=== PATIENT | female | born 1950 | race Asian ===

== ENCOUNTER → 2016-09-20 | Outpatient (CLI) | payer BC ==
[~2016-09-20] MED LIST: ALPR0.25 PO; AMLO-110 PO; ASPI325T39 PO; CALC500C70 PO; CALCTAB5 PO; CHOL1TAB52 PO; CYAN10005 SL; CYCL10TA6 PO; CYM/60 PO; CYM60 PO; EPP3/2 IM; FOLI400T41 PO; IMD/2 PO; MISC4CAP PO; MULT-513 PO; NXM/40 PO; OXYC-57 PO; PREG1CAP70 PO; TRAM-10 PO
== END | disposition home or self-care (01) ==
LOC: C.PAPS 14:12
PROVIDERS: ATTEND Obstetrics & Gynecology
DX: Z12.4 Encounter for screening for malignant neoplasm of cervix (principal)

== ENCOUNTER → 2016-10-17 | Outpatient (CLI) | payer OTHER, MEDICARE ==
--- NOTE | 2016-10-17 12:44 | DIAGNOSTIC IMAGING REPORT ---
RIGHT INJ MAJOR JN SHLDR,HIP,KNEE CLINICAL HISTORY: RT HIP DJD Rightpain COMPARISON STUDY: None FLUOROSCOPY TIME: 16 seconds. FINDINGS: Following informed consent, a 22-gauge needle was advanced under fluoroscopic guidance to the right hip. A test injection confirmed its intra-articular location. This is successfully followed by a steroid injection per order IMPRESSION: Right hip therapeutic steroid injection The above report was generated using voice recognition software. It may contain grammatical, syntax or spelling errors. Electronically signed by: Chaz Link M.D. 10/17/2016 12:42 PM Dictated Date/Time: 10/17/2016 12:40 PM
== END | disposition home or self-care (01) ==
LOC: C.RADBC 09:57
PROVIDERS: ATTEND Orthopaedic Surgery Sports Medicine
DX: M16.11 Unilateral primary osteoarthritis, right hip (principal)

== ENCOUNTER → 2016-10-24 | Outpatient (CLI) | payer OTHER, MEDICARE ==
[2016-10-24 15:08] LABS: BASO % 0.5 %; BASO ABS # 0.03 K/uL (0-0.2); COMPLETE YES; HEMATOCRIT 38.9 % (37-47); IG% 0.2 %; LYMPH % 13.8 %; MEAN CELL VOLUME 90.7 fL (80-100); MEAN CORPUSCULAR HEMOGLOBIN 30.3 pg (25-34); MEAN CORPUSCULAR HGB CONC 33.4 g/dl (32-36); MEAN PLATELET VOLUME 9.6 fL (7.4-10.4); MONO % 3.5 %; PLATELET COUNT 413 K/uL (130-400); RED BLOOD COUNT 4.29 M/uL (4.2-5.4); WHITE BLOOD COUNT 6.54 K/uL (4.8-10.8)
[2016-10-24 15:14] LABS: ALT/SGPT 30 U/L (12-78); AST/SGOT 30 U/L (15-37); BLOOD UREA NITROGEN 13 mg/dl (7-18); BUN/CREATININE RATIO 17.9 (10-20); CARBON DIOXIDE 33 mmol/L (21-32); CHLORIDE 102 mmol/L (98-107); CHOLESTEROL 209 mg/dl (0-200); CREATININE 0.71 mg/dl (0.60-1.20); GLUCOSE 126 mg/dl (70-99); POTASSIUM 4.1 mmol/L (3.5-5.1); SODIUM 137 mmol/L (136-145)
[2016-10-24 15:25] LABS: CHOLESTEROL/HDL RATIO 2.2; HDL CHOLESTEROL 96 mg/dl; LDL CHOLESTEROL CALCULATED 91 mg/dl; TRIGLYCERIDES 111 mg/dl (0-150); VERY LOW DENSITY LIPOPROT CALC 22 mg/dl
== END | disposition home or self-care (01) ==
LOC: C.LAB1850 14:02
PROVIDERS: ATTEND Internal Medicine
DX: I10 Essential (primary) hypertension (principal); M25.50 Pain in unspecified joint; E55.9 Vitamin D deficiency, unspecified; Z79.899 Other long term (current) drug therapy

== ENCOUNTER → 2016-10-24 | Outpatient (CLI) | payer OTHER, MEDICARE ==
--- NOTE | 2016-10-25 12:48 | MAMMOGRAPHY REPORT ---
BILATERAL DIGITAL SCREENING MAMMOGRAM TOMOSYNTHESIS WITH CAD: 10/24/2016 CLINICAL HISTORY: Routine screening. Patient has no complaints. TECHNIQUE: Breast tomosynthesis in addition to standard 2D mammography was performed. Current study was also evaluated with a Computer Aided Detection (CAD) system. COMPARISON: Comparison is made to exams dated: 01/13/2015 mammogram, 11/19/2013 mammogram, 11/19/2013 mammogram, 10/09/2012 mammogram, 05/17/2011 mammogram - [facility], and 11/16/2008. BREAST COMPOSITION: There are scattered areas of fibroglandular density in both breasts. FINDINGS: No suspicious masses, calcifications, or areas of architectural distortion are noted in ei ther breast. There has been no significant interval change compared to prior exams. Scattered bilater al benign-appearing calcifications are not significantly changed. IMPRESSION: ACR BI-RADS CATEGORY 2: BENIGN There is no mammographic evidence of malignancy. A 1 year screening mammogram is recommended. The pa tient will receive written notification of the results. Approximately 10% of breast cancers are not detected with mammography. A negative mammographic report should not delay biopsy if a clinically suggestive mass is present. Sona Franklin M.D. ah/:10/24/2016 14:41:25 Carpet Inspector Finished: Aida JUSTICE(Nicki)(Mon[place]), [facility] letter sent: Normal 1/2 BI-RADS Code: ACR BI-RADS Category 2: Benign
== END | disposition home or self-care (01) ==
LOC: C.MAMM 13:37
PROVIDERS: ATTEND Obstetrics & Gynecology
DX: Z12.31 Encounter for screening mammogram for malignant neoplasm of breast (principal); I10 Essential (primary) hypertension; M25.50 Pain in unspecified joint; E55.9 Vitamin D deficiency, unspecified; Z79.899 Other long term (current) drug therapy

== ENCOUNTER 2017-01-11 06:34 | Inpatient (IN) | payer OTHER, MEDICARE ==
[2016-12-20 09:09] VITALS: BMI 27.0
--- NOTE | 2016-12-20 09:47 | PAT Medication Instructions ---
Service Date Dec 20, 2016. Current Home Medication List Alprazolam (Xanax), 0.25 MG PO Q12 PRN for Anxiety Amlodipine (Norvasc), 5 MG PO QAM Aspirin (Aspirin Ec), 650 MG PO Q6 Calcium/Vitamin D (Os-Ilir 500 Plus D), 1 TAB PO TID Cholecalciferol (D 5000), 5,000 INTERUNIT PO QAM Cyclobenzaprine Hcl (Flexeril), 10 MG PO BID PRN for SPASM Duloxetine HCl (Cymbalta), 60 MG PO BID Epinephrine (Epipen), 0.3 MG IM UD Esomeprazole Magnesium (Nexium), 40 MG PO HS Loperamide Hcl (Imodium), 2 MG PO PRN PRN for Diarrhea Multivitamins/Minerals (Mvi With Minerals), 1 TAB PO BID Oxycodone/Acetaminophen 5MG/325MG (Percocet 5MG/325MG), 1 TAB PO TID Pregabalin (Lyrica), 150 MG PO BID Tramadol (Ultram), 1 TAB PO TID PRN for Pain Medication Instructions For Your Scheduled Surgery - Continue as directed: Epinephrine (Epipen), 0.3 MG IM UD -Hold the following medications per your surgeon's instructions: Aspirin (Aspirin Ec), 650 MG PO Q6 Tramadol (Ultram), 1 TAB PO TID PRN for Pain - Hold the following medications the morning of surgery: Loperamide Hcl (Imodium), 2 MG PO PRN PRN for Diarrhea Multivitamins/Minerals (Mvi With Minerals), 1 TAB PO BID Cyclobenzaprine Hcl (Flexeril), 10 MG PO BID PRN for SPASM Calcium/Vitamin D (Os-Ilir 500 Plus D), 1 TAB PO TID Cholecalciferol (D 5000), 5,000 INTERUNIT PO QAM - Take the following medications the morning of surgery with a sip of water: Pregabalin (Lyrica), 150 MG PO BID Alprazolam (Xanax), 0.25 MG PO Q12 PRN for Anxiety (if needed) Amlodipine (Norvasc), 5 MG PO QAM Duloxetine HCl (Cymbalta), 60 MG PO BID Oxycodone/Acetaminophen 5MG/325MG (Percocet 5MG/325MG), 1 TAB PO TID (if needed , can take up to four hours prior to surgery) - Take the following medications as scheduled the night before surgery: Pregabalin (Lyrica), 150 MG PO BID Alprazolam (Xanax), 0.25 MG PO Q12 PRN for Anxiety (if needed) Esomeprazole Magnesium (Nexium), 40 MG PO HS Multivitamins/Minerals (Mvi With Minerals), 1 TAB PO BID Duloxetine HCl (Cymbalta), 60 MG PO BID Cyclobenzaprine Hcl (Flexeril), 10 MG PO BID PRN for SPASM (if needed) Calcium/Vitamin D (Os-Ilir 500 Plus D), 1 TAB PO TID Oxycodone/Acetaminophen 5MG/325MG (Percocet 5MG/325MG), 1 TAB PO TID If you have any questions please call us at [phone] or [phone] or [phone]
--- NOTE | 2016-12-20 10:39 | DIAGNOSTIC IMAGING REPORT ---
CHEST 2 VIEWS ROUTINE HISTORY: 66 years-old Female PAT preoperative exam. No acute chest complaints. COMPARISON: Chest radiograph 05/24/2015 TECHNIQUE: Frontal and lateral views of the chest FINDINGS: Cardiomediastinal and hilar silhouettes are within normal limits. No pneumothorax, pleural effusion or focal airspace consolidation. There is no overt pulmonary edema. Electrode leads overlie the midthoracic spine extending from T7-T9, possibly within the posterior epidural space. Degenerative changes involve the bilateral shoulders. Hardware seen within the right humeral head. There is fusion hardware of the lower cervical spine, partially imaged. IMPRESSION: 1. No acute cardiopulmonary process. 2. Spinal stimulator leads overlie the midthoracic spine at T7-T9. The above report was generated using voice recognition software. It may contain grammatical, syntax or spelling errors. Electronically signed by: Javy Pierre M.D. 12/20/2016 10:38 AM Dictated Date/Time: 12/20/2016 10:36 AM
[2016-12-20 10:56] LABS: BASO % 0.2 %; BASO ABS # 0.01 K/uL (0-0.2); COMPLETE YES; EOS % 0.9 %; HEMATOCRIT 39.1 % (37-47); IG% 0.2 %; LYMPH % 28.5 %; LYMPH ABS # 1.26 K/uL (1.2-3.4); MEAN CELL VOLUME 90.3 fL (80-100); MEAN CORPUSCULAR HEMOGLOBIN 30.3 pg (25-34); MEAN CORPUSCULAR HGB CONC 33.5 g/dl (32-36); MEAN PLATELET VOLUME 9.9 fL (7.4-10.4); MONO % 7.7 %; NEUT % 62.5 %; PLATELET COUNT 342 K/uL (130-400); RED BLOOD COUNT 4.33 M/uL (4.2-5.4); WHITE BLOOD COUNT 4.42 K/uL (4.8-10.8)
[2016-12-20 11:05] LABS: INR 0.9 (0.9-1.1); PARTIAL THROMBOPLASTIN RATIO 1.2; PROTHROMBIN TIME (PATIENT) 9.5 SECONDS (9.0-12.0)
[2016-12-20 12:28] LABS: BUN/CREATININE RATIO 13.8 (10-20); CALCIUM 8.9 mg/dl (8.5-10.1); CREATININE 0.56 mg/dl (0.60-1.20)
[2016-12-20 12:29] LABS: C-REACTIVE PROTEIN 1.79 mg/dl (0-0.29)
--- NOTE | 2016-12-30 23:50 | HISTORY & PHYSICAL EXAMINATION ---
DATE OF ADMISSION: 01/11/2017 CHIEF COMPLAINT: Right hip pain. HISTORY OF PRESENT ILLNESS: The patient is a 66-year-old female with history of rheumatoid disease, who presents for surgical treatment of her right hip. She has had a several year history of increasing right hip pain and discomfort. She has been through extensive conservative treatment including rheumatological meds as well as pain meds and anti-inflammatories. She has resorted to using a cane to go around. She does have a history of chronic back pain and had failed back surgery in the past with a dorsal column stimulator in place to assist with pain. She used the cane as much as for that as anything. She has developed increased pain and discomfort in her right groin and it has become more debilitating really limiting her activities. X-rays showed progressive hip arthritis. She would like to have her right hip fixed. PAST MEDICAL HISTORY: 1. Hypertension. 2. 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 3. History of rheumatoid arthritis in the past, but currently off most meds. 4. Gastroesophageal reflux disease. 5. Chronic back pain. 6. Chronic neck pain. PREVIOUS SURGICAL HISTORY: 1. L4-S1 fusion. 2. Cervical fusion. 3. Bilateral knee scopes. 4. Bilateral rotator cuff repairs. 5. Dorsal column stimulator. 6. Bariatric surgery. ALLERGIES: None. CURRENT MEDICINES: Include, 1. Duloxetine 60 mg twice a day. 2. Lyrica 150 mg twice a day. 3. Norvasc 5 mg. 4. Vitamin D 500 international units a day. 5. Oxycodone p.r.n. for pain. 6. Tramadol p.r.n. for pain. 7. Cyclobenzaprine p.r.n. 8. Multivitamin. 9. Calcium. 10. Nexium 20 mg a day. SOCIAL HISTORY: A 66-year-old female. She is . She does not smoke. FAMILY HISTORY: Noncontributory. REVIEW OF SYSTEMS: Negative for diabetes. She denies any chest pain or shortness of breath. No history of DVT or PE. She does have a history of inflammatory arthritis, but off most meds. PHYSICAL EXAMINATION: GENERAL: This is a pleasant middle-aged female, looks to be in reasonably good health. HEENT: Benign. NECK: Supple. No lymphadenopathy. LUNGS: Clear to auscultation. HEART: Regular rate and rhythm. ABDOMEN: Soft, nontender, nondistended. EXTREMITIES: Grossly neurovascularly intact except as follows: Examination of the right hip and leg reveals the patient walks with the use of a cane. Leg lengths clinically appear pretty equal. She does have pain with any type of hip motion. She can internally rotate about 5 degrees, external rotation to 20 degrees. Negative straight leg raise. She is neurologically intact. X-RAYS: X-rays of the right hip were reviewed. It shows advanced right hip DJD. She has complete loss of her superior joint space. She has fairly concentric disease consistent with inflammatory arthritis. This has progressed significantly over the past year. ASSESSMENT: A 66-year-old female with a remote history of inflammatory arthritis with advanced and progressive right hip pain and degenerative joint disease. She undoubtedly has significant pain from her back and has a dorsal column stimulator in place, but her hip pain has progressed and shows progressive signs on x-ray as well. PLAN: We talked about treatment and she would like to have her hip replaced. The risks and benefits of total hip replacement were explained to the patient including but not limited to DVT, PE, , infection, neurological injury, vascular injury, bleeding problem, pain, limited range of motion, stiffness, failure to relieve his symptoms, incomplete relief of symptoms, need for further surgery in the future, fracture, leg length inequality, nerve palsy, etc. The patient understands and desires to proceed. Informed consent was obtained. We will likely use a hybrid system and cementing the stem due to her bone density and history of gastric bypass surgery in the past. She is on chronic narcotics which will make postoperative pain management a bit more difficult. She is aware of all this and desires to proceed. SHAMAR
[~2017-01-11] VITALS: Ht 160 cm; Wt 69.2 kg
[2017-01-11] VITALS (9 sets, daily range): BP systolic 117–137; BP diastolic 67–84; PULSE 72–97; TEMP 36–37.2; O2SAT 96–100; Ht 160 cm; Wt 69.2 kg
[~2017-01-11 06:34] MED LIST changes: +ACETAMINOPHEN 500 MG TAB PO SCH; +BUPIVACAINE 0.5 % 5 MG/1 ML PF 10ML VIAL ONE; -CALCTAB5 PO; +CEFAZOLIN 2000MG IV PUSH 10 ML IV SCH; -CYAN10005 SL; -CYM60 PO; +FAMOTIDINE 20 MG TAB PO SCH; -FOLI400T41 PO; +GABAPENTIN 300 MG CAP PO SCH; +LACTATED RINGER'S 1000ML 1,000 ML IV SCH; +LACTATED RINGER'S 1000ML 500 ML IV ONE; +LACTATED RINGER'S 1000ML IV SCH; +METOCLOPRAMIDE HCL 10 MG TAB PO SCH; -MISC4CAP PO; +SCOPOLAMINE 1.5 MG TDSY TD SCH; +TRAMADOL HCL 50 MG TAB PO SCH; +TRANEXAMIC ACID INJ 1,000 MG in SODIUM CHLORIDE 0.9% 100ML 100 ML IV SCH
[2017-01-11] MEDS ORDERED: OXYC-106 PO (07:19)
[2017-01-11] MEDS ORDERED: MIDAZOLAM HCL 1 MG/ML 2ML VIAL ONE (07:48)
[2017-01-11] MEDS ORDERED: FENTANYL CITRATE INJ 50 MCG/1 ML 2 ML VIAL ONE ×2 (07:49→10:48)
--- NOTE | 2017-01-11 08:39 | History & Physical Bridge Note ---
H&P Re-Evaluation Bridge Note: I have examined the patient, reviewed the History & Physical and in the interval since the performance of the History & Physical I have noted the following changes of clinical significance: No changes noted
[2017-01-11] MEDS ORDERED: BACITRACIN 50000 UNIT VIAL ONE (08:41)
[2017-01-11] MEDS ORDERED: BUPIVACAINE/EPINEPHRINE 0.5% MPF 1:200,000 30 ML VIAL ONE (08:41)
[2017-01-11] MEDS ORDERED: PROMETHAZINE HCL INJ 6.25 MG in SODIUM CHLORIDE 0.9% 50ML 50 ML IV PRN (08:45)
[2017-01-11] MEDS ORDERED: FENTANYL CITRATE INJ 50 MCG/1 ML 2 ML VIAL IV PRN (08:45)
[2017-01-11] MEDS ORDERED: HYDROmorphone INJ 1 MG/ML SYR IV PRN (08:45)
[2017-01-11] MEDS ORDERED: ONDANSETRON INJ 2 MG/ML 2 ML VIAL IV PRN ×2 (08:45→11:00)
[2017-01-11] MEDS ORDERED: EpHEDrine SULFATE INJ 50 MG/ML AMP IV PRN (08:45)
[2017-01-11] MEDS ORDERED: ATROPINE SULFATE 0.1 MG/ML 5ML SYR IV PRN (08:45)
[2017-01-11] MEDS ORDERED: KETAMINE HCL INJ 50 MG/ML 10 ML VIAL ONE (09:21)
[2017-01-11] MEDS ORDERED: HYDROmorphone INJ 2 MG/ML SYR/VIAL ONE (09:21)
[2017-01-11] MEDS ORDERED: LIDOCAINE HCL 2% 2 ML VIAL (20MG/ML) ONE (10:01)
[2017-01-11] MEDS ORDERED: PHENYLEPHRINE 100MCG/ML 5ML SYR ONE (10:01)
[2017-01-11] MEDS ORDERED: GLYCOPYRROLATE INJ 0.2 MG/ML VIAL ONE (10:01)
[2017-01-11] MEDS ORDERED: DEXAMETHASONE SOD INJ 4 MG/ML VIAL ONE (10:01)
[2017-01-11] MEDS ORDERED: ROCURONIUM BROMIDE 10 MG/ML 5 ML VIAL IV ONE (10:01)
[2017-01-11] MEDS ORDERED: LABETALOL HCL IV 5 MG/ML 20ML IV ONE (10:01)
[2017-01-11] MEDS ORDERED: NEOSTIGMINE METHYLSULFATE 5 MG/5 ML SYR ONE (10:01)
[2017-01-11] MEDS ORDERED: PROPOFOL IV EMULSION 10 MG/ML 20 ML VIAL IV ONE (10:01)
[2017-01-11] MEDS ORDERED: ONDANSETRON INJ 2 MG/ML 2 ML VIAL ONE (10:01)
--- NOTE | 2017-01-11 10:56 | [facility] Post Operative Brief Note ---
Immediate Operative Summary Operative Date Jan 11, 2017. Pre-Operative Diagnosis Advanced Right Hip Degenerative Joint Disease Post-Operative Diagnosis Same as preoperative Procedure(s) Performed Right Total Hip Arthroplasty, Cemented Surgeon Dr. Hector Roy Front Office Representative Surgeon(s) Ezra Bhatia PA-C Estimated Blood Loss 300ml Findings Right Hip DJD Fluids (cc crystalloids) 2000 cc Specimens A.) Right Femoral Head Drains None Anesthesia General Complication(s) None Disposition Recovery Room / PACU
[2017-01-11] MEDS ORDERED: MoRPHine SULFATE 2 MG/ML CARP IV PRN (11:00)
[2017-01-11] MEDS ORDERED: ZOLPIDEM TARTRATE 5 MG TAB PO PRN (11:00)
[2017-01-11] MEDS ORDERED: DiphenhydrAMINE HCL 50 MG/ML VIAL IV PRN (11:00)
[2017-01-11] MEDS ORDERED: METOCLOPRAMIDE HCL INJ 5 MG/ML 2 ML VIAL IV PRN (11:00)
[2017-01-11] MEDS ORDERED: SILVER SULFADIAZINE 1% CR 50 GM JAR EXT PRN (11:00)
[2017-01-11] MEDS ORDERED: ALUMINUM/MAGNESIUM/SIMETH (MAALOX MAX) 30 ML UDC PO PRN (11:00)
[2017-01-11] MEDS ORDERED: EPINEPHRINE ADULT AUTO-INJECT 0.3 MG SYR IM PRN (11:00)
[2017-01-11] MEDS ORDERED: ALPRAZOLAM 0.25 MG TAB PO PRN (11:00)
[2017-01-11] MEDS ORDERED: MAGNESIUM HYDROXIDE SUSP 30 ML UDC PO PRN (11:00)
[2017-01-11] MEDS ORDERED: LOPERAMIDE HCL 2 MG CAP PO PRN (11:00)
[2017-01-11] MEDS ORDERED: BISACODYL 10 MG SUPP PR PRN (11:00)
[2017-01-11] MEDS ORDERED: CYCLOBENZAPRINE HCL 10 MG TAB PO PRN (11:00)
--- NOTE | 2017-01-11 11:33 | OPERATIVE REPORT ---
DATE OF OPERATION: 01/11/2017 SURGEON: Hector Roy MD TRANSITION LEAD: JAMES Bennett PREOPERATIVE DIAGNOSIS: Right hip degenerative joint disease. POSTOPERATIVE DIAGNOSIS: Same. PROCEDURE PERFORMED: Right hybrid total hip arthroplasty. COMPLICATIONS: None. ESTIMATED BLOOD LOSS: 300 mL. FLUID REPLACEMENT: 2000 mL crystalloid fluid replacement. ANESTHESIA: General. SPECIMENS: Right femoral head sent for pathology. TOURNIQUET TIME: Not applicable. OPERATIVE INDICATIONS: The patient is a 66-year-old female who has a history of rheumatoid arthritis in the past, treated with variable doses of prednisone for a long period of time, who has developed progressive increasing hip pain and discomfort over the past several years. X-rays over the past year showed marked deterioration of her hip joint. She had failed conservative care and elected to proceed with operative treatment. Because of her osteopenia and poor bone stock secondary to gastric bypass surgery, Steroid use, and RA, I elected to cement the femoral component. OPERATIVE FINDINGS: Operative findings revealed advanced right hip DJD. She had grade 4 [id number] disease of the femoral head and acetabulum. The femoral head was more diseased than the acetabulum. She had diffuse osteopenia throughout. She had pretty significant joint effusion and synovitis. OPERATIVE IMPLANTS: Operative implants consisted of: 1. Biomet G7 size 52-mm acetabular shell. 2. A 6.5 cancellous acetabular screws, 1 at 35 mm length and 1 at 20 mm in length. 3. An apex hole eliminator. 4. Highly cross-linked polyethylene liner with 52 mm outer diameter and 32 mm inner diameter. 5. A DePuy size 2 standard offset [place] cemented femoral stem. 6. A +5/32 mm metal articular ball. OPERATIVE PROCEDURE: The patient was taken to the operating room, identified and placed on the operating table in the supine position. All contact areas were appropriately padded. IV antibiotics were provided by the anesthesia team. A general anesthetic was implemented. A general anesthetic was done secondary to her spine surgery and also has a dorsal column stimulator in place and did not want to disturb that. A general anesthetic was implemented. Ochoa catheter was placed in sterile fashion. The patient was then placed in the left lateral decubitus position. An axillary roll was placed. Stulberg hip positioner was used for positioning. The right hip and leg were then prepped and draped in the usual sterile fashion. A posterolateral approach to the right hip was then performed through a curvilinear incision centered over the greater trochanter. Sharp dissection was carried through the subcutaneous tissue down to the level of the IT band and gluteal fascia. The IT band and gluteal fascia were then incised longitudinally in line with skin incision. The underlying greater trochanteric bursa was excised. The piriformis and external rotators were taken down along with the capsule as a single layer. Great care was taken throughout the procedure to protect the sciatic nerve at all times. The hip was internally rotated and dislocated. Femoral neck osteotomy cut was made with the final cut about 8 mm above the lesser trochanter. Femoral head was removed and sent for pathology. The femur was retracted anteriorly. Attention was then drawn to the acetabulum. The acetabulum labrum was excised. All the synovitis was excised. The pulvinar fat was excised. Sequential reaming of the acetabulum was then performed beginning with a size 43 and progressing up to 51. A 52-mm Biomet G7 acetabular shell was then placed in about 40 degrees of lateral opening and 20 degrees of anteversion. It was fixed with two 6.5 cancellous acetabular screws. A trial liner was placed. Attention was then drawn to the femur. The proximal femur was entered with cookie cutter followed by canal finder and lateralizing reamer. I then broached beginning with a size 1 and 2. Even with the size 2, the proximal dimensions were down to the cortical bone. I started to broach with a 3, but felt it was too tight and I was concerned about breaking her femur considering her gastric bypass surgery, osteoporosis, and the prednisone use in the past. Therefore, we stopped and placed 2 implants. Calcar reamer was used to smoothen off the calcar. We then trialed the hip and the +5 articular ball recreated leg lengths equally. She had full extension and external rotation and the hip was stable in flexion to 90 degrees and internal rotation to 70+ degrees. We elected to use these implants. All trial implants were removed. An apex hole eliminator was placed. Highly cross-linked polyethylene liner was placed. A double batch of [place] G cement was mixed. This was injected into the canal and a size 2 standard offset femoral stem was then placed. All extraneous cement was removed. We did pressurize the cement. I then trialed the hip again. The +5 articular ball felt appropriate. I then placed the permanent +5/32 mm metal articular ball. Hip was located and once again found to be stable. Attention was then drawn toward closing. The wound was irrigated with copious amounts of pulsatile lavage solution. I did inject locally with 60 mL of 0.5% Marcaine with epinephrine. The posterior capsule and external rotators were repaired to the posterior aspect of the hip joint through holes in the greater trochanter as a single layer with #2 Ti-Cron suture. The IT band and gluteal fascia were then closed with #1 PDS suture in a running fashion. The subcutaneous tissues were then closed in 2 layers with a deep layer #1 Vicryl suture and subcutaneous tissues with 2-0 Dexon suture in a buried interrupted fashion. The skin was closed with skin john. Leg was then cleaned and dried and a sterile dressing of Xeroform, 4 x 4, ABD pad and foam tape was applied. The patient then brought out of general anesthesia and transferred to the recovery room in stable condition. The patient tolerated the procedure well with no complications. All needle and sponge counts were correct at the end of the operation. I attest to the content of the Intraoperative Record and any orders documented therein. Any exceptions are noted below. SHAMAR
--- NOTE | 2017-01-11 11:42 | DIAGNOSTIC IMAGING REPORT ---
R PELVIS/UNILATERAL HIP 1 VIEW HISTORY: 66 years-old Female IN PACU - A/P PELVIS and LATERAL HIP INCLUDING ALL OF IMPLANT status post right hip arthroplasty. Degenerative joint disease. COMPARISON: Pelvis and right hip radiographs 10/11/2016 TECHNIQUE: AP view of the pelvis with frog-leg view of the right hip FINDINGS: Bones are moderately demineralized. Status post right total hip arthroplasty with expected soft tissue swelling and deep tissue air. Skin john are noted laterally. Alignment is satisfactory without periprosthetic fracture. The dilator pack overlies the mid pelvis. Hardware of the sacrum partially imaged. IMPRESSION: Status post right total hip arthroplasty without complication. The above report was generated using voice recognition software. It may contain grammatical, syntax or spelling errors. Electronically signed by: Javy Pierre M.D. 01/11/2017 11:40 AM Dictated Date/Time: 01/11/2017 11:35 AM
--- NOTE | 2017-01-11 11:55 | Anesthesiology Progress Note ---
Anesthesia Post Op Note Date & Time Jan 11, 2017 at 11:55 Vital Signs Pain Intensity: 4 Vital Signs Past 12 Hours Date Time Temp Pulse Resp B/P (MAP) Pulse Ox O2 Delivery O2 Flow Rate FiO2 01/11/17 11:40 36.2 76 16 137/74 100 Nasal Cannula 2 01/11/17 11:30 76 16 122/67 100 Nasal Cannula 2 01/11/17 11:20 76 17 118/66 100 Oxymask 5 01/11/17 11:10 72 18 103/59 100 Oxymask 10 01/11/17 11:01 36.1 64 16 92/54 97 Oxymask 10 01/11/17 06:54 36.7 86 18 131/84 96 Room Air Notes Mental Status: alert / awake / arousable, participated in evaluation Pt Amnestic to Procedure: Yes Nausea / Vomiting: adequately controlled Pain: adequately controlled Airway Patency, RR, SpO2: stable & adequate BP & HR: stable & adequate Hydration State: stable & adequate Anesthetic Complications: no major complications apparent
[2017-01-11] MEDS: D5W AND 1/2NSS + 20MEQ KCL 1,000 ML IV SCH ×2 (13:11→22:08)
[2017-01-11] MEDS: OXYCODONE HCL IR 5 MG TAB (IMMEDIATE RELEASE) PO PRN ×3 (13:12→23:52)
[2017-01-11] MEDS: FERROUS GLUCONATE 324 MG TAB PO SCH ×2 (13:36→17:52)
[2017-01-11] MEDS: ACETAMINOPHEN 500 MG TAB PO SCH ×2 (13:37→21:24)
[2017-01-11] MEDS: CALCIUM 600MG + VIT D 400 IU TAB PO SCH ×2 (13:37→21:00)
--- NOTE | 2017-01-11 14:08 | PROGRESS NOTE ---
DATE: 01/11/2017 SUBJECTIVE: A 66-year-old white female postop from a right hybrid total hip replacement. She is doing pretty well. Her hip started to get sore and she has taken some pain medicines. She denies any chest pain or shortness of breath. Not feeling dizzy or lightheaded. OBJECTIVE: VITAL SIGNS: Temperature is 36.0. Vital signs stable. GENERAL: Physical examination reveals a pleasant, middle-aged female, obese, sitting up in bed and talking to her . She is eating her lunch. She looks comfortable. LUNGS: Clear to auscultation. HEART: Regular rate and rhythm. ABDOMEN: Soft, nontender, and nondistended. EXTREMITIES: Grossly neurovascularly intact except as follows: Examination of the right hip and leg reveals leg lengths to be equal. She can dorsiflex and plantarflex her foot appropriately. Dressing is clean, dry and intact. Thigh is soft and supple. She is neurologically intact. X-RAYS: X-rays of the right hip from recovery room were reviewed. It shows a right hybrid total hip arthroplasty. Components looked to be in good position. Fairly rotated film. No signs of fracture or problems. ASSESSMENT: A 66-year-old female with pretty significant previous narcotic use due to multiple orthopedic and spine issues postop from a right total hip replacement, doing pretty well. She is probably going to be difficult to manage from the pain standpoint, but hopefully this will help her pain over time. Her hip is located. She is neurologically intact. PLAN: 1. DVT prophylaxis including thigh-high TEDs, SCDs, and aspirin twice a day. 2. PT/OT. Weight bear as tolerated. Right total hip protocol. 3. IV antibiotics x24 hours. 4. Pain control. We will have to titrate her pain medicine as needed. She has a long history of long-term narcotic use from back as well as other issues and will need to titrate this and manage it. 5. Disposition: She is planning to be discharged to home with some home health once adequately recovered.
[2017-01-11] MEDS: KETOROLAC TROMETHAMINE 15 MG/ML VIAL IV. SCH ×2 (16:01→22:08)
[2017-01-11] MEDS: CHECK SCOPOLAMINE PATCH PLACEMENT SCH ×2 (16:01→23:53)
[2017-01-11] MEDS ORDERED: TRANEXAMIC ACID INJ 1,000 MG in SODIUM CHLORIDE 0.9% 100ML 100 ML IV ONE (17:00)
[2017-01-11] MEDS ORDERED: CEFAZOLIN IV 1,000 MG in SYRINGE 0 ML IV SCH (18:00)
[2017-01-11] MEDS: CEROVITE ADV FORMULA TAB PO SCH (21:00)
[2017-01-11] MEDS ORDERED: NON-FORMULARY MEDICATION (Esomeprazole Magnesium (Nexium) 40 MG) PO SCH (21:00)
[2017-01-11] MEDS: PREGABALIN 150 MG CAP PO SCH (21:23)
[2017-01-11] MEDS: TAPENTADOL ER 50 MG TABCR PO SCH (21:23)
[2017-01-11] MEDS: DOCUSATE SODIUM 100 MG CAP PO SCH (21:24)
[2017-01-11] MEDS: ASPIRIN 325 MG ECTAB PO SCH (21:24)
[2017-01-11] MEDS: DULOXETINE HCL 60 MG CAP PO SCH (21:25)
[2017-01-11] MEDS: SENNA 8.6 MG TAB PO SCH (21:25)
[2017-01-12] MEDS: KETOROLAC TROMETHAMINE 15 MG/ML VIAL IV. SCH ×4 (03:52→21:22)
[2017-01-12 03:55] VITALS: BP 132/80; PULSE 97; TEMP 37.2; O2SAT 98
[2017-01-12] MEDS: ACETAMINOPHEN 500 MG TAB PO SCH ×3 (05:52→21:22)
[2017-01-12 06:57] LABS: BASO % 0.3 %; BASO ABS # 0.02 K/uL (0-0.2); COMPLETE YES; EOS % 0.2 %; HEMATOCRIT 31.8 % (37-47); IG% 0.2 %; LYMPH % 19.7 %; LYMPH ABS # 1.18 K/uL (1.2-3.4); MEAN CELL VOLUME 89.8 fL (80-100); MEAN CORPUSCULAR HEMOGLOBIN 29.9 pg (25-34); MEAN CORPUSCULAR HGB CONC 33.3 g/dl (32-36); MEAN PLATELET VOLUME 8.9 fL (7.4-10.4); MONO % 9.4 %; NEUT % 70.2 %; PLATELET COUNT 240 K/uL (130-400); RED BLOOD COUNT 3.54 M/uL (4.2-5.4); WHITE BLOOD COUNT 5.98 K/uL (4.8-10.8)
[2017-01-12 07:13] VITALS: BP 148/81; PULSE 95; TEMP 37.2; O2SAT 99
[2017-01-12 07:24] LABS: BUN/CREATININE RATIO 12.3 (10-20); CALCIUM 8.4 mg/dl (8.5-10.1); CREATININE 0.58 mg/dl (0.60-1.20); POTASSIUM 3.8 mmol/L (3.5-5.1)
[2017-01-12] MEDS ORDERED: INFLUENZA ADMINISTRATION CHARGE ONE (08:00)
[2017-01-12] MEDS ORDERED: INFLUENZA VACCINE HIGH DOSE 65+ 0.5 ML SYR IM. ONE (08:00)
--- NOTE | 2017-01-12 08:06 | PROGRESS NOTE ---
DATE: 01/12/2017 SUBJECTIVE: A 66-year-old white female postop day #1 from hybrid total hip arthroplasty. She is doing well. She says that Toradol worked well for pain. Denies any chest pain or shortness of breath. Not feeling dizzy or lightheaded. OBJECTIVE: VITAL SIGNS: Temperature is 37.2. Vital signs stable. GENERAL: Physical examination reveals a pleasant, middle-aged female. She is sitting up at her bedside and looks pretty comfortable. Looks awake, alert, and appropriate. LUNGS: Clear to auscultation. HEART: Has a regular rate and rhythm. ABDOMEN: Soft, nontender, and nondistended. EXTREMITIES: Grossly neurovascularly intact except as follows: Examination of the right hip and leg reveals the dressing to be clean, dry and intact. Leg lengths were equal. Hip is located. She is neurologically intact. LABORATORY DATA: Hemoglobin 10.6 and hematocrit 31.8. Electrolytes stable. ASSESSMENT: A 66-year-old female postop day #1 from a right total hip replacement, doing well. Pain is controlled. Her hip is located. She is neurologically intact. PLAN: 1. DVT prophylaxis including thigh-high TEDs, SCDs, and aspirin twice a day. 2. PT/OT. Weightbear as tolerated. Right total hip protocol. 3. Pain control, doing pretty well with current pain regimen. She certainly may be a bit of a challenge with pain control due to her long-term narcotic use. 4. Disposition: Plan to discharge to home with home health once adequately recovered. SHAMAR
[2017-01-12] MEDS: CHECK SCOPOLAMINE PATCH PLACEMENT SCH ×3 (08:27→23:08)
[2017-01-12] MEDS: OXYCODONE HCL IR 5 MG TAB (IMMEDIATE RELEASE) PO PRN ×3 (08:29→23:12)
[2017-01-12] MEDS: FERROUS GLUCONATE 324 MG TAB PO SCH ×3 (08:30→17:20)
[2017-01-12] MEDS: D5W AND 1/2NSS + 20MEQ KCL 1,000 ML IV SCH (08:30)
[2017-01-12] MEDS: CALCIUM 600MG + VIT D 400 IU TAB PO SCH ×3 (08:31→20:43)
[2017-01-12] MEDS: ASPIRIN 325 MG ECTAB PO SCH ×2 (08:32→20:43)
[2017-01-12] MEDS: DULOXETINE HCL 60 MG CAP PO SCH ×2 (08:32→20:43)
[2017-01-12] MEDS: MULTIVITAMIN TAB PO SCH (08:32)
[2017-01-12] MEDS: DOCUSATE SODIUM 100 MG CAP PO SCH ×2 (08:32→20:44)
[2017-01-12] MEDS: CEROVITE ADV FORMULA TAB PO SCH ×2 (08:33→20:43)
[2017-01-12] MEDS: TAPENTADOL ER 50 MG TABCR PO SCH ×2 (08:33→20:48)
[2017-01-12] MEDS: PANTOprazole SOD 40 MG TAB PO SCH (08:33)
[2017-01-12] MEDS: CHOLECALCIFEROL 1000 INTER.UNIT TAB PO SCH (08:34)
[2017-01-12 08:36] VITALS: BP 128/76; PULSE 94
[2017-01-12] MEDS: AMLODIPINE BESYLATE 5 MG TAB PO SCH (08:36)
[2017-01-12] MEDS: PREGABALIN 150 MG CAP PO SCH ×2 (08:38→20:48)
[2017-01-12 11:38] VITALS: BP 114/75; PULSE 88; TEMP 36.7; O2SAT 99
[2017-01-12 15:40] VITALS: BP 112/69; PULSE 88; TEMP 36.7; O2SAT 96
[2017-01-12] MEDS ORDERED: OXYC-106 PO (20:26)
[2017-01-12] MEDS ORDERED: ASPEC325 PO (20:26)
[2017-01-12] MEDS ORDERED: FRRG PO (20:26)
--- NOTE | 2017-01-12 20:31 | Discharge Instructions ---
Discharge Instructions Date of Service Jan 12, 2017. Admission Reason for Admission: Right Hip Degenerative Joint Disease Discharge Discharge Diagnosis / Problem: Right Hip Replacement Discharge Goals Goal(s): Decrease discomfort, Improve function, Increase independence, Improve disease control, Therapeutic intervention Activity Recommendations Activity Limitations: per Instructions/Follow-up section (Total Hip Precautions.) Weightbearing Status: Right weightbearing . Instructions / Follow-Up Instructions / Follow-Up ACTIVITY RECOMMENDATIONS: Physical Therapy: * Aggressive physical therapy is not usually needed. You will learn to take care of yourself safely and walk. * Follow the "Hip Precautions Instructions." * In some cases, the psych social worker at the hospital will arrange to have a therapist come to your house for the first couple of weeks to help you learn these skills. * You need to practice on your own or with the help of a family member as needed. * When you learn these skills, most of the therapy can be done on your own. Home Exercise: * You were shown a series of exercises in the hospital. Do these exercises three to four times each day including the exercises you were shown in physical therapy. Walking: * Get up and walk several times each day. For the first four weeks, try not to stand or walk for more than one hour at a time. If you do stand or walk for more than one hour, you will not hurt anything, but your leg will likely swell. * As you feel comfortable, you may change from the walker or crutches to a cane and then to independent walking. MEDICATIONS: New Medicine: * You will likely be taking one or more of these medicines: 1. Percocet - Take, as directed, when you need it, every four to six hours to control your pain. 2. Iron Sulfate - Take three times each day for the month after surgery to help you replace the blood lost during surgery. 3. Aspirin - Thins your blood to lessen the chance of forming a blood clot. * The most common side effects of pain medicine and iron are nausea and constipation. If nausea or constipation is too much of a problem or if you have any questions about your new medicines or doses, call [facility] at . We will try to help you manage these issues. VERY IMPORTANT TO READ AND REVIEW" Pain: * The immediate post-operative period after hip replacement surgery is often quite painful. * You are given a prescription for pain medicine. You should take it, as directed, when you need it, especially before physical therapy and before going to bed. Pain that interferes with sleep is very common and can last several months. * You will likely need pain medicine for the first two to four weeks. It will not stop all of the pain. The pain will lessen and as you feel better, you may change to milder pain medicine such as Tylenol. * The most common side effects of pain medicine are nausea and constipation, so don't take more than you need. SPECIAL CARE INSTRUCTIONS: TEDs/Elastic Stockings: * The white elastic stockings help limit swelling and prevent blood clots from forming in your legs. The more you wear them, the more they work. * Wear them for six weeks. Prevention of Infection: * Take antibiotics one hour before any dental cleaning, dental work, urological procedure, gastrointestinal procedure or any invasive surgery in order to prevent your new joint from getting infected. * You may get the antibiotics from the doctor performing the procedure or you may call our office at before and we will call in a prescription to the pharmacy of your choice. Things to Watch For: * Drainage from the incision site that occurs more than one week after your surgery. * Severely increased leg pain or swelling. * Increased redness at the incision site. * Fever above 102 degrees Fahrenheit. * Unusual chest pain or shortness of breath. * Unusual pain or burning with urination. Call [facility] at with any of the above problems or if you have any questions about your medicines or recovery. FOLLOW UP VISIT: Make an appointment to see your doctor for approximately two weeks after surgery for a progress check and staple removal by calling the office at . Current Hospital Diet Patient's current hospital diet: Regular Diet Discharge Diet Recommended Diet: Regular Diet Procedures Procedures Performed: Right Total Hip Arthroplasty, Cemented Pending Studies Studies pending at discharge: no Laboratory Results Lipid Panel Test 10/24/16 14:05 Range/Units Triglycerides Level 111 0-150 mg/dl Cholesterol Level 209 H 0-200 mg/dl HDL Cholesterol 96 mg/dl Cholesterol/HDL Ratio 2.2 LDL Cholesterol, Calculated 91 mg/dl Medical Emergencies . Who to Call and When: Medical Emergencies: If at any time you feel your situation is an emergency, please call 911 immediately. . Non-Emergent Contact Non-Emergency issues call your: Surgeon . "Provider Documentation" section prepared by Hector Roy. . VTE Core Measure Inpt VTE Proph given/why not?: Other Anticoagulation, T.E.D. Stockings, SCD's
[2017-01-12] MEDS: SENNA 8.6 MG TAB PO SCH (20:43)
[2017-01-12 22:57] VITALS: BP 132/74; PULSE 91; TEMP 37.4; O2SAT 99
[2017-01-13] MEDS: KETOROLAC TROMETHAMINE 15 MG/ML VIAL IV. SCH ×2 (05:09→10:12)
[2017-01-13] MEDS: OXYCODONE HCL IR 5 MG TAB (IMMEDIATE RELEASE) PO PRN ×2 (05:10→10:11)
[2017-01-13] MEDS: ACETAMINOPHEN 500 MG TAB PO SCH (05:11)
[2017-01-13 06:32] VITALS: BP 126/69; PULSE 84; TEMP 36.9; O2SAT 96
[2017-01-13] MEDS: CALCIUM 600MG + VIT D 400 IU TAB PO SCH (07:38)
[2017-01-13] MEDS: FERROUS GLUCONATE 324 MG TAB PO SCH (07:38)
[2017-01-13] MEDS: ASPIRIN 325 MG ECTAB PO SCH (07:39)
[2017-01-13] MEDS: DOCUSATE SODIUM 100 MG CAP PO SCH (07:39)
[2017-01-13] MEDS: DULOXETINE HCL 60 MG CAP PO SCH (07:39)
[2017-01-13] MEDS: PANTOprazole SOD 40 MG TAB PO SCH (07:40)
[2017-01-13] MEDS: CEROVITE ADV FORMULA TAB PO SCH (07:40)
[2017-01-13] MEDS: MULTIVITAMIN TAB PO SCH (07:40)
[2017-01-13] MEDS: CHOLECALCIFEROL 1000 INTER.UNIT TAB PO SCH (07:40)
[2017-01-13] MEDS: AMLODIPINE BESYLATE 5 MG TAB PO SCH (07:41)
[2017-01-13] MEDS: TAPENTADOL ER 50 MG TABCR PO SCH (07:41)
[2017-01-13] MEDS: CHECK SCOPOLAMINE PATCH PLACEMENT SCH (07:42)
[2017-01-13] MEDS: PREGABALIN 150 MG CAP PO SCH (07:45)
--- NOTE | 2017-01-13 08:39 | PROGRESS NOTE ---
DATE: 01/13/2017 SUBJECTIVE: A 66-year-old white female postop day 2 from a right total hip replacement. She is doing well. Pain is actually better than what it was before surgery. Denies any chest pain or shortness of breath. Not feeling dizzy or lightheaded. OBJECTIVE: VITAL SIGNS: Temperature 36.9. Vital signs stable. PHYSICAL EXAMINATION: GENERAL: Physical examination shows a pleasant, middle-aged female. She is sitting up at her bedside and looks pretty comfortable. EXTREMITIES: Examination of the right hip reveals the dressing to be clean, dry and intact. Hip is located. Leg lengths are equal. She can dorsiflex and plantarflex her foot appropriately. She is neurologically intact. ASSESSMENT: A 66-year-old white female postop day 2 from a right total hip replacement, doing well. The pain is controlled. Hip is located. She does have chronic back problems for which she has been on chjronic narcotic use. PLAN: 1. DVT prophylaxis including thigh-high TEDs, SCDs, and aspirin twice a day. 2. PT, OT. Weightbearing as tolerated. Right total hip protocol. 3. Pain control, doing pretty well with current pain regimen. Actually seems to be doing better than before surgery. 4. Anemia. Currently asymptomatic. We will continue iron supplementation. 5. Disposition: Plan to discharge to home with home health later today. SHAMAR
[2017-01-13 10:01] VITALS: BP 126/69; PULSE 84; TEMP 36.9; O2SAT 96
== END 2017-01-13 11:10 | disposition home health service (06) | DRG 470 ==
LOC: C.ACU 06:34 → C.3E 07:39 → ENRESERV 11:22
PROVIDERS: ADMIT Orthopaedic Surgery Sports Medicine; ATTEND Orthopaedic Surgery Sports Medicine
PROC: 0SR9029 Replacement of Right Hip Joint with Metal on Polyethylene Synthetic Substitute, Cemented, Open Approach (ICD-10-PCS; principal; 2017-01-11 08:45)
DX: M16.11 Unilateral primary osteoarthritis, right hip (principal); M85.80 Other specified disorders of bone density and structure, unspecified site; M54.9 Dorsalgia, unspecified; G89.29 Other chronic pain; I10 Essential (primary) hypertension; K21.9 Gastro-esophageal reflux disease without esophagitis; Z96.89 Presence of other specified functional implants; Z92.241 Personal history of systemic steroid therapy; Z98.1 Arthrodesis status; Z98.84 Bariatric surgery status; Z79.82 Long term (current) use of aspirin; Z79.891 Long term (current) use of opiate analgesic; Z79.899 Other long term (current) drug therapy

== ENCOUNTER → 2017-03-27 | Outpatient (CLI) | payer OTHER, MEDICARE ==
[~2017-03-27] MED LIST changes: -ACETAMINOPHEN 500 MG TAB PO SCH; -AMLO-110 PO; +AMLO5TAB3 PO; +AMOX875T PO; +ASPEC325 PO; -BUPIVACAINE 0.5 % 5 MG/1 ML PF 10ML VIAL ONE; -CEFAZOLIN 2000MG IV PUSH 10 ML IV SCH; -FAMOTIDINE 20 MG TAB PO SCH; +FRRG PO; -GABAPENTIN 300 MG CAP PO SCH; -LACTATED RINGER'S 1000ML 1,000 ML IV SCH; -LACTATED RINGER'S 1000ML 500 ML IV ONE; -LACTATED RINGER'S 1000ML IV SCH; -METOCLOPRAMIDE HCL 10 MG TAB PO SCH; -OXYC-57 PO; +OXYC-594 PO; +OXYC10TA2 PO; -SCOPOLAMINE 1.5 MG TDSY TD SCH; -TRAMADOL HCL 50 MG TAB PO SCH; -TRANEXAMIC ACID INJ 1,000 MG in SODIUM CHLORIDE 0.9% 100ML 100 ML IV SCH
== END | disposition home or self-care (01) ==
LOC: C.LABSPEC 16:41
PROVIDERS: ATTEND Internal Medicine
DX: R39.15 Urgency of urination (principal)

== ENCOUNTER → 2017-04-25 | Outpatient (CLI) | payer OTHER, MEDICARE ==
[~2017-04-25] MED LIST changes: +AMLO-110 PO; -AMLO5TAB3 PO; -AMOX875T PO; -ASPI325T39 PO; +OXYC-106 PO; -OXYC-594 PO; -OXYC10TA2 PO
--- NOTE | 2017-04-25 11:30 | DIAGNOSTIC IMAGING REPORT ---
LEFT HIP 2 VIEWS CLINICAL HISTORY: Left hip pain. FINDINGS: AP and frog-leg views of the left hip are correlated with pelvic radiograph dated 09/07/2013. The skeletal structures are osteopenic. No fracture is seen involving the left hip or the visualized left hemipelvis. Mild arthritic changes noted in the hip with minimal joint space narrowing. Fusion hardware is partially imaged in the lower lumbar region. A similar device projects over the left gluteal region. Pelvic phlebolith are observed. The overlying soft tissues are normal in appearance. IMPRESSION: Osteopenia and minimal degenerative change as above. No acute bony abnormality is seen in the left hip. Electronically signed by: Regulo Hong M.D. 04/25/2017 11:28 AM Dictated Date/Time: 04/25/2017 11:26 AM
--- NOTE | 2017-04-25 11:31 | DIAGNOSTIC IMAGING REPORT ---
R HIP UNILATERAL 2 VIEWS CLINICAL HISTORY: 66 years-old Female presenting with M21.70 Leg length [id number]. TECHNIQUE: Frontal and frog-leg lateral views the right hip were obtained. COMPARISON: 01/11/2017. FINDINGS: Total right hip arthroplasty. No periprosthetic fracture. No malalignment. No hardware complication is evident. The patient was portion of the bony pelvis demonstrates minimal degenerative changes of the sacroiliac joint. Osteopenia may be present. IMPRESSION: Expected postsurgical appearance of the total right hip arthroplasty. No hardware competition. No acute osseous injury. Electronically signed by: Saúl Jimenez M.D. 04/25/2017 11:30 AM Dictated Date/Time: 04/25/2017 11:21 AM
--- NOTE | 2017-04-25 11:35 | DIAGNOSTIC IMAGING REPORT ---
LEG LENGTH STUDY (WHOLE LEG) CLINICAL HISTORY: M21.70 Leg length [id number] bilateral hip pain COMPARISON STUDY: No previous studies for comparison. FINDINGS: There are postsurgical changes of a total right hip arthroplasty. There are postsurgical changes present within the lumbar spine. There is a left lower quadrant stimulator device. Degenerative changes are present within the knees. The right lower extremity as measured from the acetabular roof to the tibial plafond measures 836 mm. The corresponding measurement on the left is 837 mm. IMPRESSION: No evidence of significant leg length discrepancy. Electronically signed by: Gildardo Krueger M.D. 04/25/2017 11:33 AM Dictated Date/Time: 04/25/2017 11:32 AM
== END | disposition home or self-care (01) ==
LOC: C.RAD 10:46
PROVIDERS: ATTEND Internal Medicine
DX: M21.70 Unequal limb length (acquired), unspecified site (principal)

== ENCOUNTER → 2017-06-18 | Outpatient (CLI) | payer OTHER, MEDICARE ==
[~2017-06-18] MED LIST changes: -FRRG PO
[2017-06-18 09:35] LABS: MEAN CORPUSCULAR HEMOGLOBIN 30.7 pg (25-34); MEAN CORPUSCULAR HGB CONC 33.3 g/dl (32-36); MEAN PLATELET VOLUME 9.4 fL (7.4-10.4); PLATELET COUNT 341 K/uL (130-400); RED CELL DISTRIBUTION WIDTH CV 15.4 % (11.5-14.5); RED CELL DISTRIBUTION WIDTH SD 51.3 fL (36.4-46.3); WHITE BLOOD COUNT 4.05 K/uL (4.8-10.8)
[2017-06-18 10:21] LABS: ALBUMIN 3.2 gm/dl (3.4-5.0); ALT/SGPT 27 U/L (12-78); BLOOD UREA NITROGEN 15 mg/dl (7-18); CALCIUM 8.4 mg/dl (8.5-10.1); CARBON DIOXIDE 30 mmol/L (21-32); CHOLESTEROL 155 mg/dl (0-200); CREATININE 0.55 mg/dl (0.60-1.20); GLUCOSE 91 mg/dl (70-99); POTASSIUM 3.9 mmol/L (3.5-5.1); SODIUM 140 mmol/L (136-145)
[2017-06-18 10:26] LABS: ALKALINE PHOSPHATASE 78 U/L (45-117); AST/SGOT 23 U/L (15-37); LDL CHOLESTEROL CALCULATED 58 mg/dl; TOTAL PROTEIN 5.9 gm/dl (6.4-8.2)
== END | disposition home or self-care (01) ==
LOC: C.LAB1850 08:51
PROVIDERS: ATTEND Internal Medicine
DX: Z79.899 Other long term (current) drug therapy (principal); E55.9 Vitamin D deficiency, unspecified; I10 Essential (primary) hypertension; M25.50 Pain in unspecified joint

== ENCOUNTER 2017-07-17 20:52 | Emergency (ER) | payer OTHER, MEDICARE ==
[~2017-07-17] VITALS: Ht 160 cm; Wt 70.9 kg
[~2017-07-17 20:52] MED LIST changes: -OXYC-106 PO; +OXYC10TA80 PO
[2017-07-17 20:59] VITALS: TEMP 36.9; Ht 160 cm; Wt 70.9 kg
[2017-07-17] MEDS ORDERED: LIDOCAINE 1% BUFFERED INJ 5 ML VIAL INFIL STA (21:23)
[2017-07-17] MEDS ORDERED: ASPI325T39 PO (21:54)
[2017-07-17] MEDS ORDERED: OXYC-59 PO (21:54)
--- NOTE | 2017-07-17 21:57 | EMERGENCY ROOM VISIT NOTE ---
ED Visit Note First contact with patient: 21:19 I have seen and examined this patient with Barry Harrell and generally agree with the treatment plan as discussed. Problem List Medical Problems: (1) ACQ SPONDYLOLISTHESIS Status: Chronic (2) Acute bronchitis with bronchospasm Status: Resolved (3) DEPRESSIVE DISORDER NEC Status: Chronic (4) ESOPHAGEAL REFLUX Status: Chronic (5) fibromyalgia Status: Chronic (6) H ZOSTER NERV SYST NEC Status: Chronic (7) INFLAMM POLYARTHROP NOS Status: Chronic (8) Laceration of finger of left hand Status: Resolved (9) LUMBOSACRAL NEURITIS NOS Status: Chronic (10) LUMBOSACRAL SPONDYLOSIS Status: Chronic (11) MIGRAINE UNSPECIFIED W/O INTRACTABLE MIGRAINE Status: Chronic (12) MYALGIA AND MYOSITIS NOS Status: Chronic (13) OPIOID DEPENDENCE-UNSPEC Status: Chronic (14) OSTEOARTHROS NOS-L/LEG Status: Chronic (15) POSTLAMINECT SYND-CERV Status: Chronic (16) POSTLAMINECT SYND-LUMBAR Status: Chronic (17) REFLEX SYMPATHETIC DYSTROPHY, LOWER LIMB Status: Chronic (18) SPONDYLOLISTHESIS Status: Chronic Surgical Problems: (1) History of back surgery Status: Resolved Current/Historical Medications Scheduled Amlodipine (Norvasc), 5 MG PO QAM Calcium/Vitamin D (Os-Ilir 500 Plus D), 1 TAB PO TID Cholecalciferol (D 5000), 5,000 INTERUNIT PO QAM Duloxetine HCl (Cymbalta), 60 MG PO BID Epinephrine (Epipen), 0.3 MG IM UD Esomeprazole Magnesium (Nexium), 40 MG PO HS Multivitamins/Minerals (Mvi With Minerals), 1 TAB PO BID Pregabalin (Lyrica), 150 MG PO BID Scheduled PRN Alprazolam (Xanax), 0.25 MG PO Q12 PRN for Anxiety Aspirin (Aspirin Ec), 650 MG PO Q6H PRN for Pain Cyclobenzaprine Hcl (Flexeril), 10 MG PO BID PRN for SPASM Loperamide Hcl (Imodium), 2 MG PO PRN PRN for Diarrhea Oxycodone/Acetaminophen 10MG/325MG (Percocet 10MG/325MG), 1 TAB PO Q4-6 HOURS PRN for Pain Tramadol (Ultram), 1 TAB PO TID PRN for Pain Allergies Coded Allergies: No Known Allergies (Verified , 07/17/17) Vital Signs Date Time Temp Pulse Resp B/P (MAP) Pulse Ox O2 Delivery O2 Flow Rate FiO2 07/17/17 20:59 36.9 90 20 116/81 97 Room Air Departure Information Referrals Pro,Noah Plunkett M.D. (PCP) Patient Instructions My [facility]
[2017-07-17 22:16] VITALS: BP 166/96; PULSE 75; O2SAT 98
--- NOTE | 2017-07-17 22:36 | EMERGENCY ROOM VISIT NOTE ---
ED Visit Note First contact with patient: 21:19 Chief Complaint: "Left hand, left thumb laceration or knuckle". History of Present Illness: This patient is a 66-year-old female who presents to the Emergency Department via private vehicle for evaluation of their left thumb laceration. Patient sustained the laceration while at home earlier today. They report a moderate amount of bleeding initially. They deny any numbness or tingling into the distal extremity. They report no decreased range of motion of the affected digit. Patient rates her current discomfort as a 1/10. Patient' s Tetanus status is believed to be currently up-to-date. Medications: As noted below Allergies: None PMH: No pertinent SHx: Patient lives locally. ROS: All pertinent positive and negative review of systems are appropriately documented in the History of Present Illness. Physical Exam: VITAL SIGNS - Vital signs and nursing notes were reviewed. Stable. GENERAL -66-year-old female appearing her stated age who is in no acute distress. Communicates well with provider and answers questions appropriately. SKIN - There is a 1.25 cm long laceration noted dorsal aspect of the left first digit at the base of the MCP joint. The edges gape apart with traction. No foreign bodies appreciated. Upon further examination there are no deep structures including vessel, tendon, or bony structures appreciated. There is no active bleeding noted. MUSCULOSKELETAL - Laceration as described above. +5/5 strength appreciated of the affected digit. Full range of motion of the affected digit. NEUROLOGIC - Spinothalamic tract was found to be intact with ability to discriminate sharp versus dull sensation. No sensory defects of the dorsal column were appreciated utilizing light touch for evaluation. VASCULAR - Capillary refill was brisk. ED Course: Patient was seen and evaluated by myself. Risks and benefits of performing primary wound closure versus no repair were discussed with the patient who verbalizes understanding. Verbal consent was obtained prior to performing the procedure. 2 cc of 1% buffered lidocaine was used to perform local anesthetization. The wound was cleansed and prepped in the typical sterile fashion utilizing normal saline and Betadine. The wound was sterilely draped. Once proper anesthetization was established, the wound was further examined and demonstrated no deep involvement. The wound was copiously irrigated with normal saline and Betadine. The wound was closed using 4 simple, 5-0 nylon sutures with the wound edges being well approximated. Patient tolerated the procedure well. No complications were met. The wound was cleansed and dressed with a Bacitracin dressing. A metal splint was applied to the finger for comfort. Patient educated on worrisome symptoms for return visit to the Emergency Department. Patient discharged to home in good condition. Medication list reviewed. Blood pressure slightly elevated I believe secondary to situation. Problem List Medical Problems: (1) ACQ SPONDYLOLISTHESIS Status: Chronic (2) Acute bronchitis with bronchospasm Status: Resolved (3) DEPRESSIVE DISORDER NEC Status: Chronic (4) ESOPHAGEAL REFLUX Status: Chronic (5) fibromyalgia Status: Chronic (6) H ZOSTER NERV SYST NEC Status: Chronic (7) INFLAMM POLYARTHROP NOS Status: Chronic (8) Laceration of finger of left hand Status: Resolved (9) LUMBOSACRAL NEURITIS NOS Status: Chronic (10) LUMBOSACRAL SPONDYLOSIS Status: Chronic (11) MIGRAINE UNSPECIFIED W/O INTRACTABLE MIGRAINE Status: Chronic (12) MYALGIA AND MYOSITIS NOS Status: Chronic (13) OPIOID DEPENDENCE-UNSPEC Status: Chronic (14) OSTEOARTHROS NOS-L/LEG Status: Chronic (15) POSTLAMINECT SYND-CERV Status: Chronic (16) POSTLAMINECT SYND-LUMBAR Status: Chronic (17) REFLEX SYMPATHETIC DYSTROPHY, LOWER LIMB Status: Chronic (18) SPONDYLOLISTHESIS Status: Chronic Surgical Problems: (1) History of back surgery Status: Resolved Current/Historical Medications Scheduled Amlodipine (Norvasc), 5 MG PO QAM Calcium/Vitamin D (Os-Ilir 500 Plus D), 1 TAB PO TID Cholecalciferol (D 5000), 5,000 INTERUNIT PO QAM Duloxetine HCl (Cymbalta), 60 MG PO BID Epinephrine (Epipen), 0.3 MG IM UD Esomeprazole Magnesium (Nexium), 40 MG PO HS Multivitamins/Minerals (Mvi With Minerals), 1 TAB PO BID Pregabalin (Lyrica), 150 MG PO BID Scheduled PRN Alprazolam (Xanax), 0.25 MG PO Q12 PRN for Anxiety Aspirin (Aspirin Ec), 650 MG PO Q6H PRN for Pain Cyclobenzaprine Hcl (Flexeril), 10 MG PO BID PRN for SPASM Loperamide Hcl (Imodium), 2 MG PO PRN PRN for Diarrhea Oxycodone/Acetaminophen 10MG/325MG (Percocet 10MG/325MG), 1 TAB PO Q4-6 HOURS PRN for Pain Tramadol (Ultram), 1 TAB PO TID PRN for Pain Allergies Coded Allergies: No Known Allergies (Verified , 07/17/17) Vital Signs Date Time Temp Pulse Resp B/P (MAP) Pulse Ox O2 Delivery O2 Flow Rate FiO2 07/17/17 22:16 75 16 166/96 98 Room Air 07/17/17 20:59 36.9 90 20 116/81 97 Room Air Departure Information Impression Primary Impression: Laceration Dispostion Home / Self-Care Condition GOOD Referrals Pro,Noah Plunkett M.D. (PCP) Patient Instructions My [facility] Additional Instructions Discharge Instructions: You have received 4 sutures on your finger. These sutures are NOT dissolvable and WILL need to be removed by a health care provider in 14 days. You can return to the Emergency Department or contact your Primary Care Provider to have the sutures removed. Please wear the splint for comfort until the sutures are removed. Proper wound care is essential for adequate wound healing and infection prevention. You can shower and clean the wound with soap and water. Do not scour over the wound, pat dry with a towel. Do not submerse the wound (i.e. bathe or dish wash) until the sutures have been removed. You can use an antibiotic ointment with a dressing over the wound for the next 3-4 days. After this time you may leave the wound dry and open to the air. If crust develops over the wound you can use a Q-tip to apply a 1:1 peroxide:water solution to clean the wound. Look for signs of infection of the wound including: increased pain, swelling, foul discharge, streaking, or increased temperature. If any of these are noticed you should return to the Emergency Department for further assessment and treatment. As with any laceration you may have received nerve damage to the surrounding tissues. This damage may or may not be permanent. You should keep the area covered with sunscreen for the first 6 months to 1 year when at risk for exposure to help minimize scarring. You can also use scar reducing creams or Vitamin E oil to help minimize scarring. For pain control, you can use the following [id number] medicines (if >12 yo): - Regular strength (325mg/tab) Tylenol (acetaminophen) 2 tabs every 4-6 hours as needed. Do not exceed 12 tablets in a 24 hour period. Avoid taking more than 3 grams (3000 mg) of Tylenol per day. This includes any other sources of acetaminophen you may take on a regular basis. Return to the emergency department if your symptoms worsen despite treatment course outlined above.
== END 2017-07-17 22:45 | disposition home or self-care (01) ==
LOC: C.EDB 20:53 → C.EDD 22:45
DX: S61.012A Laceration without foreign body of left thumb without damage to nail, initial encounter (principal); W45.8XXA Other foreign body or object entering through skin, initial encounter; Y92.019 Unspecified place in single-family (private) house as the place of occurrence of the external cause; F32.9 Major depressive disorder, single episode, unspecified; M79.7 Fibromyalgia; Z79.899 Other long term (current) drug therapy

== ENCOUNTER → 2017-10-25 | Outpatient (CLI) | payer OTHER, MEDICARE ==
[~2017-10-25] MED LIST changes: -AMLO-110 PO; +AMLO5TAB3 PO; -ASPEC325 PO; +ASPI325T39 PO; +OXYC10TA2 PO; -OXYC10TA80 PO
--- NOTE | 2017-10-31 12:51 | CODING QUERY NO DIAGNOSIS ---
TREATMENT RENDERED WITHOUT A DIAGNOSIS 51 To promote full compliance with coding requirements relating to patient care, physician participation is requested in all cases of clarity developer uncertainty. Please assist us with providing a diagnosis/symptom for the test(s) below: A diagnosis/symptom was not documented on your Order. A valid diagnosis/symptom is required to bill all insurances. Please remember that we are unable to code a diagnosis of rule out, probable, possible, questionable, or suspected. DOS 10/25/17 Tests that require a diagnosis: * AERO/ANAE CULTURE DIAGNOSIS: Provider Signature: Date: Thank you Mine [facility] Information Management Once completed, please kindly fax back to [phone] For questions please call [phone]
== END | disposition home or self-care (01) ==
LOC: C.LABSPEC 16:48
PROVIDERS: ATTEND Orthopaedic Surgery
DX: S61.459D Open bite of unspecified hand, subsequent encounter (principal); X58.XXXD Exposure to other specified factors, subsequent encounter; M65.4 Radial styloid tenosynovitis [de Quervain]

== ENCOUNTER → 2017-10-25 | Outpatient (CLI) | payer OTHER, MEDICARE ==
--- NOTE | 2017-10-28 15:10 | MAMMOGRAPHY REPORT ---
BILATERAL DIGITAL SCREENING MAMMOGRAM TOMOSYNTHESIS WITH CAD: 10/25/2017 CLINICAL HISTORY: Routine screening. Patient has no complaints. TECHNIQUE: The study was acquired using full field digital technology and interpreted from soft copy. Breast tomosynthesis in addition to standard 2D mammography was performed. Current study was also ev aluated with a Computer Aided Detection (CAD) system. COMPARISON: Comparison is made to exams dated: 10/24/2016 mammogram, 01/13/2015 mammogram, 11/19/2013 m ammogram, 11/19/2013 mammogram, 10/09/2012 mammogram, and 05/17/2011 mammogram - [facility] enter. BREAST COMPOSITION: There are scattered areas of fibroglandular density in both breasts. FINDINGS: There are mildly prominent left axillary lymph nodes seen on the MLO view which appear increasingly p rominent compared to prior exams. Recommend targeted ultrasound and possible additional spot elisha avtar tomosynthesis views for further evaluation. The remainder of both breasts are stable compared to prior exams, without suspicious masses, calcific ations, or areas of architectural distortion noted. Bilateral asymmetries and scattered bilateral be nign calcifications are stable. IMPRESSION: ACR BI-RADS CATEGORY 0: INCOMPLETE EVALUATION: NEED ADDITIONAL IMAGING EVALUATION Increasingly prominent left axillary lymph nodes, for which additional imaging evaluation is recommen ded. The patient will be called to schedule an appointment. Some breast cancers are not detected with mammography. A negative mammographic report should not mara y biopsy if a clinically suggestive mass is present. Sona Franklin M.D. ah/:10/25/2017 16:01:25 Glaucoma Specialist: RT Marcy(R)(M), [facility] letter sent: Addl Imaging 0 BI-RADS Code: ACR BI-RADS Category 0: Incomplete Evaluation: Need Additional Imaging Evaluation
== END | disposition home or self-care (01) ==
LOC: C.MAMM 09:09
PROVIDERS: ATTEND Obstetrics & Gynecology
DX: Z12.31 Encounter for screening mammogram for malignant neoplasm of breast (principal); R59.0 Localized enlarged lymph nodes

== ENCOUNTER → 2017-11-06 | Outpatient (CLI) | payer OTHER, MEDICARE ==
--- NOTE | 2017-11-07 15:44 | MAMMOGRAPHY REPORT ---
ULTRASOUND OF LEFT BREAST: 11/06/2017 CLINICAL HISTORY: 67-year-old woman called back from screening mammography for increasingly prominent left axillary lymph nodes. Patient reports a history of recent left wrist cat bite requiring IV anti biotics and orthopedic surgery debridement. COMPARISON: Screening mammograms dated 10/25/2017, 10/24/2016, 01/13/2015, 11/19/2013, 10/09/2012, 2. FINDINGS: Targeted ultrasound was performed in the left axilla and right axilla for comparison purpos es, to assess for the increasingly prominent left axillary lymph node seen on recent screening mammog mark. Real-time high-resolution ultrasound performed in the left axilla demonstrates several lymph no larisa that are mildly plump with mildly thickened cortices. A superior lymph node measures 7.3 x 3.2 x 6.3 mm and an adjacent lymph node in the superior axilla has a mildly thickened cortex measuring 3.3 mm. 2 additional normal sized lymph nodes in the mid axilla have equivocal cortical thickening santhosh uring 2.9 and 3.4 mm, respectively. Targeted ultrasound performed in the right axilla demonstrates morphologically normal lymph nodes maximo t are somewhat similar in appearance to the left axillary lymph nodes. A lymph node seen in the mid right axilla measures 5.2 mm and has a cortical thickness of 2.1 mm. A second lymph node in the mid right axilla measuring 1.5 cm as focal cortical thickening measuring 2.5 mm. A third lymph node has a cortical thickness of 2.1 mm. Although there are only slight differences in morphology of the left lymph nodes comparing to the rig ht the left-sided lymph nodes do appear mildly plump with mild cortical thickening, which appears new comparing to prior mammograms. Given the patient's history of left wrist infection due to cat bite requiring IV antibiotics and surgical debridement, these lymph nodes are likely reactive. However, a short interval follow-up bilateral MLO mammograms and bilateral axillary ultrasound is recommended t o ensure stability and/or resolution in 6 months. IMPRESSION: ACR-BI-RADS CATEGORY 3: PROBABLY BENIGN 1. There are approximately 5 mildly prominent left axillary lymph nodes, which are likely reactive g iven the patient's history of left wrist cat bite requiring IV antibiotics and surgical debridement. However, a short interval follow-up bilateral MLO diagnostic tomosynthesis mammogram and bilateral a xillary ultrasound is recommended to ensure stability in 6 months. These results and recommendations were discussed with the patient at the time of the exam. Alexandra Morales M.D. ay/:11/06/2017 14:46:12 Field Contractor: Alexandra Morales, [facility] letter sent: Follow Up Recommended 3 BI-RADS Code: ACR-BI-RADS Category 3: Probably Benign
== END | disposition home or self-care (01) ==
LOC: C.MAMM 09:43
PROVIDERS: ATTEND Obstetrics & Gynecology
DX: R59.0 Localized enlarged lymph nodes (principal)

== ENCOUNTER 2018-10-10 12:10 | Inpatient (IN) ==
--- NOTE | 2018-10-03 13:30 | Anesthesiology Consultation ---
Date of Service October 03, 2018 Assessment & Plan (1) Encounter for pre-operative examination: Chart Review Chart Review: Acceptable Risk for Surgery and Patient NOT seen in Pre Admission Testing History Surgery Operation Date: 10/10/18 14:20 Proposed Procedures p Right Total Hip Revision Conversion to Constain Linerand Femoral Head Replacement - Hector Roy MD Height/Weight Height: 5 ft 3 in Weight: 58.967 kg Allergies Allergy/AdvReac Type Severity Reaction Status Date / Time ibuprofen [From Motrin] AdvReac dyspepsia Verified 10/03/18 13:24 Iodinated Contrast Media Allergy Mild single hive Uncoded 10/03/18 13:24 Doxycycline Monohydrate CAPS AdvReac Mild "slight" Uncoded 10/03/18 13:24 LDH elevation Lipitor TABS AdvReac Mild CPK Uncoded 10/03/18 13:24 elevation Medications Home Medications Medication Instructions Recorded Confirmed Last Taken alprazolam 0.25 mg tablet 0.25 mg PO BID PRN 03/11/18 10/02/18 09/24/18 amlodipine 5 mg tablet 5 mg PO QAM 03/11/18 10/02/18 09/24/18 aspirin 325 mg tablet 325 mg PO DAILY PRN 03/11/18 10/02/18 09/24/18 00:00 cholecalciferol (vitamin D3) 5,000 5,000 units PO QAM 03/11/18 10/02/18 09/24/18 unit capsule cyclobenzaprine 10 mg tablet 10 mg PO DIRECTED PRN tab 03/11/18 10/02/18 09/16/18 duloxetine 60 mg capsule,delayed 60 mg PO BID 03/11/18 10/02/18 09/24/18 release epinephrine 0.3 mg/0.3 mL 0.3 mg IM Q10M PRN 03/11/18 10/02/18 Unknown injection, auto-injector loperamide 2 mg capsule 2 mg PO Q4H PRN 03/11/18 10/02/18 09/21/18 pregabalin 150 mg capsule 150 mg PO BID 03/11/18 10/02/18 09/24/18 multivitamin 1 tab PO BID 05/23/18 10/02/18 09/24/18 calcium citrate 600 mg PO BID 07/05/18 10/02/18 09/24/18 oxycodone-acetaminophen 10 mg-325 1 tab PO Q4H PRN #140 tab 09/17/18 10/02/18 09/24/18 05:00 mg tablet sucralfate 1 gram tablet 1 gm PO AC PRN 09/17/18 10/02/18 Unknown esomeprazole magnesium 40 mg 40 mg PO PM #90 cap 09/30/18 10/02/18 Unknown capsule,delayed release Medical Marijuana 1 dose PO UD PRN 10/02/18 10/02/18 Unknown amoxicillin-pot clavulanate 1 tab PO BID PRN 10/02/18 10/02/18 Unknown Past Medical History Medical History Hypertension Lumbar disc disease Cervical disc disease Osteoarthritis Sacroiliitis Lumbar postlaminectomy syndrome Anxiety Chronic back pain Depression Fibromyalgia GERD (gastroesophageal reflux disease) History of migraine Osteopenia TMJ click Urgency of urination chronic Past Family History Family History Mother CHF (congestive heart failure) Arthritis Pure hypercholesterolemia Ischemic heart disease Hypertension Father Acute myocardial infarction Mother Family history of diabetes mellitus Other No significant family history Past Surgical History Surgical History History of total right hip arthroplasty History of arthroscopy of both knees History of arthroscopy of left shoulder History of bariatric surgery History of colonoscopy History of elbow surgery LEFT History of esophagogastroduodenoscopy (EGD) History of fusion of cervical spine C6-7; "ROM WNL" History of lumbar fusion L4-S1- hardware present, L2-L4 History of repair of right rotator cuff History of right cataract surgery History of right hip replacement History of tonsillectomy History of tooth extraction Status post insertion of spinal cord stimulator [employer]/advised to bring remote AM DOS/OR made aware Social History Smoking Status: Never smoker Do You Dip or Chew Tobacco: No Hx Alcohol Use: Yes Alcohol type: wine alcohol intake frequency: 0-2 drinks per day Hx Substance Use: Yes substance use type: marijuana and prescription drug Substance Use Type Other:: MEDICAL MARIJUANA Last Used Substance Other:: USES 3-4 X PER WEEK Testing Laboratory Results 09/24/18 WBC 7.65 H/H 12.3/36.0 PLATELETS 400 SODIUM 141 POTASSIUM 3.7 CHLORIDE 108 CO2 27 BUN 15 CREATININE 0.64 GLUCOSE 80 UA negative Electrocardiogram Date: 07/05/18 NSR at 78bpm. Chest X-Ray Date: 09/22/18 Findings: + NAD Stimulator leads are noted overlying the midthoracic spine, unchanged. Partially imaged fusion hardware of the lumbar spine. Lumbar levoscoliosis.
--- NOTE | 2018-10-09 00:10 | History and Physical Report ---
DATE OF ADMISSION: 10/10/2018 CHIEF COMPLAINT: Persistent recurrent right hip dislocation, status post total hip replacement. HISTORY OF PRESENT ILLNESS: The patient is a 68-year-old female who is status post hybrid total hip replacement done on her right side by myself on 01/16/2017. She did well until May of this year when she was participating in yoga exercises and dislocated her hip. She went to the ER, had this relocated and now has had several recurrent dislocations. She has had 1 while doing yoga and 1 while pulling weeds and bending over. She has been treated with a knee immobilizer initially but not really compliant with that. She has been more compliant recently. Her most recent dislocation was just 1 day apart. She is now a total of 4 dislocations and indicated for revision to a constrained liner. She has no pain in between dislocations. Her hip component positions looks good. I do not think I can improve on that. She does have a history of chronic back problems and had an extensive spinal fusion. She does continue to have back pain. PAST MEDICAL HISTORY: Past medical history consists of 1. Hypertension. 2. Inflammatory arthritis. 3. Failed back syndrome, status post extensive L2 to the sacrum fusion. 4. Gastroesophageal reflux. 5. Bilateral knee scopes. 6. Fibromyalgia. PAST SURGICAL HISTORY: Include: 1. Spine surgery with a fusion of L2 to the sacrum. 2. Right rotator cuff repair. 3. Bilateral knee scopes done several times. 4. Carpal tunnel release. 5. Dorsal column stimulator placement. 6. Left shoulder surgery. 7. Bariatric surgery. 8. C6-C7 cervical fusion. 9. Left wrist tendonitis surgery. 10. Right total hip replacement done in 01/16/2017. ALLERGIES: None. CURRENT MEDICINES: 1. Oxycodone 10/325 p.r.n. 2. Vitamin D. 3. Alprazolam 25 mg a day. 4. Nexium 40 mg. 5. Cyclobenzaprine 10 mg. 6. Duloxetine. 7. Lyrica 150 mg twice a day. SOCIAL HISTORY: A 68-year-old female patient, is . Medical doctor is Dr. Darby. She is a [place]. Does not smoke. FAMILY HISTORY: Nonsignificant. REVIEW OF HISTORY: Negative for diabetes, neurologic problems, vascular problems or bleeding disorders. No chest pain or shortness of breath. No evidence of DVT or PE. She does have a history of chronic back pain and a dorsal column stimulator in place. PHYSICAL EXAMINATION: GENERAL: Reveals a pleasant, healthy appearing, middle-aged female. She looks to be in good health. HEENT: Benign. NECK: Supple. No lymphadenopathy. LUNGS: Clear to auscultation. HEART: Regular rate and rhythm. ABDOMEN: Soft, nontender, nondistended. EXTREMITIES: Grossly neurovascularly intact except as follows: Examination of the right hip reveals the patient who comes in wearing a knee immobilizer today. She walks quite well and weight bears in the right leg without any significant limp. Hip incision is benign. Leg lengths were equal. She has no pain with hip motion. Good straight leg raise. X-RAYS: X-rays of the right hip reveal a hybrid total hip replacement. Components looked to be in good position. Leg lengths look equal. No signs of fracture or other problems. ASSESSMENT: A 68-year-old white female now almost 2 years out from a hybrid total hip replacement with recurrent dislocations. These dislocations just started in May of this year and related to yoga class x2 and pulling weeds. She is quite flexible and she has got a back fusion which certainly makes dislocation and redislocation more likely. The component position looks good and I do not think I can improve on that. PLAN: We talked about treatment. Certainly this has become a recurrent issue and I think will continue to be. She is not real compliant as far as hip precautions and continues to participate in yoga and bending activities. I think the best treatment is place a constrained liner. We are going to take her to the operating room and do a right revision total hip replacement and place a constrained liner. If we get in there and we find some other issue will fix at that time. I did emphasize to her that even with a constrained liner, she can still dislocate this as it puts excessive force. The risks and benefits of revision total hip replacement were explained to the patient including but not limited to DVT, PE, , infection, neurological injury, vascular injury, bleeding problem, pain, limited range of motion, stiffness, failure to relieve her symptoms, incomplete relief of symptoms, need for further surgery in future, fracture, leg length inequality, nerve palsy, redislocation, etc. The patient understands and desires to proceed. Informed consent was obtained. She is planning to discharge to home. I do not know if she will need much on the way home health. SHAMAR
[~2018-10-10 12:10] MED LIST changes: +ACETAMINOPHEN 500 MG TAB PO SCH; -ALPR0.25 PO; -AMLO5TAB3 PO; -ASPI325T39 PO; +BUPIVACAINE 0.5 % 5 MG/1 ML PF 10ML VIAL ONE; -CALC500C70 PO; +CEFAZOLIN 2000MG 2,000 MG/15 ML SYR IV SCH; -CHOL1TAB52 PO; -CYCL10TA6 PO; -CYM/60 PO; -EPP3/2 IM; +FAMOTIDINE 20 MG TAB PO SCH; +GABAPENTIN 300 MG CAP PO SCH; -IMD/2 PO; +LR 15ML/HR IV SCH; +LR 60ML/HR IV SCH; +METOCLOPRAMIDE HCL 10 MG TABLET PO SCH; -MULT-513 PO; -NXM/40 PO; -OXYC10TA2 PO; -PREG1CAP70 PO; -TRAM-10 PO; +TRANEXAMIC ACID 1,000 MG **IV Pre-op IV SCH
--- NOTE | 2018-10-10 12:23 | History & Physical Bridge Note ---
Date of Service October 10, 2018 History & Physical Bridge Note I have examined the patient, reviewed the History & Physical and in the interval since the performance of the History & Physical I have noted the following changes of clinical significance: no changes noted
[2018-10-10] MEDS ORDERED: BUPIVACAINE/EPINEPHRINE 0.5% MPF 1:200,000 30 ML VIAL ONE (14:49)
[2018-10-10] MEDS ORDERED: HYDROmorphone INJ 2 MG/ML SYR/VIAL ONE ×2 (14:52→16:11)
[2018-10-10] MEDS ORDERED: MIDAZOLAM HCL 1 MG/ML 2ML VIAL ONE (14:53)
[2018-10-10] MEDS ORDERED: PROPOFOL IV EMULSION 10 MG/ML 20 ML VIAL IV ONE (14:55)
[2018-10-10] MEDS ORDERED: ONDANSETRON INJ 2 MG/ML 2 ML VIAL ONE (14:55)
[2018-10-10] MEDS ORDERED: LIDOCAINE HCL 2% 2 ML VIAL/AMP(20MG/ML) INFIL ONE (14:55)
[2018-10-10] MEDS ORDERED: ROCURONIUM BROMIDE 10 MG/ML 5 ML VIAL ONE (14:55)
[2018-10-10] MEDS ORDERED: PROMETHAZINE HCL 12.5 MG in SODIUM CHLORIDE 0.9% 50 ML IV PRN (15:05)
[2018-10-10] MEDS ORDERED: METOCLOPRAMIDE HCL INJ 5 MG/ML 2 ML VIAL IV PRN ×2 (15:05→18:44)
[2018-10-10] MEDS ORDERED: DEXAMETHASONE SOD INJ 4 MG/ML VIAL IV PRN (15:05)
[2018-10-10] MEDS ORDERED: ONDANSETRON INJ 2 MG/ML 2 ML VIAL IV PRN ×2 (15:05→18:44)
[2018-10-10] MEDS ORDERED: ePHEDrine sulfate 50 MG/ML AMP IV PRN (15:05)
[2018-10-10] MEDS ORDERED: ATROPINE SULFATE 0.1 MG/ML 10ML SYR IV PRN (15:05)
[2018-10-10] MEDS ORDERED: BACITRACIN INJ 50,000 UNIT VIAL IR ONE (15:52)
[2018-10-10] MEDS ORDERED: LABETALOL HCL IV 5 MG/ML 20ML IV ONE (16:48)
[2018-10-10] MEDS ORDERED: GLYCOPYRROLATE 0.2 MG/ML VIAL ONE (17:01)
[2018-10-10] MEDS ORDERED: NEOSTIGMINE METHYLSULFATE 5 MG/5 ML SYR ONE (17:01)
--- NOTE | 2018-10-10 17:24 | Post Operative Brief Note ---
Immediate Post Op Note v1 Date of Surgery October 10, 2018 Pre & Post Diagnosis Operation Date: 10/10/18 14:20 Pre-Op Diagnosis: Right Total Hip Reoccuring Dislocation Post-Op Diagnosis: Right Total Hip Reoccuring Dislocation Procedure Operation Date: 10/10/18 14:20 Actual Procedures p Right Total Hip Revision Conversion to Constrain Liner and Femoral Head Replacement(Right) - Hector Roy MD Surgeon Hector Roy MD Manager Assembly Sriram, PAC Estimated Blood Loss 100 Findings Consistent with Post-Op Diagnosis Fluids 1100 cc Specimens Right Femoral Head and Liner. Drains Ochoa Catheter Anesthesia Type General Complications none Disposition Accompanied Patient To Recovery: Yes Disposition: Recovery Room
[2018-10-10] MEDS: fentaNYL citrate 100 MCG/2 ML VIAL IV PRN ×4 (17:40→17:56)
[2018-10-10] MEDS ORDERED: HYDROmorphone INJ 1 MG/ML SYRINGE ONE ×2 (18:11)
[2018-10-10] MEDS: HYDROmorphone INJ 2 MG/ML SYR/VIAL IV PRN ×2 (18:11→18:16)
--- NOTE | 2018-10-10 18:21 | XRay Report ---
XR hip 1V RT w pelvis CLINICAL HISTORY: IN PACU - A/P PELVIS and LATERAL HIP COMPARISON: 09/24/2018 DISCUSSION: Total right hip arthroplasty. Good contact between a type prosthetic and underlying bone. Expected postoperative soft tissue change IMPRESSION: Anatomic alignment posttotal right hip arthroplasty. The above report was generated using voice recognition software. It may contain grammatical, syntax or spelling errors. Electronically signed by: Chaz Link M.D. 10/10/2018 6:19 PM
[2018-10-10] MEDS ORDERED: ALPRAZolam 0.25 MG TABLET PO PRN (18:44)
[2018-10-10] MEDS ORDERED: SUCRALFATE 1 GM TAB PO PRN (18:44)
[2018-10-10] MEDS ORDERED: DiphenhydrAMINE HCL 50 MG/ML VIAL IV PRN (18:44)
[2018-10-10] MEDS ORDERED: MAGNESIUM HYDROXIDE SUSP 30 ML UDC PO PRN (18:44)
[2018-10-10] MEDS ORDERED: HYDROmorphone INJ 0.5 MG/0.5 ML SYR IV PRN (18:44)
[2018-10-10] MEDS ORDERED: NALOXONE HCL 0.4 MG/1 ML VIAL/CARP IV PRN (18:44)
[2018-10-10] MEDS ORDERED: BISACODYL 10 MG SUPP PR PRN (18:44)
[2018-10-10] MEDS ORDERED: ALUMINUM/MAGNESIUM SUSP 30 ML UDC PO PRN (18:44)
[2018-10-10] MEDS ORDERED: CYCLOBENZAPRINE HCL 10 MG TAB PO PRN (18:44)
[2018-10-10] MEDS ORDERED: EPINEPHRINE ADULT AUTO-INJECT 0.3 MG SYR IM PRN (18:44)
[2018-10-10] MEDS ORDERED: LOPERAMIDE HCL 2 MG CAP PO PRN (18:44)
--- NOTE | 2018-10-10 19:10 | Anesthesiology Progress Note ---
Date of Service October 10, 2018 Anesthesia Post Procedure Vital Signs Vital Signs: Temp Pulse Pulse Resp BP BP Pulse Ox 10/10/18 18:45 36.4 C L 82 16 116/75 99 10/10/18 18:30 36.2 C L 78 16 113/83 100 10/10/18 18:20 77 18 111/65 100 10/10/18 18:10 78 18 121/59 L 100 10/10/18 18:00 73 18 117/62 100 10/10/18 17:50 77 18 93/73 L 96 10/10/18 17:40 79 18 142/74 H 100 10/10/18 17:32 36.7 C 77 18 141/79 H 100 10/10/18 12:56 36.5 C 66 18 143/85 H 99 Pain Intensity Lower Back: Pain Intensity: 2 Right Hip: Pain Intensity: 5 Transfer of Care Handoff Completed per policy Notes Mental Status: alert / awake / arousable Patient Amnestic to Procedure: Yes Nausea / Vomiting: adequately controlled Pain: adequately controlled Airway Patency, RR, SpO2: stable & adequate BP & HR: stable & adequate Hydration State: stable & adequate Anesthetic Complications: no major complications apparent
[2018-10-10] MEDS ORDERED: MEDICAL MARIJUANA PO PRN (19:15)
[2018-10-10] MEDS ORDERED: SODIUM CHLORIDE 0.9% 1000ML 1,000 ML IV SCH (20:00)
[2018-10-10] MEDS: KETOROLAC TROMETHAMINE 15 MG/ML VIAL IV SCH ×2 (20:47→23:46)
[2018-10-10] MEDS: PREGABALIN 150 MG CAP PO SCH (20:58)
[2018-10-10] MEDS: CALCIUM CITRATE 950 MG TAB PO SCH (20:58)
[2018-10-10] MEDS: ASPIRIN 81 MG ECTAB PO SCH (20:59)
[2018-10-10] MEDS: DOCUSATE SODIUM 100 MG CAP PO SCH (20:59)
[2018-10-10] MEDS: DULOXETINE HCL 60 MG CAP PO SCH (20:59)
[2018-10-10] MEDS ORDERED: PANTOprazole 40 MG TAB PO SCH (21:00)
[2018-10-10] MEDS ORDERED: MULTIVITAMIN TAB PO SCH (21:00)
[2018-10-10] MEDS ORDERED: SENNA 8.6 MG TAB PO SCH (21:00)
[2018-10-10] MEDS: ACETAMINOPHEN 500 MG TAB PO SCH (21:00)
[2018-10-10] MEDS: CEFAZOLIN 1000MG 1,000 MG/7.5 ML SYR IV SCH (23:46)
[2018-10-11] MEDS ORDERED: TRANEXAMIC ACID 1,000 MG in 0.9 % SODIUM CHLORIDE 100 ML IV SCH
[2018-10-11] MEDS: OXYCODONE HCL IR 5 MG TAB (IMMEDIATE RELEASE) PO PRN ×2 (00:01→05:32)
--- NOTE | 2018-10-11 00:05 | Operative Report ---
DATE OF OPERATION: 10/10/2018 SURGEON: Hector Roy MD [facility] OPERATOR: JAMES Bennett PREOPERATIVE DIAGNOSIS: Recurrent right total hip replacement dislocation. POSTOPERATIVE DIAGNOSIS: Recurrent right total hip replacement dislocation. PROCEDURE PERFORMED: Revision of a right total hip replacement to a constrained liner with revision of the liner and femoral head. COMPLICATIONS: None. ESTIMATED BLOOD LOSS: 100 mL. FLUID REPLACEMENT: 1100 mL crystalloid fluid replacement. ANESTHESIA: General. SPECIMENS: Prosthetic femoral head and acetabular liner. OPERATIVE INDICATIONS: The patient is a 68-year-old female who is now almost 2 years out from a right total hip replacement. She did well for the first year and a half. Over the past 4 months, she developed recurrent dislocation doing very aggressive activities such as yoga and bending over the waist while gardening. She could not really seem to grasp hip precautions reliably. She does have a lot of physiologic musculoskeletal laxity naturally. She has had 4 dislocations in the past 4 months. The patient indicated for revision. Her component position was good with significant acetabular anteversion. I did not feel I could improve on the component positioning. OPERATIVE IMPLANTS: Operative implants consisted of: 1. [employer] G7 Jamul constrained acetabular neutral liner with a 52 mm outer diameter, 36 mm inner diameter. 2. A +6/36 mm Jamul constrained liner head. OPERATIVE PROCEDURE: The patient was taken to the operating room, identified and placed on the operating table in supine position. All contact areas were appropriately padded. I.V. antibiotics were provided by the anesthesia team. A general anesthetic was implemented. Ochoa catheter was placed in sterile fashion. The patient was then placed in the left lateral decubitus position. An axillary roll was placed. [facility] hip positioner was used for positioning. Right hip and leg were then prepped and draped in the usual sterile fashion. A posterolateral approach to the right hip was then performed through a curvilinear incision using the previous incision. Sharp dissection was carried through the subcutaneous tissues down to the level of the IT band and gluteal fascia. Her IT band and gluteal fascia were fairly thin. I incised through this. There was no remaining posterior capsule present. There were several permanent sutures which were floating freely. There was actually one that was kind of stuck into the femoral head itself at the head neck junction. There was some minor scar tissue that I excised. I then markedly had to flex, adduct, and internally rotate the hip 60+ degrees in order to dislocate the hip. I then removed the articular ball. We retracted the femur superiorly and anteriorly to expose the cup. I spent quitte a bit of time to get some of the soft tissue around the acetabulum. I then used the [employer] acetabular liner removal instrument to remove the liner. I then placed the trial implant. We had quite a bit of difficulty relocating the hip as it was extremely tight and could only do it in extreme flexion and adduction. We elected to place these components. Once again, the component position was ideal and I did not feel there was any other alternative other than just place a constrained liner. We spent quite a bit of time to try and place a constrained liner as I had to really expose the acetabulum further. I excised all scar tissue and excised using osteotome and removed some bone around the inferior and anterior rim. Once I was able to do this, I was able to impact the permanent acetabular constrained liner. I then used a +6/36 mm metal constrained head. We worked hard to relocate this, but we were able to do it with extreme 90 degrees of flexion and extreme adduction. The hip was stable afterwards. Attention was then drawn toward closing. The wound was irrigated with copious amounts of pulsatile lavage solution. I did inject locally with 60 mL of 0.5% Marcaine with epinephrine. There was no posterior capsular repair. The IT band and gluteal fascia were then closed with #1 PDS suture in running fashion. The deep and subcutaneous tissues were then closed with #1 Vicryl sutures and subcutaneous tissues with 2-0 Dexon suture in a buried interrupted fashion. Skin was closed with skin john. Leg was then cleaned, dried and a sterile dressing of Xeroform, 4 x 4, sterile ABD pad and foam tape was applied. The patient was then brought out of general anesthesia and transferred to the recovery room in a stable condition. The patient tolerated the procedure well with no complications. All needle and sponge counts were correct at the end of the operation. I attest to the content of the Intraoperative Record and any orders documented therein. Any exceptions are noted below. SHAMAR
[2018-10-11] MEDS: ACETAMINOPHEN 500 MG TAB PO SCH (05:32)
[2018-10-11] MEDS: KETOROLAC TROMETHAMINE 15 MG/ML VIAL IV SCH (05:32)
[2018-10-11 06:28] LABS: Basophils # (auto) 0.03 K/uL (0-0.2); Basophils % (auto) 0.5 %; Eosinophils # (auto) 0.08 K/uL (0-0.5); Eosinophils % (auto) 1.4 %; Hematocrit (blood only) 33.8 % (37-47); Immature Granulocytes # (auto) 0.02 K/uL (0.00-0.02); Immature Granulocytes % (auto) 0.3 %; Lymphocytes # (auto) 1.16 K/uL (1.2-3.4); Lymphocytes % (auto) 19.6 %; Mean Corpuscular Hgb Conc 32.5 g/dL (32-36); Mean Corpuscular Volume 96.3 fL (80-100); Mean Platelet Volume 9.9 fL (7.4-10.4); Monocytes # (auto) 0.47 K/uL (0.11-0.59); Monocytes % (auto) 7.9 %; Neutrophils # (auto) 4.16 K/uL (1.4-6.5); Neutrophils % (auto) 70.3 %; Platelet Count 237 K/uL (130-400); RDW Coefficient of Variation 14.4 % (11.5-14.5); RDW Standard Deviation 50.2 fL (36.4-46.3); Red Blood Count 3.51 M/uL (4.2-5.4); White Blood Count 5.92 K/uL (4.8-10.8)
[2018-10-11 07:00] LABS: BUN Creatinine Ratio 16.9 (10-20); Calcium 8.1 mg/dl (8.5-10.1); Creatinine Clr Calc Pharmacy 67.4 ml/min; Est GFR (African American) 105.4; Potassium 3.6 mmol/L (3.5-5.1)
[2018-10-11] MEDS ORDERED: FERROUS GLUCONATE 324 MG TAB PO SCH (08:00)
[2018-10-11] MEDS ORDERED: ASCORBIC ACID 500 MG TAB PO SCH (08:00)
--- NOTE | 2018-10-11 08:01 | Progress Note ---
DATE: 10/11/2018 SUBJECTIVE: A 68-year-old white female postop day #1 from a right hip revision to a constrained liner. She is doing well. Not having as much pain as she expected. No chest pain or shortness of breath. Not feeling dizzy or lightheaded. OBJECTIVE: VITAL SIGNS: Temperature 36.3. Vital signs stable. GENERAL: Physical examination shows a pleasant, middle-aged female. She is sitting up in bed, looks pretty comfortable. EXTREMITIES: Examination of the right leg reveals the leg lengths to be equal. Incision is clean, dry and intact. She can dorsiflex and plantarflex her foot appropriately. She is neurologically intact. LABORATORY DATA: Hemoglobin 11.0. Hematocrit 33.8. Electrolytes are stable. ASSESSMENT: A 68-year-old white female postoperative day #1 from a right hip revision to a constrained liner doing pretty well. Hip is located. She is neurologically intact. PLAN: 1. DVT prophylaxis including thigh-high TEDs, SCDs and aspirin twice a day. 2. PT/OT. Weight bear as tolerated. Right total hip protocol. 3. Pain control, doing well with current pain regimen. She is on chronic narcotics at home for back issues. 4. Disposition: She is planning to be discharged to home. We will see how therapy goes today as far as discharge timing.
[2018-10-11] MEDS: CEFAZOLIN 1000MG 1,000 MG/7.5 ML SYR IV SCH (08:49)
[2018-10-11] MEDS: DOCUSATE SODIUM 100 MG CAP PO SCH (08:50)
[2018-10-11] MEDS: CALCIUM CITRATE 950 MG TAB PO SCH (08:50)
[2018-10-11] MEDS: DULOXETINE HCL 60 MG CAP PO SCH (08:51)
[2018-10-11] MEDS: ASPIRIN 81 MG ECTAB PO SCH (08:51)
[2018-10-11] MEDS: PREGABALIN 150 MG CAP PO SCH (08:55)
[2018-10-11] MEDS ORDERED: MULTIVITAMIN TAB PO SCH (09:00)
[2018-10-11] MEDS ORDERED: CHOLECALCIFEROL 1,000 UNITS TAB PO SCH (09:00)
[2018-10-11] MEDS ORDERED: AMLODIPINE BESYLATE 5 MG TAB PO SCH (09:00)
--- NOTE | 2018-10-11 10:40 | Anesthesiology Progress Note ---
Date of Service October 11, 2018 Anesthesia Post Procedure Vital Signs Vital Signs: Temp Pulse Pulse Pulse Resp BP BP 10/11/18 10:27 36.9 C 78 76 78 15 133/78 121/75 10/11/18 07:36 36.9 C 78 15 133/78 10/11/18 03:08 36.3 C L 77 14 128/74 10/10/18 23:24 36.8 C 76 14 121/75 10/10/18 22:00 36.5 C 78 18 116/70 10/10/18 20:44 36.3 C L 83 16 114/67 10/10/18 19:58 36.5 C 80 16 141/82 H 10/10/18 19:25 36.4 C L 78 16 156/91 H 10/10/18 18:45 36.4 C L 82 16 116/75 10/10/18 18:30 36.2 C L 78 16 113/83 10/10/18 18:20 77 18 111/65 10/10/18 18:10 78 18 121/59 L 10/10/18 18:00 73 18 117/62 10/10/18 17:50 77 18 93/73 L 10/10/18 17:40 79 18 142/74 H 10/10/18 17:32 36.7 C 77 18 141/79 H 10/10/18 12:56 36.5 C 66 18 143/85 H Pulse Ox 10/11/18 10:27 97 10/11/18 07:36 97 10/11/18 03:08 97 10/10/18 23:24 97 10/10/18 22:00 95 10/10/18 20:44 99 10/10/18 19:58 96 10/10/18 19:25 100 10/10/18 18:45 99 10/10/18 18:30 100 10/10/18 18:20 100 10/10/18 18:10 100 10/10/18 18:00 100 10/10/18 17:50 96 10/10/18 17:40 100 10/10/18 17:32 100 10/10/18 12:56 99 Pain Intensity Lower Back: Pain Intensity: 2 Right Hip: Pain Intensity: 3 Transfer of Care Handoff Completed per policy Notes Mental Status: alert / awake / arousable and participated in evaluation Patient Amnestic to Procedure: Yes Nausea / Vomiting: adequately controlled Pain: adequately controlled Airway Patency, RR, SpO2: stable & adequate BP & HR: stable & adequate Hydration State: stable & adequate Anesthetic Complications: no major complications apparent
--- NOTE | 2018-10-15 14:46 | Discharge Summary ---
ADMITTING PHYSICIAN AND SURGEON: Hector Roy MD. ADMITTING DIAGNOSIS: Recurrent right total hip dislocation. SURGERY PERFORMED: Revision of a right total hip replacement to a constrained liner with revision of the liner and femoral head. SECONDARY DIAGNOSES: Hypertension, inflammatory arthritis, failed back syndrome, gastroesophageal reflux, bilateral knee scopes, fibromyalgia. CONSULTS: None obtained. HISTORY AND PHYSICAL EXAMINATION: Well documented in the patient's chart. HOSPITAL COURSE: The patient was admitted on 10/10/2018, underwent revision of her total hip to a constrained liner and exchange of the femoral head. She tolerated the procedure well. There were no complications. She was transferred to the PACU postoperatively and later to the orthopedic floor for further care. She was given Ancef for antibiotic prophylaxis, MEMO stockings, SCDs and aspirin for DVT prophylaxis. Hemoglobin, hematocrit and vital signs were monitored during her hospital stay and remained stable. She did not require any blood transfusions. There were no complications. By postoperative day 1, she was tolerating a regular diet, pain was controlled with oral pain medicine. She was participating in physical therapy. On postop day 1, she was discharged home. She was given printed discharge instructions as well as new prescriptions for extra-strength Tylenol and aspirin. Continue her home medications, continue physical therapy, weightbearing as tolerated, MEMO stockings, total hip precautions. Follow up approximately 2 weeks postop or sooner if there are any problems or concerns.
== END 2018-10-11 11:14 | disposition home or self-care (01) | DRG 482 ==
LOC: ASU 12:10 → 3E 17:29

== ENCOUNTER 2020-11-16 07:12 | Inpatient (IN) ==
--- NOTE | 2020-11-14 10:09 | Anesthesiology Consultation ---
Date of Service November 14, 2020 Assessment & Plan (1) Encounter for pre-operative examination: Chart Review Chart Review: Acceptable Risk for Surgery (pending preop Covid testing results and DOS labs) and Patient NOT seen in Pre Admission Testing -Preop labs out of date- will order CBC with diff and PRP for DOS. Per nursing assessment 11/14/20, patient denies any recent travel. No known Covid infection in the past 90 days. No known Covid positive contacts or Covid related symptoms. Patient is vaccinated for Covid. Preop Covid test 11/14/20= results pending Per PCP letter 10/25/2020 = patient " deemed acceptable risk and is cleared pending anesthesia approval." Lap margy 04/14/2020 = done under [facility] with grade 1 view with Kothari #2. ETT #7.0. Atraumatic, DL x1. History Surgery Operation Date: 11/16/20 07:45 Proposed Procedures p L2-L4 Decompression Fustion, Possible T12-L2, L4-S1 Hardware Removal, Spinal Cord Monitoring - Azael Musa, Height/Weight Height: 5 ft 3 in Weight: 58.967 kg Allergies Allergy/AdvReac Type Severity Reaction Status Date / Time atorvastatin [From Lipitor] AdvReac Mild CPK Verified 11/14/20 07:58 elevation doxycycline AdvReac Mild "slight" Verified 11/14/20 07:58 LDH elevation ibuprofen [From Motrin] AdvReac Mild dyspepsia Verified 11/14/20 07:58 nitrofurantoin AdvReac Mild gi upset Verified 11/14/20 07:58 [From Macrobid] Medications Home Medications Medication Instructions Recorded Confirmed Last Taken cholecalciferol (vitamin D3) 125 5,000 units PO QAM 03/11/18 11/14/20 04/13/20 06:00 mcg (5,000 unit) capsule loperamide 2 mg capsule 2 mg PO Q4H PRN 03/11/18 11/14/20 04/14/20 05:00 multivitamin 1 tab PO BID 05/23/18 11/14/20 04/13/20 18:00 calcium citrate 200 mg (950 mg) 950 mg PO BID 07/05/18 11/14/20 04/13/20 18:00 tablet epinephrine 0.3 mg/0.3 mL 0.3 mg IM Q10M PRN #2 ea 12/29/19 11/14/20 Unknown injection, auto-injector (EpiPen) duloxetine 60 mg capsule,delayed 60 mg PO BID #180 cap 01/07/20 11/14/20 04/14/20 05:00 release aspirin 325 mg tablet 650 mg PO DAILY PRN tab 04/05/20 11/14/20 04/06/20 Medical Marijuana 1 dose INHALATION 3XWK 04/06/20 11/14/20 04/10/20 22:00 cyclobenzaprine 10 mg tablet 10 mg PO BID PRN #60 tab 05/03/20 11/14/20 Unknown estradiol See Rx Instructions VAGINAL 06/20/20 11/14/20 Unknown .COMPLEX #42.5 g fosfomycin tromethamine 3 gram 1 packet PO ONCE #1 ea 08/16/20 11/14/20 Unknown oral packet tolterodine 2 mg capsule,extended 2 mg PO QAM 08/31/20 11/14/20 Unknown release 24 hr (Detrol LA) amlodipine 5 mg tablet (Norvasc) 5 mg PO QAM #90 tab 09/06/20 11/14/20 Unknown esomeprazole magnesium 40 mg 40 mg PO PM #90 cap 10/07/20 11/14/20 Unknown capsule,delayed release pregabalin 150 mg capsule (Lyrica) 150 mg PO BID #180 cap 10/17/20 11/14/20 Unknown oxycodone-acetaminophen 10 mg-325 1 tab PO QID PRN 11/14/20 11/14/20 Unknown mg tablet (Percocet) Past Medical History Medical History Cervical disc disease Chronic back pain Disc degeneration, lumbosacral Fibromyalgia GERD (gastroesophageal reflux disease) HTN (hypertension) Hx of Clostridium difficile infection 5 yrs ago Lumbar postlaminectomy syndrome Osteoarthritis TMJ click Urge urinary incontinence UTI (urinary tract infection) HX FREQUENT Past Family History Family History Mother CHF (congestive heart failure) Arthritis Pure hypercholesterolemia Ischemic heart disease Hypertension Myocardial infarction Father Acute myocardial infarction Myocardial infarction Mother Family history of diabetes mellitus Other No significant family history Denies family history of Ovarian cancer Prostate cancer Breast cancer Colorectal cancer Past Surgical History Surgical History History of arthroscopy of both knees History of arthroscopy of left shoulder History of bariatric surgery History of carpal tunnel release right History of colonoscopy History of elbow surgery LEFT History of ERCP History of esophagogastroduodenoscopy (EGD) History of fusion of cervical spine C6-7; "ROM WNL" History of lumbar fusion L4-S1- hardware present, L2-L4 History of repair of right rotator cuff History of right cataract surgery History of right hip replacement History of tonsillectomy History of tooth extraction Hx laparoscopic cholecystectomy (04/14/20) Laparoscopic Cholecystectomy Dr. Quintana 04/14/2020 Status post insertion of spinal cord stimulator Medtronic/advised to bring remote AM DOS/OR made aware Social History Smoking Status: Former smoker tobacco type: e-cigarettes Do You Dip or Chew Tobacco: No Smoking End Date: stopped 6 weeks ago marijufred Hx Alcohol Use: Yes Alcohol type: wine alcohol intake frequency: a few times a week Hx Substance Use: Yes substance use type: marijuana Substance Use Type Other:: has card but not currently using Last Used Substance Other:: medical [facility] Testing Laboratory Results 11/14/2020 = AST: 22 ALT: 23 ALK PHOS: 74 10/06/20= URINE CULTURE: E coli, >100,000 CFU/ml Electrocardiogram Date: 09/02/20 Findings: + NSR @ (75bpm) Cannot rule out septal infarct. When compared to EKG from Apr 08, 2020- no significant change was found per cardio. Chest X-Ray Date: 09/02/20 Findings: + NAD Cardiac mediastinal and hilar silhouettes are within normal limits. No pneumothorax, pleural effusion, airspace consolidation or overt pulmonary edema. Bones of the chest appear grossly intact. Cervical spinal fusion hardware. Lumbar levoscoliosis with partially imaged lumbar spinal fusion hardware. Spinal stimulator leads are noted overlying the midthoracic spine. The imaged portions of the leads appear intact.
[~2020-11-16 07:12] MED LIST changes: -BUPIVACAINE 0.5 % 5 MG/1 ML PF 10ML VIAL ONE; -CEFAZOLIN 2000MG 2,000 MG/15 ML SYR IV SCH; +CeleBREX 200 MG CAP PO SCH; -FAMOTIDINE 20 MG TAB PO SCH; -LR 60ML/HR IV SCH; -METOCLOPRAMIDE HCL 10 MG TABLET PO SCH; -TRANEXAMIC ACID 1,000 MG **IV Pre-op IV SCH; +ceFAZolin 1000MG 1,000 MG/7.5 ML SYR IV SCH
[2020-11-16 07:56] LABS: Basophils # (auto) 0.05 K/uL (0-0.2); Hematocrit (blood only) 39.5 % (37-47); Hemoglobin 13.3 g/dL (12.0-16.0); Immature Granulocytes # (auto) 0.01 K/uL (0.00-0.02); Immature Granulocytes % (auto) 0.2 %; Lymphocytes # (auto) 1.68 K/uL (1.2-3.4); Lymphocytes % (auto) 33.3 %; Mean Corpuscular Hemoglobin 31.9 pg (25-34); Mean Corpuscular Volume 94.7 fL (80-100); Mean Platelet Volume 9.8 fL (7.4-10.4); Monocytes # (auto) 0.47 K/uL (0.11-0.59); Monocytes % (auto) 9.3 %; Neutrophils # (auto) 2.74 K/uL (1.4-6.5); Neutrophils % (auto) 54.2 %; Platelet Count 317 K/uL (130-400); RDW Coefficient of Variation 14.3 % (11.5-14.5); RDW Standard Deviation 49.5 fL (36.4-46.3); Red Blood Count 4.17 M/uL (4.2-5.4); White Blood Count 5.05 K/uL (4.8-10.8)
[2020-11-16 08:14] LABS: Mean Corpuscular Hgb Conc 33.7 g/dL (32-36)
[2020-11-16] MEDS ORDERED: MIDAZOLAM HCL 1 MG/ML 2ML VIAL ONE (08:20)
[2020-11-16] MEDS ORDERED: fentaNYL citrate 100 MCG/2 ML VIAL ONE ×2 (08:20→11:00)
[2020-11-16 08:25] LABS: Calcium 9.1 mg/dl (8.5-10.1); Creatinine Clr Calc Pharmacy 77.1 ml/min; Est GFR (African American) 109.6 ml/min; Est GFR (Non-African American) 94.6 ml/min
--- NOTE | 2020-11-16 08:35 | History & Physical Bridge Note ---
Date of Service November 16, 2020 History & Physical Bridge Note I have examined the patient, reviewed the History & Physical and in the interval since the performance of the History & Physical I have noted the following changes of clinical significance: no changes noted
--- NOTE | 2020-11-16 08:36 | History & Physical Report ---
Date of Service November 16, 2020 Assessment & Plan (1) Neurogenic claudication due to lumbar spinal stenosis: Plan: L2-L4 decompression fusion, possible T12 L2, L4-S1 hardware removal History of Present Illness Chief Complaint: Back and leg pain Primary Care Provider: Noah Darby MD This is a 70-year-old female presents with chronic for some back and right leg pain. After failing since course of nonoperative care is here for surgical invention. Allergies Allergy/AdvReac Type Severity Reaction Status Date / Time atorvastatin [From Lipitor] AdvReac Mild CPK Verified 11/16/20 07:48 elevation doxycycline AdvReac Mild "slight" Verified 11/16/20 07:48 LDH elevation ibuprofen [From Motrin] AdvReac Mild dyspepsia Verified 11/16/20 07:48 nitrofurantoin AdvReac Mild gi upset Verified 11/16/20 07:48 [From Macrobid] Home Medications Medication Instructions Recorded Confirmed Type cholecalciferol (vitamin D3) 125 5,000 units PO QAM 03/11/18 11/16/20 History mcg (5,000 unit) capsule loperamide 2 mg capsule 2 mg PO Q4H PRN 03/11/18 11/16/20 History multivitamin 1 tab PO BID 05/23/18 11/16/20 History calcium citrate 200 mg (950 mg) 950 mg PO BID 07/05/18 11/16/20 History tablet epinephrine 0.3 mg/0.3 mL 0.3 mg IM Q10M PRN #2 ea 12/29/19 11/16/20 Rx injection, auto-injector (EpiPen) duloxetine 60 mg capsule,delayed 60 mg PO BID #180 cap 01/07/20 11/16/20 Rx release aspirin 325 mg tablet 650 mg PO DAILY PRN tab 04/05/20 11/16/20 History Medical Marijuana 1 dose INHALATION 3XWK 04/06/20 11/16/20 History cyclobenzaprine 10 mg tablet 10 mg PO BID PRN #60 tab 05/03/20 11/16/20 Rx estradiol See Rx Instructions VAGINAL 06/20/20 11/16/20 Rx .COMPLEX #42.5 g fosfomycin tromethamine 3 gram 1 packet PO ONCE #1 ea 08/16/20 11/16/20 Rx oral packet tolterodine 2 mg capsule,extended 2 mg PO QAM 08/31/20 11/16/20 History release 24 hr (Detrol LA) amlodipine 5 mg tablet (Norvasc) 5 mg PO QAM #90 tab 09/06/20 11/16/20 Rx esomeprazole magnesium 40 mg 40 mg PO PM #90 cap 10/07/20 11/16/20 Rx capsule,delayed release pregabalin 150 mg capsule (Lyrica) 150 mg PO BID #180 cap 10/17/20 11/16/20 Rx oxycodone-acetaminophen 10 mg-325 1 tab PO QID PRN 11/14/20 11/16/20 History mg tablet (Percocet) Past Med/Surg History Medical History Cervical disc disease Chronic back pain Disc degeneration, lumbosacral Fibromyalgia GERD (gastroesophageal reflux disease) HTN (hypertension) Hx of Clostridium difficile infection 5 yrs ago Lumbar postlaminectomy syndrome Osteoarthritis TMJ click Urge urinary incontinence UTI (urinary tract infection) HX FREQUENT Surgical History History of arthroscopy of both knees History of arthroscopy of left shoulder History of bariatric surgery History of carpal tunnel release right History of colonoscopy History of elbow surgery LEFT History of ERCP History of esophagogastroduodenoscopy (EGD) History of fusion of cervical spine C6-7; "ROM WNL" History of lumbar fusion L4-S1- hardware present, L2-L4 History of repair of right rotator cuff History of right cataract surgery History of right hip replacement History of tonsillectomy History of tooth extraction Hx laparoscopic cholecystectomy (04/14/20) Laparoscopic Cholecystectomy Dr. Quintana 04/14/2020 Status post insertion of spinal cord stimulator Medtronic/advised to bring remote AM DOS/OR made aware Family History Mother CHF (congestive heart failure) Arthritis Pure hypercholesterolemia Ischemic heart disease Hypertension Myocardial infarction Father Acute myocardial infarction Myocardial infarction Mother Family history of diabetes mellitus Other No significant family history Denies family history of Ovarian cancer Prostate cancer Breast cancer Colorectal cancer Social History Smoking Status: Former smoker Smoking End Date: stopped 6 weeks ago suyapa; Second Hand Exposure: No; Do You Dip or Chew Tobacco: No; Tobacco Cessation Education Requested by Patient: No Hx Alcohol Use: Yes Alcohol type: wine Hx Substance Use: Yes Last Used Substance Other:: medical [facility] Substance Use Type Other:: has card but not currently using Preferred Language: Italian Communication Ability: Effective Quality Control Director Required: No Beliefs That Will Affect Care: None marital status: Current Living Situation: Spouse 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 Other Information That Helps Us Care for You: No Feels Safe at Home: No Is there a partner from a previous relationship who is making you feel unsafe now?: No Any Concerns about Your Family Situation: No Would You Like to Speak to Someone About Your Situation: No Safety Concerns: Feels Safe At This Time Childhood Exposure to Second-Hand Smoke: Yes Dental Care, Regularly: Yes Physical Activity Frequency: 1-2 Times per Week Seatbelt Use: always Sunscreen Use: Yes Assistive Devices: None Physical Exam Physical Exam: Patient is alert and oriented Heart regular in rhythm Lungs clear to auscultation Results & Data ([facility]) Vital Signs (Past 12 Hours) Vital Signs Temp Pulse Resp BP Pulse Ox 11/16/20 07:35 36.8 C 83 20 149/92 H 97
[2020-11-16] MEDS ORDERED: ONDANSETRON INJ 2 MG/ML 2 ML VIAL IV PRN ×2 (08:47→13:40)
[2020-11-16] MEDS ORDERED: HYDROmorphone INJ 1 MG/ML SYRINGE IV PRN (08:47)
[2020-11-16] MEDS ORDERED: ATROPINE SULFATE 0.1 MG/ML 10ML SYR IV PRN (08:47)
[2020-11-16] MEDS ORDERED: ePHEDrine sulfate 50 MG/ML AMP IV PRN (08:47)
[2020-11-16] MEDS ORDERED: BUPIVACAINE 0.5 % 5 MG/1 ML MPF 30ML VIAL ONE (08:48)
[2020-11-16] MEDS ORDERED: EPINEPHrine INJ 1 MG/ML AMP ONE (08:48)
[2020-11-16] MEDS ORDERED: KETAMINE 50 MG/5 ML SYRINGE ONE (09:01)
[2020-11-16] MEDS ORDERED: PHENYLEPHRINE 100MCG/ML 5ML SYR ONE (09:41)
[2020-11-16] MEDS ORDERED: GLYCOPYRROLATE 0.2 MG/ML VIAL ONE (09:48)
[2020-11-16] MEDS ORDERED: NEOSTIGMINE METHYLSULFATE 1 MG/ML 10ML VIAL ONE (09:48)
[2020-11-16] MEDS ORDERED: LIDOCAINE 2% 2 ML VIAL/AMP(20MG/ML) INFIL ONE (09:48)
[2020-11-16] MEDS ORDERED: PROPOFOL IV EMULSION 10 MG/ML 20 ML VIAL IV ONE (09:48)
[2020-11-16] MEDS ORDERED: ONDANSETRON INJ 2 MG/ML 2 ML VIAL ONE (09:48)
[2020-11-16] MEDS ORDERED: DEXAMETHASONE SOD INJ 4 MG/ML VIAL ONE (09:48)
[2020-11-16] MEDS ORDERED: ROCURONIUM BROMIDE 10 MG/ML 5 ML VIAL IV ONE (09:49)
[2020-11-16] MEDS ORDERED: HYDROmorphone INJ 2 MG/ML SYR/VIAL ONE (09:49)
[2020-11-16] MEDS ORDERED: FLOSEAL HEMOSTATIC MATRIX 10ML TOP ONE (10:28)
--- NOTE | 2020-11-16 11:27 | Operative Report ---
Post Operative Report Pre & Post Diagnosis Operation Date: 11/16/20 09:05 Pre-Op Diagnosis: Spinal Stenosis, Lumbar Region with Neurogenic Claudication Post-Op Diagnosis: Spinal Stenosis, Lumbar Region with Neurogenic Claudication I identified the patient and participated in the time-out.: Yes Procedure Operation Date: 11/16/20 09:05 Actual Procedures #1 removal of instrumentation L4-L5 L5-S1. #2 exploration of fusion L4-L5 L5- S1. #3 revision decompression with medial facetectomies and foraminotomies L2-3 and L3-4. #4 posterior spinal fusion L3-4 L4-5. #5 placed posterior instrumentation L2-S1. #6 interbody fusion L3-L4. #7 placement of peek cage 9 x 22 mm at L3-L4. #8 placement locally harvested morselized autograft in the posterior lateral gutters. #9 placement infuse collagen sponge and master graft in the posterior lateral gutters and osteoamp and interbody space. Surgeon Azael Musa, Conveyor Technician Jenni Warner Estimated Blood Loss 200 Findings Consistent with Post-Op Diagnosis Specimens None Indications This is a 70-year-old female presents with above-mentioned diagnosis after failing course of nonoperative care is here for the above-mentioned procedure. Description of Procedure Patient was met with identified informed consent obtained. Patient was then taken to the operative suite underwent ablation placed in a prone position the [place] table top [place] frame. All bony prominences well-padded eyes inspected to ensure no external pressure placed upon them. This point the lumbar spine was prepped and draped in normal sterile fashion. Sharp dissection with assistance of Bovie cartilage from down to and exposing the remaining lamina and transverse processes of L2-L3 and instrumentation at L4-L5 and S1 levels bilaterally. And then proceeded to move the hardware bilaterally explore the fusion mass noting it to be mature and intact. Informed revision decompression L2-3 L3-4 addressing severe spinal stenosis particular on the right. Pedicle screws were placed in L2 bilaterally L3 on the right and L4-5 and S1 on the left L5-S1 on the right. By way the transforaminal approach on the right a complete discectomy at L3-L4 was performed endplates curetted to subcortical bleeding bone and a 9 x 22 mm peek cage filled I factor tapped into position. The appropriately sized rods were contoured and locked in place bilaterally. The transverse processes of L2-L3-L4 burred to subcortical bleeding bone. Infuse collagen sponge master graft local autograft was placed in the posterior gutters. 15 round TERENCE drain inserted. Incision was then closed with 1 Vicryl to fascia 2-0 Vicryl subcutaneously and 4 Monocryl for final skin closure. Steri- Strip sterile dressings placed. Patient waken taken PACU stable condition. Please note spinal cord monitoring was utilized at the procedure no changes noted. Lastly Jenni Warner was present at the entire procedure and all the patient positioning complex portions of the surgery and final skin closure. I attest to the content of the Intraoperative Record and any orders documented therein. Any exceptions are noted below.
[2020-11-16] MEDS: fentaNYL citrate 100 MCG/2 ML VIAL IV PRN ×6 (12:11→13:00)
--- NOTE | 2020-11-16 12:27 | Fluoroscopy Report ---
[place] lumbar spine 2-3V CLINICAL HISTORY: Revision surgery. Hardware removal. Posterior decompression and fusion. COMPARISON STUDY: Lumbar spine CT March 09, 2020. Lumbar spine MRI March 10, 2020. FLUOROSCOPY TIME: 54 seconds. FLUOROSCOPIC IMAGES: 2 FINDINGS: Battery pack projects over the left lower quadrant. This is partially imaged. Levoscoliosis of the lumbar spine is noted. Previous L4-L5 and L5-S1 discectomies are noted. There is multilevel p osterior decompression. There are bilateral pedicle screws at the L2, L5 and S1 levels with a right-s ided screw at the L3 level and a left-sided screw at the L4 level. Hardware is intact. There are inte rconnecting rods. Interval L3-L4 discectomy is noted with interbody spacer placement. IMPRESSION: Hardware removal with interval L3-L4 discectomy and posterior decompression with L2-S1 p edicle screw fusion. ACT 112: Negative or not required by law. Electronically signed by: Johnathan Heck M.D. 11/16/2020 12:25 PM
--- NOTE | 2020-11-16 12:32 | Anesthesiology Progress Note ---
Date of Service November 16, 2020 Anesthesia Post Procedure Vital Signs Vital Signs: Temp Pulse Pulse Resp BP Pulse Ox 11/16/20 12:25 86 15 171/85 H 94 11/16/20 12:15 81 19 189/92 H 99 11/16/20 12:05 80 12 195/98 H 100 11/16/20 11:55 81 12 190/103 H 100 11/16/20 11:48 99.9 F H 83 12 176/89 H 97 11/16/20 07:35 98.2 F 83 20 149/92 H 97 Pain Intensity Bilateral Back: Pain Intensity: 7 Transfer of Care Handoff Completed per policy Notes Mental Status: alert / awake / arousable and participated in evaluation Patient Amnestic to Procedure: Yes Nausea / Vomiting: adequately controlled Pain: adequately controlled Airway Patency, RR, SpO2: stable & adequate BP & HR: stable & adequate Hydration State: stable & adequate Anesthetic Complications: no major complications apparent and Pt Satisfied with anesthetic care
[2020-11-16] MEDS ORDERED: fentaNYL citrate 100 MCG/2 ML VIAL IV PRN (12:55)
[2020-11-16] MEDS ORDERED: ONDANSETRON 4 MG OD TAB PO PRN (13:40)
[2020-11-16] MEDS ORDERED: DO NOT ADMINISTER FLU VACCINE PRN (13:40)
[2020-11-16] MEDS ORDERED: METOCLOPRAMIDE HCL INJ 5 MG/ML 2 ML VIAL IV PRN (13:40)
[2020-11-16] MEDS ORDERED: SOD PHOSPHATE/SOD BIPHOSPHATE ENEMA 132 ML BTL PR PRN (13:40)
[2020-11-16] MEDS ORDERED: LORazepam 0.5 MG TAB PO PRN (13:40)
[2020-11-16] MEDS ORDERED: bisacodyL 10 MG SUPP PR PRN (13:40)
[2020-11-16] MEDS ORDERED: diphenhydrAMINE Capsule 25 MG CAP PO PRN (13:40)
[2020-11-16] MEDS ORDERED: DO NOT ADMINISTER PNEUMOCOCCAL VACCINE PRN (13:40)
[2020-11-16] MEDS ORDERED: ALUMINUM/MAGNESIUM SUSP 30 ML UDC PO PRN (13:40)
[2020-11-16] MEDS ORDERED: NALOXONE HCL 0.4 MG/1 ML VIAL/CARP IV PRN (13:40)
[2020-11-16] MEDS ORDERED: hydrOXYzine HCl 25 MG TAB PO PRN (13:40)
[2020-11-16] MEDS ORDERED: ACETAMINOPHEN 1,000 MG/100 ML VIAL IV PRN (13:40)
[2020-11-16] MEDS ORDERED: PROMETHAZINE HCL 12.5 MG in SODIUM CHLORIDE 0.9% 50 ML IV PRN (13:40)
[2020-11-16] MEDS ORDERED: MAGNESIUM HYDROXIDE SUSP 30 ML UDC PO PRN (13:40)
[2020-11-16] MEDS ORDERED: LORazepam 0.5 MG/1 ML VIAL IV PRN (13:40)
[2020-11-16] MEDS ORDERED: LOPERAMIDE HCL 2 MG CAP PO PRN (13:40)
[2020-11-16] MEDS ORDERED: FAMOTIDINE 20 MG TAB PO PRN (13:40)
[2020-11-16] MEDS ORDERED: traMADol HCL 50 MG TABLET PO PRN (13:40)
[2020-11-16] MEDS ORDERED: CYCLOBENZAPRINE HCL 10 MG TAB PO PRN (13:52)
[2020-11-16] MEDS ORDERED: MEDICAL MARIJUANA INH SCH (14:30)
[2020-11-16] MEDS: HYDROmorphone INJ 0.5 MG/0.5 ML SYR IV PRN (14:48)
[2020-11-16] MEDS: LACTATED RINGER'S 1,000 ML IV SCH ×2 (14:52→23:25)
--- NOTE | 2020-11-16 18:19 | Hospitalist Consultation ---
Date of Consultation November 16, 2020 Assessment & Plan (1) Neurogenic claudication due to lumbar spinal stenosis: Status post lumbar fusion on 11/16 Postoperative management as per orthopedic spine surgery Pain control, bowel regimen TERENCE drain in place Check CBC, BMP in the morning PT consult placed Has a history of chronic opioid use-usually takes 10 mg of oxycodone 4 times a day-she does have a 10 mg dose of oxycodone as needed for severe pain (2) Anxiety: Controlled Continue Cymbalta Ativan as needed (3) Fibromyalgia: Continue Cymbalta, Lyrica (4) Gastroesophageal reflux disease: Continue PPI (5) Depression: Continue Cymbalta (6) Recurrent UTI: Has a long history of E. coli UTIs, some more resistant than others Preoperative UTI was treated Follows with infectious disease as well as urology Had urethral stricture recently dilated with cystoscopy Does take tolterodine but was not told to stop this as per urology as she had a urethral dilation which will hopefully cure some of her urinary retention and UTIs (7) Elevated LFTs: Now resolved after sphincterotomy and stent placement Follow-up with GI for stent removal after discharge (8) HTN (hypertension): Blood pressures are controlled Continue home amlodipine DVT prophylaxis-SCDs Disposition-continued stay, hospital service will follow along History of Present Illness Reason for Consultation: Medical Management Requesting Physician: Dr. Musa Attending Physician: Azael Musa, DO History of Present Illness This pt is a 70 yo female with a h/o elevated LFTs with dilated CBD and recent sphincterotomy and stent placement, HTN, FM, chronic back pain with chronic opioid dependence, anxiety/depression, GERD, recurrent UTI with urethral stricture and carbuncle,who is here for lumbar spine surgery. Hospitalist service is consulted for post-op medical management. The patient is having some pain in the lower back and some pain down the legs. She has been dealing with back pain for a long time. She denies any chest pain or shortness of breath, no abdominal pain or nausea. She is tolerating clear liquids. Last bowel movement was yesterday. She is anxious to get out of bed and start moving around this evening. Allergies Allergy/AdvReac Type Severity Reaction Status Date / Time atorvastatin [From Lipitor] AdvReac Mild CPK Verified 11/16/20 07:48 elevation doxycycline AdvReac Mild "slight" Verified 11/16/20 07:48 LDH elevation ibuprofen [From Motrin] AdvReac Mild dyspepsia Verified 11/16/20 07:48 nitrofurantoin AdvReac Mild gi upset Verified 11/16/20 07:48 [From Macrobid] Home Medications Medication Instructions Recorded Confirmed Type cholecalciferol (vitamin D3) 125 5,000 units PO QAM 03/11/18 11/16/20 History mcg (5,000 unit) capsule loperamide 2 mg capsule 2 mg PO Q4H PRN 03/11/18 11/16/20 History multivitamin 1 tab PO BID 05/23/18 11/16/20 History calcium citrate 200 mg (950 mg) 950 mg PO BID 07/05/18 11/16/20 History tablet epinephrine 0.3 mg/0.3 mL 0.3 mg IM Q10M PRN #2 ea 12/29/19 11/16/20 Rx injection, auto-injector (EpiPen) duloxetine 60 mg capsule,delayed 60 mg PO BID #180 cap 01/07/20 11/16/20 Rx release aspirin 325 mg tablet 650 mg PO DAILY PRN tab 04/05/20 11/16/20 History Medical Marijuana 1 dose INHALATION [id number] 04/06/20 11/16/20 History cyclobenzaprine 10 mg tablet 10 mg PO BID PRN #60 tab 05/03/20 11/16/20 Rx estradiol See Rx Instructions VAGINAL 06/20/20 11/16/20 Rx .COMPLEX #42.5 g fosfomycin tromethamine 3 gram 1 packet PO ONCE #1 ea 08/16/20 11/16/20 Rx oral packet tolterodine 2 mg capsule,extended 2 mg PO QAM 08/31/20 11/16/20 History release 24 hr (Detrol [place]) amlodipine 5 mg tablet (Norvasc) 5 mg PO QAM #90 tab 09/06/20 11/16/20 Rx esomeprazole magnesium 40 mg 40 mg PO PM #90 cap 10/07/20 11/16/20 Rx capsule,delayed release pregabalin 150 mg capsule (Lyrica) 150 mg PO BID #180 cap 10/17/20 11/16/20 Rx oxycodone-acetaminophen 10 mg-325 1 tab PO QID PRN 11/14/20 11/16/20 History mg tablet (Percocet) Patient History Medical History Cervical disc disease Chronic back pain Disc degeneration, lumbosacral Fibromyalgia GERD (gastroesophageal reflux disease) HTN (hypertension) Hx of Clostridium difficile infection 5 yrs ago Lumbar postlaminectomy syndrome Osteoarthritis TMJ click Urge urinary incontinence UTI (urinary tract infection) HX FREQUENT Surgical History History of arthroscopy of both knees History of arthroscopy of left shoulder History of bariatric surgery History of carpal tunnel release right History of colonoscopy History of elbow surgery LEFT History of ERCP History of esophagogastroduodenoscopy (EGD) History of fusion of cervical spine C6-7; "ROM WNL" History of lumbar fusion L4-S1- hardware present, L2-L4 History of repair of right rotator cuff History of right cataract surgery History of right hip replacement History of tonsillectomy History of tooth extraction Hx laparoscopic cholecystectomy (04/14/20) Laparoscopic Cholecystectomy Dr. Quintana 04/14/2020 Status post insertion of spinal cord stimulator Metaresolvertronic/advised to bring remote AM DOS/OR made aware Family History Mother CHF (congestive heart failure) Arthritis Pure hypercholesterolemia Ischemic heart disease Hypertension Myocardial infarction Father Acute myocardial infarction Myocardial infarction Mother Family history of diabetes mellitus Other No significant family history Denies family history of Ovarian cancer Prostate cancer Breast cancer Colorectal cancer Social History Smoking Status: Former smoker Smoking End Date: stopped 6 weeks ago suyapa; Second Hand Exposure: No; Do You Dip or Chew Tobacco: No; Tobacco Cessation Education Requested by Patient: No Hx Alcohol Use: Yes Alcohol type: wine Hx Substance Use: Yes Last Used Substance Other:: medical marijubennett Substance Use Type Other:: has card but not currently using Preferred Language: Congolese Communication Ability: Effective [employer] Operations Engineer Required: No Beliefs That Will Affect Care: None marital status: Current Living Situation: Spouse 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 Other Information That Helps Us Care for You: No Feels Safe at Home: No Is there a partner from a previous relationship who is making you feel unsafe now?: No Any Concerns about Your Family Situation: No Would You Like to Speak to Someone About Your Situation: No Safety Concerns: Feels Safe At This Time Childhood Exposure to Second-Hand Smoke: Yes Dental Care, Regularly: Yes Physical Activity Frequency: 1-2 Times per Week Seatbelt Use: always Sunscreen Use: Yes Assistive Devices: None Review of Systems Review of Systems: All systems reviewed & are unremarkable except as noted in HPI & below Physical Exam Constitutional: WD/WN, vitals as above Eyes: + anicteric sclerae Neck: trachea midline, no thyromegaly Respiratory: normal respiratory effort, lungs clear to auscultation Cardiovascular: RRR, no murmur, no edema Chest (Breasts): Chest: normal inspection of chest Gastrointestinal (Abdomen): normal bowel sounds, soft, nontender, no hepatosplenomegaly Musculoskeletal: Extremities: extremities normal to inspection; no cyanosis and no clubbing Skin: no rashes, warm and dry Neurologic: moves all extremities and awake Psychiatric: A+Ox3, euthymic affect Lymphatic: no lymphedema Results & Data Results & Data ([facility]) Vital Signs (Past 12 Hours) Vital Signs Temp Pulse Pulse Resp BP Pulse Ox 11/16/20 16:39 36.6 C 87 17 153/87 H 96 11/16/20 15:29 84 16 157/91 H 96 11/16/20 14:31 84 16 146/80 H 98 11/16/20 14:00 36.7 C 85 16 160/75 H 93 11/16/20 13:30 36.9 C 86 17 149/82 H 97 11/16/20 13:10 37.5 C 82 14 144/75 H 96 11/16/20 13:00 86 17 131/61 96 11/16/20 12:50 92 H 14 148/84 H 95 11/16/20 12:40 84 15 139/84 92 11/16/20 12:25 86 15 171/85 H 94 11/16/20 12:15 81 19 189/92 H 99 11/16/20 12:05 80 12 195/98 H 100 11/16/20 11:55 81 12 190/103 H 100 11/16/20 11:48 37.7 C H 83 12 176/89 H 97 11/16/20 07:35 36.8 C 83 20 149/92 H 97 Laboratory Results 11/16/20 11/16/20 11/16/20 Range/Units 07:39 07:39 07:39 WBC 5.05 (4.8-10.8) K/uL RBC 4.17 L (4.2-5.4) M/uL Hgb 13.3 (12.0-16.0) g/dL Hct 39.5 (37-47) % MCV 94.7 (80-100) fL MCH 31.9 (25-34) pg MCHC 33.7 (32-36) g/dL RDW Std Deviation 49.5 H (36.4-46.3) fL RDW Coeff of Renetta 14.3 (11.5-14.5) % Plt Count 317 (130-400) K/uL MPV 9.8 (7.4-10.4) fL Immature Gran % (Auto) 0.2 % Neut % (Auto) 54.2 % Lymph % (Auto) 33.3 % [place] % (Auto) 9.3 % Eos % (Auto) 2.0 % Baso % (Auto) 1.0 % Neut # (Auto) 2.74 (1.4-6.5) K/uL Lymph # (Auto) 1.68 (1.2-3.4) K/uL [place] # (Auto) 0.47 (0.11-0.59) K/uL Eos # (Auto) 0.10 (0-0.5) K/uL Baso # (Auto) 0.05 (0-0.2) K/uL Immature Gran # (Auto) 0.01 (0.00-0.02) K/uL Sodium 143 (136-145) mmol/L Potassium 4.0 (3.5-5.1) mmol/L Chloride 108 H (98-107) mmol/L Carbon Dioxide 29 (21-32) mmol/L Anion Gap 7.0 (3-11) BUN 17 (7-18) mg/dl Creatinine 0.57 L (0.6-1.2) mg/dl Est Cr Clr Drug Dosing 77.1 ml/min Est GFR ( Amer) 109.6 ml/min Est GFR (Non-Af Amer) 94.6 ml/min Fasting Glucose 85 (70-99) mg/dl Calcium 9.1 (8.5-10.1) mg/dl COVID-19 Eval Order SARS-CoV-2 (PCR) (Negative) Blood Type A Positive Antibody Screen NEGATIVE Crossmatch See Detail 11/16/20 11/16/20 Range/Units 07:32 07:32 WBC (4.8-10.8) K/uL RBC (4.2-5.4) M/uL Hgb (12.0-16.0) g/dL Hct (37-47) % MCV (80-100) fL MCH (25-34) pg MCHC (32-36) g/dL RDW Std Deviation (36.4-46.3) fL RDW Coeff of Renetta (11.5-14.5) % Plt Count (130-400) K/uL MPV (7.4-10.4) fL Immature Gran % (Auto) % Neut % (Auto) % Lymph % (Auto) % [place] % (Auto) % Eos % (Auto) % Baso % (Auto) % Neut # (Auto) (1.4-6.5) K/uL Lymph # (Auto) (1.2-3.4) K/uL [place] # (Auto) (0.11-0.59) K/uL Eos # (Auto) (0-0.5) K/uL Baso # (Auto) (0-0.2) K/uL Immature Gran # (Auto) (0.00-0.02) K/uL Sodium (136-145) mmol/L Potassium (3.5-5.1) mmol/L Chloride (98-107) mmol/L Carbon Dioxide (21-32) mmol/L Anion Gap (3-11) BUN (7-18) mg/dl Creatinine (0.6-1.2) mg/dl Est Cr Clr Drug Dosing ml/min Est GFR ( Amer) ml/min Est GFR (Non-Af Amer) ml/min Fasting Glucose (70-99) mg/dl Calcium (8.5-10.1) mg/dl COVID-19 Eval Order Covid19 at [facility] SARS-CoV-2 (PCR) NEGATIVE (Negative) Blood Type Antibody Screen Crossmatch PG Care Time/CCT Total # of Minutes Spent Total Time Spent with Patient: Total time spent is greater than 50% in coordination of care (as documented) at patient's floor/unit and/or counseling patient: Coding Level of Care Code 79268 Inpt Consult Level 3 Diagnoses Neurogenic claudication due to lumbar spinal stenosis M48.062 Anxiety F41.9 Fibromyalgia M79.7 Gastroesophageal reflux disease K21.9 Depression F32.9 Recurrent UTI N39.0 Elevated LFTs R79.89 HTN (hypertension) I10
[2020-11-16] MEDS: HYDROmorphone INJ 1 MG/ML SYRINGE IV PRN ×2 (18:45→21:59)
[2020-11-16] MEDS: ceFAZolin 1000MG 1,000 MG/7.5 ML SYR IV SCH (18:46)
[2020-11-16] MEDS: DOCUSATE SODIUM/SENNA 50/8.6MG TAB PO SCH (21:24)
[2020-11-16] MEDS: CALCIUM CITRATE 950 MG TAB PO SCH (21:24)
[2020-11-16] MEDS: MULTIVITAMIN TAB PO SCH (21:25)
[2020-11-16] MEDS: PANTOprazole 40 MG TAB PO SCH (21:25)
[2020-11-16] MEDS: DULoxetine HCL 60 MG CAP PO SCH (21:25)
[2020-11-16] MEDS: PREGABALIN 150 MG CAP PO SCH (21:28)
[2020-11-17] MEDS: ceFAZolin 1000MG 1,000 MG/7.5 ML SYR IV SCH (01:33)
[2020-11-17] MEDS: HYDROmorphone INJ 1 MG/ML SYRINGE IV PRN ×3 (03:22→16:49)
[2020-11-17] MEDS: ACETAMINOPHEN 500 MG TAB PO PRN ×2 (03:26→16:50)
[2020-11-17] MEDS: POLYETHYLENE (MIRALAX) 17 GM PACK PO SCH ×4 (06:17→23:42)
[2020-11-17 06:47] LABS: Basophils # (auto) 0.01 K/uL (0-0.2); Basophils % (auto) 0.1 %; Hematocrit (blood only) 36.7 % (37-47); Hemoglobin 12.2 g/dL (12.0-16.0); Immature Granulocytes # (auto) 0.02 K/uL (0.00-0.02); Immature Granulocytes % (auto) 0.2 %; Lymphocytes # (auto) 1.65 K/uL (1.2-3.4); Lymphocytes % (auto) 19.3 %; Mean Corpuscular Hemoglobin 31.2 pg (25-34); Mean Corpuscular Hgb Conc 33.2 g/dL (32-36); Mean Corpuscular Volume 93.9 fL (80-100); Mean Platelet Volume 9.7 fL (7.4-10.4); Monocytes % (auto) 8.2 %; Neutrophils # (auto) 6.18 K/uL (1.4-6.5); Neutrophils % (auto) 72.2 %; Platelet Count 321 K/uL (130-400); RDW Coefficient of Variation 14.2 % (11.5-14.5); RDW Standard Deviation 48.6 fL (36.4-46.3); Red Blood Count 3.91 M/uL (4.2-5.4); White Blood Count 8.56 K/uL (4.8-10.8)
[2020-11-17 07:29] LABS: BUN Creatinine Ratio 13.5 (10-20); Est GFR (African American) 107.2 ml/min; Est GFR (Non-African American) 92.5 ml/min; Potassium 3.9 mmol/L (3.5-5.1)
[2020-11-17] MEDS: DULoxetine HCL 60 MG CAP PO SCH ×2 (08:20→21:14)
[2020-11-17] MEDS: amLODIPine BESYLATE 5 MG TAB PO SCH (08:20)
[2020-11-17] MEDS: PREGABALIN 150 MG CAP PO SCH ×2 (08:20→21:14)
[2020-11-17] MEDS: CHOLECALCIFEROL 1,000 UNITS 25 MCG TAB PO SCH (08:20)
[2020-11-17] MEDS: TOLTERODINE TARTRATE LA 2 MG CAPCR PO SCH (08:20)
[2020-11-17] MEDS: CALCIUM CITRATE 950 MG TAB PO SCH ×2 (08:20→21:14)
[2020-11-17] MEDS: MULTIVITAMIN TAB PO SCH ×2 (08:20→21:14)
[2020-11-17] MEDS: HYDROmorphone INJ 0.5 MG/0.5 ML SYR IV PRN (08:21)
--- NOTE | 2020-11-17 10:19 | Orthopedic Progress Note ---
Date of Service November 17, 2020 Assessment & Plan (1) Neurogenic claudication due to lumbar spinal stenosis: Plan: This time we will continue physical therapy monitor TERENCE output hopefully discharge home in next few days. Admission and Anticipated Discharge Date Admission Date: November 16, 2020 Subjective Back pain controlled leg symptoms markedly improved Physical Exam Physical Exam: Patient discomfort was constantly testing. Results & Data ([facility]) Vital Signs (Past 12 Hours) Vital Signs Temp Pulse Pulse Resp BP Pulse Ox 11/17/20 08:11 36.9 C 85 17 153/81 H 98 11/17/20 03:03 36.8 C 94 H 17 165/87 H 96 11/16/20 22:51 36.8 C 89 18 116/70 95
--- NOTE | 2020-11-17 17:32 | Hospitalist Progress Note ---
Date of Service November 17, 2020 Assessment & Plan (1) Neurogenic claudication due to lumbar spinal stenosis: Plan: Status post lumbar fusion on 11/16 Postoperative management as per orthopedic spine surgery-doing well, using IV Dilaudid and oxycodone Continue pain control, bowel regimen TERENCE drain in place Hemoglobin at 12.2 fairly stable from previous Follow CBC, BMP again in the morning PT consult placed Has a history of chronic opioid use-usually takes 10 mg of oxycodone 4 times a day-she does have a 10 mg dose of oxycodone as needed for severe pain (2) Anxiety: Plan: Controlled Continue Cymbalta Ativan as needed (3) Fibromyalgia: Plan: Continue Cymbalta, Lyrica (4) Gastroesophageal reflux disease: Plan: Continue PPI (5) Depression: Plan: Continue Cymbalta (6) Recurrent UTI: Plan: Has a long history of E. coli UTIs, some more resistant than others Preoperative UTI was treated Follows with infectious disease as well as urology Had urethral stricture recently dilated with cystoscopy Does take tolterodine but was not told to stop this as per urology as she had a urethral dilation which will hopefully cure some of her urinary retention and UTIs (7) Elevated LFTs: Plan: Now resolved after sphincterotomy and stent placement Follow-up with GI for stent removal after discharge (8) HTN (hypertension): Plan: Blood pressures are controlled Continue home amlodipine Plan: DVT prophylaxis-SCDs Disposition-continued stay, hospital service will follow along Admission and Anticipated Discharge Date Admission Date: November 16, 2020 Subjective Patient reports ongoing pain but is controlled with IV Dilaudid. She has a Ochoa catheter out is putting out urine. She moved her bowels today. No pain down the legs. Denies chest pain or shortness of breath. Feels a little bit feverish reports she usually gets a low-grade temperature after surgeries that goes away. She is using her incentive spirometer. Review of Systems Review of Systems: All systems reviewed & are unremarkable except as noted in HPI & below Physical Exam Constitutional: WD/WN, vitals as above Eyes: + anicteric sclerae Neck: trachea midline, no thyromegaly Respiratory: normal respiratory effort, lungs clear to auscultation Cardiovascular: RRR, no murmur, no edema Chest (Breasts): Chest: normal inspection of chest Gastrointestinal (Abdomen): normal bowel sounds, soft, nontender, no hepatosplenomegaly Musculoskeletal: Extremities: extremities normal to inspection; no cyanosis and no clubbing TERENCE drain with serosanguineous fluid Skin: no rashes, warm and dry Neurologic: moves all extremities and awake Psychiatric: A+Ox3, euthymic affect Lymphatic: no lymphedema Results & Data Results & Data ([facility]) Vital Signs (Past 12 Hours) Vital Signs Temp Pulse Resp BP Pulse Ox 11/17/20 14:21 37.3 C 86 17 128/74 97 11/17/20 08:11 36.9 C 85 17 153/81 H 98 Laboratory Results 11/17/20 06:25 11/17/20 06:25 PG Care Time/CCT Total # of Minutes Spent Total Time Spent with Patient: Total time spent is greater than 50% in coordination of care (as documented) at patient's floor/unit and/or counseling patient: Coding Level of Care Code 69940 Subseq Hosp Care Lvl 1 Diagnoses Neurogenic claudication due to lumbar spinal stenosis M48.062 Anxiety F41.9 Fibromyalgia M79.7 Gastroesophageal reflux disease K21.9 Depression F32.9 Recurrent UTI N39.0 Elevated LFTs R79.89 HTN (hypertension) I10
[2020-11-17] MEDS: DOCUSATE SODIUM/SENNA 50/8.6MG TAB PO SCH (21:14)
[2020-11-17] MEDS: PANTOprazole 40 MG TAB PO SCH (21:14)
[2020-11-17] MEDS: oxyCODONE HCL IR 5 MG TAB (IMMEDIATE RELEASE) PO PRN (21:49)
[2020-11-17] MEDS: ASPIRIN 325 MG ECTAB PO PRN (23:42)
[2020-11-18] MEDS: oxyCODONE HCL IR 5 MG TAB (IMMEDIATE RELEASE) PO PRN ×5 (02:51→20:20)
[2020-11-18 06:45] LABS: Basophils # (auto) 0.02 K/uL (0-0.2); Basophils % (auto) 0.2 %; Eosinophils # (auto) 0.04 K/uL (0-0.5); Eosinophils % (auto) 0.4 %; Hematocrit (blood only) 36.9 % (37-47); Hemoglobin 12.4 g/dL (12.0-16.0); Immature Granulocytes # (auto) 0.02 K/uL (0.00-0.02); Immature Granulocytes % (auto) 0.2 %; Lymphocytes # (auto) 2.26 K/uL (1.2-3.4); Lymphocytes % (auto) 25.3 %; Mean Corpuscular Hemoglobin 31.8 pg (25-34); Mean Corpuscular Hgb Conc 33.6 g/dL (32-36); Mean Corpuscular Volume 94.6 fL (80-100); Mean Platelet Volume 9.8 fL (7.4-10.4); Monocytes # (auto) 0.87 K/uL (0.11-0.59); Monocytes % (auto) 9.7 %; Neutrophils # (auto) 5.73 K/uL (1.4-6.5); Neutrophils % (auto) 64.2 %; Platelet Count 322 K/uL (130-400); RDW Coefficient of Variation 14.7 % (11.5-14.5); RDW Standard Deviation 50.3 fL (36.4-46.3); White Blood Count 8.94 K/uL (4.8-10.8)
[2020-11-18 07:23] LABS: BUN Creatinine Ratio 15.9 (10-20); Calcium 8.7 mg/dl (8.5-10.1); Creatinine Clr Calc Pharmacy 73.2 ml/min; Est GFR (African American) 107.8 ml/min; Potassium 3.6 mmol/L (3.5-5.1)
[2020-11-18] MEDS: PREGABALIN 150 MG CAP PO SCH ×2 (08:51→20:13)
[2020-11-18] MEDS: CHOLECALCIFEROL 1,000 UNITS 25 MCG TAB PO SCH (08:51)
[2020-11-18] MEDS: DULoxetine HCL 60 MG CAP PO SCH ×2 (08:51→20:14)
[2020-11-18] MEDS: TOLTERODINE TARTRATE LA 2 MG CAPCR PO SCH (08:51)
[2020-11-18] MEDS: amLODIPine BESYLATE 5 MG TAB PO SCH (08:51)
[2020-11-18] MEDS: CALCIUM CITRATE 950 MG TAB PO SCH ×2 (08:51→20:14)
[2020-11-18] MEDS: MULTIVITAMIN TAB PO SCH ×2 (08:51→20:14)
[2020-11-18] MEDS: dexAMETHasone 8 MG in SYRINGE 0 ML IV SCH (08:52)
--- NOTE | 2020-11-18 09:04 | Orthopedic Progress Note ---
Date of Service November 18, 2020 Assessment & Plan (1) Neurogenic claudication due to lumbar spinal stenosis: Plan: This time we will continue physical therapy monitor TERENCE output anticipate possible discharge home tomorrow. She has expressed concern with Dilaudid. We have discontinued this. A UA has been ordered. Admission and Anticipated Discharge Date Admission Date: November 16, 2020 Subjective Back pain is controlled leg symptoms markedly improved Physical Exam Physical Exam: Patient has good strength testing appears comfortable Results & Data ([facility]) Vital Signs (Past 12 Hours) Vital Signs Temp Pulse Resp BP Pulse Ox 11/18/20 07:50 36.7 C 90 16 146/83 H 96 11/17/20 22:39 37.8 C H 97 H 16 159/75 H 95
[2020-11-18 09:38] LABS: Appearance Urine Clear (Clear); Bacteria Urine Automated Negative (Negative); Bilirubin Urine Negative (Negative); Blood Urine Negative (Negative); Cast Urine Automated 0 /lpf (0-5); Color Urine Yellow; Glucose Urine UA Negative (Negative); Ketones Urine Negative (Negative); Leukocyte Esterase Urine Trace (Negative); Nitrite Urine Negative (Negative); Protein Urine Negative (Negative); RBC Urine Automated 0-4 /hpf (0-4); Specific Gravity Urine 1.014 (1.000-1.030); Urobilinogen Urine Negative (Negative)
[2020-11-18] MEDS: DOCUSATE SODIUM/SENNA 50/8.6MG TAB PO SCH (20:13)
[2020-11-18] MEDS: PANTOprazole 40 MG TAB PO SCH (20:14)
--- NOTE | 2020-11-18 20:42 | Hospitalist Progress Note ---
Date of Service November 18, 2020 Assessment & Plan (1) Neurogenic claudication due to lumbar spinal stenosis: Plan: Status post lumbar fusion on 11/16 Postoperative management as per orthopedic spine surgery-doing well, ambulating Continue pain control, bowel regimen TERENCE drain in place Hemoglobin at 12.4 and stable from previous PT agustin martinez Has a history of chronic opioid use-usually takes 10 mg of oxycodone 4 times a day-she does have a 10 mg dose of oxycodone as needed for severe pain (2) Anxiety: Plan: Controlled Continue Cymbalta Ativan as needed (3) Fibromyalgia: Plan: Continue Cymbalta, Lyrica (4) Gastroesophageal reflux disease: Plan: Continue PPI (5) Depression: Plan: Continue Cymbalta (6) Recurrent UTI: Plan: Has a long history of E. coli UTIs, some more resistant than others Preoperative UTI was treated Follows with infectious disease as well as urology Had urethral stricture recently dilated with cystoscopy Does take tolterodine but was not told to stop this as per urology as she had a urethral dilation which will hopefully cure some of her urinary retention and UTIs UA on 11/18 performed for urinary dribbling and was negative, Ur cx not sent Had low grade fever evening of 11/17 but now resolved (7) Elevated LFTs: Plan: Now resolved after sphincterotomy and stent placement Follow-up with GI for stent removal after discharge (8) HTN (hypertension): Plan: Blood pressures are controlled Continue home amlodipine Plan: DVT prophylaxis-SCDs Disposition-continued stay, discharge likely tomorrow Hospitalist service will sign off. Please reach out if any acute issues arise. Admission and Anticipated Discharge Date Admission Date: November 16, 2020 Subjective Feeling much better. This AM she was having some urinary dribbling and was concerned about a UTI-UA sent and had trace LE but no WBCs or bacteria, nitrite neg. Denies CP/SOB. Pain controlled. Is OOB and ambulating and went up and down a flight of stairs with PT Review of Systems Review of Systems: All systems reviewed & are unremarkable except as noted in HPI & below Physical Exam Constitutional: WD/WN, vitals as above Eyes: + anicteric sclerae Neck: trachea midline, no thyromegaly Respiratory: normal respiratory effort, lungs clear to auscultation Cardiovascular: RRR, no murmur, no edema Chest (Breasts): Chest: normal inspection of chest Gastrointestinal (Abdomen): normal bowel sounds, soft, nontender, no hepatosplenomegaly Musculoskeletal: Extremities: extremities normal to inspection; no cyanosis and no clubbing Skin: no rashes, warm and dry Neurologic: moves all extremities and awake Psychiatric: A+Ox3, euthymic affect Lymphatic: no lymphedema Results & Data Results & Data ([facility]) Vital Signs (Past 12 Hours) Vital Signs Temp Pulse Resp BP Pulse Ox 11/18/20 14:52 37.2 C 92 H 16 121/70 99 Laboratory Results 11/18/20 11/18/20 11/18/20 Range/Units 09:15 06:26 06:26 WBC 8.94 (4.8-10.8) K/uL RBC 3.90 L (4.2-5.4) M/uL Hgb 12.4 (12.0-16.0) g/dL Hct 36.9 L (37-47) % MCV 94.6 (80-100) fL MCH 31.8 (25-34) pg MCHC 33.6 (32-36) g/dL RDW Std Deviation 50.3 H (36.4-46.3) fL RDW Coeff of Renetta 14.7 H (11.5-14.5) % Plt Count 322 (130-400) K/uL MPV 9.8 (7.4-10.4) fL Immature Gran % (Auto) 0.2 % Neut % (Auto) 64.2 % Lymph % (Auto) 25.3 % [place] % (Auto) 9.7 % Eos % (Auto) 0.4 % Baso % (Auto) 0.2 % Neut # (Auto) 5.73 (1.4-6.5) K/uL Lymph # (Auto) 2.26 (1.2-3.4) K/uL [place] # (Auto) 0.87 H (0.11-0.59) K/uL Eos # (Auto) 0.04 (0-0.5) K/uL Baso # (Auto) 0.02 (0-0.2) K/uL Immature Gran # (Auto) 0.02 (0.00-0.02) K/uL Sodium 143 (136-145) mmol/L Potassium 3.6 (3.5-5.1) mmol/L Chloride 107 (98-107) mmol/L Carbon Dioxide 32 (21-32) mmol/L Anion Gap 4.0 (3-11) BUN 10 (7-18) mg/dl Creatinine 0.60 (0.6-1.2) mg/dl Est Cr Clr Drug Dosing 73.2 ml/min Est GFR ( Amer) 107.8 ml/min Est GFR (Non-Af Amer) 93.0 ml/min BUN/Creatinine Ratio 15.9 (10-20) Glucose 109 H (70-99) mg/dl Calcium 8.7 (8.5-10.1) mg/dl Urine Color Yellow Urine Appearance Clear (Clear) Urine pH 8.0 H (4.5-7.5) Ur Specific Midnight 1.014 (1.000-1.030) Urine Protein Negative (Negative) Urine Glucose (UA) Negative (Negative) Urine Ketones Negative (Negative) Urine Blood Negative (Negative) Urine Nitrite Negative (Negative) Urine Bilirubin Negative (Negative) Urine Urobilinogen Negative (Negative) Ur Leukocyte Esterase Trace H (Negative) Urine WBC (Auto) 1-5 (0-5) /hpf Urine RBC (Auto) 0-4 (0-4) /hpf U Hyaline Cast (Auto) 0 (0-5) /lpf U Epithel Cells (Auto) 5-10 H (0-5) /lpf Urine Bacteria (Auto) Negative (Negative) Crossmatch 11/16/20 Range/Units 07:39 WBC (4.8-10.8) K/uL RBC (4.2-5.4) M/uL Hgb (12.0-16.0) g/dL Hct (37-47) % MCV (80-100) fL MCH (25-34) pg MCHC (32-36) g/dL RDW Std Deviation (36.4-46.3) fL RDW Coeff of Renetta (11.5-14.5) % Plt Count (130-400) K/uL MPV (7.4-10.4) fL Immature Gran % (Auto) % Neut % (Auto) % Lymph % (Auto) % [place] % (Auto) % Eos % (Auto) % Baso % (Auto) % Neut # (Auto) (1.4-6.5) K/uL Lymph # (Auto) (1.2-3.4) K/uL [place] # (Auto) (0.11-0.59) K/uL Eos # (Auto) (0-0.5) K/uL Baso # (Auto) (0-0.2) K/uL Immature Gran # (Auto) (0.00-0.02) K/uL Sodium (136-145) mmol/L Potassium (3.5-5.1) mmol/L Chloride (98-107) mmol/L Carbon Dioxide (21-32) mmol/L Anion Gap (3-11) BUN (7-18) mg/dl Creatinine (0.6-1.2) mg/dl Est Cr Clr Drug Dosing ml/min Est GFR ( Amer) ml/min Est GFR (Non-Af Amer) ml/min BUN/Creatinine Ratio (10-20) Glucose (70-99) mg/dl Calcium (8.5-10.1) mg/dl Urine Color Urine Appearance (Clear) Urine pH (4.5-7.5) Ur Specific Midnight (1.000-1.030) Urine Protein (Negative) Urine Glucose (UA) (Negative) Urine Ketones (Negative) Urine Blood (Negative) Urine Nitrite (Negative) Urine Bilirubin (Negative) Urine Urobilinogen (Negative) Ur Leukocyte Esterase (Negative) Urine WBC (Auto) (0-5) /hpf Urine RBC (Auto) (0-4) /hpf U Hyaline Cast (Auto) (0-5) /lpf U Epithel Cells (Auto) (0-5) /lpf Urine Bacteria (Auto) (Negative) Crossmatch See Detail PG Care Time/CCT Total # of Minutes Spent Total Time Spent with Patient: Total time spent is greater than 50% in coordination of care (as documented) at patient's floor/unit and/or counseling patient: Coding Level of Care Code 25646 Subseq Hosp Care Lvl 1 Diagnoses Neurogenic claudication due to lumbar spinal stenosis M48.062 Anxiety F41.9 Fibromyalgia M79.7 Gastroesophageal reflux disease K21.9 Depression F32.9 Recurrent UTI N39.0 Elevated LFTs R79.89 HTN (hypertension) I10
[2020-11-19] MEDS: oxyCODONE HCL IR 5 MG TAB (IMMEDIATE RELEASE) PO PRN ×3 (04:35→12:24)
[2020-11-19 06:28] VITALS: BP 118/78; PULSE 88; TEMP 97.7; O2SAT 99
[2020-11-19] MEDS: DULoxetine HCL 60 MG CAP PO SCH (08:25)
[2020-11-19] MEDS: MULTIVITAMIN TAB PO SCH (08:25)
[2020-11-19] MEDS: CALCIUM CITRATE 950 MG TAB PO SCH (08:25)
[2020-11-19] MEDS: TOLTERODINE TARTRATE LA 2 MG CAPCR PO SCH (08:25)
[2020-11-19] MEDS: amLODIPine BESYLATE 5 MG TAB PO SCH (08:26)
[2020-11-19] MEDS: CHOLECALCIFEROL 1,000 UNITS 25 MCG TAB PO SCH (08:26)
[2020-11-19] MEDS: ASPIRIN 325 MG ECTAB PO PRN (08:26)
[2020-11-19] MEDS: dexAMETHasone 8 MG in SYRINGE 0 ML IV SCH (08:28)
[2020-11-19] MEDS: ACETAMINOPHEN 500 MG TAB PO PRN (08:31)
[2020-11-19] MEDS: PREGABALIN 150 MG CAP PO SCH (09:21)
--- NOTE | 2020-11-19 11:02 | Discharge Summary ---
Date of Service November 19, 2020 Admission HPI Per Admitting Provider This is a 70-year-old female presents with chronic for some back and right leg pain. After failing since course of nonoperative care is here for surgical invention. Principal Diagnosis Lumbar spinal stenosis with radiculopathy Discharge Data Allergies Allergy/AdvReac Type Severity Reaction Status Date / Time atorvastatin [From Lipitor] AdvReac Mild CPK Verified 11/16/20 07:48 elevation doxycycline AdvReac Mild "slight" Verified 11/16/20 07:48 LDH elevation ibuprofen [From Motrin] AdvReac Mild dyspepsia Verified 11/16/20 07:48 nitrofurantoin AdvReac Mild gi upset Verified 11/16/20 07:48 [From Macrobid] Consultations 11/16/20 13:40 Consult Hospitalist Routine Procedures Performed Operation Date: 11/16/20 09:05 Actual Procedures p L2-L4 Decompression Fusion, L4-S1 Hardware Removal, Interbody Cage L3-L4; Spinal Cord Monitoring(Not Applicable) - Azael Musa DO Ordered Studies 11/16/20 [place] lumbar spine 2-3V Routine Hospital Course (1) Neurogenic claudication due to lumbar spinal stenosis: Patient with lumbar decompression fusion trial procedure well went to the orthopedic for postoperative. Postop day 1 she was up and ambulating breast pos top day #2 on postop day 3 pain was controlled TERENCE drain decreasing but still significant. She was discharged home. We will maintain the drain and have her return to the office on Saturday for evaluation removal. Remaining of discharge orders instructions were on the chart for further review. Total Time Total Time Spent Total Time Spent (In Minutes): 20 minutes Discharge Plan Discharge Items Patient Disposition: Home - Self-Care Reason For Visit: Spinal Stenosis, Lumbar Region with Neurogenic Cla Discharge Diagnosis: Lumbar spinal stenosis with neurogenic claudication Activity: As commented below Non-emergency contact: Primary Care Provider Call non-emergency contact if: you have any medication questions Follow-up/Referrals: ProNoah MD [Primary Care Provider] - Diet: Regular Addtl Attending Provider Instructions: ACTIVITY RECOMMENDATIONS: SELF CARE INSTRUCTIONS AFTER THORACIC/LUMBAR FUSIONS 1. You may walk to your tolerance. It is good exercise for your legs and back. Expect some back and intermittent leg aches and pains. 2. You may perform "counter-top" level activities (make a sandwich, dominic with a project, etc.). 3. No bending or lifting of more than 10 pounds or back twisting of any nature (roll like a log when turning in bed). 4. You may ride in a car for 20-30 minutes at a time. No driving until after your first visit with your doctor. 5. Frequent changes of position and restricting sitting to 30 minutes at a time will help limit the amount of back spasms and stiffness you may experience. 6. You may discontinue the use of ambulatory aids (cane, crutches, etc.) once your strength and confidence allow. 7. You may head inspector the shower and let water strike your incision when you arrive home at least once daily. Do not take a tub bath, sit in a hot tub or go into a swimming pool until after your first recheck in the office. SPECIAL CARE INSTRUCTIONS: VERY IMPORTANT TO READ AND REVIEW A. Your surgical incision has been closed with a cosmetic suture under the skin that will dissolve in about 6 weeks. In 14 days, you can use a pair of clean scissors and cut the suture that is left outside of the skin at the ends of your incision. 1. The small skin tapes can be removed 7 days after surgery if they have not fallen off by that point. 2. You may keep the wound open to air as much as possible to promote healing after post-op day number 5 unless told otherwise by your doctor. 3. If you think the wound looks like it is becoming infected (redness or worsening drainage) and/or you are experiencing fever, chill or worsening back pain and muscle spasms, contact the office so that we may evaluate you as soon as possible. B. Complications are uncommon, but please contact us if you have any signs or symptoms of: 1. wound infection (fever higher than 102.5 degrees F, redness, separation of wound, drainage, or increasing pain from the incision) 2. blood clots in legs (pain, swelling, redness and warmth in legs) 3. urinary tract infection (fever higher than 102.5 degrees F, burning upon urination or increased frequency of urination) 4. nerve problems (inability to walk on your toes or heels, numbness, loss of bowel or bladder control) 5. any other symptoms that concern you C. Please call the office at if you have any concerns or qu estions about your operation or recovery. D. No smoking! Smoking drastically decreases the chance of a solid fusion. E. Do not take any anti-inflammatory medications (Indocin, Advil, Motrin, Aspirin, Naprosyn, etc.) as these may inhibit the chance of a solid fusion. Tylenol is okay to take for pain. MANAGING PAIN AFTER SPINAL SURGERY 1. Narcotic medication is intended for short-term use and will be provided for surgical pain. Surgical pain usually lasts for a period of 4-6 weeks. Narcotic medication includes Percocet, Vicodin, Darvocet, Tylenol #3 or Lortab. 2. Longer-term pain is more appropriately treated with non-narcotic medication such as Tylenol ES. 3. Muscle spasm is not appropriately treated with narcotics. Muscle relaxers such as Soma, Flexeril or Skelaxin can be used along with Tylenol ES. 4. Remember that we all live with some "aches and pains". This is not unusual or uncommon after an injury or as we get older. a. Back pain is expected and may include muscle spasms for 4 to 6 weeks after surgery. The pain should gradually improve. If the pain worsens for no apparent reason, please contact the office. b. Intermittent leg pain may also be experienced and should not be concerned about unless it worsens for no apparent reason. If so, please contact the office. 5. We will provide appropriate medication within the normal guidelines of their prescribed use. We will also be very cautious and aware of potential abuse and extended duration of patients' medication needs. a. Pain medications are for your comfort and to assist with sleep and rest so that the tissue can heal. They are not provided in order to return to normal activity and should not be used through the day. To do so or worsening pain at night can result from ongoing tissue damage and development of tolerance to the prescribed medicine. 6. Please allow 2-3 days to process refills. Prescriptions will not be mailed but must be picked up at the office. FOLLOW UP VISIT: Keep your scheduled follow-up appointment. Any questions, please call the office at . Pending Studies at Discharge: No Stand-Alone Forms: [facility] Sm[facility] Cess[facility] Medications and DC Order Prescriptions: New oxycodone 5 mg tablet 5 mg PO Q6H PRN (Reason: pain, severe) Qty: 30 RF: 0 tramadol 50 mg tablet 50 mg PO Q6H PRN (Reason: pain, moderate) Qty: 30 RF: 0 Continued cholecalciferol (vitamin D3) 5,000 unit capsule 5,000 units PO QAM RF: 0 loperamide 2 mg capsule 2 mg PO Q4H PRN (Reason: Diarrhea) RF: 0 aspirin 325 mg tablet 650 mg PO DAILY PRN (Reason: Inflammation) RF: 0 epinephrine [EpiPen] 0.3 mg/0.3 mL auto-injector 0.3 mg IM Q10M PRN (Reason: Anaphylaxis) Qty: 2 RF: 1 duloxetine 60 mg capsule,delayed release(DR/EC) 60 mg PO BID Qty: 180 RF: 3 cyclobenzaprine 10 mg tablet 10 mg PO BID PRN (Reason: muscle spasms) Qty: 60 RF: 3 fosfomycin tromethamine 3 gram packet 1 packet PO ONCE Qty: 1 RF: 0 amlodipine [Norvasc] 5 mg tablet 5 mg PO QAM Qty: 90 RF: 3 esomeprazole magnesium 40 mg capsule,delayed release(DR/EC) 40 mg PO PM Qty: 90 RF: 3 pregabalin [Lyrica] 150 mg capsule 150 mg PO BID Qty: 180 RF: 0 estradiol 0.01 % (0.1 mg/gram) cream See Rx Instructions vaginal .COMPLEX Qty: 42.5 RF: 2 multivitamin Tablet 1 tab PO BID RF: 0 calcium citrate 200 mg (950 mg) Tablet 950 mg PO BID RF: 0 Medical Marijuana 1 dose inhalation 3XWK RF: 0 tolterodine [Detrol LA] 2 mg capsule,extended release 24hr 2 mg PO QAM RF: 0 oxycodone-acetaminophen [Percocet] 10-325 mg tablet 1 tab PO QID PRN (Reason: Pain) RF: 0 Discharge Orders: Discharge Order (Routine); Ordered 11/19/20 Ordered By: Azael Musa Admission Data Admit Date/Time: 11/16/20 11:31 Attending Provider: Azael Musa Admit Provider: Azael Musa Primary Care Provider: Noah Darby Other Providers: Tabby Santos
== END 2020-11-19 13:01 | disposition home or self-care (01) | DRG 455 ==
LOC: ASU 07:12 → 3E 11:31
DX: Z87.440 Personal history of urinary (tract) infections; M79.7 Fibromyalgia; Z96.641 Presence of right artificial hip joint; Z79.82 Long term (current) use of aspirin; Z87.891 Personal history of nicotine dependence; I10 Essential (primary) hypertension; Z98.1 Arthrodesis status; F41.8 Other specified anxiety disorders; M48.062 Spinal stenosis, lumbar region with neurogenic claudication; Z83.3 Family history of diabetes mellitus; K21.9 Gastro-esophageal reflux disease without esophagitis; Z88.6 Allergy status to analgesic agent; M54.16 Radiculopathy, lumbar region; Z88.1 Allergy status to other antibiotic agents

== ENCOUNTER 2023-04-22 06:28 | Observation (INO) ==
--- NOTE | 2023-03-26 09:15 | PAT Medication Instructions ---
Medication Instructions Date of Service March 26, 2023 Home Medications Medication Instructions Recorded estradiol 0.01% (0.1 mg/gram) See Rx Instructions vaginal 06/06/22 vaginal cream .COMPLEX #42.5 grams duloxetine 60 mg capsule,delayed 60 mg PO BID #180 caps 10/29/22 release pregabalin 150 mg capsule (Lyrica) 150 mg PO BID #180 caps 10/29/22 cyclobenzaprine 10 mg tablet 10 mg PO BID PRN muscle spasms #60 11/12/22 tabs cholecalciferol (vitamin D3) 125 mcg (5,000 unit) capsule 5,000 units PO QAM multivitamin 1 tab PO BID calcium citrate 200 mg (950 mg) tablet 650 mg PO TID estradiol 0.01% (0.1 mg/gram) vaginal cream See Rx Instructions vaginal .COMPLEX ferrous sulfate 325 mg (65 mg iron) tablet (FeroSul) 325 mg PO Q OTHER DAY mecobalamin (vitamin B12) 1,000 mcg chewable tablet 1,000 mcg PO Q OTHER DAY aspirin 325 mg tablet 325 mg PO DAILY PRN Pain duloxetine 60 mg capsule,delayed release 60 mg PO BID pregabalin 150 mg capsule (Lyrica) 150 mg PO BID cyclobenzaprine 10 mg tablet 10 mg PO BID PRN muscle spasms Amino Acid Synergy 4 cap PO QAM calcium carbonate-vitamin D2-minerals tablet 1 tab PO TID docusate sodium 100 mg capsule (Stool Softener) 100 mg PO DAILY PRN Constipation esomeprazole magnesium 40 mg capsule,delayed release 40 mg PO QPM mirabegron 50 mg tablet,extended release 24 hr 50 mg PO QAM nebivolol 20 mg tablet 20 mg PO QAM oxycodone-acetaminophen 10 mg-325 mg tablet 1 tab PO UD PRN Pain ASK your surgeon for instructions Amino Acid Synergy 4 cap PO QAM ASK your prescriber and surgeon aspirin 325 mg tablet 325 mg PO DAILY PRN Pain STOP taking 24 hours before surgery estradiol 0.01% (0.1 mg/gram) vaginal cream See Rx Instructions vaginal .COMPLEX DO NOT take the morning of surgery cholecalciferol (vitamin D3) 125 mcg (5,000 unit) capsule 5,000 units PO QAM multivitamin 1 tab PO BID calcium citrate 200 mg (950 mg) tablet 650 mg PO TID ferrous sulfate 325 mg (65 mg iron) tablet (FeroSul) 325 mg PO Q OTHER DAY mecobalamin (vitamin B12) 1,000 mcg chewable tablet 1,000 mcg PO Q OTHER DAY calcium carbonate-vitamin D2-minerals tablet 1 tab PO TID docusate sodium 100 mg capsule (Stool Softener) 100 mg PO DAILY PRN Constipation mirabegron 50 mg tablet,extended release 24 hr 50 mg PO QAM Take morning of surgery With a small sip of water, OTHERWISE NOTHING TO EAT OR DRINK AFTER MIDNIGHT: duloxetine 60 mg capsule,delayed release 60 mg PO BID pregabalin 150 mg capsule (Lyrica) 150 mg PO BID nebivolol 20 mg tablet 20 mg PO QAM cyclobenzaprine 10 mg tablet 10 mg PO BID PRN muscle spasms (if needed) oxycodone-acetaminophen 10 mg-325 mg tablet 1 tab PO UD PRN Pain (if needed) Take evening before surgery multivitamin 1 tab PO BID calcium citrate 200 mg (950 mg) tablet 650 mg PO TID duloxetine 60 mg capsule,delayed release 60 mg PO BID pregabalin 150 mg capsule (Lyrica) 150 mg PO BID cyclobenzaprine 10 mg tablet 10 mg PO BID PRN muscle spasms (if needed) calcium carbonate-vitamin D2-minerals tablet 1 tab PO TID docusate sodium 100 mg capsule (Stool Softener) 100 mg PO DAILY PRN Constipation (if needed) esomeprazole magnesium 40 mg capsule,delayed release 40 mg PO QPM oxycodone-acetaminophen 10 mg-325 mg tablet 1 tab PO UD PRN Pain (if needed) Other Notes If you have any questions please call us at [phone] or [phone] or [phone] or [phone]
--- NOTE | 2023-03-28 13:08 | Anesthesiology Consultation ---
Date of Service March 28, 2023 Assessment & Plan (1) Encounter for pre-operative examination: - Infectious disease screening: Per assessment on 03/28/23: No known infectious disease contacts or current infectious disease symptoms. No noted recent Covid positive test result. - Cardiology visit (01/10/23): "Palpitations: We have good documentation both on her apple watch and on her event recorder that her palpitations coincide with premature ventricular beats and we have not identified any more sustained arrhythmia. Her palpitations are markedly improved now, in part probably due to increased nebivolol. I recommended she continue the current dose.. Frequent PVCs: She has frequent symptomatic PVCs which were often in a bigeminal and trigeminal pattern. Her palpitations improved considerably with beta-blockade, she had significant side effects on metoprolol however on Bystolic she has had very few side effects and her palpitations were under excellent control now. I would continue our current approach, if she has recurrence on nebivolol 20 mg daily we can consider antiarrhythmic therapy (such as flecainide which is often very effective) or ablation.. Hypertension: She does have a history of hypertension and now on Bystolic alone her blood pressure has been very good. I am going to continue her current medical regimen and have her come back in for follow-up in 6 months" - Outpatient joint assessment: Pt currently scheduled for inpatient pathway. If surgeon requests review for outpatient joint pathway, patient is an acceptable candidate for outpatient joint program from anesthesia standpoint pending surgeon's office assessment that patient is motivated, has good support and completes Same Day Joint Program preop requirements. Chart Review Chart Review: Acceptable Risk for Surgery and Patient seen in Pre Admission Testing Teaching & Discussion Pre-Anesthesia Teaching/Discussion Notes: Instructed NPO after midnight before surgery,except medications with 15 cc of water. Medication instructions provided according to the PAT guidelines. History Surgery Operation Date: 04/22/23 08:50 Proposed Procedures p Right Total Knee Arthroplasty - Hector Roy MD Height/Weight Height: 5 ft 1 in Weight: 78.5 kg Allergies Allergy/AdvReac Type Severity Reaction Status Date / Time atorvastatin [From Lipitor] AdvReac Mild CPK Verified 03/22/23 13:28 elevation doxycycline AdvReac Mild "slight" Verified 03/22/23 13:28 LDH elevation ibuprofen [From Motrin] AdvReac Mild dyspepsia Verified 03/22/23 13:28 nitrofurantoin AdvReac Mild GI upset Verified 03/26/23 16:06 [From Macrobid] Medications Home Medications Medication Instructions Recorded Confirmed Last Taken cholecalciferol (vitamin D3) 125 5,000 units PO QAM 03/11/18 03/22/23 08/27/21 mcg (5,000 unit) capsule multivitamin 1 tab PO BID 05/23/18 03/22/23 08/27/21 calcium citrate 200 mg (950 mg) 650 mg PO TID 07/05/18 03/22/23 08/27/21 tablet estradiol 0.01% (0.1 mg/gram) See Rx Instructions vaginal 06/06/22 03/22/23 Unknown vaginal cream .COMPLEX #42.5 grams ferrous sulfate 325 mg (65 mg 325 mg PO Q OTHER DAY 06/25/22 03/22/23 Unknown iron) tablet (FeroSul) mecobalamin (vitamin B12) 1,000 1,000 mcg PO Q OTHER DAY 06/25/22 03/22/23 Unknown mcg chewable tablet aspirin 325 mg tablet 325 mg PO DAILY PRN Pain 08/30/22 03/22/23 Unknown duloxetine 60 mg capsule,delayed 60 mg PO BID #180 caps 10/29/22 03/22/23 Unknown release cyclobenzaprine 10 mg tablet 10 mg PO BID PRN muscle spasms #60 11/12/22 03/22/23 Unknown tabs Amino Acid Synergy 4 cap PO QAM 03/22/23 03/22/23 Unknown calcium carbonate-vitamin 1 tab PO TID 03/22/23 03/22/23 Unknown D2-minerals tablet docusate sodium 100 mg capsule 100 mg PO DAILY PRN Constipation 03/22/23 03/22/23 Unknown (Stool Softener) esomeprazole magnesium 40 mg 40 mg PO QPM 03/22/23 03/22/23 Unknown capsule,delayed release mirabegron 50 mg tablet,extended 50 mg PO QAM 03/22/23 03/22/23 Unknown release 24 hr nebivolol 20 mg tablet 20 mg PO QAM 03/22/23 03/22/23 Unknown oxycodone-acetaminophen 10 mg-325 1 tab PO UD PRN Pain 03/22/23 03/22/23 Unknown mg tablet pregabalin 150 mg capsule (Lyrica) 150 mg PO BID #180 caps 03/28/23 Unknown Past Medical History Medical History PVC (premature ventricular contraction) Follows with Dr. Rosado Hx of Clostridium difficile infection Approximately 2020, no recent issues Osteoarthritis Fibromyalgia UTI (urinary tract infection) Hx frequent UTIs, no recent issues GERD (gastroesophageal reflux disease) Urge urinary incontinence TMJ click Chronic back pain Disc degeneration, lumbosacral Lumbar postlaminectomy syndrome Cervical disc disease HTN (hypertension) Exercise / Class Metabolic Activity II 4-5 Yardwork/Stairs/Walk up hill (one FS (no CP, no SOB)) Past Family History Family History Mother CHF (congestive heart failure) Arthritis Pure hypercholesterolemia Ischemic heart disease Hypertension Myocardial infarction Father Acute myocardial infarction Myocardial infarction Mother Family history of diabetes mellitus Other No significant family history Denies family history of Ovarian cancer Prostate cancer Breast cancer Colorectal cancer Past Surgical History Surgical History History of left cataract surgery History of ERCP History of carpal tunnel release right Hx laparoscopic cholecystectomy Laparoscopic Cholecystectomy Dr. Quintana 04/14/2020 Status post insertion of spinal cord stimulator [employer]/advised to bring remote AM DOS/OR made aware History of right cataract surgery History of tooth extraction History of tonsillectomy History of bariatric surgery History of right hip replacement History of elbow surgery Left History of arthroscopy of left shoulder History of repair of right rotator cuff History of arthroscopy of both knees History of lumbar fusion x5 History of fusion of cervical spine C6-7; "ROM WNL" History of esophagogastroduodenoscopy (EGD) History of colonoscopy Most recent 07/2021 Past Anesthesia History No Hx of Anesthesia Complications and No Family Hx of Anesthesia Complications History of PONV No Hx of PONV and No Hx of Motion Sickness Social History Smoking Status: Never smoker Do You Dip or Chew Tobacco: No Hx Alcohol Use: Yes Alcohol type: wine alcohol intake frequency: a few times a week substance use type: marijuana (medical marijuana card, no recent use ) Review of Systems Patient denies chest pain, shortness of breath, dyspnea on exertion, fever, chills, cough, wheezing, palpitations. Physical Exam Vital Signs VITALS BP 132/75 P 61 TEMP 98.3 SP02 99%RA RESP 16 PHYSICAL Full cervical extension range of motion. Full TMJ range of motion. TMD 3 finger breaths Mallampati Score 1 Dentition: + missing (molars), + crowns (molars) Lungs: clear throughout to auscultation Cardiac: regular rate and rhythm, no murmurs noted Spine: normal Carotid arteries: negative bruit Extremities: no LE edema Lab Results Anesthesia Preop Results Results Anesthesia Widget: WBC 7.24 K/ul (4.8-10.8) 03/28/23 Hgb 13.1 g/dl (12.0-16.0) 03/28/23 Hct 39.8 % (37.0-47.0) 03/28/23 Plt 304 K/uL (130-400) 03/28/23 Na 139 mmol/L (136-145) 03/28/23 K 4.6 mmol/L (3.5-5.1) 03/28/23 Cl 104 mmol/L (98-107) 03/28/23 CO2 30 mmol/L (21-32) 03/28/23 BUN 36 mg/dl (6-23) H 03/28/23 Creat 0.81 mg/dl (0.6-1.2) 03/28/23 Glucose Level 82 mg/dl (70-99(Fasting)) 03/28/23 PT 9.5 Seconds (9.0-12.0) 03/28/23 PTT 26 Seconds (21-31) 03/28/23 INR 0.9 (0.9-1.1) 03/28/23 Blood Type A Positive 03/28/23 Antibody Screen NEGATIVE 03/28/23 Testing Electrocardiogram Date: 01/10/23 Normal sinus rhythm at 67 bpm. Low voltage QRS. Chest X-Ray Date: 09/06/22 FINDINGS: Postoperative findings within the spine are incidentally noted. Intracanalicular electrodes are noted. There is no pneumothorax or pleural effusion. There is no consolidation to suggest pneumonia. Cardiomediastinal silhouette is unremarkable. IMPRESSION: No acute cardiopulmonary findings. No significant change in appearance of the chest. Echocardiogram Date: 07/05/22 EF 60-65%. LV wall motion is normal. Moderate concentric LVH. Grade 1 diastolic dysfunction. Mild MR. Trace to mild TR. RVSP normal. Compared to 12/29/2020 study, no significant change per report.
--- NOTE | 2023-04-20 10:01 | History & Physical Report ---
Date of Service April 20, 2023 Assessment & Plan (1) Degenerative arthritis of knee, bilateral: 72-year-old female with a host of orthopedic issues in the past and status post a bilateral knee scopes with progressive bilateral knee arthritis right side greater than left. She has failed conservative measures. She like to have her right knee fixed. She does have a history of hip replacement with dislocation but that is been fixed and has not a problem lately. She had multiple spine operations and appears to be pretty stable from that. There are some minutes of total knee replacement were explained the patient and she understands. She like to proceed. She is planned to be discharged to home using the [facility] home [facility]. Her Justen can assist in her care. History of Present Illness Chief Complaint: . Bilateral knee pain discomfort right side greater than left. Primary Care Provider: Naoh Darby MD . Patient is a 72-year-old female long-term patient of mine who presents for follow-up of her knees primarily at this point. She has history of bilateral knee arthroscopy in the past with the right one done in and the left one done in . She did pretty well for a while. She did have a right hip replaced in 2017 which was complicated by distal locations and had a constrained liner placed in 2019. Hips done fine since then. She has had a total of 5 back operations with most recently a one done about [address] Musa. She has been more debilitated by her knee pain recently. She has been treated with injections which become less successful over time. The right knee bothers him more than the left. X-rays show progressive knee arthritis. She now like to have the right one fixed. She has global pain. Also reports instability. Allergies Allergy/AdvReac Type Severity Reaction Status Date / Time atorvastatin [From Lipitor] AdvReac Mild CPK Verified 04/11/23 15:28 elevation doxycycline AdvReac Mild "slight" Verified 04/11/23 15:28 LDH elevation ibuprofen [From Motrin] AdvReac Mild dyspepsia Verified 04/11/23 15:28 nitrofurantoin AdvReac Mild GI upset Verified 04/11/23 15:28 [From Macrobid] Home Medications Medication Instructions Recorded Confirmed Type cholecalciferol (vitamin D3) 125 5,000 units PO QAM 03/11/18 04/11/23 History mcg (5,000 unit) capsule multivitamin 1 tab PO BID 05/23/18 04/11/23 History calcium citrate 200 mg (950 mg) 650 mg PO TID 07/05/18 04/11/23 History tablet estradiol 0.01% (0.1 mg/gram) See Rx Instructions vaginal 06/06/22 04/11/23 Rx vaginal cream .COMPLEX #42.5 grams ferrous sulfate 325 mg (65 mg 325 mg PO Q OTHER DAY 06/25/22 04/11/23 History iron) tablet (FeroSul) mecobalamin (vitamin B12) 1,000 1,000 mcg PO Q OTHER DAY 06/25/22 04/11/23 History mcg chewable tablet aspirin 325 mg tablet 325 mg PO DAILY PRN Pain 08/30/22 04/11/23 History duloxetine 60 mg capsule,delayed 60 mg PO BID #180 caps 10/29/22 04/11/23 Rx release cyclobenzaprine 10 mg tablet 10 mg PO BID PRN muscle spasms #60 11/12/22 04/11/23 Rx tabs Amino Acid Synergy 4 cap PO QAM 03/22/23 04/11/23 History docusate sodium 100 mg capsule 100 mg PO DAILY PRN Constipation 03/22/23 04/11/23 History (Stool Softener) esomeprazole magnesium 40 mg 40 mg PO QPM 03/22/23 04/08/23 History capsule,delayed release mirabegron 50 mg tablet,extended 50 mg PO QAM 03/22/23 04/11/23 History release 24 hr nebivolol 20 mg tablet 20 mg PO QAM 03/22/23 04/11/23 History pregabalin 150 mg capsule (Lyrica) 150 mg PO BID #180 caps 03/28/23 04/11/23 Rx prednisone 20 mg tablet 20 mg PO DAILY #18 tabs 04/08/23 04/11/23 Rx cefdinir 300 mg capsule 300 mg PO BID #14 caps 04/11/23 04/11/23 Rx oxycodone-acetaminophen 10 mg-325 1 tab PO .COMPLEX PRN Pain #130 04/11/23 04/11/23 Rx mg tablet tabs Past Med/Surg History Medical History PVC (premature ventricular contraction) Follows with Dr. Rosado Hx of Clostridium difficile infection Approximately 2020, no recent issues Osteoarthritis Fibromyalgia UTI (urinary tract infection) Hx frequent UTIs, no recent issues GERD (gastroesophageal reflux disease) Urge urinary incontinence TMJ click Chronic back pain Disc degeneration, lumbosacral Lumbar postlaminectomy syndrome Cervical disc disease HTN (hypertension) Surgical History History of left cataract surgery History of ERCP History of carpal tunnel release right Hx laparoscopic cholecystectomy Laparoscopic Cholecystectomy Dr. Qiuntana 04/14/2020 Status post insertion of spinal cord stimulator [employer]/advised to bring remote AM DOS/OR made aware History of right cataract surgery History of tooth extraction History of tonsillectomy History of bariatric surgery History of right hip replacement History of elbow surgery Left History of arthroscopy of left shoulder History of repair of right rotator cuff History of arthroscopy of both knees History of lumbar fusion x5 History of fusion of cervical spine C6-7; "ROM WNL" History of esophagogastroduodenoscopy (EGD) History of colonoscopy Most recent 07/2021 Family History Mother CHF (congestive heart failure) Arthritis Pure hypercholesterolemia Ischemic heart disease Hypertension Myocardial infarction Father Acute myocardial infarction Myocardial infarction Mother Family history of diabetes mellitus Other No significant family history Denies family history of Ovarian cancer Prostate cancer Breast cancer Colorectal cancer Social History Smoking Status: Never smoker Second Hand Exposure: No; Do You Dip or Chew Tobacco: No; Hx Alcohol Use: Yes Alcohol type: wine Preferred Language: Bulgarian Communication Ability: Effective Potato Picker Required: No Beliefs That Will Affect Care: None marital status: Current Living Situation: Spouse 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 Physical Exam . Physical examination reveals a pleasant middle-age female. She looks to be in pretty reasonably good health. Examination of her knees reveal patient ambulates with use of a cane. Examination of the right knee reveals a valgus deformity which is increased with weightbearing. Range of motion is about 5 degrees short of full extension to 120 degrees of flexion. There is no gross instability. No particular pain with hip motion. Hip incisions healed nicely. Leg lengths appear equal. Examination left knee reveals similar valgus to alignment. She got a small knee effusion. Range of motion 5-1 25. No instability. Constitutional WD/WN, vitals as above Neck trachea midline, no thyromegaly Respiratory normal respiratory effort, lungs clear to auscultation Cardiovascular RRR, no murmur, no edema Gastrointestinal (Abdomen) normal bowel sounds, soft, nontender, no hepatosplenomegaly Results & Data Results & Data Laboratory Results . Labs reveal normal white blood cell count. Her sed rate and C-reactive protein are normal. Diagnostic Findings . X-rays of both knees were reviewed. Shows advanced bilateral knee DJD with complete loss of lateral joint space in both knees. She is got osteophytes laterally. She has subchondral sclerosis. PG Care Time/CCT Total # of Minutes Spent Total Time Spent with Patient: Total time spent is greater than 50% in coordination of care (as documented) at patient's floor/unit and/or counseling patient: Coding Level of Care Code None Diagnoses Degenerative arthritis of knee, bilateral M17.0
[~2023-04-22 06:28] MED LIST changes: +BUPIVACAINE 0.5 % 5 MG/1 ML PF 10ML VIAL ONE; +FAMOTIDINE 20 MG TAB PO SCH; -GABAPENTIN 300 MG CAP PO SCH; -LR 15ML/HR IV SCH; +LR 500ML BOLUS, THEN 15ML/HR IV SCH; +LR 60ML/HR IV SCH; +METOCLOPRAMIDE HCL 10 MG TABLET PO SCH; +ROPIV 0.5% 246mg, Ketorolac 30mg, EPINEPHrine 0.5mg in NSS INFIL SCH; +ROPIVACAINE 0.5% 5 MG/ML 30 ML VIAL ONE; +TRANEXAMIC ACID 1,000 MG **IV Intra-op IV SCH; -ceFAZolin 1000MG 1,000 MG/7.5 ML SYR IV SCH; +ceFAZolin 2000MG 2,000 MG/15 ML SYR IV SCH; +dexAMETHasone**PF** 10 MG/ML VIAL IV SCH
--- NOTE | 2023-04-22 06:53 | History & Physical Bridge Note ---
Date of Service April 22, 2023 History & Physical Bridge Note I have examined the patient, reviewed the History & Physical and in the interval since the performance of the History & Physical I have noted the following changes of clinical significance: no changes noted
[2023-04-22] MEDS ORDERED: fentaNYL citrate PF 100 MCG/2 ML VIAL ONE ×2 (07:56→09:42)
[2023-04-22] MEDS ORDERED: MIDAZOLAM HCL 1 MG/ML 2ML VIAL ONE (07:56)
[2023-04-22] MEDS ORDERED: ORTHO JOINT ANESTHETIC ONE (08:49)
[2023-04-22] MEDS ORDERED: ePHEDrine sulfate 50 MG/ML AMP IV PRN (09:24)
[2023-04-22] MEDS ORDERED: ATROPINE SULFATE 0.1 MG/ML 10ML SYR IV PRN (09:24)
[2023-04-22] MEDS ORDERED: PROMETHAZINE HCL 12.5 MG in SODIUM CHLORIDE 0.9% 50 ML IV PRN (09:24)
[2023-04-22] MEDS ORDERED: fentaNYL citrate PF 100 MCG/2 ML VIAL IV PRN (09:24)
[2023-04-22] MEDS ORDERED: ONDANSETRON INJ 2 MG/ML 2 ML VIAL IV PRN ×2 (09:24→11:39)
[2023-04-22] MEDS ORDERED: HYDROmorphone INJ 2 MG/ML SYR/VIAL IV PRN (09:24)
[2023-04-22] MEDS ORDERED: PROPOFOL IV EMULSION 10 MG/ML 20 ML VIAL IV ONE (09:26)
[2023-04-22] MEDS ORDERED: LIDOCAINE 2% 2 ML VIAL/AMP(20MG/ML) INFIL ONE (09:27)
[2023-04-22] MEDS ORDERED: VANCOMYCIN HCL 1000MG/20ML VIAL ONE (09:30)
[2023-04-22] MEDS ORDERED: DEXAMETHASONE SOD INJ 4 MG/ML VIAL ONE (09:44)
[2023-04-22] MEDS ORDERED: ONDANSETRON INJ 2 MG/ML 2 ML VIAL ONE (09:44)
[2023-04-22] MEDS ORDERED: ePHEDrine sulfate 50 MG/5 ML SYR ONE (10:45)
--- NOTE | 2023-04-22 11:05 | Operative Report ---
PG Post Operative Report Pre & Post Diagnosis Operation Date: 04/22/23 08:50 Pre-Op Diagnosis: Right Knee Advanced Degenerative Joint Disease Post-Op Diagnosis: Right Knee Advanced Degenerative Joint Disease I identified the patient and participated in the time-out.: Yes Procedure Operation Date: 04/22/23 08:50 Actual Procedures p Right Total Knee Arthroplasty(Right) - Hector Roy MD Surgeon Hector Roy MD [employer] Ezra Bhatia PA-C Estimated Blood Loss 50 Findings Consistent with Post-Op Diagnosis Operative findings revealed extensive right knee and grade 4 [id number] disease in all 3 compartments. It did appear to be some degree of inflammatory and erosive component to her disease pattern. Diffuse osteopenia. Fixed valgus deformity to her knee. Specimens Right knee sent pathology. Anesthesia Type General Regional Complications none Disposition Accompanied Patient To Recovery: No Indications Patient is a 72-year-old female whose had a long history of multiple orthopedic problems over the years. She is has a known history of bilateral knee DJD that is gotten worse over time. Does a history of knee arthroscopy on both knees 15 to 20 years ago. She been through extensive conservative treatment over the years which would become less successful. She got severe arthritis in both knees. She has some degree of autoimmune disease as well. She elected to see with the right total knee arthroplasty. Description of Procedure Operative implants consist of: 1 Biomet Vanguard size 67.5 right posterior stabilized femoral component. 2. Biomet size 67 tibial tray. 3. 12 mm PS plus polyethylene insert. 4. 31 x 8 all poly patella. The patient was taken to the operating, identified, placed on the operating table in the supine position. All contractors were properly padded. IV antibiotics 5 by anesthesia seizure team. A general anesthetic was implemented due to her history of multiple back surgeries. Ochoa catheter was placed in sterile fashion. Right thigh turn was then placed. Right lower extremity was then prepped and draped in usual sterile fashion. The right leg was elevated exsanguinated with use of an Esmarch and a turn was placed at 300 mmHg. An anterior approach of the right knee was then performed to longitudinal incision centered over the patella. Sharp dissection scalp through subcutaneous tissue down the extensor mechanism. Medial parapatellar arthrotomy incision was made. Some subperiosteal dissection was carried out medially. The fat pad was resected from Neath patella tendon. The lateral patellofemoral ligament was released. Patella subluxated laterally and the knee was flexed. The osteophytes taken off distal femur. The ACL and PCL were then released from the distal femur and the tibia subluxated anteriorly. The external treatment line jig was then placed in the interface the tibia and adjusted 12 mm medially. Proximal tibial cut was made remove about a millimeter to bone from the medial side. The tibia sized to a size 67. Attention drawn the femur. The distal femur examined the sharp drop with intramedullary canal was suction. A right 5 degree valgus cutting guide was placed. Distal femoral cutting block was pinned in place. The distal femoral cut was made to take an additional 3 mm of bone off distal femur. I then brought the knee out in extension and did limited release of the IT band in order to equalize extension gap. The knee was then flexed. The femur was then sized to a size 67.5. The AP cutting block was pinned parallel to the epicondylar axis which was 6 degrees of external rotation. The anterior cut, anterior chamfer, posterior cut, posterior chamfer cuts were made. The box cutting guide was placed and adjusted slightly laterally. The box cut was made. The knee was flexed. The remnants of the medial and lateral menisci were excised. I did release the popliteus tendon in order to equalize the flexion gap. The knee was then trialed a 12 mm insert fit most appropriately. She did have a little bit of residual MCL laxity so I elected to use a PS plus insert. Attention drawn the patella. The patella was cleaned of all soft tissue. Patella thickness measured 22 mm in thickness was cut down to 13. Was sized to a size 31 patella. The lug holes were drilled for the 31 patella. The lateral osteophyte was removed. Patella button was placed. Knee was taken through range of motion patella tracked nicely with no thumbs test. Attention drawn to placing the permanent components. All trial components were removed. Bone plug was placed in the distal femur limit blood loss. Double batch Palacos G cement was mixed. I did add an additional gram of vancomycin to the cement due to this patient history of autoimmune disease and increased risk of infection. [employer] size 67.5 right Po stabilized femoral component, a size 67 tibial tray, a 12 mm PS plus insert, and a 31 x 8 all poly patella then cemented in place. The knee was brought out into full extension till cement hardened. Final cement check was then performed. The pericapsular tissues were injected with total of 100 cc of combination of 20 cc of Exparel, 30 cc normal saline, 50 cc of quarter percent Marcaine with epinephrine. Patient did receive 1 g tranexamic acid. The tourniquet was let down for final tourniquet time 57 minutes. Hemostasis assured use electrocautery. Extensor Meclomen closed with a combination 1 PDS suture #1 Vicryl suture in a [id number] fashion. Extensor Meclomen checked found to be intact through the subcutaneous tissues then closed with 2 Dexon suture in a buried interrupted fashion of the skin was closed skin john. Leg was then cleaned and dried and sterile dressing was Xeroform, 4 fours, sterile cast padding, Bruce bandage were applied. Patient then transferred to the recovery room in stable condition. The patient tolerated the procedure well and there were no complications. Ezra Bhatia, my physician chiropractor assistant, was present for the entire procedure. His assistance was essential and required for appropriate patient positioning, prepping and draping, surgical exposure, performing the technical details of the operation, placement the implants, closure of the wound, and placement of the sterile bandage. I attest to the content of the Intraoperative Record and any orders documented therein. Any exceptions are noted below.
[2023-04-22] MEDS ORDERED: HYDROMORPHONE 4 MG PO SCH (11:39)
[2023-04-22] MEDS ORDERED: NALOXONE HCL 0.4 MG/1 ML VIAL/CARP IV PRN (11:39)
[2023-04-22] MEDS ORDERED: HYDROmorphone INJ 0.5 MG/0.5 ML SYR IV PRN (11:39)
[2023-04-22] MEDS ORDERED: CYCLOBENZAPRINE HCL 10 MG TAB PO PRN (11:39)
[2023-04-22] MEDS ORDERED: bisacodyL 10 MG SUPP PR PRN (11:39)
[2023-04-22] MEDS ORDERED: ALUMINUM/MAGNESIUM SUSP 30 ML UDC PO PRN (11:39)
[2023-04-22] MEDS ORDERED: MAGNESIUM HYDROXIDE SUSP 30 ML UDC PO PRN (11:39)
[2023-04-22] MEDS ORDERED: DOCUSATE SODIUM 100 MG CAP PO PRN (11:39)
[2023-04-22] MEDS ORDERED: METOCLOPRAMIDE HCL INJ 5 MG/ML 2 ML VIAL IV PRN (11:39)
--- NOTE | 2023-04-22 11:46 | XRay Report ---
XR knee RT 1 or 2V routine HISTORY: 72 years-old Female Surgical Post Op right knee arthroplasty COMPARISON: Radiographs 02/26/2023 TECHNIQUE: 2 views of the right knee FINDINGS: Total joint arthroplasty with patellar resurfacing. Anterior midline skin john with expected posto perative soft tissue swelling and deep tissue air. Unchanged metallic density foreign body of the lat eral upper calf. IMPRESSION: Total joint arthroplasty with expected postoperative changes. ACT 112: Negative or not required by law. The above report was generated using voice recognition software. It may contain grammatical, syntax o r spelling errors. Electronically signed by: Jarred Pierre M.D. 04/22/2023 11:45 AM
--- NOTE | 2023-04-22 11:51 | Anesthesiology Progress Note ---
Date of Service April 22, 2023 Anesthesia Post Procedure Vital Signs Vital Signs: Temp Pulse Resp BP Pulse Ox O2 Del Method O2 Flow Rate 04/22/23 11:35 84 15 142/78 H 94 Room Air 04/22/23 11:25 36.7 C 83 16 145/74 H 95 Room Air 04/22/23 11:15 82 20 146/75 H 99 Oxymask 4 04/22/23 11:05 83 18 148/74 H 98 Oxymask 4 04/22/23 10:58 36.7 C 81 16 131/81 99 Oxymask 6 04/22/23 07:07 36.8 C 81 20 160/86 H 97 Room Air Pain Intensity Back: Pain Intensity: 6 Right Knee: Pain Intensity: 3 Transfer of Care Handoff Completed per policy Notes Mental Status: alert / awake / arousable and participated in evaluation Patient Amnestic to Procedure: Yes Nausea / Vomiting: adequately controlled Pain: adequately controlled Airway Patency, RR, SpO2: stable & adequate BP & HR: stable & adequate Hydration State: stable & adequate Anesthetic Complications: no major complications apparent
[2023-04-22] MEDS: SODIUM CHLORIDE 0.9% 1,000 ML IV SCH ×2 (11:57→20:44)
[2023-04-22] MEDS ORDERED: FERROUS SULFATE 325 MG TAB PO SCH (12:30)
[2023-04-22] MEDS ORDERED: CYANOCOBALAMIN (B-12) 500 MCG TABLET PO SCH (12:30)
[2023-04-22] MEDS: HYDROmorphone HCL 2 MG TAB PO PRN ×2 (12:46→20:39)
[2023-04-22] MEDS: KETOROLAC TROMETHAMINE 15 MG/ML VIAL IV SCH ×2 (12:47→19:36)
[2023-04-22] MEDS: ACETAMINOPHEN 500 MG TAB PO SCH ×2 (13:27→20:41)
[2023-04-22] MEDS ORDERED: TRANEXAMIC ACID / 0.7% NACL 1,000 MG/100 ML BAG IV SCH (17:00)
[2023-04-22] MEDS: ASCORBIC ACID 500 MG TAB PO SCH (17:24)
[2023-04-22] MEDS: ceFAZolin 2000MG 2,000 MG/15 ML SYR IV SCH (17:26)
[2023-04-22] MEDS: DOCUSATE SODIUM 100 MG CAP PO SCH (20:39)
[2023-04-22] MEDS: ASPIRIN 81 MG ECTAB PO SCH (20:40)
[2023-04-22] MEDS: SENNA 8.6 MG TAB PO SCH (20:41)
[2023-04-22] MEDS: DULoxetine HCL 60 MG CAP PO SCH (20:42)
[2023-04-22] MEDS: PREGABALIN 150 MG CAP PO SCH (20:44)
[2023-04-22] MEDS ORDERED: PANTOprazole 40 MG TAB PO SCH (21:00)
[2023-04-22] MEDS ORDERED: SENNA 8.6 MG TAB PO SCH (21:00)
[2023-04-22] MEDS ORDERED: NON-FORMULARY MEDICATION (Multivitamin Tablet) PO SCH (21:00)
[2023-04-23] MEDS: KETOROLAC TROMETHAMINE 15 MG/ML VIAL IV SCH ×2 (00:44→06:00)
[2023-04-23] MEDS: ceFAZolin 2000MG 2,000 MG/15 ML SYR IV SCH (00:44)
[2023-04-23] MEDS: HYDROmorphone HCL 2 MG TAB PO PRN ×2 (03:51→11:20)
[2023-04-23 06:32] LABS: BUN Creatinine Ratio 32.8 (10-20); Calcium 8.8 mg/dl (8.6-10.3); Creatinine Clr Calc Pharmacy 81.1 ml/min; Est GFR (African American) 105.7 ml/min; Est GFR (Non-African American) 91.2 ml/min; Potassium 4.3 mmol/L (3.5-5.1)
[2023-04-23 06:40] LABS: Hematocrit (blood only) 33.6 % (37.0-47.0); Hemoglobin 11.3 g/dl (12.0-16.0); Mean Corpuscular Hemoglobin 32.2 pg (25.0-34.0); Mean Corpuscular Hgb Conc 33.6 g/dL (32.0-36.0); Mean Corpuscular Volume 95.7 fL (80.0-100.0); Mean Platelet Volume 9.7 fL (9.4-12.4); Platelet Count 326 K/uL (130-400); RDW Coefficient of Variation 15.1 % (11.5-14.5); RDW Standard Deviation 52.7 fL (36.4-46.3); Red Blood Count 3.51 M/uL (4.20-5.40)
[2023-04-23] MEDS: ASPIRIN 81 MG ECTAB PO SCH (07:36)
[2023-04-23] MEDS: ASCORBIC ACID 500 MG TAB PO SCH (07:36)
[2023-04-23] MEDS: DOCUSATE SODIUM 100 MG CAP PO SCH (07:39)
[2023-04-23] MEDS: DULoxetine HCL 60 MG CAP PO SCH (07:40)
[2023-04-23] MEDS: SENNA 8.6 MG TAB PO SCH (07:41)
[2023-04-23] MEDS: PREGABALIN 150 MG CAP PO SCH (07:46)
[2023-04-23] MEDS ORDERED: dexAMETHasone 10 MG in SYRINGE 0 ML IV SCH (08:00)
[2023-04-23] MEDS ORDERED: METOPROLOL TARTRATE 100 MG TAB PO SCH (09:00)
[2023-04-23] MEDS ORDERED: CHOLECALCIFEROL 125 MCG (5,000 UNITS) TAB PO SCH (09:00)
[2023-04-23] MEDS ORDERED: predniSONE 20 MG TAB PO SCH (09:00)
[2023-04-23] MEDS ORDERED: AMINO ACID SYNERGY PO SCH (09:00)
[2023-04-23] MEDS ORDERED: MULTIVITAMIN TAB PO SCH (09:00)
[2023-04-23] MEDS ORDERED: VIBEGRON 75 MG TAB PO SCH (09:00)
[2023-04-23] MEDS ORDERED: CALCIUM CITRATE 950 MG TAB PO SCH (09:00)
[2023-04-23] MEDS: ACETAMINOPHEN 500 MG TAB PO SCH (09:13)
--- NOTE | 2023-04-23 11:53 | Orthopedic Progress Note ---
Date of Service April 23, 2023 Assessment & Plan (1) Status post right knee replacement: Overall she is doing quite well today with good pain control to the right knee. She will work with physical therapy later this morning to work on ambulation and range of motion. She is on aspirin for DVT prophylaxis. She can be discharged home later this morning pending physical therapy evaluation. She will follow-up with Dr. Roy in 2 weeks for postoperative care. Saud Anthony was seen and evaluated this morning resting comfortably in bed in no apparent distress. She notes that her pain is well-controlled to the right knee. She has been up and ambulating with no significant issues. She has yet to work with physical therapy today. She denies any other concerns today. Review of Systems All systems reviewed & are unremarkable except as noted in HPI & below. Physical Exam . On physical examination of the right knee, dressings are clean, dry, and in place. Her leg is out in full extension. She has active plantarflexion dorsiflexion to the right ankle. +2 DP and PT pulses. Less than 2-second capillary refill. Normal sensation. Neurovascular intact. Results & Data Results & Data Laboratory Results . Diagnostic Findings . Postoperative x-rays of the right knee reveal prosthesis to be in anatomical alignment with no signs of fracture complication or loosening. PG Care Time/CCT Total # of Minutes Spent Total Time Spent with Patient: Total time spent is greater than 50% in coordination of care (as documented) at patient's floor/unit and/or counseling patient: Coding Level of Care Code 52316 Post Operative Follow-Up Diagnoses Status post right knee replacement Z96.651
--- NOTE | 2023-04-23 11:55 | Discharge Summary ---
Date of Service April 23, 2023 Admission HPI (Per Admitting) . Patient is a 72-year-old female long-term patient of mine who presents for follow-up of her knees primarily at this point. She has history of bilateral knee arthroscopy in the past with the right one done in 08 and the left one done in . She did pretty well for a while. She did have a right hip replaced in 2017 which was complicated by distal locations and had a constrained liner placed in 2019. Hips done fine since then. She has had a total of 5 back operations with most recently a one done about [address] Musa. She has been more debilitated by her knee pain recently. She has been treated with injections which become less successful over time. The right knee bothers him more than the left. X-rays show progressive knee arthritis. She now like to have the right one fixed. She has global pain. Also reports instability. Admission Exam (Per Admitting) . Physical examination reveals a pleasant middle-age female. She looks to be in pretty reasonably good health. Examination of her knees reveal patient ambulates with use of a cane. Examination of the right knee reveals a valgus deformity which is increased with weightbearing. Range of motion is about 5 de grees short of full extension to 120 degrees of flexion. There is no gross instability. No particular pain with hip motion. Hip incisions healed nicely. Leg lengths appear equal. Examination left knee reveals similar valgus to alignment. She got a small knee effusion. Range of motion 5-1 25. No instability. Principal Diagnosis Same as "Discharge Diagnosis" noted below under Discharge Instructions. Discharge Exam . On physical examination of the right knee, dressings are clean, dry, and in place. Her leg is out in full extension. She has active plantarflexion dorsiflexion to the right ankle. +2 DP and PT pulses. Less than 2-second capillary refill. Normal sensation. Neurovascular intact. Discharge Data Procedures Performed Operation Date: 04/22/23 08:50 Actual Procedures p Right Total Knee Arthroplasty(Right) - Hector Roy MD Ordered Studies 04/22/23 05:00 US - OR guided needle placemen Routine Hospital Course (1) Status post right knee replacement: On April 22, 2023 Gabrielle arrived at [facility] and underwent a rig ht total knee arthroplasty performed by Dr. Roy with no complications. She had a general anesthetic. Postoperatively, she was started on aspirin for DVT prophylaxis and transferred to the general orthopedic floor in stable condition. Her hospital course was uneventful. On postoperative day #1, her vital signs were stable and her pain was well-controlled. She participated well with physical therapy working on ambulation and range of motion exercises. She was then discharged home in stable condition. She will follow-up with Dr. Roy in 2 weeks for postoperative care. PG Care Time/CCT Total # of Minutes Spent Total Time Spent with Patient: Total time spent is greater than 50% in coordination of care (as documented) at patient's floor/unit and/or counseling patient: Discharge Plan Discharge Items Patient Disposition: Home - Home Health Services Reason For Visit: Right Knee DJD Discharge Diagnosis: Right Knee Replacement Activity: Per Instructions section Weightbearing: Full weightbearing Non-emergency contact: Surgeon Call non-emergency contact if: you have any medication questions Follow-up/Referrals: Noah Darby MD [Primary Care Provider] - Diet: Regular Addtl Attending Provider Instructions: ACTIVITY RECOMMENDATIONS: Physical Therapy: * You will go to physical therapy three times each week for four to six weeks after your surgery in order to regain your knee range of motion and to retrain your knee to work properly. * It is just as important to make sure you are getting your knee perfectly straight as it is to regain your knee bend. * Taking a pain pill an hour before therapy can help you have a more productive and comfortable therapy session. Home Exercise: * You were shown a series of exercises (heel props, heel slides, etc.) in the hospital. Do these exercises three to four times each day including the exercises you were shown in physical therapy. Walking: * Get up and walk several times each day. For the first four weeks, try not to stand or walk for more than one hour at a time. If you do stand or walk for more than one hour, you will not hurt anything, but your knee and leg will likely swell. * As you feel comfortable, you may change from the walker or crutches to a cane and then to independent walking. MEDICATIONS: New Medicine: * You will likely be taking one or more of these medications: 1. Dilaudid/Hydromorphone - A quick and shorter-acting pain medication. Take one to two tablets every six hours to lessen your pain. 2. Aspirin - Thins your blood to lessen the chance of forming a blood clot. * The most common side effects of pain medicine and iron are nausea and constipation. If nausea or constipation is too much of a problem or if you have any questions about your new medicines or doses, call [facility] at . We will try to help you manage these issues. "VERY IMPORTANT TO READ AND REVIEW" Pain: * The immediate post-operative period after knee replacement surgery is often quite painful. * You are given a prescription for pain medicine. You should take it, as directed, when you need it, especially before physical therapy and before going to bed. Pain that interferes with sleep is very common and can last several months. * You will likely need pain medicine for the first four to six weeks. It will not stop all of the pain. The pain will lessen and as you feel better, you may change to milder pain medicine such as Tylenol. * The most common side effects of pain medicine are nausea and constipation, so don't take more than you need. SPECIAL CARE INSTRUCTIONS: TEDs/Elastic Stockings: * The white elastic stockings help limit swelling and prevent blood clots from forming in your legs. The more you wear them, the more they work. * Wear them for six weeks after knee replacement surgery and four weeks after partial knee replacement. Incision Site Care: * Remove dressing postoperative day 2 and then shower. Keep direct shower pressure off the incision site. * After showering, cover john with dry gauze and change daily or more frequently if the dressing is getting saturated with drainage. * Use the MEMO stockings to hold dressing in place. DO NOT apply tape on the skin. * May completely stop using bandage if wound is dry and no drainage * John are removed between 2 and 3 weeks post-op. If your follow-up appointment is made before 2 weeks, please have your appointment re- scheduled. It is too early to remove the john. Prevention of Infection: * Take antibiotics one hour before any dental cleaning, dental work, urological procedure, gastrointestinal procedure or any invasive surgery in order to prevent your new joint from getting infected. * You may get the antibiotics from the doctor performing the procedure or you may call our office at [phone] before and we will call in a prescription to the pharmacy of your choice. Things to Watch For: * Drainage from the incision site that occurs more than one week after your surgery. * Severely increased knee/leg pain or swelling. * Increased redness at the incision site. * Fever above 102 degrees Fahrenheit. * Unusual chest pain or shortness of breath. * Unusual pain or burning with urination. Call [facility] at [phone] with any of the above problems or if you have any questions about your medicines or recovery. FOLLOW UP VISIT: Make an appointment to see your doctor for approximately two weeks after surgery for a progress check and staple removal by calling the office at [phone]. Pending Studies at Discharge: No Stand-Alone Forms: My [facility] [place], Smoking Cessation Medications and DC Order Prescriptions: Continued cholecalciferol (vitamin D3) 5,000 unit capsule 5,000 units PO QAM estradiol 0.01 % (0.1 mg/gram) cream See Rx Instructions vaginal .COMPLEX Qty: 42.5 2RF Rx Instructions: Apply pea-sized amount vaginally daily x2 weeks, then twice weekly thereafter. duloxetine 60 mg capsule,delayed release(DR/EC) 60 mg PO BID Qty: 180 3RF cyclobenzaprine 10 mg tablet 10 mg PO BID PRN (Reason: muscle spasms) Qty: 60 3RF pregabalin [Lyrica] 150 mg capsule 150 mg PO BID Qty: 180 0RF ketorolac 10 mg tablet 10 mg PO TID 5 Days Qty: 15 0RF Patient Comments: post op med Rx Instructions: Take 3 times per day with food for 5 days to lessen pain and swelling. ondansetron 4 mg tablet,disintegrating 4 mg PO Q8 PRN (Reason: nausea) Qty: 20 1RF Patient Comments: post op med Rx Instructions: Take as needed for nausea sennosides [Senokot] 8.6 mg tablet 8.6 mg PO BID 14 Days Qty: 28 0RF Patient Comments: post op med Rx Instructions: Take two times a day to prevent/treat constipation aspirin [Nadia Low Dose Aspirin] 81 mg tablet,delayed release (DR/EC) 81 mg PO BID 45 Days Qty: 90 0RF Patient Comments: post op med Rx Instructions: Take to prevent blood clots. acetaminophen [Tylenol Extra Strength] 500 mg tablet 1,000 mg PO TID 30 Days Qty: 180 0RF Rx Instructions: Take 3 times per day to lessen pain. cefadroxil 500 mg capsule 500 mg PO BID 7 Days Qty: 14 0RF Patient Comments: post op Rx Instructions: Take 1 cap twice a day to prevent infection hydromorphone 4 mg tablet 4 mg PO Q6H Qty: 42 0RF Patient Comments: post op med Rx Instructions: Take as needed for Pain. prednisone 20 mg tablet 20 mg PO DAILY Qty: 18 0RF Patient Comments: prescription for URI finished on 04/13/23 Rx Instructions: Take PO w/ food. 3 daily x3d, then 2 daily x3d, then 1 daily x3d. ferrous sulfate [FeroSul] 325 mg (65 mg iron) tablet 325 mg PO Q OTHER DAY mecobalamin (vitamin B12) 1,000 mcg tablet,chewable 1,000 mcg PO Q OTHER DAY multivitamin Tablet 1 tab PO BID calcium citrate 200 mg (950 mg) Tablet 650 mg PO TID Patient Comments: unknown strength Amino Acid Synergy 4 cap PO QAM esomeprazole magnesium 40 mg Capsule,Delayed Release(Dr/Ec) 40 mg PO QPM docusate sodium [Stool Softener] 100 mg capsule 100 mg PO DAILY PRN (Reason: Constipation) nebivolol 20 mg tablet 20 mg PO QAM mirabegron 50 mg tablet extended release 24 hr 50 mg PO QAM Discontinued oxycodone-acetaminophen 10-325 mg tablet 1 tab PO .COMPLEX PRN (Reason: Pain) Qty: 130 0RF Rx Instructions: 1 tab orally every 4-6 hours PRN PRN; aspirin 325 mg tablet 325 mg PO DAILY PRN (Reason: Pain) Admission Data Admit Date/Time: 04/22/23 10:57 Attending Provider: Hector Roy Admit Provider: Hector Roy Primary Care Provider: Noah Darby Other Interventions: Discharge Summary Assessment (RN) Last Done: 04/23/23 10:26
== END 2023-04-23 11:58 | disposition home health service (06) ==
LOC: 3E 06:28 → ASU 06:28

== ENCOUNTER 2023-07-25 08:47 | Inpatient (IN) ==
--- NOTE | 2023-07-24 12:40 | Anesthesiology Consultation ---
Date of Service July 24, 2023 Assessment & Plan (1) Encounter for pre-operative examination: - Infectious disease screening: Per assessment on 07/24/23: No known infectious disease contacts or current infectious disease symptoms. No noted recent Covid positive test result. - S/P Right TKA (04/22/23): LMA#4, atraumatic + regional at [facility]. Per operative report, "A general anesthetic was implemented due to her history of multiple back surgeries" - PCP visit/note (07/03/23): "72-year-old seen today for preoperative clearance for upcoming removal of spinal cord stimulator.. 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 The patient is medically stable as she can be for upcoming surgery.. Low to moderate risk.. Patient is cleared for scheduled surgery" > *Per PAT RN phone interview 07/24/23, patient reported that she had SCS removed 06/2023* - Cardiology visit (07/15/23): "Her palpitations have been under excellent control on nebivolol. I recommended continuing it.. 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 Her palpitations improved considerably with beta-blockade, she had significant side effects on metoprolol however on Bystolic she has had very few side effects and her palpitations were under excellent control now. I would continue our current approach, if she has recurrence on nebivolol 20 mg daily we can consider antiarrhythmic therapy (such as flecainide which is often very effective) or ablation.. She does have a history of hypertension and now on Bystolic alone her blood pressure has been very good.. Follow Up: 6 Months" - [facility] ER visit 07/24/23- note still in draft. Thoracic spine MRI notes Large soft tissue collection posterior to the lower thoracic spine at T7-T9 level. Chart Review Chart Review: Acceptable Risk for Surgery and Patient NOT seen in Pre Admission Testing Consults Requested medical & cardiac Pulmonary ASA ASA3 Proposed Anesthesia Anesthesia Type: General History Surgery Operation Date: 07/25/23 10:35 Proposed Procedures p Thoracic Spine Incision and Drainage - Aazel Musa DO Height/Weight Height: 5 ft 1 in Weight: 77.111 kg Allergies Allergy/AdvReac Type Severity Reaction Status Date / Time atorvastatin [From Lipitor] AdvReac Intermediate CPK Verified 07/25/23 09:14 elevation doxycycline AdvReac Intermediate "slight" Verified 07/25/23 09:14 LDH elevation ibuprofen [From Motrin] AdvReac Intermediate dyspepsia Verified 07/25/23 09:14 nitrofurantoin AdvReac Intermediate GI upset Verified 07/25/23 09:14 [From Macrobid] Medications Home Medications Medication Instructions Recorded Confirmed Last Taken cholecalciferol (vitamin D3) 125 5,000 units PO QAM 03/11/18 07/25/23 07/24/23 08:00 mcg (5,000 unit) capsule multivitamin 1 tab PO BID 05/23/18 07/25/23 07/24/23 19:00 calcium citrate 200 mg (950 mg) 650 mg PO TID 07/05/18 07/25/23 07/24/23 19:00 tablet estradiol 0.01% (0.1 mg/gram) See Rx Instructions vaginal 06/06/22 07/25/23 04/17/23 vaginal cream .COMPLEX #42.5 grams ferrous sulfate 325 mg (65 mg 325 mg PO Q OTHER DAY 06/25/22 07/25/23 07/23/23 iron) tablet (FeroSul) mecobalamin (vitamin B12) 1,000 1,000 mcg PO Q OTHER DAY 06/25/22 07/25/23 07/24/23 19:00 mcg chewable tablet docusate sodium 100 mg capsule 100 mg PO DAILY PRN Constipation 03/22/23 07/25/23 04/21/23 08:00 (Stool Softener) esomeprazole magnesium 40 mg 40 mg PO QPM 03/22/23 07/25/23 07/24/23 19:00 capsule,delayed release nebivolol 20 mg tablet 20 mg PO QAM 03/22/23 07/25/23 07/25/23 06:00 duloxetine 60 mg capsule,delayed 60 mg PO BID #180 caps 05/07/23 07/25/23 07/25/23 06:00 release pregabalin 150 mg capsule (Lyrica) 150 mg PO BID #180 caps 07/03/23 07/25/23 07/25/23 06:00 cyclobenzaprine 10 mg tablet 10 mg PO BID PRN muscle spasms #60 07/23/23 07/25/23 Unknown tabs oxycodone-acetaminophen 10 mg-325 1 tab PO .Q4-6H PRN Pain 07/24/23 07/25/23 07/25/23 06:00 mg tablet Active Medications Generic Name Dose Route Start Last Admin Trade Name Felipa PRN Reason Stop Dose Admin Acetaminophen 1,000 mg 07/25/23 06:00 07/25/23 09:31 Acetaminophen 500 Mg Tab PO 07/25/23 18:00 1,000 mg PREOP WANDER Administration Celecoxib 200 mg 07/25/23 06:00 07/25/23 09:35 Celebrex 200 Mg Cap PO 07/25/23 18:00 200 mg PREOP WANDER Administration Ephedrine Sulfate 5 mg 07/25/23 10:00 07/25/23 12:45 Ephedrine Sulfate 50 Mg/Ml Amp IV 07/25/23 18:00 5 mg Q5M PRN Administration PACU Use Only-SBP<90 mmHg Gabapentin 300 mg 07/25/23 06:00 07/25/23 09:32 Gabapentin 300 Mg Cap PO 07/25/23 18:00 300 mg PREOP WANDER Administration Lactated Ringer's 1,000 mls @ 15 mls/hr 07/25/23 06:00 07/25/23 10:56 Lr IV 07/26/23 05:59 Infused .Q24H WANDER Infusion Lactated Ringer's 1,000 mls @ 60 mls/hr 07/25/23 06:00 07/25/23 09:33 Lr IV 07/25/23 22:39 Not Given .[id number] WANDER Cefazolin Sodium 2,000 mg in 15 mls @ 3.75 mls/min 07/25/23 06:00 07/25/23 11:24 Ancef 2000mg IV 07/25/23 18:00 3.75 mls/min PREOP WANDER Administration Protocol Lactated Ringer's 1,000 mls @ 100 mls/hr 07/25/23 13:52 07/25/23 13:57 Lr IV 08/24/23 13:51 100 mls/hr .Q10H WANDER Administration Oxycodone HCl 5 - 10 mg 07/25/23 13:52 07/25/23 14:35 Oxycodone Hcl Ir 5 Mg Tab (Immediate Release) PO 08/08/23 13:51 10 mg Q4H PRN Administration Pain & Pre PT Past Medical History Medical History Cervical disc disease Chronic back pain Disc degeneration, lumbosacral Fibromyalgia GERD (gastroesophageal reflux disease) HTN (hypertension) Hx of Clostridium difficile infection Approximately 2020, no recent issues Lumbar postlaminectomy syndrome Osteoarthritis PVC (premature ventricular contraction) Follows with Dr. Rosado TMJ click Urge urinary incontinence UTI (urinary tract infection) Hx frequent UTIs, no recent issues Past Family History Family History Mother CHF (congestive heart failure) Arthritis Pure hypercholesterolemia Ischemic heart disease Hypertension Myocardial infarction Father Acute myocardial infarction Myocardial infarction Mother Family history of diabetes mellitus Other No significant family history Denies family history of Ovarian cancer Prostate cancer Breast cancer Colorectal cancer Past Surgical History Surgical History History of arthroscopy of both knees History of arthroscopy of left shoulder History of bariatric surgery History of carpal tunnel release right History of colonoscopy Most recent 07/2021 History of elbow surgery Left History of ERCP History of esophagogastroduodenoscopy (EGD) History of fusion of cervical spine C6-7; "ROM WNL" History of left cataract surgery History of lumbar fusion x5 History of repair of right rotator cuff History of right cataract surgery History of right hip replacement History of spinal surgery Spinal cord stimulator and leads removed 06/2023 History of tonsillectomy History of tooth extraction Hx laparoscopic cholecystectomy Laparoscopic Cholecystectomy Dr. Quintana (2020) Status post insertion of spinal cord stimulator [employer] (Removed 06/2023) Status post right knee replacement [facility] (03/2023) Social History Smoking Status: Never smoker tobacco type: e-cigarettes Do You Dip or Chew Tobacco: No Hx Alcohol Use: Yes Alcohol type: wine alcohol intake frequency: a few times a week substance use type: marijuana (medical marijuana card, no recent use ) Substance Use Type Other:: has card but not currently using Physical Exam Vital Signs Last Vital Signs Temp 36.4 C L 07/25/23 14:32 Pulse 80 07/25/23 14:32 Resp 18 07/25/23 14:32 BP 129/64 07/25/23 14:32 Pulse Ox 94 07/25/23 14:32 O2 Del Method Room Air 07/25/23 14:32 O2 Flow Rate 2 07/25/23 13:25 Constitutional no acute distress ENMT Mouth: + small oral opening; no TMJ clicking, motion of mouth not restricted and no loose teeth Mallampati Class: III Neck normal visual inspection; neck extension not limited Respiratory normal respiratory effort Auscultation: lungs clear to auscultation bilaterally Cardiovascular Rate/Rhythm: regular rate and regular rhythm Musculoskeletal Spine: normal cervical ROM Skin no rashes Neurologic moves all extremities Psychiatric Orientation: alert and oriented x 3 Lab Results Anesthesia Preop Results Results Anesthesia Widget: WBC 10.98 K/ul (4.8-10.8) H 07/23/23 Hgb 13.2 g/dl (12.0-16.0) 07/23/23 Hct 39.9 % (37.0-47.0) 07/23/23 Plt 322 K/uL (130-400) 07/23/23 Na 136 mmol/L (136-145) 07/23/23 K 4.0 mmol/L (3.5-5.1) 07/23/23 Cl 98 mmol/L (98-107) 07/23/23 CO2 32 mmol/L (21-32) 07/23/23 BUN 15 mg/dl (6-23) 07/23/23 Creat 0.75 mg/dl (0.6-1.2) 07/23/23 Glucose Level 97 mg/dl (70-99(Fasting)) 07/23/23 PT 9.6 Seconds (9.0-12.0) 07/08/23 INR 0.9 (0.9-1.1) 07/08/23 TSH 2.998 uIu/ml (0.300-4.500) 06/03/23 Urine Color Yellow 07/24/23 Urine Appearance Clear (Clear) 07/24/23 Urine pH 6.0 (4.5-7.5) 07/24/23 Urine Specific [place] 1.010 (1.000-1.030) 07/24/23 Urine Protein Negative (Negative) 07/24/23 Urine Glucose (UA) Negative (Negative) 07/24/23 Urine Ketones Negative (Negative) 07/24/23 Urine Blood Negative (Negative) 07/24/23 Urine Nitrite Negative (Negative) 07/24/23 Urine Bilirubin Negative (Negative) 07/24/23 Urine Urobilinogen Negative (Negative) 07/24/23 Urine Leukocyte Esterase Trace (Negative) H 07/24/23 Urine WBC (Auto) 0-5 /hpf (0-5) 07/24/23 Urine RBC (Auto) 0-2 /hpf (0-2) 07/24/23 Urine Hyaline Casts (Auto) 0-2 /lpf (0-2) 07/24/23 Urine Epithelial Cells (Auto) 0-2 /hpf (0-2) 07/24/23 Urine Bacteria (Auto) None Seen (None Seen) 07/24/23 Testing Laboratory Results 07/25/23 11:27 Gram Stain - Final Back Troponin I (07/23/23): 7.8 (WNL) Blood cultures (07/24/23, [place])- pending Electrocardiogram Date: 07/23/23 NSR at 83bpm. unconfirmed report. Chest X-Ray Date: 07/23/23 FINDINGS: There are low lung volumes. No pneumothorax. Bibasilar linear densities favor subsegmental atelectasis. There are cervical spinal fusion hardware. The heart is mildly enlarged. Lumbar spinal fusion hardware is also noted. No evidence for pulmonary edema. There is a tortuous thoracic aorta. Degenerative changes within the shoulders. There are metallic anchors within the right humeral head. IMPRESSION: Low lung volumes with bibasilar subsegmental atelectasis. Echocardiogram Date: 07/05/22 EF 60-65%. LV wall motion is normal. Moderate concentric LVH. Grade 1 diastolic dysfunction. Mild MR. Trace to mild TR. RVSP normal. Compared to 12/29/2020 study, no significant change per report. Other Testing Chest CT Date: 07/24/23 1. Posterior paraspinal abscess measuring 10.7 x 4.6 x 7.7 cm extending from approximate T6-T7 to T10-T11. 2. Epidural abscess at approximate T8 or T9 level measuring at least 3.5 cm in craniocaudal dimension with question mass-effect over the spinal cord. Recommend neurosurgical consultation and follow-up with MRI of the entire spine to exclude metachronous lesions. 3. Mild right lower lobe atelectasis with trace posterior dependent atelectasis. Lumbar spine MRI Date: 07/24/23 Vertebrae: There is L2-S1 posterior spinal fusion. There is a dextroscoliosis seen at the thoracolumbar junction. There is levoscoliosis seen in the lumbar spine. No acute fracture. Spinal cord: Limited evaluation. Normal signal. No abnormal enhancement. Soft tissues: No fluid collection seen posterior to the lumbar spine. DISCS/SPINAL CANAL/NEURAL FORAMINA: Severe multilevel degenerative disc changes seen at L1/2, L2/3, L3/4, L4/5 and L5/S1 junction. Evaluation of the spinal canal is limited by artifacts caused by the posterior fusion hardware L1/2 posterior disc osteophyte complexes causing mild spinal canal stenosis. Impression: Status post L2-S1 posterior spinal fusion. Severe multilevel degenerative disc disease changes in the lumbar spine, as described above. Evaluation limited by artifacts caused by the posterior arthroplasty hardware Thoracic Spine MRI Date: 07/24/23 No epidural abscess. Large soft tissue collection posterior to the lower thoracic spine at T7-T9 level.
[2023-07-25] MEDS: ACETAMINOPHEN 500 MG TAB PO SCH (09:31)
[2023-07-25] MEDS: LR 15ML/HR IV SCH (09:32)
[2023-07-25] MEDS: GABAPENTIN 300 MG CAP PO SCH (09:32)
[2023-07-25] MEDS: LR 60ML/HR IV SCH (09:33)
[2023-07-25] MEDS: CeleBREX 200 MG CAP PO SCH (09:35)
[2023-07-25] MEDS ORDERED: fentaNYL citrate PF 100 MCG/2 ML VIAL ONE (09:58)
[2023-07-25] MEDS ORDERED: PROMETHAZINE HCL 6.25 MG in SODIUM CHLORIDE 0.9% 50 ML IV PRN (10:00)
[2023-07-25] MEDS ORDERED: HYDROmorphone INJ 2 MG/ML SYR/VIAL IV PRN (10:00)
[2023-07-25] MEDS ORDERED: ATROPINE SULFATE 0.1 MG/ML 10ML SYR IV PRN (10:00)
[2023-07-25] MEDS: oxyCODONE HCL IR 5 MG TAB (IMMEDIATE RELEASE) PO STA (10:09)
[2023-07-25] MEDS ORDERED: ONDANSETRON INJ 2 MG/ML 2 ML VIAL ONE (11:23)
[2023-07-25] MEDS ORDERED: LIDOCAINE 2% 20 MG/ML 5 ML SYR IV ONE (11:23)
[2023-07-25] MEDS ORDERED: GLYCOPYRROLATE 0.2 MG/ML VIAL ONE (11:23)
[2023-07-25] MEDS ORDERED: PROPOFOL IV EMULSION 10 MG/ML 20 ML VIAL IV ONE (11:23)
[2023-07-25] MEDS ORDERED: ROCURONIUM BROMIDE 10 MG/ML 5 ML VIAL IV ONE (11:23)
[2023-07-25] MEDS ORDERED: DEXAMETHASONE SOD INJ 4 MG/ML VIAL ONE (11:23)
[2023-07-25] MEDS: ceFAZolin 2000MG 2,000 MG/15 ML SYR IV SCH (11:24)
[2023-07-25] MEDS ORDERED: SUGAMMADEX SODIUM 200 MG/2 ML VIAL IV ONE (11:34)
[2023-07-25] MEDS: GENTAMICIN SULFATE 40 MG/ML 2 ML VIAL ONE (11:40)
[2023-07-25] MEDS: VANCOMYCIN HCL 1000MG/20ML VIAL ONE (11:40)
[2023-07-25] MEDS: BUPIVACAINE/EPINEPHRINE 0.25% 1:200,000 30 ML VIAL ONE (11:41)
[2023-07-25] MEDS: ceFAZolin 330 MG/ML 1 GM VIAL ONE (11:41)
--- NOTE | 2023-07-25 11:48 | Operative Report ---
Post Operative Report Pre & Post Diagnosis Operation Date: 07/25/23 10:35 Pre-Op Diagnosis: Spinal Epidural Abscess Post-Op Diagnosis: Spinal Epidural Abscess I identified the patient and participated in the time-out.: Yes Procedure Operation Date: 07/25/23 10:35 Actual Procedures #1 revision laminotomy T10. #2 irrigation debridement thoracic spine. Surgeon Azael Musa DO Mold Machine Operator Jenni Warner Estimated Blood Loss 10 Findings See Below Patient had evidence of gross purulence through the soft tissue in the region of the T11. The fluid did migrate down to the epidural space. Specimens Cultures from the thoracic paravertebral musculature Indications This is a 72-year-old female who presents with evidence of postop infection of the 10 laminotomy site. She was seen in the ER with positive blood cultures and here for emergent I&D. Description of Procedure Patient was met with identified informed consent obtained. Patient was then taken to the operative suite underwent a patient placed in a prone position on the Virgil table on top of the Murray frame. All bony prominences well-padded eyes inspected to ensure no external press placed upon the. This point the thoracic spine was prepped draped normal sterile fashion. Utilizing the prev ious incision site from the previous laminotomy and removal of the spinal cord stimulator paddle. Sharp dissection was performed the skin gross purulence was noted. I dissected to the subcutaneous tissues down through the musculature into the epidural space at T10. I then performed a small revision laminotomy of T10 to explore the area to ensure no fluid was within the spinal canal. None was appreciated. Several liters of antibiotic solution were then irrigated throughout the incision after curetting all damaged tissue. I then placed approximately 10 cc of Stimulan beads impregnated with vancomycin and gentamicin throughout the subcutaneous and deep tissues. A 15 round TERENCE drain was then inserted. The incision was closed with subcutaneous Vicryl and 4 Monocryl for final skin closure. Steri-Strip sterile dressings placed. Patient awakened taken to PACU stable condition. I attest to the content of the Intraoperative Record and any orders documented therein. Any exceptions are noted below.
[2023-07-25] MEDS: ePHEDrine sulfate 50 MG/ML AMP IV PRN (12:23)
--- NOTE | 2023-07-25 13:49 | Anesthesiology Progress Note ---
Date of Service July 25, 2023 Anesthesia Post Procedure Vital Signs Vital Signs: Temp Pulse Pulse Resp BP Pulse Ox O2 Del Method 07/25/23 13:25 36.4 C L 83 17 106/47 L 95 Nasal Cannula 07/25/23 13:15 79 19 97/49 L 96 Nasal Cannula 07/25/23 13:05 77 23 100/45 L 100 Nasal Cannula 07/25/23 12:55 77 26 H 92/49 L 100 Nasal Cannula 07/25/23 12:45 78 18 86/54 L 95 Nasal Cannula 07/25/23 12:35 78 20 77/25 L 92 Nasal Cannula 07/25/23 12:25 78 23 94/33 L 89 L Room Air 07/25/23 12:15 78 20 83/44 L 98 Oxymask 07/25/23 12:05 80 20 90/39 L 98 Oxymask 07/25/23 11:56 36.1 C L 83 21 120/70 96 Oxymask 07/25/23 09:56 36.5 C 76 20 130/78 97 Room Air O2 Flow Rate 07/25/23 13:25 2 07/25/23 13:15 2 07/25/23 13:05 4 07/25/23 12:55 4 07/25/23 12:45 4 07/25/23 12:35 2 07/25/23 12:25 07/25/23 12:15 6 07/25/23 12:05 6 07/25/23 11:56 6 07/25/23 09:56 Pain Intensity Lower Back: Pain Intensity: 8 Transfer of Care Handoff Completed per policy Notes Mental Status: alert / awake / arousable and participated in evaluation Nausea / Vomiting: adequately controlled Pain: adequately controlled Airway Patency, RR, SpO2: stable & adequate BP & HR: stable & adequate Hydration State: stable & adequate Anesthetic Complications: no major complications apparent and Pt Satisfied with anesthetic care
[2023-07-25] MEDS ORDERED: MAGNESIUM HYDROXIDE SUSP 30 ML UDC PO PRN (13:52)
[2023-07-25] MEDS ORDERED: SOD PHOSPHATE/SOD BIPHOSPHATE ENEMA 132 ML BTL PR PRN (13:52)
[2023-07-25] MEDS ORDERED: DO NOT ADMINISTER FLU VACCINE PRN (13:52)
[2023-07-25] MEDS ORDERED: DO NOT ADMINISTER PNEUMOCOCCAL VACCINE PRN (13:52)
[2023-07-25] MEDS ORDERED: hydrOXYzine HCl 25 MG TAB PO PRN (13:52)
[2023-07-25] MEDS ORDERED: LORazepam 0.5 MG TAB PO PRN (13:52)
[2023-07-25] MEDS ORDERED: HYDROmorphone INJ 0.5 MG/0.5 ML SYR IV PRN (13:52)
[2023-07-25] MEDS ORDERED: VANCOMYCIN CONSULT ACTIVE PRN ×2 (13:52→17:07)
[2023-07-25] MEDS ORDERED: ONDANSETRON 4 MG OD TAB PO PRN (13:52)
[2023-07-25] MEDS ORDERED: METOCLOPRAMIDE HCL INJ 5 MG/ML 2 ML VIAL IV PRN (13:52)
[2023-07-25] MEDS ORDERED: ALUMINUM/MAGNESIUM SUSP 30 ML UDC PO PRN (13:52)
[2023-07-25] MEDS ORDERED: bisacodyL 10 MG SUPP PR PRN (13:52)
[2023-07-25] MEDS ORDERED: LORazepam 0.5 MG in SYRINGE 0.25 ML IV PRN (13:52)
[2023-07-25] MEDS ORDERED: ACETAMINOPHEN 1,000 MG/100 ML VIAL IV PRN (13:52)
[2023-07-25] MEDS ORDERED: PROMETHAZINE HCL 12.5 MG in SODIUM CHLORIDE 0.9% 50 ML IV PRN (13:52)
[2023-07-25] MEDS ORDERED: diphenhydrAMINE Capsule 25 MG CAP PO PRN (13:52)
[2023-07-25] MEDS ORDERED: NALOXONE HCL 0.4 MG/1 ML VIAL/CARP IV PRN (13:52)
[2023-07-25] MEDS ORDERED: ONDANSETRON INJ 2 MG/ML 2 ML VIAL IV PRN (13:52)
[2023-07-25] MEDS: oxyCODONE HCL IR 5 MG TAB (IMMEDIATE RELEASE) ONE (13:57)
[2023-07-25] MEDS: LACTATED RINGER'S 1,000 ML IV SCH (13:57)
[2023-07-25] MEDS: oxyCODONE HCL 10 MG TABCR (OxyCONTIN) PO ONE (13:57)
[2023-07-25] MEDS ORDERED: FAMOTIDINE 20 MG TAB PO PRN (14:06)
[2023-07-25] MEDS: oxyCODONE HCL IR 5 MG TAB (IMMEDIATE RELEASE) PO PRN (14:35)
[2023-07-25] MEDS: CALCIUM CITRATE 950 MG TAB PO SCH (14:53)
[2023-07-25] MEDS: CYCLOBENZAPRINE HCL 10 MG TAB PO SCH (14:53)
--- NOTE | 2023-07-25 16:55 | Hospitalist Consultation ---
Date of Consultation July 25, 2023 Assessment & Plan (1) Bacteremia: s/p #1 revision laminotomy T10. #2 irrigation debridement thoracic spine with Dr Musa Blood cultures from ER 07/23 with MRSA OR cx w/ moderate WBC, moderate GPC on preliminary -- follow Patient did get IV Vancomcin in ER on 07/22-07/23 but did not return for Vancomycin in ER as had planned for surgery 07/[address] Musa Contacted pharmacy and plan to continue vancomycin for now Repeat blood cultures to be obtained in AM 07/25 ID consult placed ECHO ordered to r/o endocarditis CBC, BMP, mag to be obtained now Also moving to med-tele/monitored bed given hx PVCs however no CP/Palpitations reported at present time. Trop in ER during prior visit without elevation. Of note, did have RIGHT knee replacement in March (no issues on exam) and bilateral shoulder injections the beginning of June (no shoulder pain reported) but should monitor if develops any pain/issues given hardware and recent injection. Will plan to move to medicine service, Dr Musa APPs to see over the weekend but he will be out of country for next week. Believes good results with I&D, copious irrigation and placement of beads and do not suspect will need any further surgery Monitor labs in AM (2) Epidural abscess: as above, monitor OR culture Repeat blood cultures as above and ID consulted/ECHO, move to monitored bed (3) Lumbar postlaminectomy syndrome: continue pain control, appears MUCH improved since I&D for above (4) Anxiety: continue home medications (5) Gastroesophageal reflux disease: also w/ hx gastric bypass, remains on PPI daily. Monitor for any needs for increase (6) Fibromyalgia: continue cymbalta BID, lyrica (7) History of gastric bypass: noted (8) Iron deficiency: continue replacement (9) Abscess of skin: as above, concerns for epidural abscess/bacteremia (10) Frequent unifocal PVCs: Hx HTN/frequent PVCs, follows with Dr Riggins. PVC prior in bigem/trigem pattern and improvement considerable w/ BB and had few side effects from metoprolol and was placed on bystolic with few side effects Metoprolol ordered 100mg in substitution for her Bystolic while inpatient and will see if able to have someone bring in for her to prevent issues no need for card consult at present time, but may need TTE pending echo results/ID consult moving to monitored bed as above, echo to be obtained to r/o endocarditics given MRSA bacteremia Plan Thank you for allowing hospitalist service to participate in the care of Ms Beebe. Case discussed with Dr Chirinos and will plan to move to medicine service and have orthospine follow along as analysis consultant. Supervising Physician Co-Signing Physician Notes I personally saw and examined the patient. I verified all rose points and agree with June Anderson PA-C with the following exceptions and/or additions: 72 year old female s/p revision laminotomy T10, irrigation debridement thoracic spine. Doing well post operatively. No current chest pain as described in ER visit on 07/22. O/E HS RRR, no murmurs, Chest CTAB, Abdo SNT, no pedal edema, right knee and hip movement without pain or any pain on palpation A/P MRSA bacteremia - source presumably epidural abscess s/p I&D performed by Dr Musa today. Artificial right hip and knee appear to be current unaffected. IV vancomycin. Repeat blood cultures in AM. TTE. Consult infectious disease. Charles bullard to med/tele, History of Present Illness Reason for Consultation: Medical management Requesting Physician: Dr Musa Attending Physician: Azael Musa, DO History of Present Illness 72-year-old female presents to the hospital for emergent incision and drainage of epidural spinal abscess and thoracic region with Dr. Musa today. She had been seen in the emergency department yesterday evening with complaints of right flank/abdominal/chest pain and initially thought she strained herself while gardening 3 days ago and had been taking Hartman for discomfort but got 0 relief. CAT scan of her chest and abdomen revealed concern for skin abscess versus epidural abscess over the thoracic spine and was given IV vancomycin.. ER provider noted fluid collection seemed to be in the area where the neurostimulator leads were removed and had swelling at that area on physical exam with the Steri-Strips were but no significant pain to palpation of that area did have an MRI of her thoracic and lumbar spine which confirmed subcutaneous fluid collection but no obvious epidural abscess and patient had just finished a 10-day course of oral antibiotics and was discharged with instructions for close follow-up with Dr. Musa who removed the nerve stimulator to discuss results of the MRI to see if she needed additional antibiotics or intervention. Evaluated in room 359-1, following I&D of epidural abscess. Patient is sitting up in bed on her phone, reporting feeling MUCH better. 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 Regarding events prior to surgery today, she reports she went home after her ER visit and for some reason she turned her phone off because she hadn't gotten hardly any sleep for several days, but reports when she turned it back on she had voicemail from the ER about need to come back for antibiotics for her blood cultures.Review of prior blood cultures from the emergency room on 07/23 reveal positive in both sets for gram-positive cocci in clusters and PCR identified MRSA. She notes she alsohad voicemail from Dr Musa's office about going to have surgery the following day (today) and does endorse she did not come back for any antibiotics in the meantime. She did have prior antibiotics over the past several months, first in March following her RIGHT knee replacement and then following her nerve stimulator from Dr Musa on Keflex. 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 Of note, she did have recent bilateral shoulder injections with Delmar Coleman on 07/02/23. Presently denies knee or shoulder pain. Not currently having any CP/SOB at this time, no nausea/vomiting/abdominal pain. Discussed will plan to continue Vancomycin, obtain ECHO, ID consultation and moving to monitored bed. Questions/concerns addressed at this time. Allergies Allergy/AdvReac Type Severity Reaction Status Date / Time atorvastatin [From Lipitor] AdvReac Intermediate CPK Verified 07/25/23 09:14 elevation doxycycline AdvReac Intermediate "slight" Verified 07/25/23 09:14 LDH elevation ibuprofen [From Motrin] AdvReac Intermediate dyspepsia Verified 07/25/23 09:14 nitrofurantoin AdvReac Intermediate GI upset Verified 07/25/23 09:14 [From Macrobid] Home Medications Medication Instructions Recorded Confirmed Type cholecalciferol (vitamin D3) 125 5,000 units PO QAM 03/11/18 07/25/23 History mcg (5,000 unit) capsule multivitamin 1 tab PO BID 05/23/18 07/25/23 History calcium citrate 200 mg (950 mg) 650 mg PO TID 07/05/18 07/25/23 History tablet estradiol 0.01% (0.1 mg/gram) See Rx Instructions vaginal 06/06/22 07/25/23 Rx vaginal cream .COMPLEX #42.5 grams ferrous sulfate 325 mg (65 mg 325 mg PO Q OTHER DAY 06/25/22 07/25/23 History iron) tablet (FeroSul) mecobalamin (vitamin B12) 1,000 1,000 mcg PO Q OTHER DAY 06/25/22 07/25/23 History mcg chewable tablet docusate sodium 100 mg capsule 100 mg PO DAILY PRN Constipation 03/22/23 07/25/23 History (Stool Softener) esomeprazole magnesium 40 mg 40 mg PO QPM 03/22/23 07/25/23 History capsule,delayed release nebivolol 20 mg tablet 20 mg PO QAM 03/22/23 07/25/23 History duloxetine 60 mg capsule,delayed 60 mg PO BID #180 caps 05/07/23 07/25/23 Rx release pregabalin 150 mg capsule (Lyrica) 150 mg PO BID #180 caps 07/03/23 07/25/23 Rx cyclobenzaprine 10 mg tablet 10 mg PO BID PRN muscle spasms #60 07/23/23 07/25/23 Rx tabs oxycodone-acetaminophen 10 mg-325 1 tab PO .Q4-6H PRN Pain 07/24/23 07/25/23 History mg tablet Patient History Medical History Lumbar postlaminectomy syndrome PVC (premature ventricular contraction) Follows with Dr. Rosado Hx of Clostridium difficile infection Approximately 2020, no recent issues Osteoarthritis Fibromyalgia UTI (urinary tract infection) Hx frequent UTIs, no recent issues GERD (gastroesophageal reflux disease) Urge urinary incontinence TMJ click Chronic back pain Disc degeneration, lumbosacral Cervical disc disease HTN (hypertension) Surgical History History of spinal surgery Spinal cord stimulator and leads removed 06/2023 Status post right knee replacement [facility] (03/2023) History of left cataract surgery History of ERCP History of carpal tunnel release right Hx laparoscopic cholecystectomy Laparoscopic Cholecystectomy Dr. Quintana (2020) Status post insertion of spinal cord stimulator LoraxAgtronic (Removed 06/2023) History of right cataract surgery History of tooth extraction History of tonsillectomy History of bariatric surgery History of right hip replacement History of elbow surgery Left History of arthroscopy of left shoulder History of repair of right rotator cuff History of arthroscopy of both knees History of lumbar fusion x5 History of fusion of cervical spine C6-7; "ROM WNL" History of esophagogastroduodenoscopy (EGD) History of colonoscopy Most recent 07/2021 Family History Mother CHF (congestive heart failure) Arthritis Pure hypercholesterolemia Ischemic heart disease Hypertension Myocardial infarction Father Acute myocardial infarction Myocardial infarction Mother Family history of diabetes mellitus Other No significant family history Denies family history of Ovarian cancer Prostate cancer Breast cancer Colorectal cancer Social History Smoking Status: Never smoker Second Hand Exposure: No; Do You Dip or Chew Tobacco: No; Tobacco Cessation Education Requested by Patient: No Hx Alcohol Use: Yes Alcohol type: wine Hx Substance Use: Yes (medical marijuana card (pt states hasnt used in long time)) Last Used Substance: Unknown Substance Use Type Other:: has card but not currently using Preferred Language: Nepali Communication Ability: Effective Cfd Engineer Required: No Beliefs That Will Affect Care: None marital status: Current Living Situation: Spouse 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 faint systolic murmur, no pitting edema/calf tenderness GI: +BS, soft/NT (reported moved her bowels) MSK/Neuro: dressing to lumbar spine c/d/i, no shadowing, TERENCE ~20cc output thus far (patient reports had been emptied 2-3x already), slight tenderness to incision, prior nerve stimulator removed R knee w/ incision well healed (surgery March), no increased pain/warmth no increased redness/warmth/pain to shoulders Pscyh: AOx3, cooperative with exam Results & Data Results & Data Vital Signs (Past 12 Hours) Vital Signs Temp Pulse Pulse Resp BP Pulse Ox O2 Del Method 07/25/23 15:30 36.6 C 86 17 105/61 98 Room Air 07/25/23 14:53 36.4 C L 80 18 117/65 93 Room Air 07/25/23 14:32 36.4 C L 80 18 129/64 94 Room Air 07/25/23 13:50 36.8 C 83 20 107/55 L 94 Room Air 07/25/23 13:25 36.4 C L 83 17 106/47 L 95 Nasal Cannula 07/25/23 13:15 79 19 97/49 L 96 Nasal Cannula 07/25/23 13:05 77 23 100/45 L 100 Nasal Cannula 07/25/23 12:55 77 26 H 92/49 L 100 Nasal Cannula 07/25/23 12:45 78 18 86/54 L 95 Nasal Cannula 07/25/23 12:35 78 20 77/25 L 92 Nasal Cannula 07/25/23 12:25 78 23 94/33 L 89 L Room Air 07/25/23 12:15 78 20 83/44 L 98 Oxymask 07/25/23 12:05 80 20 90/39 L 98 Oxymask 07/25/23 11:56 36.1 C L 83 21 120/70 96 Oxymask 07/25/23 09:56 36.5 C 76 20 130/78 97 Room Air O2 Flow Rate 07/25/23 15:30 07/25/23 14:53 07/25/23 14:32 07/25/23 13:50 07/25/23 13:25 2 07/25/23 13:15 2 07/25/23 13:05 4 07/25/23 12:55 4 07/25/23 12:45 4 07/25/23 12:35 2 07/25/23 12:25 07/25/23 12:15 6 07/25/23 12:05 6 07/25/23 11:56 6 07/25/23 09:56 Diagnostic Findings From ER visit 07/24/2023 EXAM: MR Lumbar Spine Without and With Intravenous Contrast CLINICAL HISTORY: Reason for exam: eval for epidural abscess. TECHNIQUE: Magnetic resonance images of the lumbar spine without and with intravenous contrast in multiple planes. CONTRAST: Patient received 8cc gadavist of IV contrast COMPARISON: No relevant prior studies available. FINDINGS: Vertebrae: There is L2-S1 posterior spinal fusion. There is a dextroscoliosis seen at the thoracolumbar junction. There is levoscoliosis seen in the lumbar spine. No acute fracture. Spinal cord: Limited evaluation. Normal signal. No abnormal enhancement. Soft tissues: No fluid collection seen posterior to the lumbar spine. DISCS/SPINAL CANAL/NEURAL FORAMINA: Severe multilevel degenerative disc changes seen at L1/2, L2/3, L3/4, L4/5 and L5/S1 junction. Evaluation of the spinal canal is limited by artifacts caused by the posterior fusion hardware L1/2 posterior disc osteophyte complexes causing mild spinal canal stenosis. IMPRESSION: Status post L2-S1 posterior spinal fusion. Severe multilevel degenerative disc disease changes in the lumbar spine, as described above. Evaluation limited by artifacts caused by the posterior arthroplasty hardware Electronically signed by: Janusz Lira MD 07/24/23 05:20 AM Dictated: 07/24/23519 Transcribed: 07/24/23519 EXAM: MR Thoracic Spine Without and With Intravenous Contrast CLINICAL HISTORY: Reason for exam: eval for epidural abscess. TECHNIQUE: Magnetic resonance images of the thoracic spine without and with intravenous contrast in multiple planes. CONTRAST: Patient received 8cc gadavist of IV contrast COMPARISON: No relevant prior studies available. FINDINGS: Vertebrae: There is T10/11 and T11/12 posterior disc osteophyte complex indenting on the thecal sac. No acute fracture. Discs/spinal canal/neural foramina: There is mild spinal canal stenosis seen at T8/9 junction. No epidural abscess. There is diffuse degenerative disc disease with disc desiccation seen in the thoracic spine. Fluid collection seen posterior to the thoracic spine at the level of T7-T9. No epidural extension of this collection is seen. Spinal cord: Unremarkable. Normal signal. No abnormal enhancement. Soft tissues: Unremarkable. Other findings: There is 8.2 cm x 3 x 9.2 cm diameter. IMPRESSION: 1. No epidural abscess 2. Large soft tissue collection posterior to the lower thoracic spine at T7-T9 level. PG Care Time/CCT Total # of Minutes Spent Total Time Spent with Patient: Total time spent is greater than 50% in coordination of care (as documented) at patient's floor/unit and/or counseling patient: Coding Level of Care Code 11481 IN/OBS CONSULT LVL 4,60M Diagnoses Bacteremia R78.81 Epidural abscess G06.2 Lumbar postlaminectomy syndrome M96.1 Anxiety F41.9 Gastroesophageal reflux disease K21.9 Fibromyalgia M79.7 History of gastric bypass Z98.84 Iron deficiency E61.1 Abscess of skin L02.91 Frequent unifocal PVCs I49.3
--- NOTE | 2023-07-25 17:32 | Pharmacy Report ---
Pharmacy PK ABX Note - Date of Service July 25, 2023 - Assessment and Plan Assessment 72 year old F receiving Vancomycin for treatment of MRSA bacteremia and epidural abscess. * Day #1 of antimicrobial therapy. * Afebrile. Blood cultures from 07/22 are growing MRSA. Went to OR today for I&D of epidural abscess. OR cultures pending. Plan Vancomycin * Loading dose: 1750 mg IV x 1 * Maintenance dose: 750 mg IV every 12 hours * Regimen is predicted to achieve target AUC/SARA of 400-600 mg/L.hr * Trough level ordered for: 07/27/23 Pharmacy will continue to follow and will adjust dose/frequency as necessary. Thank you. Pharmacy has transitioned to AUC monitoring for vancomycin. AUC/SARA is the preferred PK/PD target and is associated with decreased risk of nephrotoxicity compared to traditional trough targets.
[2023-07-25] MEDS: VANCOMYCIN HCL 1,750 MG in SODIUM CHLORIDE 0.9% 500 ML IV STA (17:38)
[2023-07-25 17:57] LABS: Hematocrit (blood only) 34.5 % (37.0-47.0); Hemoglobin 11.3 g/dl (12.0-16.0); Mean Corpuscular Hemoglobin 30.5 pg (25.0-34.0); Mean Corpuscular Hgb Conc 32.8 g/dL (32.0-36.0); Mean Platelet Volume 9.5 fL (9.4-12.4); Platelet Count 275 K/uL (130-400); RDW Coefficient of Variation 15.5 % (11.5-14.5); RDW Standard Deviation 52.7 fL (36.4-46.3); Red Blood Count 3.71 M/uL (4.20-5.40); White Blood Count 8.43 K/ul (4.8-10.8)
[2023-07-25 18:09] LABS: Albumin Globulin Ratio 1.3 (0.9-2); Albumin Level 3.3 gm/dl (3.4-5.0); BUN Creatinine Ratio 21.5 (10-20); Bilirubin,Total 0.3 mg/dl (0.2-1.0); C Reactive Protein 9.6 mg/dl (0-0.5); Calcium 8.3 mg/dl (8.6-10.3); Creatinine Clr Calc Pharmacy 74.6 ml/min; Est GFR (African American) 103.5 ml/min; Est GFR (Non-African American) 89.3 ml/min; Globulin 2.6 gm/dl (2.5-4.0); Magnesium 1.8 mg/dl (1.7-2.4); Potassium 4.2 mmol/L (3.5-5.1); Total Protein 5.9 gm/dl (6.0-8.3)
[2023-07-25 18:27] LABS: Basophils # (auto) 0.01 K/uL (0.00-0.20); Basophils % (auto) 0.1 %; Immature Granulocytes # (auto) 0.07 K/uL (0.01-0.20); Immature Granulocytes % (auto) 0.8 %; Lymphocytes % (auto) 4.7 %; Monocytes # (auto) 0.19 K/uL (0.11-0.59); Monocytes % (auto) 2.3 %; Neutrophils # (auto) 7.76 K/uL (1.40-6.50); Neutrophils % (auto) 92.1 %; Rouleaux 1+
[2023-07-25] MEDS: MULTIVITAMIN TAB PO SCH (20:42)
[2023-07-25] MEDS: DOCUSATE SODIUM/SENNA 50/8.6MG TAB PO SCH (20:42)
[2023-07-25] MEDS: PREGABALIN 150 MG CAP PO SCH (20:42)
[2023-07-25] MEDS: DULoxetine HCL 60 MG CAP PO SCH (21:30)
[2023-07-25] MEDS: PANTOprazole 40 MG TAB PO SCH (21:30)
[2023-07-25] MEDS ORDERED: VANCOMYCIN HCL 1,250 MG in SODIUM CHLORIDE 0.9% 250 ML IV SCH (22:00)
[2023-07-26] MEDS: VANCOMYCIN HCL 750 MG in SODIUM CHLORIDE 0.9% 250 ML IV SCH ×2 (05:57→14:30)
[2023-07-26] MEDS: POLYETHYLENE (MIRALAX) 17 GM PACK PO SCH (06:04)
[2023-07-26 07:06] LABS: Basophils # (auto) 0.02 K/uL (0.00-0.20); Basophils % (auto) 0.3 %; Eosinophils # (auto) 0.01 K/uL (0.00-0.50); Eosinophils % (auto) 0.2 %; Hematocrit (blood only) 36.2 % (37.0-47.0); Immature Granulocytes # (auto) 0.04 K/uL (0.01-0.20); Immature Granulocytes % (auto) 0.6 %; Lymphocytes # (auto) 0.94 K/uL (1.20-3.40); Mean Corpuscular Hemoglobin 30.5 pg (25.0-34.0); Mean Corpuscular Hgb Conc 33.1 g/dL (32.0-36.0); Mean Corpuscular Volume 91.9 fL (80.0-100.0); Mean Platelet Volume 9.2 fL (9.4-12.4); Monocytes # (auto) 0.17 K/uL (0.11-0.59); Monocytes % (auto) 2.7 %; Neutrophils # (auto) 5.07 K/uL (1.40-6.50); Neutrophils % (auto) 81.2 %; Platelet Count 307 K/uL (130-400); RDW Coefficient of Variation 15.1 % (11.5-14.5); RDW Standard Deviation 50.5 fL (36.4-46.3); Red Blood Count 3.94 M/uL (4.20-5.40); White Blood Count 6.25 K/ul (4.8-10.8)
[2023-07-26 07:30] LABS: Polychromasia 1+
[2023-07-26 07:40] LABS: Albumin Globulin Ratio 1.2 (0.9-2); Albumin Level 3.4 gm/dl (3.4-5.0); BUN Creatinine Ratio 17.5 (10-20); Bilirubin,Total 0.3 mg/dl (0.2-1.0); Calcium 9.2 mg/dl (8.6-10.3); Creatinine Clr Calc Pharmacy 85.1 ml/min; Est GFR (African American) 108.1 ml/min; Est GFR (Non-African American) 93.3 ml/min; Globulin 2.9 gm/dl (2.5-4.0); Magnesium 1.9 mg/dl (1.7-2.4); Potassium 3.6 mmol/L (3.5-5.1); Total Protein 6.3 gm/dl (6.0-8.3)
--- NOTE | 2023-07-26 07:45 | Hospitalist Progress Note ---
Date of Service July 26, 2023 Assessment & Plan (1) Epidural abscess: Plan: 72yo presented following ER visit 07/22-07/23 for flank/abdominal/chest pain initially thought injury while gardening/pulled muscle, noted to have epidural abscess and given Vanco IV x 1 and discharged with instructions to have f/u with Dr Musa. Did NOT come back to ER given +Bcx for abx as was called by surgery office and planned surgery and decided to wait Imaging from ER visit noting Large soft tissue collection posterior to the lower thoracic spine at T7-T9 level. CT chest noted posterior paraspinal abscess measuring 10.7 x 4.6 x 7.7 cm extending from approximate T6-T7 to T10-T11. s/p #1 revision laminotomy T10. #2 irrigation debridement thoracic spine with Dr Musa Blood cultures from ER 07/23 with MRSA OR cx w/ moderate WBC, moderate GPC on preliminary -- follow Patient did get IV Vancomcin in ER on 07/22-07/23 but did not return for Vancomycin in ER as had planned for surgery 07/[address] Musa. Contacted pharmacy to give Vanco NOW, repeat labs ordered with WBC 8.4k,hgb 11.3 following surgery, plt normal. ESR/CRP elevated not surprisingly. Na 132, normal renal function, Glu 201 Ordered ID consult, ECHO, repeat blood cultures for AM 07/25 and moved to monitored bed given hx frequent PVCs -- had RIGHT knee replacement/soft tissue infxn in March, bilateral shoulder injections in June and prior R hip replacement along with remote removal of spinal stimulator w/ infection. 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 Continues on Vancomycin. Repeat blood cultures pending from this morning ID consulted, discussed and plan to continue vancomycin for now. f/u back cxs but suspect the same. Monitor for any issues w/ shoulder/hip/knee ECHO appears with thickened mitral leaflets, possible vegetation however report notes "similar to echo 06/2022" -- patient has had ongoing infections over the past year and ?duration. Interested to see how long takes to clear but likely need for VISHAL for further eval, cardiology consulted Monitor repeat blood cultures, plan for repeat until clearance. Switched to primary service, ok'd with Dr Musa to consult PT/OT Monitor labs in AM Continued inpatient stay (2) Bacteremia: Plan: as above - continue vancomycin, f/u cultures, ID consult, ?need for VISHAL given echo findings as above monitor f/u blood cultures to clearance, need for 6wks iv abx, picc line once blood cx clear (3) Lumbar postlaminectomy syndrome: Plan: continue pain control, appears MUCH improved since I&D for above (4) Anxiety: Plan: continue home medications (5) Gastroesophageal reflux disease: Plan: also w/ hx gastric bypass, remains on PPI daily. Monitor for any needs for increase (6) Fibromyalgia: Plan: continue cymbalta BID, lyrica (7) History of gastric bypass: Plan: noted (8) Iron deficiency: Plan: continue replacement (9) Abscess of skin: Plan: as above, concerns for epidural abscess/bacteremia (10) Frequent unifocal PVCs: Plan: Hx HTN/frequent PVCs, follows with Dr Riggins. PVC prior in bigem/trigem pattern and improvement considerable w/ BB and had few side effects from metoprolol and was placed on bystolic with few side effects Metoprolol ordered 100mg in substitution for her Bystolic while inpatient and to have family bring home med and tube to pharmacy/continue home bystolic while inpatient monitoring on telemetry -- currently NSR 80-90s No CP reported Plan continued inpatient stay through the weekend at least, needing negative blood cultures/picc line/iv abx at discharge Admission and Anticipated Discharge Date Admission Date: July 25, 2023 Subjective Evaluated this morning, resting in bed, fatigued but feeling better/no further back pain. Breathing stable, no CP/SOB. Seen by Dr Musa this morning, ECHO done but not yet read. Denies any shoulder discomfort. No increased pain/redness to knee or hip, just positional pain reported but discussed to monitor/alert of any worsening. Repeat blood cultures obtained from this morning and will await negative cultures prior to discharge. Labs stable on repeat. Therapy evaluations to be undertaken. ID consult placed and RN brought iPAD into room during encounter for discussion and left for ID to complete their exam. Taking over as primary service. Questions/concerns addressed at this time. Physical Exam Physical Exam: General: 72yo female resting in bed, NAD but fatigued appearing HEENT; head atraumatic, normocephalic, mmm, trachea midline Resp: even/unlabored, no w/c/r, on room air CV: RRR,. faint systolic murmur, no pitting edema/calf tenderness GI: +BS, soft/NT MSK/Neuro: dressing to lumbar spine c/d/i, TERENCE w/ scant serosanguineous drainage, incisional tenderness, l/e strength testing equal R knee w/ incision well healed, no increased pain/warmth with ROM no increased redness/warmth/pain to shoulders Pscyh: AOx3, cooperative with exam Results & Data Results & Data Vital Signs (Past 12 Hours) Vital Signs Temp Pulse Pulse Resp BP Pulse Ox O2 Del Method 07/26/23 07:27 95 H 07/26/23 07:26 37.1 C 87 16 130/79 96 Room Air 07/26/23 04:54 36.6 C 89 20 121/76 95 Room Air 07/25/23 23:44 80 07/25/23 23:33 36.8 C 86 20 105/66 98 Room Air 07/25/23 22:00 83 Laboratory Results 07/26/23 07/25/23 Range/Units 06:34 17:28 WBC 6.25 8.43 (4.8-10.8) K/ul RBC 3.94 L 3.71 L (4.20-5.40) M/uL Hgb 12.0 11.3 L (12.0-16.0) g/dl Hct 36.2 L 34.5 L (37.0-47.0) % MCV 91.9 93.0 (80.0-100.0) fL MCH 30.5 30.5 (25.0-34.0) pg MCHC 33.1 32.8 (32.0-36.0) g/dL RDW Std Deviation 50.5 H 52.7 H (36.4-46.3) fL RDW Coeff of Renetta 15.1 H 15.5 H (11.5-14.5) % Plt Count 307 275 (130-400) K/uL MPV 9.2 L 9.5 (9.4-12.4) fL Immature Gran % (Auto) 0.6 0.8 % Neut % (Auto) 81.2 92.1 % Lymph % (Auto) 15.0 4.7 % Gooding % (Auto) 2.7 2.3 % Eos % (Auto) 0.2 0.0 % Baso % (Auto) 0.3 0.1 % Neut # (Auto) 5.07 7.76 H (1.40-6.50) K/uL Lymph # (Auto) 0.94 L 0.40 L (1.20-3.40) K/uL Gooding # (Auto) 0.17 0.19 (0.11-0.59) K/uL Eos # (Auto) 0.01 0.00 (0.00-0.50) K/uL Baso # (Auto) 0.02 0.01 (0.00-0.20) K/uL Immature Gran # (Auto) 0.04 0.07 (0.01-0.20) K/uL Polychromasia 1+ Rouleaux 1+ Peripher Smr Path Cons ESR 72 H (0-30) mm/hr Sodium 141 D 132 L (136-145) mmol/L Potassium 3.6 4.2 (3.5-5.1) mmol/L Chloride 103 99 (98-107) mmol/L Carbon Dioxide 30 24 (21-32) mmol/L Anion Gap 8 9 (3-11) BUN 10 14 (6-23) mg/dl Creatinine 0.57 L 0.65 (0.6-1.2) mg/dl Est Cr Clr Drug Dosing 85.1 74.6 ml/min Est GFR ( Amer) 108.1 103.5 ml/min Est GFR (Non-Af Amer) 93.3 89.3 ml/min BUN/Creatinine Ratio 17.5 21.5 H (10-20) Glucose 158 H 201 H (70-99(Fasting)) mg/dl Calcium 9.2 8.3 L (8.6-10.3) mg/dl Magnesium 1.9 1.8 (1.7-2.4) mg/dl Total Bilirubin 0.3 0.3 (0.2-1.0) mg/dl AST 13 13 (13-39) U/L ALT 12 10 (7-52) U/L Alkaline Phosphatase 76 70 (34-104) U/L C-Reactive Protein 9.60 H (0-0.5) mg/dl Total Protein 6.3 5.9 L (6.0-8.3) gm/dl Albumin 3.4 3.3 L (3.4-5.0) gm/dl Globulin 2.9 2.6 (2.5-4.0) gm/dl Albumin/Globulin Ratio 1.2 1.3 (0.9-2) PG Care Time/CCT Total # of Minutes Spent Total Time Spent with Patient: Total time spent is greater than 50% in coordination of care (as documented) at patient's floor/unit and/or counseling patient: Coding Level of Care Code 22865 SUB INP/OBS CARE 3/50MIN Diagnoses Epidural abscess G06.2 Bacteremia R78.81 Lumbar postlaminectomy syndrome M96.1 Anxiety F41.9 Gastroesophageal reflux disease K21.9 Fibromyalgia M79.7 History of gastric bypass Z98.84 Iron deficiency E61.1 Abscess of skin L02.91 Frequent unifocal PVCs I49.3
--- NOTE | 2023-07-26 08:03 | Orthopedic Progress Note ---
Date of Service July 26, 2023 Assessment & Plan (1) Bacteremia: Plan: At this time we are awaiting final culture. She does appear to be growing staph. She understands that she will require a course of antibiotics. She is comfortable at this time. She can begin physical therapy as tolerated. Admission and Anticipated Discharge Date Admission Date: July 25, 2023 Subjective Patient's back pain is controlled. She is quite comfortable this morning. Physical Exam Physical Exam: Patient is comfortable. She is good strength testing. Results & Data Vital Signs (Past 12 Hours) Vital Signs Temp Pulse Pulse Resp BP Pulse Ox O2 Del Method 07/26/23 07:27 95 H 07/26/23 07:26 37.1 C 87 16 130/79 96 Room Air 07/26/23 04:54 36.6 C 89 20 121/76 95 Room Air 07/25/23 23:44 80 07/25/23 23:33 36.8 C 86 20 105/66 98 Room Air 07/25/23 22:00 83
[2023-07-26] MEDS ORDERED: METOPROLOL TARTRATE 100 MG TAB PO SCH (09:00)
[2023-07-26] MEDS: FERROUS SULFATE 325 MG TAB PO SCH (09:12)
[2023-07-26] MEDS: CYANOCOBALAMIN (B-12) 500 MCG TABLET PO SCH (09:13)
[2023-07-26] MEDS: CHOLECALCIFEROL 125 MCG (5,000 UNITS) TAB PO SCH (09:47)
--- NOTE | 2023-07-26 12:56 | XCELERA ---
[id number] [id number]
--- NOTE | 2023-07-26 15:43 | Infectious Disease Consult ---
Date of Consultation July 26, 2023 Assessment & Plan (1) Epidural abscess: (2) Bacteremia: Plan #MRSA bacteremia #MRSA thoracic epidural abscess s/p I+D to epidural space # [place], mitral valve vegetation? 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 She developed issues with cellulitis on/around her SCS over past year and has been on a number of different abx including Bactrim. Finally she had SCS stimulator and wires removed on 07/10/23. Told it was very messy inside. She also has a h/o R TKA 04/22/23, reaction to john which caused open sores and given oral antibiotics s/p oral abx, including Bactrim. She also gets intermittent corticosteroid injections into her shoulders. 1 week [employer], Patient was pulling heavy garden material around and began having back pain. She underwent CT which showed hyperdensity along the posterior epidural region from T7 to approximate T8-T9 concerning for epidural abscess paraspinal abscess measuring 10.7 x 4.6 x 7.7 cm, adjacent posterior paraspinal fluid collection concerning for abscess. 07/23 Thoracic MRI Large soft tissue collection posterior to the lower thoracic spine at T7-T9 level. She did come to ED to [facility] for ongoing pain, 07/23 blood cultures ordered, she was given dose of vancomycin and dcd for f/u with her surgeon. Bcx returned back as MRSA, Patient asked [facility] 07/[facility]. That same day she underwent I+D, laminotomy T10. OR notes Patient had evidence of gross purulence through the soft tissue in the region of the T11. The fluid did migrate down to the epidural space. dissected to the subcutaneous tissues down through the musculature into the epidural space at T10. I then performed a small revision laminotomy of T10 to explore the area to ensure no fluid was within the spinal canal. OR cultures growing MRSA. Patient returned and was admitted as of 07/25. She apparently received Vancomycin 07/22-07/23. Labs showed essentially normal CBC, normal chem, elevated glucose, 07/25 blood cultures are in lab. 2DE completed now show possible MV vegetation (seen on 2DE in 2022). RECOMMEND: C/W Vancomycin, pharmacy to follow levels Follow blood cultures 07/25, order bcx for 07/26 given 2de findings, recommend VISHAL Monitor for sites of seeding: hardware, joints etc Please page [facility] with questions, Dr. Tillman to start service on Saturday Cathy Cornelius MD Infectious Diseases [facility], [facility] Consultation Information Consultation was provided via telemedicine using two-way real-time interactive telecommunication between the patient and the telemedicine provider. For the duration of the visit, the provider was performing the assessment from a different facility than the patient. This includesuse of bluetooth stethoscope forauscultationperformed by the telepresenter that the telemedicine provider can hear if described in the physical exam. Mothers Helper contact information: Please call [facility] . (Phone Number For Physician Use Only) After establishing a telemedicine visit, patient was: Patient was verified with two unique identifiers, Patient/authorized rep acknowledged consent and understanding and Gave permission to continue telehealth session Time Spent with Patient: Initial => 55 min History of Present Illness Reason for Consultation: MRSA bacteremia Requesting Physician: Dr. 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 She developed issues with cellulitis on/around her SCS over past year and has been on a number of different abx including Bactrim. Finally she had SCS stimulator and wires removed on 07/10/23. Told it was very messy inside. She also has a h/o R TKA 04/22/23, reaction to john which caused open sores and given oral antibiotics s/p oral abx, including Bactrim. She also gets intermittent corticosteroid injections into her shoulders. 1 week [employer], Patient was pulling heavy garden material around and began having back pain. She underwent CT which showed hyperdensity along the posterior epidural region from T7 to approximate T8-T9 concerning for epidural abscess paraspinal abscess measuring 10.7 x 4.6 x 7.7 cm, adjacent posterior paraspinal fluid collection concerning for abscess. 07/23 Thoracic MRI Large soft tissue collection posterior to the lower thoracic spine at T7-T9 level. She did come to ED to [facility] for ongoing pain, 07/23 blood cultures ordered, she was given dose of vancomycin and dcd for f/u with her surgeon. Bcx returned back as MRSA, Patient [facility] on 07/[facility]. That same day she underwent I+D, laminotomy T10. OR notes Patient had evidence of gross purulence through the soft tissue in the region of the T11. The fluid did migrate down to the epidural space. dissected to the subcutaneous tissues down through the musculature into the epidural space at T10. I then performed a small revision laminotomy of T10 to explore the area to ensure no fluid was within the spinal canal. OR cultures growing MRSA. Patient returned and was admitted as of 07/25. She apparently received Vancomycin 07/22-07/23. 07/25 HD stable. Labs showed essentially normal CBC, normal chem, elevated glucose, 07/25 blood cultures are in lab. 2DE ordered. Allergies Allergy/AdvReac Type Severity Reaction Status Date / Time atorvastatin [From Lipitor] AdvReac Intermediate CPK Verified 07/25/23 09:14 elevation doxycycline AdvReac Intermediate "slight" Verified 07/25/23 09:14 LDH elevation ibuprofen [From Motrin] AdvReac Intermediate dyspepsia Verified 07/25/23 09:14 nitrofurantoin AdvReac Intermediate GI upset Verified 07/25/23 09:14 [From Macrobid] Home Medications Medication Instructions Recorded Confirmed Type cholecalciferol (vitamin D3) 125 5,000 units PO QAM 03/11/18 07/25/23 History mcg (5,000 unit) capsule multivitamin 1 tab PO BID 05/23/18 07/25/23 History calcium citrate 200 mg (950 mg) 650 mg PO TID 07/05/18 07/25/23 History tablet estradiol 0.01% (0.1 mg/gram) See Rx Instructions vaginal 06/06/22 07/25/23 Rx vaginal cream .COMPLEX #42.5 grams ferrous sulfate 325 mg (65 mg 325 mg PO Q OTHER DAY 06/25/22 07/25/23 History iron) tablet (FeroSul) mecobalamin (vitamin B12) 1,000 1,000 mcg PO Q OTHER DAY 06/25/22 07/25/23 History mcg chewable tablet docusate sodium 100 mg capsule 100 mg PO DAILY PRN Constipation 03/22/23 07/25/23 History (Stool Softener) esomeprazole magnesium 40 mg 40 mg PO QPM 03/22/23 07/25/23 History capsule,delayed release nebivolol 20 mg tablet 20 mg PO QAM 03/22/23 07/25/23 History duloxetine 60 mg capsule,delayed 60 mg PO BID #180 caps 05/07/23 07/25/23 Rx release pregabalin 150 mg capsule (Lyrica) 150 mg PO BID #180 caps 07/03/23 07/25/23 Rx cyclobenzaprine 10 mg tablet 10 mg PO BID PRN muscle spasms #60 07/23/23 07/25/23 Rx tabs oxycodone-acetaminophen 10 mg-325 1 tab PO .Q4-6H PRN Pain 07/24/23 07/25/23 History mg tablet Patient History Medical History Lumbar postlaminectomy syndrome PVC (premature ventricular contraction) Follows with Dr. Rosado Hx of Clostridium difficile infection Approximately 2020, no recent issues Osteoarthritis Fibromyalgia UTI (urinary tract infection) Hx frequent UTIs, no recent issues GERD (gastroesophageal reflux disease) Urge urinary incontinence TMJ click Chronic back pain Disc degeneration, lumbosacral Cervical disc disease HTN (hypertension) Surgical History History of spinal surgery Spinal cord stimulator and leads removed 06/2023 Status post right knee replacement [facility] (03/2023) History of left cataract surgery History of ERCP History of carpal tunnel release right Hx laparoscopic cholecystectomy Laparoscopic Cholecystectomy Dr. Quintana (2020) Status post insertion of spinal cord stimulator [employer]tyCaretronic (Removed 06/2023) History of right cataract surgery History of tooth extraction History of tonsillectomy History of bariatric surgery History of right hip replacement History of elbow surgery Left History of arthroscopy of left shoulder History of repair of right rotator cuff History of arthroscopy of both knees History of lumbar fusion x5 History of fusion of cervical spine C6-7; "ROM WNL" History of esophagogastroduodenoscopy (EGD) History of colonoscopy Most recent 07/2021 Family History Mother CHF (congestive heart failure) Arthritis Pure hypercholesterolemia Ischemic heart disease Hypertension Myocardial infarction Father Acute myocardial infarction Myocardial infarction Mother Family history of diabetes mellitus Other No significant family history Denies family history of Ovarian cancer Prostate cancer Breast cancer Colorectal cancer Social History Smoking Status: Never smoker Second Hand Exposure: No; Do You Dip or Chew Tobacco: No; Tobacco Cessation Education Requested by Patient: No Hx Alcohol Use: Yes Alcohol type: wine Hx Substance Use: Yes (medical marijuana card (pt states hasnt used in long time)) Last Used Substance: Unknown Substance Use Type Other:: has card but not currently using Preferred Language: Danish Communication Ability: Effective Patient Safety Sitter Required: No Beliefs That Will Affect Care: None marital status: Current Living Situation: Spouse 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 Other Information That Helps Us Care for You: No Feels Safe at Home: Yes Safety Concerns: Feels Safe At This Time Childhood Exposure to Second-Hand Smoke: Yes Dental Care, Regularly: Yes Physical Activity Frequency: 1-2 Times per Week Seatbelt Use: always Sunscreen Use: Yes Assistive Devices: Cane and Walker Physical Exam Physical Exam: NAD drain in place R TKA nontender R ALIN nontender Soft NT ND Results & Data Vital Signs (Past 12 Hours) Vital Signs Temp Pulse Pulse Resp BP Pulse Ox O2 Del Method 07/26/23 07:27 95 H 07/26/23 07:26 37.1 C 87 16 130/79 96 Room Air 07/26/23 04:54 36.6 C 89 20 121/76 95 Room Air 07/25/23 23:44 80 07/25/23 23:33 36.8 C 86 20 105/66 98 Room Air Laboratory Results Short CBC 07/25/23 07/26/23 Range/Units 17:28 06:34 WBC 8.43 6.25 (4.8-10.8) K/ul Hgb 11.3 L 12.0 (12.0-16.0) g/dl Hct 34.5 L 36.2 L (37.0-47.0) % Plt Count 275 307 (130-400) K/uL BMP 07/25/23 07/26/23 17:28 06:34 Sodium 132 L 141 D Potassium 4.2 3.6 Chloride 99 103 Carbon Dioxide 24 30 BUN 14 10 Creatinine 0.65 0.57 L Glucose 201 H 158 H Calcium 8.3 L 9.2 Liver Function 07/25/23 07/26/23 Range/Units 17:28 06:34 Total Bilirubin 0.3 0.3 (0.2-1.0) mg/dl AST 13 13 (13-39) U/L ALT 10 12 (7-52) U/L Alkaline Phosphatase 70 76 (34-104) U/L Albumin 3.3 L 3.4 (3.4-5.0) gm/dl Microbiology 07/25/23 11:27 Back,Lower Gram Stain - Final 07/25/23 11:27 Back,Lower Aerobic and Anaerobic Culture - Preliminary Staphylococcus species 07/25/23 11:27 Back Gram Stain - Final 07/25/23 11:27 Back Aerobic and Anaerobic Culture - Preliminary Staphylococcus species
[2023-07-26] MEDS: PREMARIN VAG CRM 14 APPLN/30 GM TUBE PV SCH (21:10)
[2023-07-27] MEDS: VANCOMYCIN LEVEL ONE (05:30)
[2023-07-27 05:38] LABS: Basophils # (auto) 0.05 K/uL (0.00-0.20); Eosinophils # (auto) 0.07 K/uL (0.00-0.50); Eosinophils % (auto) 1.4 %; Hematocrit (blood only) 36.6 % (37.0-47.0); Hemoglobin 12.5 g/dl (12.0-16.0); Immature Granulocytes # (auto) 0.07 K/uL (0.01-0.20); Immature Granulocytes % (auto) 1.4 %; Lymphocytes # (auto) 1.42 K/uL (1.20-3.40); Lymphocytes % (auto) 28.7 %; Mean Corpuscular Hemoglobin 31.5 pg (25.0-34.0); Mean Corpuscular Hgb Conc 34.2 g/dL (32.0-36.0); Mean Corpuscular Volume 92.2 fL (80.0-100.0); Monocytes % (auto) 8.1 %; Neutrophils # (auto) 2.93 K/uL (1.40-6.50); Neutrophils % (auto) 59.4 %; Platelet Count 314 K/uL (130-400); RDW Coefficient of Variation 15.3 % (11.5-14.5); RDW Standard Deviation 51.5 fL (36.4-46.3); Red Blood Count 3.97 M/uL (4.20-5.40); White Blood Count 4.94 K/ul (4.8-10.8)
[2023-07-27 06:07] LABS: BUN Creatinine Ratio 19.4 (10-20); Calcium 9.1 mg/dl (8.6-10.3); Creatinine Clr Calc Pharmacy 72.4 ml/min; Est GFR (African American) 102.5 ml/min; Est GFR (Non-African American) 88.4 ml/min; Magnesium 1.9 mg/dl (1.7-2.4); Potassium 4.1 mmol/L (3.5-5.1)
--- NOTE | 2023-07-27 07:34 | Orthopedic Progress Note ---
Date of Service July 27, 2023 Assessment & Plan (1) Epidural abscess: Plan: Patient is doing well postop day #2. Will continue with the IV Vanco at this point. Infectious disease has consulted and awaiting her second blood culture results. She may continue to ambulate ad wade. We will monitor her TERENCE drainage and likely DC her TERENCE tomorrow with a dressing change. Admission and Anticipated Discharge Date Admission Date: July 25, 2023 Subjective Patient was seen bedside in room 283 bed 2. She is postop day #2 status post I&D of a thoracic abscess. We are awaiting her second set of blood cultures. She is on IV Vanco at this point. She states that she is doing well this morning. The pain is well-controlled. She is not having any shortness of breath. She has been up and walking the halls and she is not dizzy when she walks. She is not having pain going down the legs or weakness in the legs. She denies any other numbness, tingling, or paresthesias. Physical Exam Physical Exam: On exam she is alert and oriented. Her lower extremity motor exam reveals no focal atrophy her strength and sensation are both intact. The dressing is clean dry and intact a TERENCE drain is in place and has had 20 cc of drainage. Cardiovascular exam reveals no gross abnormalities. Abdomen soft nontender calves are supple and nontender visual roman are grossly intact. Results & Data Vital Signs (Past 12 Hours) Vital Signs Temp Pulse Pulse Resp BP Pulse Ox O2 Del Method 07/27/23 04:00 37.0 C 84 18 139/87 95 Room Air 07/26/23 23:00 36.9 C 79 18 131/84 98 Room Air 07/26/23 22:00 75
--- NOTE | 2023-07-27 07:42 | Hospitalist Progress Note ---
<Statement entered by Alis Mireles MD - 07/27/23 17:48> 72 y/o admitted with thoracic spinal epidural abscess and MRSA bacteremia Underwent I&D of abscess 07/24 Blood cultures 07/25 neg at 24h She reports good control of back pain. No shoulder or hip pain. Some mild R knee pain. No erythema warmth or effusion of R knee. No numbness or tingling of extremities LE strength and sensation is intact on exam. No urinary or bowel retention or incontinence TTE with thickened MV leaflets stable for a year. No sig valvular dysfunction. Discussed with Dr. Riggins - no VISHAL planned unless results would affect IV antibiotics duration, which I assume will be sufficient duration for empiric endocarditis treatment. Currently on IV vancomycin. ID and ortho spine following. Agree with below documentation. Date of Service July 27, 2023 Assessment & Plan (1) Epidural abscess: Plan: 72yo presented following ER visit 07/22-07/23 for flank/abdominal/chest pain initially thought injury while gardening/pulled muscle, noted to have epidural abscess and given Vanco IV x 1 and discharged with instructions to have f/u with Dr Musa. Did NOT come back to ER given +Bcx for abx as was called by surgery office and planned surgery and decided to wait Imaging from ER visit noting Large soft tissue collection posterior to the lower thoracic spine at T7-T9 level. CT chest noted posterior paraspinal abscess measuring 10.7 x 4.6 x 7.7 cm e xtending from approximate T6-T7 to T10-T11. s/p #1 revision laminotomy T10. #2 irrigation debridement thoracic spine with Dr Musa Blood cultures from ER 07/23 with MRSA OR cx w/ STAPH SPECIES ON PRELIMINARY - monitor final Vanco in ER during ER visit but did not return for IV abx as planned surgery with Dr Musa on 07/24 Given Vanco IV loading dose following surgery/labs checked and WBC normalized ID consulted/echo ordered Of note, did have RIGHT knee replacement in March (reaction to staple/blister/drainage/abx for such) and prior R hip (several years ago) with recent removal of spinal stimular (prior infection/opening of abdomen last year/abx use and was traveling to [place] and got abx at that time as well). 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 Monitor for her knee (appears stable on exam presently) 07/26 Repeat blood cultures from 07/25 remain without growth but only 24 hours and will continue to monitor. Vancomycin IV continued (pharmacy on consult, measuring levels/adjustment to dosing as needed) WBC wnl, afebrile ID on consult and rec to continue Vancomycin IV for now, consider VISHAL given ECHO findings * ECHO noting possible mitral valve leaflets/concerns for vegetation. Report notes "unchanged" from prior ECHO last year??? * Cardiology consulted and given such not causing any reduction in EF/systolic dysfunction and not requiring valve replacement and would not alter duration of abx given spinal infection does not think VISHAL needed at this time. 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 Serosanguineous drainage with white Carter material draining at this time (per Dr Musa, likely the vancomycin beads from the I&D) Has some incisional tenderness. LE testing acceptable and hopefully no need for repeat intervention but will monitor Added heparin subcu given acute illness and risk for DVT- ok'd and discussed with Dr Musa given degree of infection and wanting to prevent any DVT/PE Continued inpatient stay and will f/u blood cultures and need PICC line consent/placement if remaining NGTD but will monitor for now. -If positive, will need to repeat blood cultures until cleared prior to placement to prevent seeding infection to PICC line/further complications. 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 Will monitor Therapy evaluations ordered (2) Bacteremia: Plan: as above - continue vancomycin, f/u repeat blood cultures. Monitor for need for VISHAL or seeding to other hardware/joints Will need PICC line/IV abx at [facility] to follow (3) Lumbar postlaminectomy syndrome: Plan: continue pain control, appears MUCH improved since I&D for above but is having some incisional discomfort today. drain to remain in place and will monitor output (4) Anxiety: Plan: continue home medications, appears stable at present time (5) Gastroesophageal reflux disease: Plan: also w/ hx gastric bypass, remains on PPI daily. Monitor for any needs for increase (6) Fibromyalgia: Plan: continue cymbalta BID, lyrica (7) History of gastric bypass: Plan: noted, continues on PPI daily (8) Iron deficiency: Plan: continue replacement (9) Abscess of skin: Plan: concerns for epidural abscess/bacteremia as above. 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 PVC prior in bigem/trigem pattern and improvement considerable w/ BB and had few side effects from metoprolol and was placed on bystolic with few side effects Metoprolol ordered 100mg in substitution for her Bystolic while inpatient but family to bring in home bistolic and was ordered but appears was not started until today and did have elevated BP this morning which is improved and stable at 133/74 at present but was having more PVCs on monitor than day prior and again was given this morning with improvement No CP or SOB reported, just fatigue - likely from above Cards consulted given ECHO as above Continue to monitor on telemetry Plan Continue Vancomycin IV, monitor for any seeding and f/u repeat blood cultures on continued abx to ensure clearance of MRSA bacteremia and will plan to place PICC line once blood cultures negative and arrange for 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 Painful this morning to her back, reports incisional . Repeat blood cultures NGTD. Seen by cardiology given findings on ECHO but not obtaining additional echo given EF normal and not to change current course of treatment. No CP/SOB. Some soreness to her knee but states because she hadn't been doing her typical activity. Inquiring about activity and restrictions at [facility] but will clarify w/ [facility]ospine prior to [facility]. Continuing to monitor cx. Inquired if again positive what next - discussed would repeat additional cultures until clearance. Remains on Vanco IV. Questions/concerns addressed at this time. Physical Exam Physical Exam: General: 72yo female resting in bed, NAD, less fatigued today but slight incisional pain, NAD HEENT; head atraumatic, normocephalic, mmm, trachea midline Resp: even/unlabored, no w/c/r, on room air CV: RRR, faint systolic murmur, no pitting edema/calf tenderness GI: +BS throughout, slight distension, prior LLQ stimulator removed previously, thickened tissue present but nontender MSK/Neuro: dressing to lumbar spine changed, some shadowing under initial drainage, TERENCE drain with serosangious drainage with white chunky material in tubing. LE strength testing acceptable Prior R knee incision well healed, without increased warmth/redness, ROM acceptable, LE pulses palpable Psych: AOx3, cooperative with exam Results & Data Results & Data Vital Signs (Past 12 Hours) Vital Signs Temp Pulse Pulse Resp BP Pulse Ox O2 Del Method 07/27/23 04:00 37.0 C 84 18 139/87 95 Room Air 07/26/23 23:00 36.9 C 79 18 131/84 98 Room Air 07/26/23 22:00 75 Laboratory Results 07/27/23 07/26/23 Range/Units 05:27 06:34 WBC 4.94 (4.8-10.8) K/ul RBC 3.97 L (4.20-5.40) M/uL Hgb 12.5 (12.0-16.0) g/dl Hct 36.6 L (37.0-47.0) % MCV 92.2 (80.0-100.0) fL MCH 31.5 (25.0-34.0) pg MCHC 34.2 (32.0-36.0) g/dL RDW Std Deviation 51.5 H (36.4-46.3) fL RDW Coeff of Renetta 15.3 H (11.5-14.5) % Plt Count 314 (130-400) K/uL MPV 9.0 L (9.4-12.4) fL Immature Gran % (Auto) 1.4 % Neut % (Auto) 59.4 % Lymph % (Auto) 28.7 % [place] % (Auto) 8.1 % Eos % (Auto) 1.4 % Baso % (Auto) 1.0 % Neut # (Auto) 2.93 (1.40-6.50) K/uL Lymph # (Auto) 1.42 (1.20-3.40) K/uL [place] # (Auto) 0.40 (0.11-0.59) K/uL Eos # (Auto) 0.07 (0.00-0.50) K/uL Baso # (Auto) 0.05 (0.00-0.20) K/uL Immature Gran # (Auto) 0.07 (0.01-0.20) K/uL Peripher Smr Path Cons Sodium 142 141 D (136-145) mmol/L Potassium 4.1 3.6 (3.5-5.1) mmol/L Chloride 104 103 (98-107) mmol/L Carbon Dioxide 31 30 (21-32) mmol/L Anion Gap 7 8 (3-11) BUN 13 10 (6-23) mg/dl Creatinine 0.67 0.57 L (0.6-1.2) mg/dl Est Cr Clr Drug Dosing 72.4 85.1 ml/min Est GFR ( Amer) 102.5 108.1 ml/min Est GFR (Non-Af Amer) 88.4 93.3 ml/min BUN/Creatinine Ratio 19.4 17.5 (10-20) Glucose 92 158 H (70-99(Fasting)) mg/dl Calcium 9.1 9.2 (8.6-10.3) mg/dl Magnesium 1.9 1.9 (1.7-2.4) mg/dl Total Bilirubin 0.3 (0.2-1.0) mg/dl AST 13 (13-39) U/L ALT 12 (7-52) U/L Alkaline Phosphatase 76 (34-104) U/L Total Protein 6.3 (6.0-8.3) gm/dl Albumin 3.4 (3.4-5.0) gm/dl Globulin 2.9 (2.5-4.0) gm/dl Albumin/Globulin Ratio 1.2 (0.9-2) Random Vancomycin 11.9 (10-20) mcg/ml PG Care Time/CCT Total # of Minutes Spent Total Time Spent with Patient: Total time spent is greater than 50% in coordination of care (as documented) at patient's floor/unit and/or counseling patient: Coding Level of Care Code 69190 SUB INP/OBS CARE 3/50MIN Diagnoses Epidural abscess G06.2 Bacteremia R78.81 Lumbar postlaminectomy syndrome M96.1 Anxiety F41.9 Gastroesophageal reflux disease K21.9 Fibromyalgia M79.7 History of gastric bypass Z98.84 Iron deficiency E61.1 Abscess of skin L02.91 Frequent unifocal PVCs I49.3
[2023-07-27] MEDS: NEBIVOLOL HCL 20 MG PO SCH (07:48)
--- NOTE | 2023-07-27 08:51 | Cardiology Consultation ---
Date of Consultation July 27, 2023 Assessment & Plan (1) MRSA bacteremia: (2) Frequent unifocal PVCs: (3) HTN (hypertension): Plan 1. MRSA bacteremia: She had MRSA bacteremia from her epidural abscess, although I do not believe her mitral valve abnormalities are directly related to the bacteremia she does have an abnormal valve and could develop endocarditis. A VISHAL might be helpful, but it would only be helpful to document the duration of antibiotic therapy since her valve does not require any intervention. At this point I would not do VISHAL and less so we will alter the duration of antibiotic therapy. If her antibiotics are not going to be continued for a long period of time then a VISHAL might be reasonable. That would not be done this weekend, but could be done early in the week. 2. Frequent PVCs: She has frequent symptomatic PVCs which were often in a bigeminal and trigeminal pattern. Her palpitations improved considerably with beta-blockade, she had significant side effects on metoprolol however on Bystolic she has had very few side effects and her palpitations were under excellent control now. I would continue our current approach, if she has recurrence on nebivolol 20 mg daily we can consider antiarrhythmic therapy (such as flecainide which is often very effective) or ablation. 3. Hypertension: She does have a history of hypertension and now on Bystolic alone her blood pressure has been good for the most part, although for some reason her blood pressure is very high this morning. As of 2 days ago the hospital did not stock nebivolol, so I do not know if that was held. I will investigate that. History of Present Illness Reason for Consultation: MRSA, possible endocarditis Attending Physician: Alis Mireles MD History of Present Illness This is a 72-year-old woman who has a history of hypertension, recurrent UTI with urethral stricture, history of bile duct sphincterotomy and stent placement, and lumbar spine surgery on November 16, 2020. She has had prior surgeries but this last surgery was very successful and she had a marked improvement although is still limited and does have a spinal stimulator in place. She has also had gastric bypass surgery many years ago. 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 She also has an apple watch and looking at that she thought they might be premature beats. The palpitations typically occur in the morning, they are typically at rest and she does not notice them with activities. They are somewhat intermittent. She did wear an event monitor and she was wearing it when she had symptoms all day on December 21, 2020. Unfortunately the monitor was not set up properly and was not transmitting the information so we do not have records. She does however have an apple watch and I was able to look through rhythms on it and it appears to be premature ventricular beats with periods of ventricular bigeminy when she has symptoms. She has never noticed a sustained arrhythmia. An echocardiogram was done on December 29, 2020 and this shows hyperdynamic left ventricular systolic function with mild left ventricular hypertrophy and normal chamber dimensions. No significant valvular disease. An echocardiogram on July 05, 2021 shows normal left ventricular systolic function with an ejection fraction of 60 to 65% and normal left ventricular wall motion. She does have moderate concentric left ventricular hypertrophy and mild mitral regurgitation. Since her symptoms appear to be due to premature ventricular beats I started metoprolol succinate 50 mg daily on December 30, 2020. Ultimately she ended up w earing her event recorder from December 31, 2020 through January 29, 2021 and she did have symptoms consistent with PVCs. She had documented frequent premature ventricular beats January 22, 2021 and had periods of bigeminy and trigeminy on January 23, 2021, therefore on January 24, 2021 her metoprolol succinate was increased to 100 mg daily for ongoing symptoms. She felt better on the increased beta-blockade and it seemed be helping suppress her arrhythmia however she felt quite tired on the increased metoprolol. I therefore replaced that with Bystolic 10 mg daily on February 13, 2021. She f elt much better on Bystolic, it has worked well to control her symptoms and she did not have difficulty with tiredness on it. We had considered increasing the dose for better blood pressure control, however she had gained weight and wanted to try to lose weight to see if that would help with her blood pressure. She has had some success in losing weight, although not a lot, however she did contract COVID-19 in November 2021 when she was on a trip to [facility] and this was associated with fatigue, weakness and dizziness. She noted after that her blood pressure was quite low and she did have orthostatic symptoms although no presyncope. Her Bystolic was therefore decreased to 5 mg daily. She gradually recovering from her COVID illness. She did however feel that her PVC frequency had increased and was somewhat bothersome. She noted that she was in a bigeminal rhythm or trigeminal rhythm at times. I therefore increased her nebivolol to 20 mg daily on June 25, 2022. For most of June and July she continued to have palpitations, but then they resolved and since then she has not had much difficulty at all with palpitations. She has had her spinal stimulator replaced but had trouble with ongoing infections and she had that removed in mid June 2023. She has also had an attempt at having her gastric bypass fistula closed but it sounds as though that was not successful. She then had a right knee replacement in March 2023 and is recovering from that. She is planning on her left knee replacement when she recovers from the right. As far as her arrhythmia goes she is doing very well. She does not have any specific cardiac symptoms, she does not have palpitations, lightheadedness or dizziness and she is tolerating her medications well. Her blood pressure has been well controlled with a systolic of 110-130 at home. Toward the end of June 2023 she developed recurrent back pain, CT scanning showed a finding worrisome for an epidural abscess and an MRI showed a collection in this region. She had ongoing discomfort and came to the emergency room on July 24, 2023 where blood cultures were drawn, she was given vancomycin and discharged for follow-up. The blood cultures were positive for MRSA and she came back to the hospital on July 25, 2023 and had I&D of the back abscess performed. Infectious disease was contacted (through [facility]). Based on a transthoracic echo a VISHAL was recommended. Her transthoracic echocardiogram was done July 26, 2023 and showed normal left ventricular systolic function with mild concentric left ventricular hypertrophy and her mitral valve leaflets were thickened with findings suggestive of a vegetation, however she had an echocardiogram a year earlier which had similar findings. There was no significant mitral regurgitation. She does have dyspnea on exertion but she feels that is stable and she is now able to increase her activity following her knee surgery. She has started yoga and feels that she will be able to be more active this summer. As far as her arrhythmia goes she is doing very well. She does not have any specific cardiac symptoms, she does not have palpitations, lightheadedness or dizziness and she is tolerating her medications well. Her blood pressure has been well controlled with a systolic of 110-130 at home. Allergies Allergy/AdvReac Type Severity Reaction Status Date / Time atorvastatin [From Lipitor] AdvReac Intermediate CPK Verified 07/25/23 09:14 elevation doxycycline AdvReac Intermediate "slight" Verified 07/25/23 09:14 LDH elevation ibuprofen [From Motrin] AdvReac Intermediate dyspepsia Verified 07/25/23 09:14 nitrofurantoin AdvReac Intermediate GI upset Verified 07/25/23 09:14 [From Macrobid] Home Medications Medication Instructions Recorded Confirmed Type cholecalciferol (vitamin D3) 125 5,000 units PO QAM 03/11/18 07/25/23 History mcg (5,000 unit) capsule multivitamin 1 tab PO BID 05/23/18 07/25/23 History calcium citrate 200 mg (950 mg) 650 mg PO TID 07/05/18 07/25/23 History tablet estradiol 0.01% (0.1 mg/gram) See Rx Instructions vaginal 06/06/22 07/25/23 Rx vaginal cream .COMPLEX #42.5 grams ferrous sulfate 325 mg (65 mg 325 mg PO Q OTHER DAY 06/25/22 07/25/23 History iron) tablet (FeroSul) mecobalamin (vitamin B12) 1,000 1,000 mcg PO Q OTHER DAY 06/25/22 07/25/23 History mcg chewable tablet docusate sodium 100 mg capsule 100 mg PO DAILY PRN Constipation 03/22/23 07/25/23 History (Stool Softener) esomeprazole magnesium 40 mg 40 mg PO QPM 03/22/23 07/25/23 History capsule,delayed release nebivolol 20 mg tablet 20 mg PO QAM 03/22/23 07/25/23 History duloxetine 60 mg capsule,delayed 60 mg PO BID #180 caps 05/07/23 07/25/23 Rx release pregabalin 150 mg capsule (Lyrica) 150 mg PO BID #180 caps 07/03/23 07/25/23 Rx cyclobenzaprine 10 mg tablet 10 mg PO BID PRN muscle spasms #60 07/23/23 07/25/23 Rx tabs oxycodone-acetaminophen 10 mg-325 1 tab PO .Q4-6H PRN Pain 07/24/23 07/25/23 History mg tablet Patient History Medical History Lumbar postlaminectomy syndrome PVC (premature ventricular contraction) Follows with Dr. Rosado Hx of Clostridium difficile infection Approximately 2020, no recent issues Osteoarthritis Fibromyalgia UTI (urinary tract infection) Hx frequent UTIs, no recent issues GERD (gastroesophageal reflux disease) Urge urinary incontinence TMJ click Chronic back pain Disc degeneration, lumbosacral Cervical disc disease HTN (hypertension) Surgical History History of spinal surgery Spinal cord stimulator and leads removed 06/2023 Status post right knee replacement [facility] (03/2023) History of left cataract surgery History of ERCP History of carpal tunnel release right Hx laparoscopic cholecystectomy Laparoscopic Cholecystectomy Dr. Quintana (2020) Status post insertion of spinal cord stimulator [employer] Labtronic (Removed 06/2023) History of right cataract surgery History of tooth extraction History of tonsillectomy History of bariatric surgery History of right hip replacement History of elbow surgery Left History of arthroscopy of left shoulder History of repair of right rotator cuff History of arthroscopy of both knees History of lumbar fusion x5 History of fusion of cervical spine C6-7; "ROM WNL" History of esophagogastroduodenoscopy (EGD) History of colonoscopy Most recent 07/2021 Family History Mother CHF (congestive heart failure) Arthritis Pure hypercholesterolemia Ischemic heart disease Hypertension Myocardial infarction Father Acute myocardial infarction Myocardial infarction Mother Family history of diabetes mellitus Other No significant family history Denies family history of Ovarian cancer Prostate cancer Breast cancer Colorectal cancer Social History Smoking Status: Never smoker Second Hand Exposure: No; Do You Dip or Chew Tobacco: No; Tobacco Cessation Education Requested by Patient: No Hx Alcohol Use: Yes Alcohol type: wine Hx Substance Use: Yes (medical marijuana card (pt states hasnt used in long time)) Last Used Substance: Unknown Substance Use Type Other:: has card but not currently using Preferred Language: Bolivian Communication Ability: Effective Projection Camera Operator Required: No Beliefs That Will Affect Care: None marital status: Current Living Situation: Spouse 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 She is resting in bed. HEENT: Unremarkable Neck: No jugular venous distention, carotid pulses are normal and equal bilaterally without bruits. Pulmonary: Clear to auscultation bilaterally. Cardiac: Regular rhythm with premature beats and no murmur, gallop or rub. Abdomen: Soft, nontender with normal bowel sounds. Extremities: No edema. Distal pulses intact. Neurologic: No focal findings. Skin: No rash, ecchymoses or petechiae. Results & Data Vital Signs (Past 12 Hours) Vital Signs Temp Pulse Pulse Resp BP Pulse Ox O2 Del Method 07/27/23 08:36 79 07/27/23 08:04 36.7 C 75 18 172/98 H 97 Room Air 07/27/23 04:00 37.0 C 84 18 139/87 95 Room Air 07/26/23 23:00 36.9 C 79 18 131/84 98 Room Air 07/26/23 22:00 75 Laboratory Results CBC 07/27/23 Range/Units 05:27 WBC 4.94 (4.8-10.8) K/ul RBC 3.97 L (4.20-5.40) M/uL Hgb 12.5 (12.0-16.0) g/dl Hct 36.6 L (37.0-47.0) % Plt Count 314 (130-400) K/uL Neut # (Auto) 2.93 (1.40-6.50) K/uL Lymph # (Auto) 1.42 (1.20-3.40) K/uL [place] # (Auto) 0.40 (0.11-0.59) K/uL Eos # (Auto) 0.07 (0.00-0.50) K/uL Baso # (Auto) 0.05 (0.00-0.20) K/uL Comprehensive Metabolic Panel 07/27/23 Range/Units 05:27 Sodium 142 (136-145) mmol/L Potassium 4.1 (3.5-5.1) mmol/L Chloride 104 (98-107) mmol/L Carbon Dioxide 31 (21-32) mmol/L BUN 13 (6-23) mg/dl Creatinine 0.67 (0.6-1.2) mg/dl Glucose 92 (70-99(Fasting)) mg/dl Calcium 9.1 (8.6-10.3) mg/dl Intake and Output 07/26/23 07/27/23 07/27/23 22:59 06:59 14:59 Intake Total 565 / 2295 465 / 2295 Output Total Balance 565 / 2275 445 / 2275 Intake: IV 265 / 1795 265 / 1795 Vancomycin HCl 750 mg In Sodium 265 / 530 265 / 530 Chloride 0.9% 250 ml @ 200 mls /hr IV Q8H [facility] Rx#:[id number] Oral 300 / 500 200 / 500 Output: Drain Output Back TERENCE Other: Weight 89.8 kg Weight Measurement Method Built in [facility] Diagnostic Findings Telemetry: Sinus rhythm, heart rate around 70 bpm, some premature ventricular beats. PG Care Time/CCT Total # of Minutes Spent Total Time Spent with Patient: Total time spent is greater than 50% in coordination of care (as documented) at patient's floor/unit and/or counseling patient: Coding Level of Care Code 17151 INT INP/OBS CARE 2/55MIN Diagnoses MRSA bacteremia R78.81; B95.62 Frequent unifocal PVCs I49.3 Primary hypertension I10 Hypertension type: primary hypertension (3) HTN (hypertension) Hypertension type: primary hypertension Qualified Code(s): I10 - Essential (primary) hypertension
[2023-07-27] MEDS: HYDROmorphone INJ 1 MG/ML SYRINGE IV PRN (09:31)
--- NOTE | 2023-07-27 09:37 | Pharmacy Report ---
Pharmacy PK ABX Note - Date of Service July 27, 2023 - Assessment and Plan Assessment 72 year old F receiving Vancomycin for treatment of MRSA bacteremia and epidural abscess. * Day #3 of antimicrobial therapy. * Afebrile, WBC wnl * Blood cultures from 07/22 are growing MRSA. Went to OR 07/24 for I&D of epidural abscess. OR cultures w Staph aureus. 07/25 blood cultures with NGTD * SCr stable Plan Vancomycin * Current dose: 750 mg IV every 8 hours * Regimen is predicted to achieve target AUC/SARA of 400-600 mg/L.hr w AUC of 501. However, would prefer upper end of goal range given indication. Also, higher doses administered less frequently have a lower risk of nephrotoxicity. Will therefore adjust regimen per below, w anticipated AUC of 553 mg/L.hr * New regimen: 1250 mg IV q12h * Random level ordered for: 5/6 w AM labs Pharmacy will continue to follow and will adjust dose/frequency as necessary. Thank you. Pharmacy has transitioned to AUC monitoring for vancomycin. AUC/SARA is the preferred PK/PD target and is associated with decreased risk of nephrotoxicity compared to traditional trough targets.
[2023-07-27] MEDS: HEPARIN SOD 5,000 UNIT/0.5 ML VIAL SQ SCH (13:00)
[2023-07-27] MEDS: VANCOMYCIN HCL 1,250 MG in SODIUM CHLORIDE 0.9% 250 ML IV SCH (13:41)
[2023-07-28 07:10] LABS: Hematocrit (blood only) 40.2 % (37.0-47.0); Hemoglobin 13.1 g/dl (12.0-16.0); Mean Corpuscular Hemoglobin 30.5 pg (25.0-34.0); Mean Corpuscular Hgb Conc 32.6 g/dL (32.0-36.0); Mean Corpuscular Volume 93.7 fL (80.0-100.0); Mean Platelet Volume 8.8 fL (9.4-12.4); Platelet Count 351 K/uL (130-400); RDW Coefficient of Variation 15.1 % (11.5-14.5); RDW Standard Deviation 51.7 fL (36.4-46.3); Red Blood Count 4.29 M/uL (4.20-5.40); White Blood Count 5.55 K/ul (4.8-10.8)
[2023-07-28 07:33] LABS: BUN Creatinine Ratio 24.2 (10-20); C Reactive Protein 2.19 mg/dl (0-0.5); Calcium 9.1 mg/dl (8.6-10.3); Creatinine Clr Calc Pharmacy 84.5 ml/min; Est GFR (African American) 105.1 ml/min; Est GFR (Non-African American) 90.7 ml/min; Magnesium 1.9 mg/dl (1.7-2.4); Potassium 4.3 mmol/L (3.5-5.1)
--- NOTE | 2023-07-28 07:38 | Hospitalist Progress Note ---
Date of Service July 28, 2023 Assessment & Plan (1) Epidural abscess: Plan: 72yo presented following ER visit 07/22-07/23 for flank/abdominal/chest pain initially thought injury while gardening/pulled muscle, noted to have epidural abscess and given Vanco IV x 1 and discharged with instructions to have f/u with Dr Musa. Did NOT come back to ER given +Bcx for abx as was called by surgery office and planned surgery and decided to wait Imaging from ER visit noting Large soft tissue collection posterior to the lower thoracic spine at T7-T9 level. CT chest noted posterior paraspinal abscess measuring 10.7 x 4.6 x 7.7 cm extending from approximate T6-T7 to T10-T11. s/p #1 revision laminotomy T10. #2 irrigation debridement thoracic spine with Dr Musa on 07/24 OR cx w/ staph species on preliminary ER Blood cxs from 07/23 + MRSA bacteremia. See prior day note/did not come back to ER as planned surgery/missed day abx ID consulted/ECHO as below, moved to telemetry * Of note, did have RIGHT knee replacement in March (reaction to staple/blister/drainage/abx for such) and prior R hip (several years ago) with recent removal of spinal stimulator wires (prior infection/opening of abdomen last year/abx use and was traveling to [place] and got abx at that time as well). 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 Monitor for her knee (appears stable on exam presently) 07/27 Repeat blood cultures from 07/25 remain without growth x 48 hours OR cx finalized with MRSA as well, suspected source given imaging in ER on 07/23 Remains on Vancomycin IV WBC wnl, afebrile. CRP 9--> 2.19 TERENCE output drainage decreased but remains in place for now and milky/serous at present time. Consideration to dc in next 24-48hrs pending output Prior ECHO noting possible mitral valve leaflets/concerns for vegetation. (Report notes "unchanged" from prior ECHO last year??) -> Cardiology consulted and given such not causing any reduction in EF/systolic dysfunction and not requiring valve replacement and would not alter duration of abx given spinal infection does not think VISHAL needed at this time. If abx not going to be continued senior living, VISHAL may be reasonable but could be done early this upcoming week/tomorrow if needed/wanted - - will touch base with ID if blood cultures remain NGTD in morning will consider consent for PICC line placement and CM to arrange for continue IV abx at mt. Therapy evals pending DVT proph: Heparin SQ added given infection/risk, hgb remaining stable on such and improved actually Monitor labs on repeat/any evidence for seeding to joints/hardware as above (2) Bacteremia: Plan: as above - continue vancomycin, f/u repeat blood cultures to ensure remaining negative and touching base w/ ID about need for VISHAL/cards consulted as above Monitor for seeding as above, needing PICC line/continued IV abx at mt and CM notified and to follow/arrange when medically stable (3) Lumbar postlaminectomy syndrome: Plan: continue pain control, appears MUCH improved since I&D for above but is having some incisional discomfort 5/4 which is stable and used IV medications however is utilizing oral today. continues to move her bowels drain to remain in place and will monitor output/dc once appropriate with primary service (4) Anxiety: Plan: continue home medications, appears stable at present time (5) Gastroesophageal reflux disease: Plan: also w/ hx gastric bypass, remains on PPI daily. Monitor for any needs for increase (6) Fibromyalgia: Plan: continue cymbalta BID, lyrica (7) History of gastric bypass: Plan: noted, continues on PPI daily (8) Iron deficiency: Plan: continue replacement (9) Abscess of skin: Plan: concerns for epidural abscess/bacteremia as above. +Blood cultures as above now matching OR cultures and suspect source however see above (10) Frequent unifocal PVCs: Plan: Hx HTN/frequent PVCs, follows with Dr Riggins. 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 Some back pain persists but not worse and stable with ordered medications. Discussed micro had to redo culture for further eval, but resulted this morning as MRSA, however her repeat blood cultures remain no growth to date and discussed if continued to be negative tomorrow could consider consent for PICC/work on arranging IV abx at dc and best case likely Saturday mt. Reports pain improves when she is up/moving/increased activity, same with her knee/not worse. No increased pain or issues with her hip or shoulders but continue to monitor. Notes she was also seen by Dr Riggins this morning, Bystolic continued. Still holding off VISHAL at this time and will touch base w/ ID in AM to finalize plans if bcx remain without growth. Moving her bowels, slightly loose and to monitor for any increased issues. Questions/concerns addressed at this time. Physical Exam Physical Exam: General: 72yo female sitting up in chair this morning, NAD, appears more comfortable today HEENT; head atraumatic, normocephalic, mmm, trachea midline Resp: even/unlabored, no w/c/r, on room air CV: RRR, faint systolic murmur, no pitting edema/calf tenderness GI: +BS throughout, slight distension, prior LLQ stimulator removed previously, thickened tissue present but nontender MSK/Neuro: dressing to lumbar spine changed day prior, no shadowing present, mild tenderness incisionally, TERENCE w/ scant milky/serous discharge in bulb LE strength testing acceptable Prior R knee incision well healed, without increased warmth/redness, ROM acceptable, LE pulses palpable lucia hose in place Psych: AOx3, cooperative with exam Results & Data Results & Data Vital Signs (Past 12 Hours) Vital Signs Temp Pulse Pulse Resp BP BP Pulse Ox 07/28/23 06:58 79 05/05/24 02:37 37 C 79 18 175/79 H 98 07/27/23 23:02 36.9 C 68 18 132/77 96 07/27/23 22:01 75 07/27/23 20:00 36.8 C 73 18 119/71 96 O2 Del Method 07/28/23 06:58 07/28/23 02:37 Room Air 07/27/23 23:02 Room Air 07/27/23 22:01 07/27/23 20:00 Room Air Laboratory Results 07/28/23 Range/Units 06:52 WBC 5.55 (4.8-10.8) K/ul RBC 4.29 (4.20-5.40) M/uL Hgb 13.1 (12.0-16.0) g/dl Hct 40.2 (37.0-47.0) % MCV 93.7 (80.0-100.0) fL MCH 30.5 (25.0-34.0) pg MCHC 32.6 (32.0-36.0) g/dL RDW Std Deviation 51.7 H (36.4-46.3) fL RDW Coeff of Renetta 15.1 H (11.5-14.5) % Plt Count 351 (130-400) K/uL MPV 8.8 L (9.4-12.4) fL Sodium 140 (136-145) mmol/L Potassium 4.3 (3.5-5.1) mmol/L Chloride 102 (98-107) mmol/L Carbon Dioxide 34 H (21-32) mmol/L Anion Gap 4 (3-11) BUN 15 (6-23) mg/dl Creatinine 0.62 (0.6-1.2) mg/dl Est Cr Clr Drug Dosing 84.5 ml/min Est GFR ( Amer) 105.1 ml/min Est GFR (Non-Af Amer) 90.7 ml/min BUN/Creatinine Ratio 24.2 H (10-20) Glucose 97 (70-99(Fasting)) mg/dl Calcium 9.1 (8.6-10.3) mg/dl Magnesium 1.9 (1.7-2.4) mg/dl C-Reactive Protein 2.19 H (0-0.5) mg/dl PG Care Time/CCT Total # of Minutes Spent Total Time Spent with Patient: Total time spent is greater than 50% in coordination of care (as documented) at patient's floor/unit and/or counseling patient: Coding Level of Care Code 45605 SUB INP/OBS CARE 3/50MIN Diagnoses Epidural abscess G06.2 Bacteremia R78.81 Lumbar postlaminectomy syndrome M96.1 Anxiety F41.9 Gastroesophageal reflux disease K21.9 Fibromyalgia M79.7 History of gastric bypass Z98.84 Iron deficiency E61.1 Abscess of skin L02.91 Frequent unifocal PVCs I49.3
--- NOTE | 2023-07-28 07:46 | Orthopedic Progress Note ---
Date of Service July 28, 2023 Assessment & Plan (1) Epidural abscess: Plan: Patient is stable. We will maintain her drain. Continue pain control and GI/DVT prophylaxis. Continue IV ABX. Admission and Anticipated Discharge Date Admission Date: July 25, 2023 Subjective Patient is stable sp I and D of a thoracic epidural abscess. Pain is controlled. awaiting CX results from 07/25. Physical Exam Physical Exam: Dressing C/D/I renetta drain in place. Abdomen soft nontender. Calves supple nontender. Strength and sensation are intact. Results & Data Vital Signs (Past 12 Hours) Vital Signs Temp Pulse Pulse Resp BP BP Pulse Ox 07/28/23 06:58 79 07/28/23 02:37 37 C 79 18 175/79 H 98 07/27/23 23:02 36.9 C 68 18 132/77 96 07/27/23 22:01 75 07/27/23 20:00 36.8 C 73 18 119/71 96 O2 Del Method 07/28/23 06:58 07/28/23 02:37 Room Air 07/27/23 23:02 Room Air 07/27/23 22:01 07/27/23 20:00 Room Air
--- NOTE | 2023-07-29 07:36 | Hospitalist Progress Note ---
Date of Service July 29, 2023 Assessment & Plan (1) Epidural abscess: Plan: 72yo presented following ER visit 07/22-07/23 for flank/abdominal/chest pain initially thought injury while gardening/pulled muscle, noted to have epidural abscess and given Vanco IV x 1 and discharged with instructions to have f/u with Dr Musa. Did NOT come back to ER given +Bcx for abx as was called by surgery office and planned surgery and decided to wait Imaging from ER visit noting Large soft tissue collection posterior to the lower thoracic spine at T7-T9 level. CT chest noted posterior paraspinal abscess measuring 10.7 x 4.6 x 7.7 cm extending from approximate T6-T7 to T10-T11. s/p #1 revision laminotomy T10. #2 irrigation debridement thoracic spine with Dr Musa on 07/24 OR cx w/ staph species on preliminary ER Blood cxs from 07/23 + MRSA bacteremia. See prior day note/did not come back to ER as planned surgery/missed day abx ID consulted/ECHO as below, moved to telemetry * Of note, did have RIGHT knee replacement in March (reaction to staple/blister/drainage/abx for such) and prior R hip (several years ago) with recent removal of spinal stimulator wires (prior infection/opening of abdomen last year/abx use and was traveling to [place] and got abx at that time as well). 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 Monitor for her knee (appears stable on exam presently) 07/28 Repeat blood cultures from 07/25 reported without growth x 48 hours - confirmed with micro this morning and still negative at this time OR cx finalized with MRSA -- suspected source WBC wnl, afebrile. CRP trended down from 9--> 2.19 yesterday Remained on Vancomycin through this morning, however planning to switch to Daptomycin for today for ease of abx at discharge TERENCE output decreased but remains in place Prior ECHO noting possible mitral valve leaflets/concerns for vegetation. (Report notes "unchanged" from prior ECHO last year??)-> Cardiology consulted and given such not causing any reduction in EF/systolic dysfunction and not requiring valve replacement and would not alter duration of abx given spinal infection does not think VISHAL needed at this time. 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 --> Given hopeful placement for PICC if remaining negative did obtain PICC line consent today under direction of supervising provider and order placed for tomorrow morning and also discussed with IV team nurse today about case and will plan for placement in AM so that can get Dapto through this and if able to arrange IV abx by CM (will need rx w/ confirmed dosing once changed by ID) could potentially discharge tomorrow. Did discuss with patient about plan and hopeful dc tomorrow but she is aware if not able to make everything happen tomorrow she may remain inpatient through Saturday (2) Bacteremia: Plan: as above - continue vancomycin, f/u repeat blood cultures to ensure remaining negative and touching base w/ ID about need for VISHAL/cards consulted as above Monitor for seeding as above, needing PICC line/continued IV abx at dc and CM notified and to follow/arrange when abx plan finalized and PICC line placed tomorrow (3) Lumbar postlaminectomy syndrome: Plan: continue pain control, appears MUCH improved since I&D for above but is having some incisional discomfort 5/4 which is stable and used IV medications however is utilizing oral today. continues to move her bowels drain to remain in place and will monitor output/dc once appropriate with primary service, hopeful dc in next 24 hours able to dc (4) Anxiety: Plan: continue home medications, appears stable at present time (5) Gastroesophageal reflux disease: Plan: also w/ hx gastric bypass, remains on PPI daily. Monitor for any needs for increase (6) Fibromyalgia: Plan: continue cymbalta BID, lyrica (7) History of gastric bypass: Plan: noted, continues on PPI daily (8) Iron deficiency: Plan: continue replacement (9) Abscess of skin: Plan: concerns for epidural abscess/bacteremia as above. +Blood cultures as above now matching OR cultures and is suspected source of her bacteremia (10) Frequent unifocal PVCs: Plan: Hx HTN/frequent PVCs, follows with Dr Riggins. 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 Will f/u blood cultures in am but if negative PICC line consent/orders in place and IV team notified and will need to give rx to CM to fax for IV abx at discharge. Patient aware best case if PICC placed in AM/dapto through the PICC and arranged could potentially discharge tomorrow but may be Saturday. Admission and Anticipated Discharge Date Admission Date: July 25, 2023 Subjective Evaluated this morning, just about to take a walk. Pain improves more when she is up and moving. TERENCE w/ decreased output, about 10-15cc since about 4am this morning. Not yet seen by ortho but discussed keeping TERENCE in place until deemed by surgery ok to remove but not to remove before needing based on drainage. Blood cultures remain NGTD but discussed w/ ID and wanting to wait another 24 hours until placing PICC line and obtained PICC line consent at direction of supervising provider and placed on chart and ordered for placement tomorrow if blood cultures remain negative. ID to consider switching to daptomycin for ease for abx at dc. CM to follow for rx. Discussed best case dc tomorrow after IV abx and PICC line in place but could be Saturday and can change if cultures turn positive. Moving bowels, slightly loose but no increased diarrhea and to monitor. Overall appears to continue to improve. Questions/concerns addressed at this time. Physical Exam Physical Exam: General: 72yo female getting ready to walk the halls, no acute distress HEENT: head atraumatic, normocephalic, mmm, trachea midline Resp: even/unlabored, no w/c/r, on room air CV: RRR, faint systolic murmur, no pitting edema/calf tenderness GI: +BS throughout, slight distension, prior LLQ stimulator removed previously, thickened tissue present but nontender MSK/Neuro: dressing to lumbar spine changed previously, no shadowing today, decreased TERENCE output/serous/white chunks from beads per ortho LE strength testing acceptable Prior R knee incision well healed, without increased warmth/redness, ROM acceptable, LE pulses palpable lucia hose in place Psych: AOx3, cooperative with exam Results & Data Results & Data Vital Signs (Past 12 Hours) Vital Signs Temp Pulse Pulse Resp BP Pulse Ox O2 Del Method 07/29/23 03:29 36.5 C 74 18 167/98 H 97 Room Air 07/29/23 02:53 76 07/28/23 22:10 36.6 C 73 18 149/91 H 100 Room Air Laboratory Results 07/29/23 Range/Units 09:42 WBC 5.63 (4.8-10.8) K/ul RBC 4.18 L (4.20-5.40) M/uL Hgb 13.0 (12.0-16.0) g/dl Hct 39.0 (37.0-47.0) % MCV 93.3 (80.0-100.0) fL MCH 31.1 (25.0-34.0) pg MCHC 33.3 (32.0-36.0) g/dL RDW Std Deviation 51.8 H (36.4-46.3) fL RDW Coeff of Renetta 15.2 H (11.5-14.5) % Plt Count 380 (130-400) K/uL MPV 8.8 L (9.4-12.4) fL Sodium 139 (136-145) mmol/L Potassium 3.9 (3.5-5.1) mmol/L Chloride 100 (98-107) mmol/L Carbon Dioxide 30 (21-32) mmol/L Anion Gap 9 (3-11) BUN 13 (6-23) mg/dl Creatinine 0.66 (0.6-1.2) mg/dl Est Cr Clr Drug Dosing 79.4 ml/min Est GFR ( Amer) 103.0 ml/min Est GFR (Non-Af Amer) 88.9 ml/min BUN/Creatinine Ratio 19.7 (10-20) Glucose 187 H (70-99(Fasting)) mg/dl Calcium 9.0 (8.6-10.3) mg/dl Magnesium 1.6 L (1.7-2.4) mg/dl Total Creatine Kinase 26 (26-192) U/L Random Vancomycin 15.6 (10-20) mcg/ml PG Care Time/CCT Total # of Minutes Spent Total Time Spent with Patient: Total time spent is greater than 50% in coordination of care (as documented) at patient's floor/unit and/or counseling patient: Coding Level of Care Code 35917 SUB INP/OBS CARE 3/50MIN Diagnoses Epidural abscess G06.2 Bacteremia R78.81 Lumbar postlaminectomy syndrome M96.1 Anxiety F41.9 Gastroesophageal reflux disease K21.9 Fibromyalgia M79.7 History of gastric bypass Z98.84 Iron deficiency E61.1 Abscess of skin L02.91 Frequent unifocal PVCs I49.3
[2023-07-29] MEDS ORDERED: hydrALAZINE HCL 20 MG/ML VIAL IV PRN (07:43)
--- NOTE | 2023-07-29 09:10 | Infectious Disease Progress Nt ---
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 She developed issues with cellulitis on/around her SCS over past year and has been on a number of different abx including Bactrim. Finally she had SCS stimulator and wires removed on 07/10/23. Told it was very messy inside. She also has a h/o R TKA 04/22/23, reaction to john which caused open sores and given oral antibiotics s/p oral abx, including Bactrim. She also gets intermittent corticosteroid injections into her shoulders. 1 week [employer], Patient was pulling heavy garden material around and began having back pain. She underwent CT which showed hyperdensity along the posterior epidural region from T7 to approximate T8-T9 concerning for epidural abscess paraspinal abscess measuring 10.7 x 4.6 x 7.7 cm, adjacent posterior paraspinal fluid collection concerning for abscess. 07/23 Thoracic MRI Large soft tissue collection posterior to the lower thoracic spine at T7-T9 level. She did come to ED to [facility] for ongoing pain, 07/23 blood cultures ordered, she was given dose of vancomycin and dcd for f/u with her surgeon. Bcx returned back as MRSA, Patient asked to [facility] on 07/24. That same day she underwent I+D, laminotomy T10. OR notes Patient had evidence of gross purulence through the soft tissue in the region of the T11. The fluid did migrate down to the epidural space. dissected to the subcutaneous tissues down through the musculature into the epidural space at T10. I then performed a small revision laminotomy of T10 to explore the area to ensure no fluid was within the spinal canal. OR cultures growing MRSA. Patient returned and was admitted as of 07/25. She apparently received Vancomycin 07/22-07/23. Labs showed essentially normal CBC, normal chem, elevated glucose, 07/25 blood cultures are in lab. 2DE completed now show possible MV vegetation (seen on 2DE in 2022). MICRO Blood cultures 07/24/2023, 2/4 bottles MRSA Blood cultures 07/26/2023 NGTD Wound cultures #1, paravertebral thoracic space 07/25/2023 MRSA Wound cultures #2, paravertebral thoracic space 07/25/2023 MRSA ABX Gentamicin 07/24 Cefazolin 07/24 Vancomycin 07/24-ongoing #MRSA bacteremia #MRSA thoracic epidural abscess s/p revision laminotomy t10, I+D to epidural space # Possible white earth, mitral valve vegetation #R TKA, R ALIN, lumbar hardware # S/p removal of spinal cord stim + Wires on 07/10/23 Discussion Her MRSA bacteremia may be secondary to spinal infection. Spinal hardware remains, post Laminotomy and I &D. She is at risk of seeding of the right knee and hip prosthetics. Unclear if spinal hardware infected. She also has a history of a mitral valve abnormality on prior echo. Recent TTE without any vegetations. She was evaluated by cardiology who does not want to pursue VISHAL unless results will change the duration of antibiotic therapy. Orthopedics following, lumbar drain in place. Repeat blood cultures from 07/25 with no growth to date. I anticipate at least 6 weeks of IV MRSA antibiotic therapy from sterile BC, followed by suppression with oral antibiotics given spinal/lumbar hardware with doxycycline 100 mg po q12h RECOMMEND: Will switch abx from IV vancomycin to daptomycin 10 mg/kg Iv daily ( 890 mg iv daily) as less nephrotoxic nursing home. CPK ordered, follow up Follow blood cultures /, if positive, repeat BC Monitor for sites of seeding: hardware, joints etc IF repeat BC remains positive, would pursue VISHAL ON IV abx, follow CBC with diff, bmp,lft, cpk, esr, crp weekly. ~ EOT is 09/06/23 ( 6 weeks) if /3 BC remains sterile. Final duration will depend on clinical response and repeat MRi spine imaging Repeat MRI lumbar /thoracic spine 1 week prior to completion of IV antibiotics. May need a longer course of IV abx ~ 8 weeks vs further surgical intervention AFTER completion of IV Daptomycin, start suppression with Doxycycline 100 mg po q12hr for At least 3- 6 months, final duration TBD. Would establish care with local ID for continued management Obtain repea blood cultures 1 week post completion of IV daptomycin, Follow up with orthopedics post discharge D/W team Twin Tillman MD, MPH Infectious Disease ID Connect [facility], ID Division Call [phone] with questions Admission and Anticipated Discharge Date Admission Date: July 25, 2023 Subjective This patient recommendation is based on a telemedicine consult request which was completed asynchronously through chart review and information provided by the primary physician. The patient was not seen or examined today. The evaluation is consultative in nature and all patient care and treatment decisions can either be accepted or rejected by the patient's primary hospital-based treating phys ician using their own independent medical judgment for their patient. Time Spent Reviewing Chart: 21 - 30 minutes Afebrile Repeat BC NGTD No VISHAL per cards Results & Data Vital Signs (Past 12 Hours) Vital Signs Temp Pulse Pulse Resp BP BP Pulse Ox 07/29/23 08:33 72 07/29/23 07:40 36.5 C 71 16 138/83 96 07/29/23 03:29 36.5 C 74 18 167/98 H 97 07/29/23 02:53 76 07/28/23 22:10 36.6 C 73 18 149/91 H 100 O2 Del Method 07/29/23 08:33 07/29/23 07:40 Room Air 07/29/23 03:29 Room Air 07/29/23 02:53 07/28/23 22:10 Room Air Laboratory Results Laboratory Results - last 48 hr 07/28/23 06:52 WBC 5.55 RBC 4.29 Hgb 13.1 Hct 40.2 MCV 93.7 MCH 30.5 MCHC 32.6 RDW Std Deviation 51.7 H RDW Coeff of Renetta 15.1 H Plt Count 351 MPV 8.8 L Sodium 140 Potassium 4.3 Chloride 102 Carbon Dioxide 34 H Anion Gap 4 BUN 15 Creatinine 0.62 Est Cr Clr Drug Dosing 84.5 Est GFR ( Amer) 105.1 Est GFR (Non-Af Amer) 90.7 BUN/Creatinine Ratio 24.2 H Glucose 97 Calcium 9.1 Magnesium 1.9 C-Reactive Protein 2.19 H Microbiology 07/25/23 11:27 Back,Lower Gram Stain - Final 07/25/23 11:27 Back,Lower Aerobic and Anaerobic Culture - Preliminary Staph aureus MRSA 07/25/23 11:27 Back Gram Stain - Final 07/25/23 11:27 Back Aerobic and Anaerobic Culture - Preliminary Staph aureus MRSA 07/26/23 06:38 Blood Aerobic Blood Culture - Preliminary No growth in Aerobic bottle after 48 hours. 07/26/23 06:38 Blood Anaerobic Blood Culture - Preliminary No growth in Anaerobic bottle after 48 hours. 07/26/23 06:34 Blood Aerobic Blood Culture - Preliminary No growth in Aerobic bottle after 48 hours. 07/26/23 06:34 Blood Anaerobic Blood Culture - Preliminary No growth in Anaerobic bottle after 48 hours. Diagnostic Findings Radiology CT chest 07/24/23 IMPRESSION: 1. Posterior paraspinal abscess measuring 10.7 x 4.6 x 7.7 cm extending from approximate T6-T7 to T10-T11. 2. Epidural abscess at approximate T8 or T9 level measuring at least 3.5 cm in craniocaudal dimension with question mass-effect over the spinal cord. Recommend neurosurgical consultation and follow-up with MRI of the entire spine to exclude metachronous lesions. 3. Mild right lower lobe atelectasis with trace posterior dependent atelectasis. Lumbar spine MRI 07/24/23 IMPRESSION: Status post L2-S1 posterior spinal fusion. Severe multilevel degenerative disc disease changes in the lumbar spine, as described above. Evaluation limited by artifacts caused by the posterior arthroplasty Hardware Thoracic spine MRI 07/24/23 IMPRESSION: 1. No epidural abscess 2. Large soft tissue collection posterior to the lower thoracic spine at T7-T9 level. Medications Administered Home Medications Medication Instructions Recorded Confirmed Last Taken cholecalciferol (vitamin D3) 125 5,000 units PO QAM 03/11/18 07/25/23 07/24/23 08:00 mcg (5,000 unit) capsule multivitamin 1 tab PO BID 05/23/18 07/25/23 07/24/23 19:00 calcium citrate 200 mg (950 mg) 650 mg PO TID 07/05/18 07/25/23 07/24/23 19:00 tablet estradiol 0.01% (0.1 mg/gram) See Rx Instructions vaginal 06/06/22 07/25/23 04/17/23 vaginal cream .COMPLEX #42.5 grams ferrous sulfate 325 mg (65 mg 325 mg PO Q OTHER DAY 06/25/22 07/25/23 07/23/23 iron) tablet (FeroSul) mecobalamin (vitamin B12) 1,000 1,000 mcg PO Q OTHER DAY 06/25/22 07/25/23 07/24/23 19:00 mcg chewable tablet docusate sodium 100 mg capsule 100 mg PO DAILY PRN Constipation 03/22/23 07/25/23 04/21/23 08:00 (Stool Softener) esomeprazole magnesium 40 mg 40 mg PO QPM 03/22/23 07/25/23 07/24/23 19:00 capsule,delayed release nebivolol 20 mg tablet 20 mg PO QAM 03/22/23 07/25/23 07/25/23 06:00 duloxetine 60 mg capsule,delayed 60 mg PO BID #180 caps 05/07/23 07/25/23 07/25/23 06:00 release pregabalin 150 mg capsule (Lyrica) 150 mg PO BID #180 caps 07/03/23 07/25/23 07/25/23 06:00 cyclobenzaprine 10 mg tablet 10 mg PO BID PRN muscle spasms #60 07/23/23 07/25/23 Unknown tabs oxycodone-acetaminophen 10 mg-325 1 tab PO .Q4-6H PRN Pain 07/24/23 07/25/23 07/25/23 06:00 mg tablet Active Medications Generic Name Dose Route Start Last Admin Trade Name Freq PRN Reason Stop Dose Admin Calcium Citrate 950 mg 07/25/23 14:00 07/29/23 08:05 Calcium Citrate 950 Mg Tab PO 08/24/23 13:59 950 mg TID WANDER Administration Cyanocobalamin 500 mcg 07/26/23 09:00 07/28/23 08:07 Cyanocobalamin (B-12) 500 Mcg Tablet PO 08/25/23 08:59 500 mcg Q48H WANDER Administration Cyclobenzaprine HCl 10 mg 07/25/23 14:00 07/29/23 05:19 Cyclobenzaprine Hcl 10 Mg Tab PO 08/24/23 13:59 10 mg Q8 WANDER Administration Duloxetine HCl 60 mg 07/25/23 21:00 07/29/23 08:06 Duloxetine Hcl 60 Mg Cap PO 08/24/23 20:59 60 mg BID WANDER Administration Estrogens Conjugated 1 appln 07/26/23 21:00 07/26/23 21:10 Premarin Vag Crm 14 Appln/30 Gm Tube PV 08/25/23 20:59 Not Given MoFr@2100 WANDER Ferrous Sulfate 325 mg 07/26/23 09:00 07/28/23 08:05 Ferrous Sulfate 325 Mg Tab PO 08/25/23 08:59 325 mg Q48H WANDER Administration Heparin Sodium (Porcine) 5,000 units 07/27/23 12:20 07/29/23 08:07 Heparin Sod 5,000 Unit/0.5 Ml Vial SQ 08/26/23 12:19 Not Given Q12 WANDER Hydromorphone HCl 1 mg 07/25/23 13:52 07/28/23 22:16 Hydromorphone Inj 1 Mg/Ml Syringe IV 08/08/23 13:51 1 mg Q3H PRN Administration SEVERE Pain (Scale 7,8,9,10) Vancomycin HCl 1,250 mg/ 275 mls @ 200 mls/hr 07/27/23 14:00 07/29/23 04:50 Sodium Chloride IV 08/10/23 13:59 Infused Q12H WANDER Infusion Multivitamins 1 tab 07/25/23 21:00 07/29/23 08:07 Multivitamin Tab PO 08/24/23 20:59 1 tab BID WANDER Administration Nebivolol 1 each 07/27/23 09:00 07/29/23 08:07 Nebivolol Hcl 20 Mg Tablet (Pom) PO 08/25/23 10:29 1 each DAILY WANDER Administration Oxycodone HCl 5 - 10 mg 07/25/23 13:52 07/29/23 05:19 Oxycodone Hcl Ir 5 Mg Tab (Immediate Release) PO 08/08/23 13:51 10 mg Q4H PRN Administration Pain & Pre PT Pantoprazole Sodium 40 mg 07/25/23 21:00 07/28/23 22:04 Pantoprazole 40 Mg Tab PO 08/24/23 20:59 40 mg QPM WANDER Administration Pregabalin 150 mg 07/25/23 21:00 07/29/23 08:09 Pregabalin 150 Mg Cap PO 08/24/23 20:59 150 mg BID WANDER Administration Senna/Docusate Sodium 2 tab 07/25/23 21:00 07/28/23 22:01 Docusate Sodium/Senna 50/8.6mg Tab PO 08/24/23 20:59 Not Given HS WANDER Vitamin D 125 mcg 07/26/23 09:00 07/29/23 08:06 Cholecalciferol 125 Mcg (5,000 Units) Tab PO 08/25/23 08:59 125 mcg QAM WANDER Administration
[2023-07-29 10:00] LABS: Mean Corpuscular Hemoglobin 31.1 pg (25.0-34.0); Mean Corpuscular Hgb Conc 33.3 g/dL (32.0-36.0); Mean Corpuscular Volume 93.3 fL (80.0-100.0); Mean Platelet Volume 8.8 fL (9.4-12.4); Platelet Count 380 K/uL (130-400); RDW Coefficient of Variation 15.2 % (11.5-14.5); RDW Standard Deviation 51.8 fL (36.4-46.3); Red Blood Count 4.18 M/uL (4.20-5.40); White Blood Count 5.63 K/ul (4.8-10.8)
[2023-07-29 10:16] LABS: BUN Creatinine Ratio 19.7 (10-20); Creatinine Clr Calc Pharmacy 79.4 ml/min; Est GFR (Non-African American) 88.9 ml/min; Magnesium 1.6 mg/dl (1.7-2.4); Potassium 3.9 mmol/L (3.5-5.1)
[2023-07-29] MEDS: MAGNESIUM SULFATE / D5W 1 GM/100 ML BAG IV SCH (11:24)
[2023-07-29] MEDS: DAPTOmycin 750 MG in SYRINGE 0 ML IV SCH (13:01)
--- NOTE | 2023-07-29 13:38 | Orthopedic Progress Note ---
Date of Service July 29, 2023 Assessment & Plan (1) Epidural abscess: Plan: Patient is stable status post I&D of a thoracic abscess. We are awaiting final culture results. Will discontinue her TERENCE drain and have a dressing change today. She is likely going to need a PICC line authorization has already been obtained. Will need to see her in our office approximately 2 weeks from her date of discharge for wound inspection. Admission and Anticipated Discharge Date Admission Date: July 25, 2023 Subjective Patient was seen bedside in room 283 bed 2. States that she is doing okay today. The pain is better controlled. She has noted that her drainage has really slowed down. Her pain is well-controlled. She denies any other numbness , tingling, or paresthesias. Physical Exam Physical Exam: On exam she is alert and oriented. The dressing is clean dry and intact. The TERENCE drain is holding suction and has protein S discharge. There is been 15 cc over the last 2 shifts of output. Her strength and sensation are grossly intact her gait was not observed. Her abdomen soft nontender calves are supple and nontender. Results & Data Vital Signs (Past 12 Hours) Vital Signs Temp Pulse Pulse Resp BP BP Pulse Ox 07/29/23 11:31 36.4 C L 70 17 128/72 100 07/29/23 08:33 72 07/29/23 07:40 36.5 C 71 16 138/83 96 07/29/23 03:29 36.5 C 74 18 167/98 H 97 07/29/23 02:53 76 O2 Del Method 07/29/23 11:31 Room Air 07/29/23 08:33 07/29/23 07:40 Room Air 07/29/23 03:29 Room Air 07/29/23 02:53
[2023-07-29] MEDS: ACETAMINOPHEN 500 MG TAB PO PRN (20:58)
--- NOTE | 2023-07-30 07:04 | Hospitalist Progress Note ---
Date of Service July 30, 2023 Assessment & Plan (1) Epidural abscess: Plan: Patient diagnosed with epidural abscess likely 2/2 to prior spinal stimulator now s/p revision laminotomy T10 and subsequent debridement with Dr. Musa on 07/24. Drain placed at that time and subsequently removed as output minimal. Blood cultures 07/23 +MRSA. Patient initially treated with vancomycin. Switched to daptomycin for ease of IV abx at time of discharge. ID on board - appreciate recs. Patient will require PICC prior to discharge. Plan for that hopefully today. Plan for discharge tomorrow. Patient will need close f/u with infectious diseases - will need repeat MRI about 1 week before completion of IV abx and repeat cultures Cultures: BCx / - MRSA (done in the ED, did not return to ED when notified as patient had surgery appointment scheduled and a day of abx was missed) WCx / - MRSA BCx 5/3 - NGTD x 48 hours Antibiotics: Vanc 5/2-5/6 Daptomycin 5/6 for at least 6 weeks total Patient with prior R TKR - no pain at present ECHO TTE ?mitral valve leaflets/concerns for vegetation - cards consulted as positive VISHAL would not change antibiotic duration would hold off for now PT/OT evals DVT proph: lucia hose, Heparin SQ added previously given high risk/infection (2) Bacteremia: Plan: as above (3) Lumbar postlaminectomy syndrome: Plan: Much improved today. Doing well on oral oxycodone. Having regular BMs. (4) Anxiety: Plan: continue home medications, appears stable at present time (5) Gastroesophageal reflux disease: Plan: also w/ hx gastric bypass, remains on PPI daily. 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 Riggins. PVCs were bigem/trigem. Side effects on metoprolol. Stable on bystolic. Plan Code status: full DVT ppx: heparin 5000 units SQ BID FENGI: regular Dispo: PICC then d/c Admission and Anticipated Discharge Date Admission Date: July 25, 2023 Supervising Physician Co-Signing Physician Notes I personally examined the patient and verified all rose points of history and exam, discussed case, and agree with decision making with Dr Lema feeling pretty good overall. Pain controlled. Vitals noted, in general she is awake and alert pleasant no distress. HEENT normocephalic atraumatic mucous membranes moist. Breathing unlabored no accessory muscle use good effort. Skin without rashes pallor or icterus. Neuro without focal deficits. Epidural abscess/MRSA bacteremiastable. Improving. Getting antibiotics set up for home. Hopefully home soon. Otherwise as above. Subjective Patient seen at bedside this AM. Doing well. No complaints. Eating and drinking well. Drain removed, pain improved. Review of Systems 2 Review of Systems: See HPI Physical Exam 2 Physical Exam: Gen: well appearing patient in NAD HEENT: AT NC MMM Resp: CTAB no wheezing no increased work of breathing CV: RRR no m/r/g clinically well perfused Abd: non-distended MSK: no obvious deformities Skin: no rashes or bruising, wound dressed on the back - no strikethrough Neuro: alert and oriented Psych: appropriate mood and affect Results & Data Results & Data Vital Signs (Past 12 Hours) Vital Signs Temp Pulse Resp BP BP Pulse Ox O2 Del Method 07/30/23 03:38 36.6 C 81 18 154/75 H 98 Room Air 07/29/23 23:07 37 C 73 18 127/81 95 Room Air 07/29/23 19:12 36.7 C 73 18 144/82 H 96 Room Air Laboratory Results 07/30/23 06:21 07/30/23 06:21 Resident Activity Tracking Resident Involvement: Resident Care Provided Care Provided: Adult Hospital Medicine
[2023-07-30 07:28] LABS: Hematocrit (blood only) 38.2 % (37.0-47.0); Hemoglobin 12.8 g/dl (12.0-16.0); Mean Corpuscular Hemoglobin 30.7 pg (25.0-34.0); Mean Corpuscular Hgb Conc 33.5 g/dL (32.0-36.0); Mean Corpuscular Volume 91.6 fL (80.0-100.0); Mean Platelet Volume 8.9 fL (9.4-12.4); Platelet Count 345 K/uL (130-400); RDW Coefficient of Variation 15.2 % (11.5-14.5); RDW Standard Deviation 49.9 fL (36.4-46.3); Red Blood Count 4.17 M/uL (4.20-5.40); White Blood Count 5.59 K/ul (4.8-10.8)
[2023-07-30 07:36] LABS: Calcium 8.7 mg/dl (8.6-10.3); Creatinine Clr Calc Pharmacy 87.3 ml/min; Est GFR (African American) 106.3 ml/min; Est GFR (Non-African American) 91.7 ml/min; Magnesium 2.1 mg/dl (1.7-2.4)
--- NOTE | 2023-07-30 19:40 | Billing Data ---
Date of Service July 30, 2023 Coding Level of Care Code 95687 SUB INP/OBS CARE
[2023-07-31 07:32] LABS: Basophils # (auto) 0.06 K/uL (0.00-0.20); Basophils % (auto) 0.8 %; Eosinophils # (auto) 0.09 K/uL (0.00-0.50); Eosinophils % (auto) 1.2 %; Hematocrit (blood only) 38.6 % (37.0-47.0); Hemoglobin 12.9 g/dl (12.0-16.0); Immature Granulocytes # (auto) 0.36 K/uL (0.01-0.20); Lymphocytes # (auto) 1.99 K/uL (1.20-3.40); Lymphocytes % (auto) 27.5 %; Mean Corpuscular Hgb Conc 33.4 g/dL (32.0-36.0); Mean Corpuscular Volume 92.8 fL (80.0-100.0); Mean Platelet Volume 8.9 fL (9.4-12.4); Monocytes # (auto) 0.55 K/uL (0.11-0.59); Monocytes % (auto) 7.6 %; Neutrophils # (auto) 4.18 K/uL (1.40-6.50); Neutrophils % (auto) 57.9 %; Platelet Count 379 K/uL (130-400); RDW Coefficient of Variation 15.3 % (11.5-14.5); RDW Standard Deviation 51.8 fL (36.4-46.3); Red Blood Count 4.16 M/uL (4.20-5.40); White Blood Count 7.23 K/ul (4.8-10.8)
[2023-07-31 08:13] LABS: BUN Creatinine Ratio 21.1 (10-20); Creatinine Clr Calc Pharmacy 73.8 ml/min; Est GFR (African American) 99.3 ml/min; Est GFR (Non-African American) 85.7 ml/min; Potassium 4.1 mmol/L (3.5-5.1)
--- NOTE | 2023-07-31 10:00 | Discharge Summary ---
Date of Service July 31, 2023 Principal Diagnosis Epidural abscess Discharge Exam Gen: well appearing patient in NAD HEENT: AT NC MMM Resp: CTAB no wheezing no increased work of breathing CV: RRR no m/r/g clinically well perfused Abd: non-distended MSK: no obvious deformities Skin: no rashes or bruising, wound dressed on the back - no strikethrough Neuro: alert and oriented Psych: appropriate mood and affect Discharge Data Allergies Allergy/AdvReac Type Severity Reaction Status Date / Time atorvastatin [From Lipitor] AdvReac Intermediate CPK Verified 07/25/23 09:14 elevation doxycycline AdvReac Intermediate "slight" Verified 07/25/23 09:14 LDH elevation ibuprofen [From Motrin] AdvReac Intermediate dyspepsia Verified 07/25/23 09:14 nitrofurantoin AdvReac Intermediate GI upset Verified 07/25/23 09:14 [From Macrobid] Consultations 07/25/23 13:52 Consult Hospitalist Routine 07/25/23 16:56 Consult Infectious Diseases Routine 07/26/23 17:12 Consult Cardiology Routine Procedures Performed Operation Date: 07/25/23 10:35 Actual Procedures p Thoracic Spine Incision and Drainage(Not Applicable) - Azael Musa, DO Hospital Course (1) Epidural abscess: Patient diagnosed with epidural abscess likely 2/2 to prior spinal stimulator now s/p revision laminotomy T10 and subsequent debridement with Dr. Muas on 07/24. Drain placed at that time and subsequently removed as output minimal. Blood cultures / +MRSA. Patient initially treated with vancomycin. Switched to daptomycin for ease of IV abx at time of discharge. ID on board - appreciate recs. PICC placed 07/30. Has set up for home daptomycin. Patient will need close f/u with infectious diseases - will need repeat MRI about 1 week before completion of IV abx and repeat cultures Cultures: BCx 5/1 - MRSA (done in the ED, did not return to ED when notified as patient had surgery appointment scheduled and a day of abx was missed) WCx 5/2 - MRSA BCx 5/3 - NGTD x 48 hours Antibiotics: Vanc 5/2-5/6 Daptomycin 5/6 for at least 6 weeks total Patient with prior R TKR - no pain at present ECHO TTE ?mitral valve leaflets/concerns for vegetation - cards consulted; as positive VISHAL would not change antibiotic duration would hold off for now (2) Bacteremia: as above (3) Lumbar postlaminectomy syndrome: Much improved today. Doing well on oral oxycodone. Having regular BMs. (4) Anxiety: continue home medications, appears stable at present time (5) Gastroesophageal reflux disease: also w/ hx gastric bypass, remains on PPI daily. 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 Riggins. PVCs were bigem/trigem. Side effects on metoprolol. Stable on bystolic. Total Time Total Time Spent Total Time Spent (In Minutes): <30 Discharge Plan Discharge Items Patient Disposition: Home - Self-Care Reason For Visit: Spinal Epidural Abscess Discharge Diagnosis: MRSA bacteremia Activity: Per Instructions section Non-emergency contact: Primary Care Provider Call non-emergency contact if: you have any medication questions, your pain is worsening and your temperature is above 101 Follow-up/Referrals: Noah Darby MD [Primary Care Provider] - 08/06/23 1:30 pm Azael Musa DO [Surgeon] - 08/16/23 11:40 am Umberto Roy MD [Physician] - Diet: Regular Addtl Attending Provider Instructions: You were seen here in the hospital for MRSA bacteremia. This is likely from the epidural abscess. You underwent a surgical debridement of this abscess. Initially you had a drain in place, but that has since been removed. You will need to be on antibiotics for at least 6 weeks. You will need a CT a week before you finish the IV antibiotics. You will also need repeat cultures at that time. You will need to follow up with infectious diseases for continued monitoring. Please also schedule a follow up with your primary care provider and surgeon. Pending Studies at Discharge: No Stand-Alone Forms: My [employer], Smoking Cessation Medications and DC Order Prescriptions: New daptomycin in 0.9 % sod chlor 700 mg/100 mL piggyback 750 mg IV DAILY 42 Days Rx Instructions: administer over 30 mins Continued cholecalciferol (vitamin D3) 5,000 unit capsule 5,000 units PO QAM estradiol 0.01 % (0.1 mg/gram) cream See Rx Instructions vaginal .COMPLEX Qty: 42.5 2RF Rx Instructions: Apply pea-sized amount vaginally daily x2 weeks, then twice weekly thereafter. duloxetine 60 mg capsule,delayed release(DR/EC) 60 mg PO BID Qty: 180 3RF pregabalin [Lyrica] 150 mg capsule 150 mg PO BID Qty: 180 0RF cyclobenzaprine 10 mg tablet 10 mg PO BID PRN (Reason: muscle spasms) Qty: 60 3RF ferrous sulfate [FeroSul] 325 mg (65 mg iron) tablet 325 mg PO Q OTHER DAY Patient Comments: takes at hs mecobalamin (vitamin B12) 1,000 mcg tablet,chewable 1,000 mcg PO Q OTHER DAY Patient Comments: takes in am multivitamin Tablet 1 tab PO BID calcium citrate 200 mg (950 mg) Tablet 650 mg PO TID Patient Comments: unknown strength esomeprazole magnesium 40 mg Capsule,Delayed Release(Dr/Ec) 40 mg PO QPM docusate sodium [Stool Softener] 100 mg capsule 100 mg PO DAILY PRN (Reason: Constipation) nebivolol 20 mg tablet 20 mg PO QAM oxycodone-acetaminophen 10-325 mg tablet 1 tab PO .Q4-6H PRN (Reason: Pain) Rx Instructions: 1 tab orally every 4-6 hours PRN PRN; Supervising physician Noah Darby MD JUD [id number] Discharge Orders: Discharge Order (Routine); Ordered 07/31/23 Ordered By: Santa Lema Admission Data Admit Date/Time: 07/25/23 11:52 Attending Provider: Homer Quintero Admit Provider: Azael Musa Primary Care Provider: Noah Darby Other Providers: [facility],Home Healthcare; [facility],Referral Center; Bharat,Fax; Familia Chirinos; Che Mays; Elliot Mata; Cathy Cornelius; Abigail Wahl; Twin Tillman; Alis Gregory; Reanna Lainez; Ryan Riggins Other Interventions: Discharge Summary Assessment (RN) Last Done: 07/31/23 11:31 Supervising Physician Co-Signing Physician Notes I personally examined the patient and verified all rose points of history and exam, discussed case, and agree with decision making with Dr Lema feeling pretty good overall. waiting on a PICC line. Vitals noted, in general she is awake and alert pleasant no distress. HEENT normocephalic atraumatic mucous membranes moist. Breathing unlabored no accessory muscle use good effo rt. Skin without rashes pallor or icterus. Neuro without focal deficits. Epidural abscess/MRSA bacteremiastable. Improving. iv abx set up for home. safe/stable for home. outpt PCP and ID follow up. otherwise as above Resident Activity Tracking Resident Involvement: Resident Care Provided Care Provided: Adult Hospital Medicine
--- NOTE | 2023-07-31 17:22 | Billing Data ---
Date of Service July 31, 2023 Coding Level of Care Code 51851 IN/OBS DISCH 30 MIN/LESS
== END 2023-07-31 13:08 | disposition home health service (06) | DRG 40 ==
LOC: ASU 08:47 → SUATTDRO 11:52 → 3W 11:52 → 2N 19:04 → 3E 07-30 16:01

== ENCOUNTER 2025-01-14 13:32 | Inpatient (IN) ==
[2025-01-14 14:47] LABS: Hematocrit (blood only) 36.6 % (37.0-47.0); Hemoglobin 12.4 g/dl (12.0-16.0); Immature Granulocytes # (auto) 0.10 K/uL (0.01-0.20); Immature Granulocytes % (auto) 0.9 %; Mean Corpuscular Hemoglobin 29.7 pg (25.0-34.0); Mean Corpuscular Volume 87.8 fL (80.0-100.0); Platelet Count 584 K/uL (130-400); RDW Standard Deviation 45.3 fL (36.4-46.3); Red Blood Count 4.17 M/uL (4.20-5.40); White Blood Count 10.61 K/ul (4.8-10.8)
[2025-01-14 15:04] LABS: Alanine Aminotransferase 18 U/L (7-52); Albumin Globulin Ratio 0.9 (0.9-2); Albumin Level 3.5 gm/dl (3.4-5.0); Alkaline Phosphatase 139 U/L (34-104); Anion Gap 11 (3-11); Bilirubin,Total 0.3 mg/dl (0.2-1.0); Blood Urea Nitrogen 78 mg/dl (6-23); Calcium 9.4 mg/dl (8.6-10.3); Carbon Dioxide 37 mmol/L (21-32); Chloride 75 mmol/L (98-107); Globulin 4.1 gm/dl (2.5-4.0); Glucose 80 mg/dl (70-99(Fasting)); Magnesium 2.9 mg/dl (1.7-2.4); Potassium 4.3 mmol/L (3.5-5.1); Sodium 123 mmol/L (136-145); Total Protein 7.6 gm/dl (6.0-8.3)
[2025-01-14 15:18] LABS: INR 0.9 (0.9-1.1); Partial Thromboplastin Time 32 Seconds (21-31); Prothrombin Time 9.6 Seconds (9.0-12.0)
--- NOTE | 2025-01-14 15:19 | Emergency Department Note ---
Impression & Plan Weakness, Acute hyponatremia, Acute dehydration, Acute kidney injury ED Provider Note NAME: GERALDINE BARRERA AGE: 74 SEX: F : 1950 ARRIVES VIA: Walk-In INFORMANT: [Patient] ED PROVIDER(S): [Regulo Corbett MD] CHIEF COMPLAINT: Abnormal laboratories HISTORY OF PRESENT ILLNESS: The patient is a 74-year-old female who was told to report to the ER for hydration and likely admission. The patient had lab work drawn yesterday showing acute kidney injury and a very low sodium. The patient was [facility] around 9 days ago. She has a feeding tube in place and is using tube feeds at home. She has noticed some dizziness and weakness and muscle twitching. Her knees buckle at times. Her stools have been loose from the tube feeds. There has been no fever, no vomiting. No cough or congestion. The patient states that she thinks she may be dehydrated. PMHx/PSHx/Social Hx: See Below PHYSICAL EXAM: GENERAL: Patient is in no acute distress. HEENT: No acute trauma, normocephalic atraumatic, mucous membranes moist, no nasal congestion. NECK: No stridor, no adenopathy, no meningismus, trachea is midline. LUNGS: Clear to auscultation bilaterally, no wheeze, no rhonchi, breath sounds equal. HEART: Without murmurs gallops or rubs, regular rate and rhythm. ABDOMEN: Soft, nontender, no peritonitis. Feeding tube in the left upper quadrant. EXTREMITIES: No cyanosis, full range of motion of all the joints without pain or difficulty. NEUROLOGIC: Oriented x 3, no acute motor or sensory deficits, no focal weakness. Excellent historian. SKIN: No jaundice, no diaphoresis. DIFFERENTIAL DIAGNOSIS: Dehydration, renal failure, electrolyte imbalance, anemia, among others. EMERGENCY DEPARTMENT PROCEDURES: MEDICAL DECISION MAKING: There is no leukocytosis or concerning anemia. Platelet count somewhat elevated at 584. No bandemia. No concerning coagulopathy. Sodium quite low at 123. Chloride low at 75. There was some acute kidney injury with a creatinine of 1.94, this is above her typical baseline. No worrisome liver enzyme elevation. ECG showed a sinus rhythm, no ischemia or dysrhythmia. Cardiac enzyme testing x 1 is not consistent with acute cardiac injury. Chest x-ray does not show pneumonia or CHF. On exam, the patient was not febrile or toxic. Patient was given 1 L of IV saline. The patient presents with weakness and dizziness. She was found to be hyponatremic. She is dehydrated with some acute kidney injury. Admission is warranted. I spoke with the patient and case management, the on-call hospitalist was consulted. Prior/Outside records/notes reviewed: Family practice note from 01/13/2025 describing her presentation, her history and outpatient plan. ECG per my interpretation: Indication was electrolyte imbalance. The ECG shows a normal sinus rhythm with a rate of 65. There is no ST elevation, no PVCs. The QTc is 440. Continuous Cardiac Monitoring per my interpretation: An order was placed for continuous cardiac monitoring. The monitor shows a rate of 74 with normal sinus rhythm. Imaging/x-ray results per my interpretation: Chest x-ray does not show CHF or pneumonia. Chronic Medical/Social conditions affecting care: Advanced age, recent hospitalization and recent rehab stay. Care/Management discussed with: Case management and the on-call hospitalist. Level of care consideration(s): After review of the information above and other included data: --I believe the patient requires escalation of care to admission DISPOSITION: Admission Past Med/Surg History Problem List Thrombocytosis Acute kidney injury (Acute) Acute dehydration (Acute) Acute hyponatremia (Acute) Weakness (Acute) S/P exploratory laparotomy Jejunostomy tube present Pneumoperitoneum Statin-induced myositis Left foot pain Luke fracture (~11/05/23) complete stress fracture of the proximal fifth metatarsal of the right foot Ankle sprain Left knee DJD Postmenopausal Effusion, right knee Peripherally inserted central catheter (PICC) in place (Acute) MRSA bacteremia Epidural abscess (Acute) Right-sided chest wall pain (Acute) History of spinal surgery Spinal cord stimulator and leads removed 06/2023 Status post right knee replacement [facility] (03/2023) Iron deficiency Elevated BUN Biceps tendonitis of both shoulders GF (gastric fistula) History of gastric bypass Current use of proton pump inhibitor Urge incontinence Rotator cuff arthropathy of both shoulders Colon cancer screening Dyslipidemia Frequent unifocal PVCs Intermittent palpitations Irregular heart beat Neurogenic claudication due to lumbar spinal stenosis Elevated LFTs Pancreatic duct dilated Intrahepatic bile duct dilation Trochanteric bursitis, right hip Cholecystitis Recurrent UTI Degenerative arthritis of knee, bilateral Depression Vitamin D deficiency (Acute) Spondylosis (Acute) Primary osteoarthritis of hand (Acute) Polyarthritis (Chronic) Osteopenia (Acute) Gastroesophageal reflux disease (Acute) Fibromyalgia (Acute) Disc degeneration, lumbosacral Anxiety (Chronic) Opioid dependence in controlled environment (Chronic) Sacroiliitis Lumbar postlaminectomy syndrome Osteoarthritis History of total right hip arthroplasty HTN (hypertension) (Chronic) Medical History Gastrostomy tube in place Hx of cholecystitis Dyslipidemia Gastric fistula Left foot pain History of depression Luke fracture complete stress fracture of the proximal fifth metatarsal of the right foot Hx of urinary tract infection none for approx. 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 Rosado Hx of Clostridium difficile infection Approximately 2020, no recent issues Osteoarthritis Fibromyalgia GERD (gastroesophageal reflux disease) Urge urinary incontinence TMJ click not bothering pt. Chronic back pain Cervical disc disease Surgical History History of incision and drainage (07/2023) thoracic spine - mrsa bacteremia History of surgery (06/2023) spinal cord stimulator and leads removed History of right knee joint replacement (04/22/23) Hx of bilateral cataract extraction History of ERCP History of carpal tunnel release right Hx laparoscopic cholecystectomy (2020) Laparoscopic Cholecystectomy Dr. Quintana (2020) Status post insertion of spinal cord stimulator [place] (Removed 06/2023) History of tooth extraction History of tonsillectomy History of bariatric surgery (1999) reveresed during an ercp- unable to close History of right hip replacement History of elbow surgery Left History of arthroscopy of left shoulder History of repair of right rotator cuff History of arthroscopy of both knees History of lumbar fusion x5 History of fusion of cervical spine C6-7; "ROM WNL" History of esophagogastroduodenoscopy (EGD) History of colonoscopy (07/2021) Family History Mother CHF (congestive heart failure) Arthritis Pure hypercholesterolemia Ischemic heart disease Hypertension Myocardial infarction Father Acute myocardial infarction Myocardial infarction Mother Family history of diabetes mellitus Other No significant family history Denies family history of Ovarian cancer Prostate cancer Breast cancer Colorectal cancer Social History Smoking Status: Never smoker Second Hand Exposure: No; Do You Dip or Chew Tobacco: No; Hx Alcohol Use: Yes Alcohol type: beer and wine Hx Substance Use: No Preferred Language: Tajik Communication Ability: Effective Bus Operator Required: No Beliefs That Will Affect Care: None marital status: Current Living Situation: Spouse 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 Feels Safe at Home: Yes Safety Concerns: Feels Safe At This Time Childhood Exposure to Second-Hand Smoke: Yes Dental Care, Regularly: Yes Physical Activity Frequency: 1-2 Times per Week Seatbelt Use: always Sunscreen Use: Yes Assistive Devices: Cane and Other Assistive Devices Comment: rollator Allergies Allergies Allergy/AdvReac Type Severity Reaction Status Date / Time atorvastatin [From Lipitor] AdvReac Intermediate CPK Verified 01/13/25 14:39 elevation ibuprofen [From Motrin] AdvReac Intermediate dyspepsia Verified 01/13/25 14:39 nitrofurantoin AdvReac Intermediate GI upset Verified 01/13/25 14:39 [From Macrobid] Home Meds Home Medications Medication Instructions Recorded Confirmed diclofenac sodium 1 % topical gel 2 g topical QID PRN JOINT PAIN 05/15/24 01/14/25 (Voltaren Arthritis Pain) mupirocin 2 % topical ointment 1 applic topical BID PRN Skin 12/07/24 01/14/25 Irritation Tube feeding flushes 0 mg feeding tube UD 01/07/25 01/14/25 amoxicillin 500 mg tablet 2,000 mg feeding tube DIRECTED 01/07/25 01/14/25 PRN 1 HR PRIOR TO DENTAL PROCEDURES aspirin 325 mg tablet 325 mg feeding tube BID 01/07/25 01/14/25 cyclobenzaprine 10 mg tablet 10 mg feeding tube BID PRN muscle 01/07/25 01/14/25 spasm doxycycline hyclate 100 mg tablet 100 mg feeding tube BID 01/07/25 01/14/25 duloxetine 60 mg capsule,delayed 60 mg PO BID 01/07/25 01/14/25 release lactose-reduced food with fiber 1 ea feeding tube UD 01/07/25 01/14/25 0.06 gram-1.5 kcal/mL oral liquid (Jevity 1.5 Ilir) pregabalin 150 mg capsule 150 mg feeding tube BID 01/07/25 01/14/25 Previous Rx's Medication Instructions Recorded diphenoxylate-atropine 2.5 2 tab feeding tube BID PRN 01/13/25 mg-0.025 mg tablet diarrhea #120 tabs nebivolol 10 mg tablet 10 mg PO DAILY #90 tabs 01/13/25 oxycodone 5 mg tablet 15 mg (3 x 5 mg) feeding tube Q4H 01/13/25 PRN pain #60 tabs Results & Data (ED) Vital Signs Vital Signs - 24 hr 01/14/25 13:42 01/14/25 15:37 01/14/25 15:38 Temperature 36.4 C L Temperature Source Oral Pulse Rate 74 68 Pulse Rate [Apical] 67 Respiratory Rate 20 17 17 Respiratory Effort / Characteristics Non-Labored Spontaneous Non-Labored Spontaneous Respiratory Depth Normal Normal Respiratory Pattern Regular Regular Blood Pressure 103/65 Blood Pressure [Right Arm] 131/72 Blood Pressure Mean 77 Blood Pressure Mean [Right Arm] 91 Blood Pressure Position Sitting Pulse Oximetry 97 95 95 Oxygen Delivery Method Room Air Room Air Room Air Sepsis Recent Fever Within 48 Hours No Sepsis New/Unexplained Change in Mental Status No Sepsis Action Taken by Nursing No Action Required 01/14/25 16:00 01/14/25 16:15 01/14/25 17:01 Temperature Temperature Source Pulse Rate 67 67 70 Pulse Rate [Apical] Respiratory Rate 14 20 Respiratory Effort / Characteristics Respiratory Depth Respiratory Pattern Blood Pressure 121/62 115/64 Blood Pressure [Right Arm] Blood Pressure Mean 81 73 Blood Pressure Mean [Right Arm] Blood Pressure Position Pulse Oximetry 98 96 Oxygen Delivery Method Sepsis Recent Fever Within 48 Hours Sepsis New/Unexplained Change in Mental Status Sepsis Action Taken by Care Home Medications Current Medication List: was personally reviewed by me Laboratory Data Attestation: I reviewed the patient's lab results. 01/14/25 14:33 01/14/25 23:10 Lab Results 01/14/25 Range/Units 14:33 WBC 10.61 (4.8-10.8) K/ul RBC 4.17 L (4.20-5.40) M/uL Hgb 12.4 (12.0-16.0) g/dl Hct 36.6 L (37.0-47.0) % MCV 87.8 (80.0-100.0) fL MCH 29.7 (25.0-34.0) pg MCHC 33.9 (32.0-36.0) g/dL RDW Std Deviation 45.3 (36.4-46.3) fL RDW Coeff of Renetta 14.2 (11.5-14.5) % Plt Count 584 H (130-400) K/uL MPV 9.1 L (9.4-12.4) fL Immature Gran % (Auto) 0.9 % Neut % (Auto) 70.9 % Lymph % (Auto) 14.1 % Andrews % (Auto) 13.3 % Eos % (Auto) 0.2 % Baso % (Auto) 0.6 % Neut # (Auto) 7.52 H (1.40-6.50) K/uL Lymph # (Auto) 1.50 (1.20-3.40) K/uL Andrews # (Auto) 1.41 H (0.11-0.59) K/uL Eos # (Auto) 0.02 (0.00-0.50) K/uL Baso # (Auto) 0.06 (0.00-0.20) K/uL Immature Gran # (Auto) 0.10 (0.01-0.20) K/uL PT 9.6 (9.0-12.0) Seconds INR 0.9 (0.9-1.1) APTT 32 H (21-31) Seconds PTT Ratio 1.2 Sodium 123 L (136-145) mmol/L Potassium 4.3 (3.5-5.1) mmol/L Chloride 75 L (98-107) mmol/L Carbon Dioxide 37 H (21-32) mmol/L Anion Gap 11 (3-11) BUN 78 H (6-23) mg/dl Creatinine 1.94 H D (0.6-1.2) mg/dl Est Cr Clr Drug Dosing Not Reportable eGFR 26.86 BUN/Creatinine Ratio 40.2 H (10-20) Glucose 80 (70-99(Fasting)) mg/dl Calcium 9.4 (8.6-10.3) mg/dl Magnesium 2.9 H (1.7-2.4) mg/dl Total Bilirubin 0.3 (0.2-1.0) mg/dl AST 24 (13-39) U/L ALT 18 (7-52) U/L Alkaline Phosphatase 139 H (34-104) U/L Troponin I High Sens 9.6 (0-14) pg/ml Total Protein 7.6 (6.0-8.3) gm/dl Albumin 3.5 (3.4-5.0) gm/dl Globulin 4.1 H (2.5-4.0) gm/dl Albumin/Globulin Ratio 0.9 (0.9-2) Administered Medications Enteral Nutritional Formula (Fibersource Hn 1.2 Ilir 1000 Ml Bag) 1,000 ml GT TODAY@1600 WANDER; Protocol Stop: 02/13/25 20:29 Last Admin: 01/14/25 20:55 Dose: 1,000 ml Documented By: JIN Sodium Chloride (Nss) 1,000 mls @ 70 mls/hr IV .[id number] WANDER Stop: 01/16/25 00:02 Last Admin: 01/14/25 20:59 Dose: 70 mls/hr Documented By: JIN Oxycodone HCl (Oxycodone Hcl Ir 5 Mg Tab (Immediate Release)) 15 mg GT Q4H PRN PRN Reason: pain Stop: 01/28/25 19:27 Last Admin: 01/14/25 20:59 Dose: 15 mg Documented By: JIN Pregabalin (Pregabalin 75 Mg Cap) 75 mg PO BID WANDER Stop: 02/13/25 20:59 Last Admin: 01/14/25 21:00 Dose: 75 mg Documented By: JIN Sterile Water (Tube Feeding Water Flush) 100 ml GT TID WANDER Stop: 02/13/25 20:59 Last Admin: 01/14/25 21:00 Dose: 100 ml Documented By: JIN Discontinued Medications Sodium Chloride (Nss) 1,000 mls @ 999 mls/hr IV .Q1H1M ONE Stop: 01/14/25 16:07 Last Infusion: 01/14/25 17:12 Dose: Infused Documented By: mily Admin: 01/14/25 15:40 Dose: 999 mls/hr Documented By: cad Imaging Data Radiologist's Impression: Chest X-Ray 01/14/25 13:46 XR chest 1V not portable CLINICAL HISTORY: Chest pain, nonspecific COMPARISON STUDY: 08/15/2023 FINDINGS: The cardiac and mediastinal contours remain stable. There is no failure. There is no focal pulmonary consolidation. There are no pleural effusions. The previously identified left-sided PICC catheter has been removed. There are postsurgical changes present within the lumbar spine and right shoulder and neck. There is a double pigtail catheter projected over the left upper quadrant. Multiple clips are also present within the left upper quadrant projected over the stomach. IMPRESSION: No active disease in the chest. ACT 112: Negative or not required by law. Electronically signed by: Gildardo Krueger M.D. 01/14/2025 3:20 PM Discharge Plan Visit Data Chief Complaint: Abnormal Labs/Diagnostic Testing Stated Complaint: REF BY DOC, ELECTROLYTE IMBALANCE ED Provider: Regulo Corbett Discharge Problem: Weakness, Acute hyponatremia, Acute dehydration, Acute kidney injury Patient Disposition: Admitted As Inpatient Condition: Fair Discharge Instructions Interventions: ED Discharge Assessment Last Done: 01/14/25 19:52
--- NOTE | 2025-01-14 15:22 | XRay Report ---
XR chest 1V not portable CLINICAL HISTORY: Chest pain, nonspecific COMPARISON STUDY: 08/15/2023 FINDINGS: The cardiac and mediastinal contours remain stable. There is no failure. There is no focal pulmonary consolidation. There are no pleural effusions. The previously identified left-sided PICC ca theter has been removed. There are postsurgical changes present within the lumbar spine and right niharika ulder and neck. There is a double pigtail catheter projected over the left upper quadrant. Multiple c lips are also present within the left upper quadrant projected over the stomach. IMPRESSION: No active disease in the chest. ACT 112: Negative or not required by law. Electronically signed by: Gildardo Krueger M.D. 01/14/2025 3:20 PM
[2025-01-14] MEDS: SODIUM CHLORIDE 0.9% 1,000 ML IV ONE (15:40)
--- NOTE | 2025-01-14 16:36 | History & Physical Report ---
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 Initial evaluation reveals hyponatremia with a sodium of 123 and an AGNES. She will be admitted for sodium correction, IV fluids and nephrology consultation #Hyponatremia | Weakness | Diarrhea - suspect multifactorial with increased free water intake with frequent large volume (150-200ml) saline flushes 4-6 times per day, GI losses, and SSRI use Na 123 on admission. Given 1L NSS in ED. 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 if other feeds would have less diarrhea Reports she is supposed to have follow up CT [facility] for follow up - will have to determine what type of contrast is needed - [facility] discharge summary says p.o. and IV contrast, patient thinks is only supposed to be p.o. Was on doxycycline - On her she discharge summary and give an additional 14- day course from discharge from [facility] - patient believes this was for her fistula and history of MRSA bacteremia. At this point patient has had a 20 to 30-day course of appropriate antibiotic coverage, will not continue given her GI losses. ASA 325mg BID Listed on her she discharge summary and current med list, suspect this was for DVT prophylaxis however given her history of gastric bypass surgery will not continue this. Switch to Heparin for DVT prophylaxis #AGNES Cr 1.94 on admission with Baseline 0.6-0.7 IV fluids as above Does have casts on UA Trending BMP as above #Thrombocytosis Plts 584 on admission - improved from day prior at 681. Suspect acute phase reactant, no signs of infection on exam AM CBC #Hematuria Microscopic, noted on UA. Patient has not noticed this at home Will need recheck UA and possible further eval #Mental Health hold Duloxetine - TCM note reports that cannot be crushed and they were looking past that. ? 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 She also has noted hand tremor and her knees buckling. She was discharged from [facility] approximately 9 days ago when she states that she felt much stronger at that time. she uses a cane or a walker but has been having to rely on her walker more frequently. She saw her surgeon from [facility] on Saturday, he was hoping to have the results of her CT at that time to be able to further change the plan, but she states she was told that she should keep the tube feeds going and can continue clear liquids by mouth and can start clamping her G-tube for 6 hours a day. Patient states that after she saw her labs yesterday she tried to increase her oral hydration. She has been having diarrhea since the initial surgery at [facility] and initiation of tube feeds. She was started on Lomotil and Imodium at [facility] and feels that this has improved slightly she is still having loose stools that she reports as mustard consistency about 3 times a day. She denies having any sort of stool studies during her recent hospitalization or [facility] today. When discussing her tube feeds she has been on the same tube feeds for the last month. She uses 150 cc to 200 cc flushes every time she does meds this ends up being 4-6 times a day. She states that she had needs to use this large volume because some of the medications are very difficult to be crushed. She reports that she is on a 2-week course of doxycycline for history of MRSA bacteremia She wishes to be a full code Allergies Allergy/AdvReac Type Severity Reaction Status Date / Time atorvastatin [From Lipitor] AdvReac Intermediate CPK Verified 01/13/25 14:39 elevation ibuprofen [From Motrin] AdvReac Intermediate dyspepsia Verified 01/13/25 14:39 nitrofurantoin AdvReac Intermediate GI upset Verified 01/13/25 14:39 [From Macrobid] Home Medications Medication Instructions Recorded Confirmed Type diclofenac sodium 1 % topical gel 2 g topical QID PRN JOINT PAIN 05/15/24 01/14/25 History (Voltaren Arthritis Pain) mupirocin 2 % topical ointment 1 applic topical BID PRN Skin 12/07/24 01/14/25 History Irritation Tube feeding flushes 0 mg feeding tube UD 01/07/25 01/14/25 History amoxicillin 500 mg tablet 2,000 mg feeding tube DIRECTED 01/07/25 01/14/25 History PRN 1 HR PRIOR TO DENTAL PROCEDURES aspirin 325 mg tablet 325 mg feeding tube BID 01/07/25 01/14/25 History cyclobenzaprine 10 mg tablet 10 mg feeding tube BID PRN muscle 01/07/25 01/14/25 History spasm doxycycline hyclate 100 mg tablet 100 mg feeding tube BID 01/07/25 01/14/25 History duloxetine 60 mg capsule,delayed 60 mg PO BID 01/07/25 01/14/25 History release lactose-reduced food with fiber 1 ea feeding tube UD 01/07/25 01/14/25 History 0.06 gram-1.5 kcal/mL oral liquid (Jevity 1.5 Ilir) pregabalin 150 mg capsule 150 mg feeding tube BID 01/07/25 01/14/25 History diphenoxylate-atropine 2.5 2 tab feeding tube BID PRN 01/13/25 01/14/25 Rx mg-0.025 mg tablet diarrhea #120 tabs nebivolol 10 mg tablet 10 mg PO DAILY #90 tabs 01/13/25 01/14/25 Rx oxycodone 5 mg tablet 15 mg (3 x 5 mg) feeding tube Q4H 01/13/25 01/14/25 Rx PRN pain #60 tabs Past Med/Surg History Problem List (Updated 01/15/25 @ 11:15 by Sabino Wolf MD) Hyponatremia Thrombocytosis Acute kidney injury (Acute) Acute dehydration (Acute) Acute hyponatremia (Acute) Weakness (Acute) S/P exploratory laparotomy Jejunostomy tube present Pneumoperitoneum Statin-induced myositis Left foot pain Luke fracture (~11/05/23) complete stress fracture of the proximal fifth metatarsal of the right foot Ankle sprain Left knee DJD Postmenopausal Effusion, right knee Peripherally inserted central catheter (PICC) in place (Acute) MRSA bacteremia Epidural abscess (Acute) Right-sided chest wall pain (Acute) History of spinal surgery Spinal cord stimulator and leads removed 06/2023 Status post right knee replacement [facility] (03/2023) Iron deficiency Elevated BUN Biceps tendonitis of both shoulders GF (gastric fistula) History of gastric bypass Current use of proton pump inhibitor Urge incontinence Rotator cuff arthropathy of both shoulders Colon cancer screening Dyslipidemia Frequent unifocal PVCs Intermittent palpitations Irregular heart beat Neurogenic claudication due to lumbar spinal stenosis Elevated LFTs Pancreatic duct dilated Intrahepatic bile duct dilation Trochanteric bursitis, right hip Cholecystitis Recurrent UTI Degenerative arthritis of knee, bilateral Depression Vitamin D deficiency (Acute) Spondylosis (Acute) Primary osteoarthritis of hand (Acute) Polyarthritis (Chronic) Osteopenia (Acute) Gastroesophageal reflux disease (Acute) Fibromyalgia (Acute) Disc degeneration, lumbosacral Anxiety (Chronic) Opioid dependence in controlled environment (Chronic) Sacroiliitis Lumbar postlaminectomy syndrome Osteoarthritis History of total right hip arthroplasty HTN (hypertension) (Chronic) Medical History Gastrostomy tube in place Hx of cholecystitis Dyslipidemia Gastric fistula Left foot pain History of depression Luke fracture complete stress fracture of the proximal fifth metatarsal of the right foot Hx of urinary tract infection none for approx. 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 Rosado Hx of Clostridium difficile infection Approximately 2020, no recent issues Osteoarthritis Fibromyalgia GERD (gastroesophageal reflux disease) Urge urinary incontinence TMJ click not bothering pt. Chronic back pain Cervical disc disease Surgical History History of incision and drainage (07/2023) thoracic spine - mrsa bacteremia History of surgery (06/2023) spinal cord stimulator and leads removed History of right knee joint replacement (04/22/23) Hx of bilateral cataract extraction History of ERCP History of carpal tunnel release right Hx laparoscopic cholecystectomy (2020) Laparoscopic Cholecystectomy Dr. Quintana (2020) Status post insertion of spinal cord stimulator [employer] (Removed 06/2023) History of tooth extraction History of tonsillectomy History of bariatric surgery (1999) reveresed during an ercp- unable to close History of right hip replacement History of elbow surgery Left History of arthroscopy of left shoulder History of repair of right rotator cuff History of arthroscopy of both knees History of lumbar fusion x5 History of fusion of cervical spine C6-7; "ROM WNL" History of esophagogastroduodenoscopy (EGD) History of colonoscopy (07/2021) Family History Mother CHF (congestive heart failure) Arthritis Pure hypercholesterolemia Ischemic heart disease Hypertension Myocardial infarction Father Acute myocardial infarction Myocardial infarction Mother Family history of diabetes mellitus Other No significant family history Denies family history of Ovarian cancer Prostate cancer Breast cancer Colorectal cancer Social History Smoking Status: Never smoker Second Hand Exposure: No; Do You Dip or Chew Tobacco: No; Hx Alcohol Use: Yes Alcohol type: beer and wine Hx Substance Use: No Preferred Language: [place] Communication Ability: Effective Ocean Lifeguard Required: No Beliefs That Will Affect Care: None marital status: Current Living Situation: Spouse 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 GJ in place, no signs of infection around tube Extremities: Moves all extremities, no edema Neuro: A&O x3, Skin: intact, no lesions noted Results & Data Results & Data Vital Signs (Past 12 Hours) Vital Signs Temp Pulse Pulse Resp BP BP Pulse Ox 01/14/25 16:15 67 01/14/25 16:00 67 14 121/62 98 01/14/25 15:38 67 17 131/72 95 01/14/25 15:37 68 17 95 01/14/25 13:42 97.5 F L 74 20 103/65 97 O2 Del Method 01/14/25 16:15 01/14/25 16:00 01/14/25 15:38 Room Air 01/14/25 15:37 Room Air 01/14/25 13:42 Room Air Laboratory Results CBC and chemistry reviewed, coagulation studies reviewed and UA reviewed Diagnostic Findings chest x-ray reviewed Supervising Physician Co-Signing Physician Notes PA Supervision Note: I personally saw and examined the patient. I verified all rose points and agree with JAMES Gilliam with the following exceptions and/or additions: S-Pt here with weakness, tremor, found to have severe hyponatremia, AGNES. Has een having copious loose stools with tube feeds and using large amounts of free water flushes for medicaitons. History and ROS reviewed otherwise as above O- Vitals reviewed Gen: [AAOx3, NAD] HEENT: [anicteric sclerae, EOMI] CV: [RRR no mgr nl S1S2] Pulm: [CTAB no wcr] CBC, BMP reviewed A/P-74 yo female with recent gastric rupture and repair, G-J tube on tube feeds, here with weakness from hyponatremia, AGNES -replete volume wth isotonic fluids -reduce free water fludhes evaluate and treat diarrhea serial labs Neprho consult monitor urine output PG Care Time/CCT Total # of Minutes Spent Total Time Spent with Patient: Total time spent is greater than 50% in coordination of care (as documented) at patient's floor/unit and/or counseling patient: Coding Level of Care Code 98050 INT INP/OBS CARE 3/75MIN Diagnoses Acute hyponatremia E87.1 Weakness R53.1 Jejunostomy tube present Z93.4 Acute kidney injury N17.9 Thrombocytosis D75.839
[2025-01-14 16:52] LABS: Appearance Urine Clear (Clear); Bacteria Urine Automated 2+ (None Seen); Epithelial Cell Urine Auto 0-2 /hpf (0-2); Glucose Urine UA Negative (Negative); RBC Urine Automated >20 /hpf (0-2)
[2025-01-14] MEDS ORDERED: NON-FORMULARY MEDICATION (Lactose-Reduced Food With Fibr [Jevity 1.5 Cal] 0.06 gram-1.5 kc feeding tube SCH (19:28)
[2025-01-14] MEDS ORDERED: MUPIROCIN 2% OINT 22 GM TUBE TOP PRN (19:28)
[2025-01-14] MEDS ORDERED: ACETAMINOPHEN 325 MG TAB PO PRN (19:28)
[2025-01-14] MEDS ORDERED: ONDANSETRON INJ 2 MG/ML 2 ML VIAL IV PRN (19:28)
[2025-01-14] MEDS ORDERED: CYCLOBENZAPRINE HCL 10 MG TAB PO PRN (19:28)
[2025-01-14] MEDS ORDERED: DICLOFENAC SOD 1% GEL 100 GM TUBE EXT PRN (19:28)
[2025-01-14 20:14] LABS: Base Excess VBG 13.6 mEq/L; HCO3 VBG 40 mmol/L; Oxygen Saturation VBG < 60.0 %; PCO2 VBG 58 mmHg (38-50); PO2 VBG < 20 mmHg; pH VBG 7.45 (7.36-7.41)
[2025-01-14 20:36] LABS: Anion Gap 8.0 (3-11); Blood Urea Nitrogen 72.0 mg/dl (6-23); Calcium 8.7 mg/dl (8.6-10.3); Carbon Dioxide 37.0 mmol/L (21-32); Chloride 79.0 mmol/L (98-107); Creatinine Clr Calc Pharmacy 28.8 ml/min; Glucose 99.0 mg/dl (70-99(Fasting)); Potassium 3.7 mmol/L (3.5-5.1); Sodium 124.0 mmol/L (136-145)
[2025-01-14] MEDS: FIBERSOURCE HN 1.2 CAL 1000 ML BAG GT SCH (20:55)
[2025-01-14] MEDS: SODIUM CHLORIDE 0.9% 1,000 ML IV SCH (20:59)
[2025-01-14] MEDS: PREGABALIN 75 MG CAP PO SCH (21:00)
[2025-01-14] MEDS: TUBE FEEDING WATER FLUSH GT SCH (21:00)
[2025-01-14 22:55] LABS: Cdiff Toxin B Gene (2yr or >) Negative Cdiff Gene (Neg)
[2025-01-14 23:26] LABS: Adenovirus F 40/41 PCR Not Detected (NotDetected); Campylobacter PCR Not Detected (NotDetected); Enteroaggregative E.coli(EAEC) Not Detected (NotDetected); Shiga-like Toxin E.coli (STEC) Not Detected (NotDetected); Vibrio species PCR Not Detected (NotDetected)
[2025-01-14 23:49] LABS: Anion Gap 10.0 (3-11); Blood Urea Nitrogen 69.0 mg/dl (6-23); Calcium 8.5 mg/dl (8.6-10.3); Carbon Dioxide 34.0 mmol/L (21-32); Chloride 80.0 mmol/L (98-107); Creatinine Clr Calc Pharmacy 28.6 ml/min; Glucose 139.0 mg/dl (70-99(Fasting)); Potassium 3.6 mmol/L (3.5-5.1); Sodium 124.0 mmol/L (136-145)
[2025-01-15 02:26] LABS: Hematocrit (blood only) 30.7 % (37.0-47.0); Hemoglobin 10.8 g/dl (12.0-16.0); Mean Corpuscular Hemoglobin 31.2 pg (25.0-34.0); Mean Corpuscular Volume 88.7 fL (80.0-100.0); Platelet Count 505 K/uL (130-400); RDW Standard Deviation 45.1 fL (36.4-46.3); Red Blood Count 3.46 M/uL (4.20-5.40); White Blood Count 7.54 K/ul (4.8-10.8)
[2025-01-15 02:42] LABS: Anion Gap 8.0 (3-11); Blood Urea Nitrogen 68.0 mg/dl (6-23); Calcium 8.7 mg/dl (8.6-10.3); Carbon Dioxide 36.0 mmol/L (21-32); Chloride 82.0 mmol/L (98-107); Creatinine Clr Calc Pharmacy 31.9 ml/min; Glucose 122.0 mg/dl (70-99(Fasting)); Potassium 3.8 mmol/L (3.5-5.1); Sodium 126.0 mmol/L (136-145)
[2025-01-15 02:44] LABS: Iron 43.0 mcg/dl (35-150); Magnesium 2.6 mg/dl (1.7-2.4); Total Iron Binding Cap Calc 344.0 mcg/dl (250-450); Transferrin 246.0 mg/dl (200-360); Transferrin (FE) Percent Satur 13.0 % (15-50)
[2025-01-15 03:02] LABS: Ferritin 152.5 ng/ml (8-388)
[2025-01-15 03:07] LABS: Folate (Folic Acid),Ser orPlas 17.52 ng/ml (>5.38)
[2025-01-15 03:09] LABS: Vitamin B12 1242.0 pg/ml (180-914)
--- NOTE | 2025-01-15 06:27 | Electrocardiogram Report ---
Test Reason : Blood Pressure : */* mmHG Vent. Rate : 65 BPM Atrial Rate : 65 BPM P-R Int : 162 ms QRS Dur : 80 ms QT Int : 424 ms P-R-T Axes : 23 34 36 degrees QTcB Int : 440 ms Normal sinus rhythm Low voltage QRS Borderline ECG When compared with ECG of 17-Sep-2024 13:34, Criteria for Septal infarct are no longer Present Confirmed by Umang Navas ([id number]) on 01/15/2025 6:26:58 AM Referred By: Confirmed By: Umang Navas
[2025-01-15] MEDS: HEPARIN SOD 5,000 UNIT/0.5 ML VIAL SQ SCH (08:52)
[2025-01-15] MEDS: METOPROLOL TARTRATE 50 MG TAB GT SCH (08:53)
[2025-01-15] MEDS ORDERED: ENOXAPARIN INJ 40 MG/0.4 ML SYR SQ SCH (09:00)
--- NOTE | 2025-01-15 09:14 | Hospitalist Progress Note ---
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 Initial evaluation reveals hyponatremia with a sodium of 123 and an AGNES. She will be admitted for sodium correction, IV fluids and nephrology consultation #Hyponatremia | Weakness | Diarrhea - suspect multifactorial with increased free water intake with frequent large volume (150-200ml) saline flushes 4-6 times per day, GI losses, and SSRI use Na 123 on admission. Urine Osm 399 with Urine Na <10 indicating dehydration - IV fluids per nephrology recs Renal US without signs of obstruction Consult Nephrology - rec plasmalyte x 1.5L then stop. Monitor I&O, daily BMP Diarrhea likely contributing to hyponatremia - Stool studies and cdiff negative. 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 However, now she wishes to stick with previous tube feeds and continues on Lomotil and Imodium to help with diarrhea All Meds through tube Reports she is supposed to have follow up CT scan [facility] for follow [place] [facility] [place] summary says p.o. and IV contrast - consider ordering with AGNES resolves or as an outpatient Continue doxycyline - was told to complete 6 weeks course for hx of MRSA bacteremia after recent surgery ASA 325mg BID Listed on her she discharge summary and current med list, suspect this was for DVT prophylaxis however given her history of gastric bypass surgery will not continue this. Switch to Lovenox for DVT prophylaxis - monitor for need of continued DVT proph at discharge #AGNES Cr 1.94 on admission with Baseline 0.6-0.7, with casts on UA IV fluids as above Trending BMP as above #Thrombocytosis Plts 584 on admission - improved from day prior at 681. Suspect acute phase reactant, no signs of infection on exam Platelets continue to improve AM CBC #Mental Health hold Duloxetine - patient has been crushing at home and reports prior healthcare facilities were also doing this. Discussed with pharmacy can easily clog tube and potentially be worsening her hyponatremia. The capsules can be broken and sprinkled over applesauce/carrier - could consider restarting PO, especially after CT scan is done #Chronic Back Pain | Chronic Shoulder pain Scheduled for OP steroid injection 01/15 - will have to be rescheduled Continue Flexeril, topical Voltaren, home dose oxycodone, pregabalin #Hematuria - Microscopic, noted on UA on admission, no jordy blood. Repeat UA without blood. #HTN continue nebivolol or formulary equivalent - dose was just reduced dispo: continued inpatient stay trending BMP, adjusting tube feeds DVT prophylaxis: Lovenox updated at bedside 01/14 Admission and Anticipated Discharge Date Admission Date: January 14, 2025 Supervising Physician Co-Signing Physician Notes PA Supervision Note: I did not personally see or examine the patient today, but I verified all rose points of JAMES Gilliam's assessment and plan with the following exceptions/additions: None Subjective Patient seen this afternoon - reports feeling much better. The weakness and tremors are greatly improved. Reports she reyna more hydrated. Did have 3 episodes of diarrhea last night and 3 episodes this morning. Reports at home she was only taking Imodium occasionally but the lomtil helps best. discussed her medication changes - she reports that she was told to take doxycycline for 6 weeks. She believes the Aspirin was for DVT proh. Tele - SR 70s Review of Systems Review of Systems: All systems reviewed & are unremarkable except as noted in Subjective Physical Exam Physical Exam: General: NAD, VS as above Resp: normal respiratory effort, lungs clear to auscultation CV: RRR, no murmur, Abd: normal bowel sounds, non tender, soft. GJ in place, no signs of infection around tube Extremities: Moves all extremities, no edema Neuro: A&O x3, no tremor Skin: intact, no lesions noted Results & Data Results & Data Vital Signs (Past 12 Hours) Vital Signs Temp Pulse Resp BP Pulse Ox O2 Del Method 01/15/25 07:35 98.2 F 77 16 110/71 97 Room Air 01/15/25 03:07 98.4 F 76 17 101/53 L 92 Room Air 01/14/25 23:33 97.9 F 73 17 110/58 L 97 Room Air Laboratory Results cbc and chemistry reviewed B12 ad folate reviewed tsh reviewed PG Care Time/CCT Total # of Minutes Spent Total Time Spent with Patient: Total time spent is greater than 50% in coordination of care (as documented) at patient's floor/unit and/or counseling patient: Coding Level of Care Code 28234 SUB INP/OBS CARE 3/50MIN Diagnoses Acute hyponatremia E87.1 Weakness R53.1 Jejunostomy tube present Z93.4 Acute kidney injury N17.9 Thrombocytosis D75.839"
--- NOTE | 2025-01-15 10:36 | Ultrasound Report ---
RENAL ULTRASOUND HISTORY: Acute kidney injury AGNES COMPARISON: CT abdomen and pelvis 12/07/2024 FINDINGS: Right kidney: 10.2 x 5.3 x 4.6 cm. No hydronephrosis. Normal corticomedullary differentiation and cor tical thickness. Left kidney: 10.2 x 5.7 x 4.3 cm. No hydronephrosis. Normal corticomedullary differentiation and angie ical thickness. Bladder: Mild wall thickening with partial distention. The bilateral ureteral jets were identified. IMPRESSION: Unremarkable renal ultrasound. ACT 112: Negative or not required by law. Electronically signed by: Jarred Pierre M.D. 01/15/2025 10:34 AM
--- NOTE | 2025-01-15 10:56 | Nephrology Consultation ---
Date of Consultation January 15, 2025 Assessment & Plan (1) Hyponatremia: * Clinically volume contracted w/ dry MM, poor skin turgor, relative hypotension, Parminder < 10. Hyponatremia and AGNES are both improving following IV hydration * Will change IVF to Plasmalyte 100 cc/hr x 1.5L, then stop * Continue enteral feeding via J-tube * Monitor volume status, UO, BMP (2) Acute kidney injury: * AGNES on the basis of dehydration. Urine sediment w/ hyaline casts c/w low flow state. Renal US negative for obstruction * IV hydration as outlined above. Monitor daily BMP, UO (3) HTN (hypertension): * BP acceptable. Continue metoprolol therapy (4) History of gastric bypass: History of Present Illness Reason for Consultation: AGNES, hyponatremia Attending Physician: Tabby Santos MD History of Present Illness Mrs. Beebe is a 74 year old female who is seen at the request of the [facility] hospitalist service for evaluation of AGNES, hyponatremia. Information for the HPI is obtained from direct patient interview and review of the EMR. HPI is summarized as follows: Mrs. Beebe has no prior h/o AGNES/CKD. She has not undergone nephrology evaluation in the past. Her baseline Cr has been 0.7. 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 12/17 she was admitted to [facility] for evaluation of abdominal discomfort. Imaging revealed pneumoperitoneum. She underwent exploratory laparotomy and was found to have a gastric fundus perforation. This was repaired and she underwent placement of a J-tube until she fully heals. All nutrition, hydration and medication will need to be via J-tube for at least 90 days. Mrs. Beebe had blood work completed for her PCP yesterday. She was found to have Na 123, Cr 1.94 and was referred to EMD for admission. In the EMD she received 1L 0.9 NS. Hospitalist service has since continued 0.9 NS at 70 cc/hr. Serum Na has improved to 126, Cr improved to 1.47. Parminder < 10, Uosm 349. Renal US was negative for hydronephrosis. Patient denies N/V/D, she take ASA daily. Allergies Allergy/AdvReac Type Severity Reaction Status Date / Time atorvastatin [From Lipitor] AdvReac Intermediate CPK Verified 01/13/25 14:39 elevation ibuprofen [From Motrin] AdvReac Intermediate dyspepsia Verified 01/13/25 14:39 nitrofurantoin AdvReac Intermediate GI upset Verified 01/13/25 14:39 [From Macrobid] Home Medications Medication Instructions Recorded Confirmed Type diclofenac sodium 1 % topical gel 2 g topical QID PRN JOINT PAIN 05/15/24 01/14/25 History (Voltaren Arthritis Pain) mupirocin 2 % topical ointment 1 applic topical BID PRN Skin 12/07/24 01/14/25 History Irritation Tube feeding flushes 0 mg feeding tube UD 01/07/25 01/14/25 History amoxicillin 500 mg tablet 2,000 mg feeding tube DIRECTED 01/07/25 01/14/25 History PRN 1 HR PRIOR TO DENTAL PROCEDURES aspirin 325 mg tablet 325 mg feeding tube BID 01/07/25 01/14/25 History cyclobenzaprine 10 mg tablet 10 mg feeding tube BID PRN muscle 01/07/25 01/14/25 History spasm doxycycline hyclate 100 mg tablet 100 mg feeding tube BID 01/07/25 01/14/25 History duloxetine 60 mg capsule,delayed 60 mg PO BID 01/07/25 01/14/25 History release lactose-reduced food with fiber 1 ea feeding tube UD 01/07/25 01/14/25 History 0.06 gram-1.5 kcal/mL oral liquid (Jevity 1.5 Ilir) pregabalin 150 mg capsule 150 mg feeding tube BID 01/07/25 01/14/25 History diphenoxylate-atropine 2.5 2 tab feeding tube BID PRN 01/13/25 01/14/25 Rx mg-0.025 mg tablet diarrhea #120 tabs nebivolol 10 mg tablet 10 mg PO DAILY #90 tabs 01/13/25 01/14/25 Rx oxycodone 5 mg tablet 15 mg (3 x 5 mg) feeding tube Q4H 01/13/25 01/14/25 Rx PRN pain #60 tabs Patient History Medical History Gastrostomy tube in place Hx of cholecystitis Dyslipidemia Gastric fistula Left foot pain History of depression Luke fracture complete stress fracture of the proximal fifth metatarsal of the right foot Hx of urinary tract infection none for approx. 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 Rosado Hx of Clostridium difficile infection Approximately 2020, no recent issues Osteoarthritis Fibromyalgia GERD (gastroesophageal reflux disease) Urge urinary incontinence TMJ click not bothering pt. Chronic back pain Cervical disc disease Surgical History History of incision and drainage (07/2023) thoracic spine - mrsa bacteremia History of surgery (06/2023) spinal cord stimulator and leads removed History of right knee joint replacement (04/22/23) Hx of bilateral cataract extraction History of ERCP History of carpal tunnel release right Hx laparoscopic cholecystectomy (2020) Laparoscopic Cholecystectomy Dr. Quintana (2020) Status post insertion of spinal cord stimulator [employer] (Removed 06/2023) History of tooth extraction History of tonsillectomy History of bariatric surgery (1999) reveresed during an ercp- unable to close History of right hip replacement History of elbow surgery Left History of arthroscopy of left shoulder History of repair of right rotator cuff History of arthroscopy of both knees History of lumbar fusion x5 History of fusion of cervical spine C6-7; "ROM WNL" History of esophagogastroduodenoscopy (EGD) History of colonoscopy (07/2021) Family History Mother CHF (congestive heart failure) Arthritis Pure hypercholesterolemia Ischemic heart disease Hypertension Myocardial infarction Father Acute myocardial infarction Myocardial infarction Mother Family history of diabetes mellitus Other No significant family history Denies family history of Ovarian cancer Prostate cancer Breast cancer Colorectal cancer Social History Smoking Status: Never smoker Second Hand Exposure: No; Do You Dip or Chew Tobacco: No; Hx Alcohol Use: Yes Alcohol type: beer and wine Hx Substance Use: No Preferred Language: Hungarian Communication Ability: Effective [employer] Athlete Required: No Beliefs That Will Affect Care: None marital status: Current Living Situation: Spouse 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 Feels Safe at Home: Yes Safety Concerns: Feels Safe At This Time Childhood Exposure to Second-Hand Smoke: Yes Dental Care, Regularly: Yes Physical Activity Frequency: 1-2 Times per Week Seatbelt Use: always Sunscreen Use: Yes Assistive Devices: Cane and Other Assistive Devices Comment: rollator Review of Systems Constitutional: no fever Eyes: no problem reported Ear, Nose, Mouth, Throat: no problem reported Respiratory: no cough and no dyspnea Cardiovascular: no chest pain Gastrointestinal: no nausea, no vomiting and no diarrhea/loose stools Genitourinary: no dysuria Integumentary: no rash and no skin swelling Physical Exam Constitutional: not in distress Eyes: PERRL, conjunctivae normal, anicteric sclerae ENMT: external ear and nose normal, oropharynx normal Neck: trachea midline, no thyromegaly Respiratory: normal respiratory effort, lungs clear to auscultation Cardiovascular: RRR, no murmur, no edema Gastrointestinal (Abdomen): normal bowel sounds, soft, nontender, no hepatosplenomegaly J-tube in place Skin: no rashes, warm and dry Neurologic: no focal motor deficits Results & Data Vital Signs (Past 12 Hours) Vital Signs Temp Pulse Resp BP Pulse Ox O2 Del Method 01/15/25 10:48 36.9 C 61 16 102/65 96 Room Air 01/15/25 07:35 36.8 C 77 16 110/71 97 Room Air 01/15/25 03:07 36.9 C 76 17 101/53 L 92 Room Air 01/14/25 23:33 36.6 C 73 17 110/58 L 97 Room Air Laboratory Results Laboratory Results WBC 7.54 K/ul (4.8-10.8) 01/15/25 02:08 RBC 3.46 M/uL (4.20-5.40) L 01/15/25 02:08 Hgb 10.8 g/dl (12.0-16.0) L 01/15/25 02:08 Hct 30.7 % (37.0-47.0) L 01/15/25 02:08 MCV 88.7 fL (80.0-100.0) 01/15/25 02:08 MCH 31.2 pg (25.0-34.0) 01/15/25 02:08 MCHC 35.2 g/dL (32.0-36.0) 01/15/25 02:08 RDW Std Deviation 45.1 fL (36.4-46.3) 01/15/25 02:08 RDW Coeff of Renetta 14.1 % (11.5-14.5) 01/15/25 02:08 Plt Count 505 K/uL (130-400) H 01/15/25 02:08 MPV 8.9 fL (9.4-12.4) L 01/15/25 02:08 Immature Gran % (Auto) 0.9 % 01/14/25 14:33 Neut % (Auto) 70.9 % 01/14/25 14:33 Lymph % (Auto) 14.1 % 01/14/25 14:33 [place] % (Auto) 13.3 % 01/14/25 14:33 Eos % (Auto) 0.2 % 01/14/25 14:33 Baso % (Auto) 0.6 % 01/14/25 14:33 Neut # (Auto) 7.52 K/uL (1.40-6.50) H 01/14/25 14:33 Lymph # (Auto) 1.50 K/uL (1.20-3.40) 01/14/25 14:33 [place] # (Auto) 1.41 K/uL (0.11-0.59) H 01/14/25 14:33 Eos # (Auto) 0.02 K/uL (0.00-0.50) 01/14/25 14:33 Baso # (Auto) 0.06 K/uL (0.00-0.20) 01/14/25 14:33 Immature Gran # (Auto) 0.10 K/uL (0.01-0.20) 01/14/25 14:33 PT 9.6 Seconds (9.0-12.0) 01/14/25 14:33 INR 0.9 (0.9-1.1) 01/14/25 14:33 APTT 32 Seconds (21-31) H 01/14/25 14:33 PTT Ratio 1.2 01/14/25 14:33 VBG pH 7.45 (7.36-7.41) H 01/14/25 20:02 VBG pCO2 58 mmHg (38-50) H 01/14/25 20:02 VBG pO2 < 20 mmHg 01/14/25 20:02 VBG HCO3 40 mmol/L 01/14/25 20:02 VBG O2 Saturation < 60.0 % 01/14/25 20:02 VBG Base Excess 13.6 mEq/L 01/14/25 20:02 Sodium 126 mmol/L (136-145) L 01/15/25 02:08 Potassium 3.8 mmol/L (3.5-5.1) 01/15/25 02:08 Chloride 82 mmol/L (98-107) L 01/15/25 02:08 Carbon Dioxide 36 mmol/L (21-32) H 01/15/25 02:08 Anion Gap 8 (3-11) 01/15/25 02:08 BUN 68 mg/dl (6-23) H 01/15/25 02:08 Creatinine 1.47 mg/dl (0.6-1.2) H 01/15/25 02:08 Est Cr Clr Drug Dosing 31.9 ml/min 01/15/25 02:08 eGFR 37.47 01/15/25 02:08 BUN/Creatinine Ratio 46.3 (10-20) H 01/15/25 02:08 Glucose 122 mg/dl (70-99(Fasting)) H 01/15/25 02:08 Calcium 8.7 mg/dl (8.6-10.3) 01/15/25 02:08 Phosphorus 3.9 mg/dl (2.5-4.9) D 01/15/25 02:08 Magnesium 2.6 mg/dl (1.7-2.4) H 01/15/25 02:08 Iron 43 mcg/dl (35-150) 01/15/25 02:08 TIBC 344 mcg/dl (250-450) 01/15/25 02:08 Transferrin 246 mg/dl (200-360) 01/15/25 02:08 Transferrin % Sat 13 % (15-50) L 01/15/25 02:08 Ferritin 152.5 ng/ml (8-388) 01/15/25 02:08 Total Bilirubin 0.3 mg/dl (0.2-1.0) 01/14/25 14:33 AST 24 U/L (13-39) 01/14/25 14:33 ALT 18 U/L (7-52) 01/14/25 14:33 Alkaline Phosphatase 139 U/L (34-104) H 01/14/25 14:33 Troponin I High Sens 9.6 pg/ml (0-14) 01/14/25 14:33 Total Protein 7.6 gm/dl (6.0-8.3) 01/14/25 14:33 Albumin 3.5 gm/dl (3.4-5.0) 01/14/25 14:33 Globulin 4.1 gm/dl (2.5-4.0) H 01/14/25 14:33 Albumin/Globulin Ratio 0.9 (0.9-2) 01/14/25 14:33 Vitamin B12 1242 pg/ml (180-914) H 01/15/25 02:08 Folate 17.52 ng/ml (>5.38) 01/15/25 02:08 Urine Color Yellow 01/14/25 Unknown Urine Appearance Clear (Clear) 01/14/25 Unknown Urine pH 6.0 (4.5-7.5) 01/14/25 Unknown Ur Specific [place] 1.013 (1.000-1.030) 01/14/25 Unknown Urine Protein Negative (Negative) 01/14/25 Unknown Urine Glucose (UA) Negative (Negative) 01/14/25 Unknown Urine Ketones Negative (Negative) 01/14/25 Unknown Urine Blood 1+ (Negative) H 01/14/25 Unknown Urine Nitrite Negative (Negative) 01/14/25 Unknown Urine Bilirubin Negative (Negative) 01/14/25 Unknown Urine Urobilinogen Negative (Negative) 01/14/25 Unknown Ur Leukocyte Esterase 1+ (Negative) H 01/14/25 Unknown Urine WBC (Auto) 6-10 /hpf (0-5) H 01/14/25 Unknown Urine RBC (Auto) >20 /hpf (0-2) H 01/14/25 Unknown U Hyaline Cast (Auto) 3-5 /lpf (0-2) H 01/14/25 Unknown U Epithel Cells (Auto) 0-2 /hpf (0-2) 01/14/25 Unknown Urine Bacteria (Auto) 2+ (None Seen) H 01/14/25 Unknown Hyaline Casts Present /lpf (None Presnt) A 01/14/25 Unknown Urine Yeast Present (None Prsent) A 01/14/25 Unknown Urine Osmolality 349 mOsm/kg (500-800) L 01/14/25 Unknown Ur Random Sodium < 10 mmol/L 01/14/25 Unknown Urine Comment 01/14/25 Unknown Stl C. cayetanensis PCR Not Detected (NotDetected) 01/14/25 21:45 Stool Rotavirus A PCR Not Detected (NotDetected) 01/14/25 21:45 Stl Adenov F PCR Not Detected (NotDetected) 01/14/25 21:45 Stool Astrovirus (PCR) Not Detected (NotDetected) 01/14/25 21:45 Stool Campylobacter PCR Not Detected (NotDetected) 01/14/25 21:45 Stl C. diff Tox B Gene Negative Cdiff Gene (Neg) 01/14/25 21:45 Stl C. diff [id number] NEGATIVE 01/14/25 21:45 Stool Cryptosporidium PCR Not Detected (NotDetected) 01/14/25 21:45 Stl E.coli Shiga Tox PCR Not Detected (NotDetected) 01/14/25 21:45 Stl Enterotoxigenic E PCR Not Detected (NotDetected) 01/14/25 21:45 Stool EPEC (PCR) Not Detected (NotDetected) 01/14/25 21:45 Stool EAEC (PCR) Not Detected (NotDetected) 01/14/25 21:45 Stl E. histolytica PCR Not Detected (NotDetected) 01/14/25 21:45 Stool Giardia Lamblia PCR Not Detected (NotDetected) 01/14/25 21:45 Stool Salmonella PCR Not Detected (NotDetected) 01/14/25 21:45 Stool Sapovirus (PCR) Not Detected (NotDetected) 01/14/25 21:45 Stl P. shigelloides PCR Not Detected (NotDetected) 01/14/25 21:45 Stl Shigella/EIEC PCR Not Detected (NotDetected) 01/14/25 21:45 St Y.enterocolitica PCR Not Detected (NotDetected) 01/14/25 21:45 Stool Vibrio (PCR) Not Detected (NotDetected) 01/14/25 21:45 Stl Vibrio cholerae PCR Not Detected (NotDetected) 01/14/25 21:45 Stl Norovirus GI/GII PCR Not Detected (NotDetected) 01/14/25 21:45 Impressions Chest X-Ray 01/14/25 13:46 XR chest 1V not portable CLINICAL HISTORY: Chest pain, nonspecific COMPARISON STUDY: 08/15/2023 FINDINGS: The cardiac and mediastinal contours remain stable. There is no failure. There is no focal pulmonary consolidation. There are no pleural effus ions. The previously identified left-sided PICC catheter has been removed. There are postsurgical changes present within the lumbar spine and right shoulder and neck. There is a double pigtail catheter projected over the left upper quadrant. Multiple clips are also present within the left upper quadrant projected over the stomach. IMPRESSION: No active disease in the chest. ACT 112: Negative or not required by law. Electronically signed by: Gildardo Krueger M.D. 01/14/2025 3:20 PM Renal Ultrasound 01/15/25 00:00 RENAL ULTRASOUND HISTORY: Acute kidney injury AGNES COMPARISON: CT abdomen and pelvis 12/07/2024 FINDINGS: Right kidney: 10.2 x 5.3 x 4.6 cm. No hydronephrosis. Normal corticomedullary differentiation and cortical thickness. Left kidney: 10.2 x 5.7 x 4.3 cm. No hydronephrosis. Normal corticomedullary differentiation and cortical thickness. Bladder: Mild wall thickening with partial distention. The bilateral ureteral jets were identified. IMPRESSION: Unremarkable renal ultrasound. ACT 112: Negative or not required by law. Electronically signed by: Jarred Pierre M.D. 01/15/2025 10:34 AM PG Care Time/CCT Total # of Minutes Spent Total Time Spent with Patient: 80 min provided reviewing EMD and progress notes, laboratory results, renal US report, view CXR, interview and examine patient, order IVF and follow up laboratory testing, update medical record Coding Level of Care Code 31631 IN/OBS CONSULT LVL 5,80M Diagnoses Hyponatremia E87.1 Acute kidney injury N17.9 Primary hypertension I10 Hypertension type: primary hypertension History of gastric bypass Z98.84 (3) HTN (hypertension) Hypertension type: primary hypertension Qualified Code(s): I10 - Essential (primary) hypertension
[2025-01-15] MEDS: PLASMA-LYTE A 1,000 ML IV SCH (11:43)
[2025-01-15] MEDS: DIPHENOXYLATE/ATROPINE 2.5/0.025MG TAB PEG PRN (11:56)
[2025-01-15] MEDS ORDERED: LOPERAMIDE LIQUID 120 ML BOTTLE PO PRN (13:10)
[2025-01-15 13:30] LABS: Anion Gap 6.0 (3-11); Blood Urea Nitrogen 51.0 mg/dl (6-23); Calcium 8.7 mg/dl (8.6-10.3); Carbon Dioxide 37.0 mmol/L (21-32); Chloride 88.0 mmol/L (98-107); Creatinine Clr Calc Pharmacy 42.0 ml/min; Glucose 101.0 mg/dl (70-99(Fasting)); Potassium 3.8 mmol/L (3.5-5.1); Sodium 131.0 mmol/L (136-145)
[2025-01-15 14:46] LABS: Appearance Urine Clear (Clear); Bacteria Urine Automated None Seen (None Seen); Cast Urine Automated 0-2 /lpf (0-2); Epithelial Cell Urine Auto 0-2 /hpf (0-2); Glucose Urine UA Negative (Negative); RBC Urine Automated 0-2 /hpf (0-2)
[2025-01-15] MEDS: PEPTAMEN 1.5 CAL 1,000 ML BAG JT SCH (15:57)
[2025-01-15 18:32] LABS: Anion Gap 9.0 (3-11); Blood Urea Nitrogen 42.0 mg/dl (6-23); Calcium 8.7 mg/dl (8.6-10.3); Carbon Dioxide 35.0 mmol/L (21-32); Chloride 88.0 mmol/L (98-107); Creatinine Clr Calc Pharmacy 46.6 ml/min; Glucose 125.0 mg/dl (70-99(Fasting)); Potassium 3.1 mmol/L (3.5-5.1); Sodium 132.0 mmol/L (136-145)
[2025-01-15] MEDS ORDERED: POTASSIUM CHLORIDE 20 MEQ/15 ML UDC GT ONE (19:00)
[2025-01-15] MEDS ORDERED: Nursing to Pharmacy Communication SCH (19:00)
[2025-01-15] MEDS: POTASSIUM CHLORIDE 20 MEQ/15 ML UDC GT STA (21:01)
[2025-01-15] MEDS: DOXYCYCLINE HYCLATE 100 MG CAP PO SCH (21:02)
[2025-01-16] MEDS: DIPHENOXYLATE/ATROPINE 2.5/0.025MG TAB PEG PRN (02:51)
[2025-01-16 07:21] LABS: Hematocrit (blood only) 32.7 % (37.0-47.0); Hemoglobin 10.9 g/dl (12.0-16.0); Mean Corpuscular Hemoglobin 30.7 pg (25.0-34.0); Mean Corpuscular Volume 92.1 fL (80.0-100.0); Platelet Count 463 K/uL (130-400); RDW Standard Deviation 48.6 fL (36.4-46.3); Red Blood Count 3.55 M/uL (4.20-5.40); White Blood Count 6.96 K/ul (4.8-10.8)
[2025-01-16 07:49] LABS: Anion Gap 5.0 (3-11); Blood Urea Nitrogen 29.0 mg/dl (6-23); Calcium 8.8 mg/dl (8.6-10.3); Carbon Dioxide 37.0 mmol/L (21-32); Chloride 94.0 mmol/L (98-107); Creatinine Clr Calc Pharmacy 49.7 ml/min; Glucose 100.0 mg/dl (70-99(Fasting)); Magnesium 2.4 mg/dl (1.7-2.4); Potassium 3.6 mmol/L (3.5-5.1); Sodium 136.0 mmol/L (136-145)
[2025-01-16 09:13] VITALS: RESP 18; O2SAT 100
--- NOTE | 2025-01-16 09:57 | Discharge Summary ---
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 Initial evaluation reveals hyponatremia with a sodium of 123 and an AGNES. She will be admitted for sodium correction, IV fluids and nephrology consultation #Hyponatremia | Weakness | Diarrhea Multifactorial with increased free water intake with frequent large volume (150- 200ml) saline flushes 4-6 times per day, GI losses, and SSRI use Na 123 on admission. Urine Osm 399 with Urine Na <10 indicating dehydration - IV fluids per nephrology recs Renal US without signs of obstruction Consult Nephrology - rec plasmalyte x 1.5L then stop. 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 However, now she wishes to stick with previous tube feeds and continues on Lomotil and Imodium to help with diarrhea All Meds through tube Reports she is supposed to have follow up CT scan jacqueline for follow up [place] [facility] [place] says p.o. 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 Suspect acute phase reactant, no signs of infection on exam Platelets continue to improve AM CBC #Mental Health hold Duloxetine - patient has been crushing at home and reports prior healthcare facilities were also doing this. Discussed with pharmacy can easily clog tube and potentially be worsening her hyponatremia. The capsules can be broken and sprinkled over applesauce/carrier - could consider restarting PO, especially after CT scan is done #Chronic Back Pain | Chronic Shoulder pain Scheduled for OP steroid injection 01/15 - will have to be rescheduled Continue Flexeril, topical Voltaren, home dose oxycodone, pregabalin #Hematuria - Microscopic, noted on UA on admission, no jordy blood. Repeat UA without blood. #HTN continue nebivolol or formulary equivalent - dose was just reduced Day of discharge 01/16: VSS Mrs. Beebe reports she slept very well last night. She is in good spirits de spite the [employer] losing the first game of the [place] last night; patient is a fan. Overall, patient feels fairly asymptomatic at this time and is ready to go home today. She reports her diarrhea has been improving after starting Imodium and Lomotil while in the hospital. She denies any blood in her urine or stool. In regard to her tube feedings, she reports that she is normally on an 8-hour drip at home from 10 AM to 6 PM during the day, and then again from 10 PM to 6 AM overnight. Prior to hospitalization, she was using NSS flushes 150 mL x 4 times per day, which may have been contributing to her hyponatremia. She is happy that her labs have largely corrected. Patient lives with her , and reports that he would be available to transport her home today. ROS: Patient endorses chronic back/shoulder pain (which she attributes to arthritis), and diarrhea (improving) Patient denies fevers overnight, chest pain, SOB, stomach pain, N/V, blood in the urine or stool, or change in urinary habits. Dispo: Discharge home Notes For Next Care Provider Patient hospitalized for hyponatremia and AGNES. Resolved quickly with IV fluids. Suspect large component of dehydration and ongoing diarrhea. Stool studies negative while in the hospital. Will plan to continue patient's Imodium and Lomotil on discharge. Recommend BMP prior to transitional care follow-up. 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 She also has noted hand tremor and her knees buckling. She was discharged from [facility] approximately 9 days ago when she states that she felt much stronger at that time. she uses a cane or a walker but has been having to rely on her walker more frequently. She saw her surgeon from [facility] on Saturday, he was hoping to have the results of her CT at that time to be able to further change the plan, but she states she was told that she should keep the tube feeds going and can continue clear liquids by mouth and can start clamping her G-tube for 6 hours a day. Patient states that after she saw her labs yesterday she tried to increase her oral hydration. She has been having diarrhea since the initial surgery at [facility] and initiation of tube feeds. She was started on Lomotil and Imodium at [facility] and feels that this has improved slightly she is still having loose stools that she reports as mustard consistency about 3 times a day. She denies having any sort of stool studies during her recent hospitalization or [facility] today. When discussing her tube feeds she has been on the same tube feeds for the last month. She uses 150 cc to 200 cc flushes every time she does meds this ends up being 4-6 times a day. She states that she had needs to use this large volume because some of the medications are very difficult to be crushed. She reports that she is on a 2-week course of doxycycline for history of MRSA bacteremia She wishes to be a full code Admission Exam Per Admitting Provider General: NAD, VS as above Resp: normal respiratory effort, lungs clear to auscultation CV: RRR, no murmur, Abd: normal bowel sounds, non tender, soft. GJ in place, no signs of infection around tube Extremities: Moves all extremities, no edema Neuro: A&O x3, Skin: intact, no lesions noted Discharge Exam General: no acute distress; lying in bed; pleasant affect; nurse at bedside; non-toxic appearing; cooperative; SpO2 100% on RA HEENT: normocephalic, atraumatic; PERRLA; vision and hearing intact Neck: supple; trachea midline Skin: warm, dry without signs of tenting; no cyanosis; no rashes, bruising, lesions, or erythema noted CV: chest wall NTP; RRR; S1/S2 normal; no murmurs/rubs/gallops; pulses intact and symmetric at radial, DP, and PT Lungs: no acute respiratory distress; symmetrical chest wall expansion; clear breath sounds across all lung roman w/o adventitious sounds; no wheezing ABD: Soft, NTP; GJ tube in place with no acute signs of erythema, drainage, or infection; BS present; no rebound/guarding; no distention MSK: no tics or fasciculations; no edema noted in the LEs b/l, nonerythematous Neuro: A&Ox3; normal mood and affect; fluent speech; sensation intact and symmetric in the LEs b/l Discharge Plan Discharge Items Patient Disposition: Home - Self-Care Reason For Visit: HYPONATREMIA Discharge Diagnosis: Hyponatremia, acute kidney injury Condition on Discharge: Fair Activity: Resume your previous activity Non-emergency contact: Primary Care Provider Call non-emergency contact if: you have any medication questions, your symptoms worsen, your pain is not controlled and you have a fever Follow-up/Referrals: Noah Darby MD [Primary Care Provider] - 01/25/25 1:30 pm (Hospital follow is scheduled for January 25, 2025 at 1:30pm. ) Diet: Clear liquid Addtl Attending Provider Instructions: You are hospitalized at [facility] from 01/14 for 01/16 for low sodium levels ("hyponatremia") in the setting of dehydration. Your sodium level was reduced at 123 on arrival (normal reference range 136-145). Your blood work also showed that you had an acute kidney injury on arrival, which is likely due to dehydration and not perfusing her kidneys correctly. Over the course of the hospital stay, your numbers gradually improved with IV fluid resuscitation. Your kidney injury fully resolved, and your sodium level is currently 136 at time of discharge. It is felt that your GJ tube flushes could have been contributing to your hyponatremia, and so we recommend you switch to 100 mL free water flushes 3 times daily upon discharge. We also felt that your diarrhea and GI losses are likely contributing to dehydration; please continue to take Lomotil as needed upon discharge. New prescription sent to your pharmacy on discharge: Imodium 2 mg to be taken as needed after loose stool (max 16 mg/day) Per request, a refill for your current Lomotil prescription was also sent to your pharmacy. Please plan to follow-up with your PCP in the next 7 to 10 days for a transitional care appointment. Prior to this appointment, we recommend that you have blood work drawn to assess your kidney function as well as your sodium levels If you develop any new or worsening symptoms, such as generally fatigue, dehydration, worsening diarrhea, chest pain, or trouble breathing, please return to the emergency department immediately. It was a pleasure take care of you. Please reach out with any questions or concerns. Sincerely, The Hospital medicine team at [facility] Pending Studies at Discharge: No Stand-Alone Forms: My [facility] Medications and DC Order Prescriptions: New loperamide [Imodium A-D] 1 mg/7.5 mL Liquid 2 mg PO PRN PRN (Reason: loose stool) Qty: 120 0RF Rx Instructions: 2 mg as needed after each loose stool (maximum 16 mg/day) Tube Feeding Water Flush 100 ml G-tube TID Qty: 100 0RF Rx Instructions: 100 mL free water flushes 3 times daily diphenoxylate-atropine [Lomotil] 2.5-0.025 mg tablet 2 tab feeding tube BID PRN (Reason: diarrhea) Qty: 60 0RF Rx Instructions: Take 2 tablets via feeding tube twice daily as needed for diarrhea Continued cyclobenzaprine 10 mg tablet 10 mg feeding tube BID PRN (Reason: muscle spasm) duloxetine 60 mg capsule,delayed release(DR/EC) 60 mg PO BID Rx Instructions: 1 cap BID via PEG/Gtube twice a day; Per pt she is taking this via PEG/G- tube. Please note pregabalin 150 mg capsule 150 mg feeding tube BID amoxicillin 500 mg tablet 2,000 mg feeding tube DIRECTED PRN (Reason: 1 HR PRIOR TO DENTAL PROCEDURES) doxycycline hyclate 100 mg tablet 100 mg feeding tube BID Patient Comments: confirmed w/ pt and on [facility] med list 01/07/25 Rx Instructions: x14 days, via PEG/Gtube Jevity 1.5 Ilir 0.06 gram-1.5 kcal/mL liquid 1 ea feeding tube UD Rx Instructions: 90 ml for 16 hrs continuous via feeding tube; diclofenac sodium [Voltaren Arthritis Pain] 1 % gel 2 g topical QID PRN (Reason: JOINT PAIN) aspirin 325 mg tablet 325 mg feeding tube BID Patient Comments: confirmed w/ pt and on [facility] med list 01/07/25 nebivolol 10 mg tablet 10 mg PO DAILY Qty: 90 3RF oxycodone 5 mg tablet 15 mg feeding tube Q4H PRN (Reason: pain) Qty: 60 0RF Rx Instructions: via PEG/Gtube mupirocin 2 % ointment 1 applic topical BID PRN (Reason: Skin Irritation) Discontinued Tube feeding flushes 0 mg feeding tube UD Rx Instructions: Per pt-she flushes before and after her medications and also her tube feeds. diphenoxylate-atropine 2.5-0.025 mg tablet 2 tab feeding tube BID PRN (Reason: diarrhea) Qty: 120 0RF Rx Instructions: via PEG/Gtube Discharge Orders: Discharge Order (Routine); Ordered 01/16/25 Ordered By: Sunil Cochran Admission Data Admit Date/Time: 01/14/25 17:19 Attending Provider: Saúl Pace Admit Provider: Tabby Santos Primary Care Provider: Noah Darby Other Providers: Saúl Pace; Tabby Santos; Sabino Wolf Other Interventions: Discharge Summary Assessment (RN) Last Done: 01/16/25 14:45 Hospital Stay Data Consultations 01/14/25 15:20 ED Decision to Admit Stat 01/14/25 15:30 ED Decision to Admit Stat 01/14/25 19:28 Consult Nephrology Routine Diagnostic Imagining Performed 01/15/25 US renal/blad retro comp Urgent Discharge Instructions Given to Patient (Per Discharging Provider) You are hospitalized at [facility] from 01/14 for 01/16 for low sodium levels ("hyponatremia") in the setting of dehydration. Your sodium level was reduced at 123 on arrival (normal reference range 136-145). Your blood work also showed that you had an acute kidney injury on arrival, which is likely due to dehydration and not perfusing her kidneys correctly. Over the course of the hospital stay, your numbers gradually improved with IV fluid resuscitation. Your kidney injury fully resolved, and your sodium level is currently 136 at time of discharge. It is felt that your GJ tube flushes could have been contributing to your hyponatremia, and so we recommend you switch to 100 mL free water flushes 3 times daily upon discharge. We also felt that your diarrhea and GI losses are likely contributing to dehydration; please continue to take Lomotil as needed upon discharge. New prescription sent to your pharmacy on discharge: Imodium 2 mg to be taken as needed after loose stool (max 16 mg/day) Per request, a refill for your current Lomotil prescription was also sent to your pharmacy. Please plan to follow-up with your PCP in the next 7 to 10 days for a transition al care appointment. Prior to this appointment, we recommend that you have blood work drawn to assess your kidney function as well as your sodium levels If you develop any new or worsening symptoms, such as generally fatigue, dehydration, worsening diarrhea, chest pain, or trouble breathing, please return to the emergency department immediately. It was a pleasure take care of you. Please reach out with any questions or concerns. Sincerely, The Hospital medicine team at [facility] Total Time Total Time Spent Total Time Spent (In Minutes): 45 [place] [address] INP/OBS DISCH >30 MIN Patient Type Established History Comprehensive Exam Comprehensive Medical Decision Making Moderate Complexity Diagnoses Acute hyponatremia E87.1 Weakness R53.1 Jejunostomy tube present Z93.4 Acute kidney injury N17.9 Thrombocytosis D75.839
[2025-01-16 11:23] VITALS: BP 111/68; TEMP 98.1
--- NOTE | 2025-01-16 13:20 | Nephrology Progress Note ---
Date of Service January 16, 2025 Assessment & Plan (1) Hyponatremia: Plan: Improved with IV hydration. Hypovolemic hyponatremia resolved. IVF stopped. No additional nephrology recommendations at this time. I will sign-off. Please call with questions or concerns. Continue enteral feeding via J-tube. Check BMP within 1 week of discharge. (2) Acute kidney injury: Plan: AGNES on the basis of dehydration. Urine sediment w/ hyaline casts c/w low flow state. Renal US negative for obstruction Kidney function improved. BP and volume status acceptable. Medications are appropriate for kidney function. Follow up with nephrology in the future as needed. No additional recommendations at this time. (3) HTN (hypertension): Plan: BP acceptable. Continue metoprolol therapy. (4) History of gastric bypass: Admission and Anticipated Discharge Date Admission Date: January 14, 2025 Subjective No acute events overnight. Gabrielle feels well. She anticipates discharge home this afternoon. She denies significant fluid retention or edema. Tolerating clear liquid diet. Review of Systems Review of Systems: All systems reviewed & are unremarkable except as noted in HPI & below Physical Exam Constitutional: not in distress Eyes: PERRL, conjunctivae normal, anicteric sclerae ENMT: external ear and nose normal, oropharynx normal Neck: trachea midline, no thyromegaly Respiratory: normal respiratory effort, lungs clear to auscultation Cardiovascular: RRR, no murmur, no edema Gastrointestinal (Abdomen): normal bowel sounds, soft, nontender, no hepatosplenomegaly J-tube in place Skin: no rashes, warm and dry Neurologic: no focal motor deficits Results & Data Vital Signs (Past 12 Hours) Vital Signs Temp Pulse Pulse Pulse Resp BP Pulse Ox 01/16/25 11:12 36.7 C 69 111/68 100 01/16/25 08:00 37.3 C 82 18 136/76 100 01/16/25 07:39 74 01/16/25 02:54 36.8 C 75 14 112/70 97 O2 Del Method 01/16/25 11:12 Room Air 01/16/25 08:00 Room Air 01/16/25 07:39 01/16/25 02:54 Room Air Laboratory Results Laboratory Results - last 24 hr 01/15/25 01/15/25 01/15/25 12:48 17:44 Unknown WBC RBC Hgb Hct MCV MCH MCHC RDW Std Deviation RDW Coeff of Renetta Plt Count MPV Sodium 131 L 132 L Potassium 3.8 3.1 L Chloride 88 L 88 L Carbon Dioxide 37 H 35 H Anion Gap 6 9 BUN 51 H 42 H Creatinine 1.12 D 1.01 Est Cr Clr Drug Dosing 42.0 46.6 eGFR 51.92 58.78 BUN/Creatinine Ratio 45.5 H 41.6 H Glucose 101 H 125 H Calcium 8.7 8.7 Magnesium Urine Color Yellow Urine Appearance Clear Urine pH 7.0 Ur Specific Wheatley 1.008 Urine Protein Negative Urine Glucose (UA) Negative Urine Ketones Negative Urine Blood Negative Urine Nitrite Negative Urine Bilirubin Negative Urine Urobilinogen Negative Ur Leukocyte Esterase 2+ H Urine WBC (Auto) 6-10 H Urine RBC (Auto) 0-2 U Hyaline Cast (Auto) 0-2 U Epithel Cells (Auto) 0-2 Urine Bacteria (Auto) None Seen 01/16/25 06:48 WBC 6.96 RBC 3.55 L Hgb 10.9 L Hct 32.7 L MCV 92.1 MCH 30.7 MCHC 33.3 RDW Std Deviation 48.6 H RDW Coeff of Renetta 14.5 Plt Count 463 H MPV 9.2 L Sodium 136 Potassium 3.6 Chloride 94 L Carbon Dioxide 37 H Anion Gap 5 BUN 29 H Creatinine 0.96 Est Cr Clr Drug Dosing 49.7 eGFR 62.47 BUN/Creatinine Ratio 30.2 H Glucose 100 H Calcium 8.8 Magnesium 2.4 Urine Color Urine Appearance Urine pH Ur Specific Wheatley Urine Protein Urine Glucose (UA) Urine Ketones Urine Blood Urine Nitrite Urine Bilirubin Urine Urobilinogen Ur Leukocyte Esterase Urine WBC (Auto) Urine RBC (Auto) U Hyaline Cast (Auto) U Epithel Cells (Auto) Urine Bacteria (Auto) PG Care Time/CCT Total # of Minutes Spent Total Time Spent with Patient: Total time spent is greater than 50% in coordination of care (as documented) at patient's floor/unit and/or counseling patient: Coding Level of Care Code 02611 SUB INP/OBS CARE 2/35MIN Diagnoses Hyponatremia E87.1 Acute kidney injury N17.9 Primary hypertension I10 Hypertension type: primary hypertension History of gastric bypass Z98.84 (3) HTN (hypertension) Hypertension type: primary hypertension Qualified Code(s): I10 - Essential (primary) hypertension
[2025-01-16 14:46] VITALS: PULSE 75
== END 2025-01-16 15:41 | disposition home health service (06) | DRG 641 ==
LOC: ED 13:32 → 2S 17:19 → SUATTDRO 17:19 → 2S 19:52